=== PATIENT | female | born 1955 | race Caucasian/White ===

== ENCOUNTER → 2017-07-18 | Outpatient (CLI) | payer BC ==
--- NOTE | 2017-07-18 11:19 | MR ---
EXAMINATION TYPE: MR lumbar spine wo con DATE OF EXAM: 07/18/2017 COMPARISON: NONE HISTORY: 62-year-old female with low back pain TECHNIQUE: Multiplanar, multisequence images of the lumbar spine were acquired. FINDINGS: Left kidney appears slightly malrotated. Vertebral body heights are preserved and alignment is maintained. Fatty matrix hemangioma within T12 vertebral body. Also, some Modic type II fatty endplate changes pr esent anteriorly at L1-L2 and L2-L3. Otherwise, no suspicious bone marrow placement. Variable mild disc desiccation and mild bulging discs are noted along with facet arthropathy mid to l ower lumbar spine. Conus medullaris is normal. At T12-L1, no canal or foraminal stenosis. At L1-L2, no canal or foraminal stenosis. At L2-L3, mild diffuse disc bulge without significant canal or foraminal stenosis. At L3-L4, mild bulging disc with mild ligamentum flavum thickening and additional facet arthropathy. There is mild impression onto the thecal sac but no significant spinal canal or neuroforaminal stenos is. At L4-L5, mild bulging disc and facet degenerative change. Mild impression onto the thecal sac withou t significant spinal canal or neuroforaminal stenosis. At L5-S1, minimal disc bulging and mild facet arthropathy. No significant canal or foraminal stenosis . No prevertebral or paravertebral soft tissue abnormality seen. IMPRESSION: 1. Mild multilevel degenerative disc disease. Additional facet arthropathy mid to lower lumbar spine. 2. No significant spinal canal or neuroforaminal stenosis.
== END | disposition home or self-care (01) ==
LOC: RADMRIMAIN 08:05
PROVIDERS: ATTEND Internal Medicine
DX: M51.36 Other intervertebral disc degeneration, lumbar region (principal); M46.86 Other specified inflammatory spondylopathies, lumbar region
CPT/HCPCS: 72148

== ENCOUNTER → 2018-09-03 | Outpatient (CLI) | payer OTHER ==
--- NOTE | 2018-09-04 11:11 | MM ---
Reason for exam: screening (asymptomatic). Last mammogram was performed 4 years and 1 month ago. History: Patient is postmenopausal. Physical Findings: A clinical breast exam by your physician is recommended on an annual basis and results should be correlated with mammographic findings. MG Screening Mammo w CAD Bilateral CC and MLO view(s) were taken. Prior study comparison: August 17, 2014, bilateral MG screening mammo w CAD. April 08, 2007, bilateral screening mammogram w/CAD. There are scattered fibroglandular densities. No significant changes when compared with prior studies. ASSESSMENT: Benign, BI-RAD 2 RECOMMENDATION: Routine screening mammogram of both breasts in 1 year.
== END | disposition home or self-care (01) ==
LOC: RADMAMWWP 15:08
PROVIDERS: ATTEND Internal Medicine
DX: Z12.31 Encounter for screening mammogram for malignant neoplasm of breast (principal)
CPT/HCPCS: 77067

== ENCOUNTER 2023-03-17 18:52 | Inpatient (IN) | payer MEDICARE, OTHER ==
[2023-03-17] MEDS ORDERED: IPRATROPIUM-ALBUTEROL 3 ML NEB INHALATION STA (19:20)
[2023-03-17] MEDS ORDERED: DEXAMETHASONE SOD PHOSPHATE 10 MG/ML 1 ML VIAL IV STA (19:20)
--- NOTE | 2023-03-17 19:29 | ED ---
General Adult HPI - General Source: patient, EMS Mode of arrival: EMS Limitations: no limitations <Hector Headley - Last Filed: 03/17/23 21:27> <Regina Arora - Last Filed: 03/18/23 10:05> - General Chief complaint: Shortness of Breath Stated complaint: Altered Mental Status Time Seen by Provider: 03/17/23 19:05 - History of Present Illness Initial comments: Dictation was produced using Stribe dictation software. please excuse any grammatical, word or spelling errors. Chief Complaint: 68-year-old female presents to the emergency by for dyspnea and presyncope History of Present Illness: 68-year-old female she has multiple comorbidities including depression, diabetes and hypertension. Patient continues to smoke cigarettes. States that for the last couple weeks she's been having shortness of breath. Today she became so short of breath that she was having difficulty standing up and ambulating. Patient denies having any episodes of syncope today. Patient is brought in by EMS. Family at the bedside states the patient is lethargic appearing. Patient has a cough. Denies any fever constitutional symptoms. The ROS documented in this emergency department record has been reviewed and confirmed by me. Those systems with pertinent positive or negative responses have been documented in the HPI. All other systems are other negative and/or noncontributory. (Hector Headley) - Related Data Home Medications Medication Instructions Recorded Confirmed Lisinopril-Hctz 20-25 mg 1 tab PO BID 03/09/14 03/17/23 [Zestoretic 20-25] Metoprolol Succinate (ER) [Toprol 25 mg PO DAILY 03/09/14 03/17/23 XL] amLODIPine [Norvasc] 10 mg PO DAILY 03/09/14 03/17/23 ARIPiprazole [Abilify] 10 mg PO DAILY 03/17/23 03/17/23 Atorvastatin [Lipitor] 40 mg PO HS 03/17/23 03/17/23 Dulaglutide [Trulicity] 1.5 mg SQ SA 03/17/23 03/17/23 EPINEPHrine [Primatene Mist] 1 puff INHALATION RT-QID PRN 03/17/23 03/17/23 HYDROcodone/APAP 10-325MG [[place] 1 tab PO Q8H PRN 03/17/23 03/17/23 10-325] Insulin Glargine,Hum.rec.anlog 108 units SQ DAILY 03/17/23 03/17/23 [Nelsonpolina Montero] Naloxone HCl [Narcan] 4 mg NASAL DIRECTED PRN 03/17/23 03/17/23 Nicotine 21Mg/24Hr Patch [Habitrol] 1 patch TRANSDERM HS 03/17/23 03/17/23 Oxybutynin ER [Ditropan XL] 10 mg PO DAILY 03/17/23 03/17/23 Pantoprazole [Protonix] 40 mg PO DAILY 03/17/23 03/17/23 Vilazodone HCl [Viibryd] 40 mg PO HS 03/17/23 03/17/23 metFORMIN HCL 1,000 mg PO BID 03/17/23 03/17/23 Previous Rx's Medication Instructions Recorded Clopidogrel [Plavix] 75 mg PO DAILY #30 tab 05/22/14 Allergies Allergy/AdvReac Type Severity Reaction Status Date / Time IV DYE Allergy Rash/Hives Uncoded 03/17/23 22:03 Review of Systems ROS Other: All systems not noted in ROS Statement are negative. <Hector Headley - Last Filed: 03/17/23 21:27> ROS Other: All systems not noted in ROS Statement are negative. <Regina Arora - Last Filed: 03/18/23 10:05> ROS Statement: Those systems with pertinent positive or pertinent negative responses have been documented in the HPI. Past Medical History Past Medical History: COPD, Diabetes Mellitus, GERD/Reflux, Hyperlipidemia, Hypertension Additional Past Medical History / Comment(s): CHRONIC BACK PAIN, Type 2 History of Any Multi-Drug Resistant Organisms: None Reported Past Surgical History: Heart Catheterization With Stent, Tubal Ligation Additional Past Surgical History / Comment(s): angioplasty with 1 stent 03/10/14 and heart cath with stent 03/24/14 Past Anesthesia/Blood Transfusion Reactions: Previous Problems w/ Anesthesia Additional Past Anesthesia/Blood Transfusion Reaction / Comment(s): HYPERTENSIVE REACTION (ALMOST HAD A STROKE) Date of Last Stent Placement:: 2013 Past Psychological History: Depression Smoking Status: Current every day smoker Past Alcohol Use History: None Reported Past Drug Use History: None Reported - Past Family History Sister(s) Family Medical History: Neurologic Disorder Additional Family Medical History / Comment(s): OF ANEURYSM Mother Family Medical History: Cancer Additional Family Medical History / Comment(s): COLON <Hector Headley - Last Filed: 03/17/23 21:27> General Exam Limitations: no limitations <Hector Headley - Last Filed: 03/17/23 21:27> - General Exam Comments Initial Comments: PHYSICAL EXAM: General Impression: Alert and oriented x3, malaised HEENT: Normocephalic atraumatic, extra-ocular movements intact, pupils equal and reactive to light bilaterally, dry mucous membranes. Cardiovascular: Heart regular rate and rhythm Chest: Poor air exchange with auscultation of the lungs Abdomen: abdomen soft, non-tender, non-distended, no organomegaly Musculoskeletal: Pulses present and equal in all extremities, no peripheral e angi Motor: no focal deficits noted Neurological: CN II-XII grossly intact, no focal motor or sensory deficits noted Skin: Intact with no visualized rashes Psych: Normal affect and mood (Hector Headley) Course Vital Signs 03/17/23 03/17/23 03/17/23 18:53 19:04 19:33 Temperature 99.0 F Pulse Rate 128 H 128 H Respiratory 24 24 Rate Blood Pressure 149/63 O2 Sat by Pulse 94 L Oximetry 03/17/23 03/17/23 03/17/23 19:39 20:00 22:53 Temperature 102.1 F H Pulse Rate 124 H 118 H Respiratory 20 20 Rate Blood Pressure 153/88 O2 Sat by Pulse 95 Oximetry Medical Decision Making - Lab Data Result diagrams: 03/17/23 19:48 03/17/23 19:48 <Hector Headley - Last Filed: 03/17/23 21:27> - Lab Data Result diagrams: 03/17/23 19:48 03/17/23 19:48 <Regina Arora - Last Filed: 03/18/23 10:05> - Medical Decision Making Was pt. sent in by a medical professional or institution (, PA, ASSISTANT SUPERINTENDENT, urgent care, hospital, or snf...) When possible be specific @ -No Did you speak to anyone other than the patient for history (EMS, parent, family, police, friend...)? What history was obtained from this source @ -Family members at bedside states the patient is short of breath Did you review nursing and triage notes (agree or disagree)? Why? @ -I reviewed and agree with nursing and triage notes Were old charts reviewed (outside hosp., previous admission, EMS record, old EKG, old radiological studies, urgent care reports/EKG's, snf records)? Report findings @ -No old charts were reviewed Differential Diagnosis (chest pain, altered mental status, abdominal pain women, abdominal pain men, vaginal bleeding, musculoskeletal, weakness, fever, dyspnea, syncope, headache, dizziness, GI bleed, back pain, seizure, CVA, palpatations, mental health)? @ -Differential Dyspnea: Coronary syndrome, arrhythmia, tamponade, asthma, COPD, pulmonary embolism, pneumonia, pneumothorax, pulmonary effusion, anaphylaxis, diabetic ketoacidosis, flailed chest, pulmonary contusion, diaphragmatic rupture, anemia, neuromuscular, this is not meant to be an all-inclusive list. EKG interpreted by me (3pts min.). @ -My EKG interpretation: Ventricular rate 133, A. fib, QRS 81, QTc 384. No WI prolongation, no QTC prolongation, no ST or T-wave changes noted. EKG is suspicious for an onset A. fib X-rays interpreted by me (1pt min.). @ -2 View chest x-ray is unremarkable CT interpreted by me (1pt min.). @ -Pending CT angiography U/S interpreted by me (1pt. min.). @ -None done What testing was considered but not performed or refused? (CT, X-rays, U/S, labs)? Why? @ -None What meds were considered but not given or refused? Why? @ -None Did you discuss the management of the patient with other professionals (professionals i.e. , PA, ASSISTANT SUPERINTENDENT, lab, RT, psych nurse, social sciences research scientist, right of way man, teacher, tactical intelligence officer, director of casework services)? Give summary @ -Case discussed with Dr. Zvaala for admission Was smoking cessation discussed for >3mins.? @ -No Was critical care preformed (if so, how long)? @ -Yes, 33 minutes Were there social determinants of health that impacted care today? How? (Homelessness, low income, unemployed, alcoholism, drug addiction, transportation, low edu. Level, literacy, decrease access to med. care, fdc, rehab)? @ -No Was there de-escalation of care discussed even if they declined (Discuss DNR or withdrawal of care, Hospice)? DNR status @ -No What co-morbidities impacted this encounter? (DM, HTN, Smoking, COPD, CAD, Cancer, CVA, ARF, Chemo, Hep., AIDS, mental health diagnosis, sleep apnea, morbid obesity)? @ -None Was patient admitted / discharged? Hospital course, mention meds given and rou te, prescriptions, significant lab abnormalities, going to OR and other pertinent info. @ -68-year-old female presents to the emergency department for weakness and dyspnea. Vital signs upon arrival shows tachycardia 128, 94% on room air. She does seem a bit dyspneic. She has poor air exchange with auscultation to the lungs. Patient ordered for breathing treatment. Patient reports improvement after breathing treatment. Laboratory evaluation obtained so doses of 25.1, d-d fortino 1.44. Lactic acid was 3.4. Troponin 0.029, BNP of 4420. Viral testing is negative. Chest x-ray is nonacute for pneumonia or acute processes. Patient pending CT angiography. Patient started heparin. Undiagnosed new problem with uncertain prognosis? @ -No Drug Therapy requiring intensive monitoring for toxicity (Heparin, Nitro, Insul in, Cardizem)? @ -No Were any procedures done? @ -No Diagnosis/symptom? Acute, or Chronic, or Acute on Chronic? Uncomplicated (without systemic symptoms) or Complicated (systemic symptoms)? @ -1. New-onset A. fib, 2. COPD exacerbation Side effects of treatment? @ -No Exacerbation, Progression, or Severe Exacerbation? @ -No Poses a threat to life or bodily function? How? (Chest pain, USA, MS, pneumonia, PE, COPD, DKA, ARF, appy, cholecystitis, CVA, Diverticulitis, Homicidal, Suicidal, threat to staff... and all critical care pts) @ -yes (Hector Headley) 1645 - source of infection is unknown. Broad spectrum antibiotics ordered for possible respiratory source. Urinalysis will be obtained. (Regina Arora) - Lab Data Lab Results 03/17/23 03/17/23 03/17/23 Range/Units 19:48 19:48 19:48 WBC 25.1 H (3.8-10.6) k/uL RBC 5.14 (3.80-5.40) m/uL Hgb 15.0 (11.4-16.0) gm/dL Hct 47.4 H (34.0-46.0) % MCV 92.2 (80.0-100.0) fL MCH 29.2 (25.0-35.0) pg MCHC 31.7 (31.0-37.0) g/dL RDW 13.6 (11.5-15.5) % Plt Count 322 (150-450) k/uL MPV 7.7 Neutrophils % 90 % Lymphocytes % 5 % Monocytes % 4 % Eosinophils % 0 % Basophils % 0 % Neutrophils # 22.6 H (1.3-7.7) k/uL Lymphocytes # 1.1 (1.0-4.8) k/uL Monocytes # 1.0 (0-1.0) k/uL Eosinophils # 0.0 (0-0.7) k/uL Basophils # 0.1 (0-0.2) k/uL D-Dimer (<0.60) mg/L FEU Sodium 137 (137-145) mmol/L Potassium 3.8 (3.5-5.1) mmol/L Chloride 98 (98-107) mmol/L Carbon Dioxide 24 (22-30) mmol/L Anion Gap 15 mmol/L BUN 19 H (7-17) mg/dL Creatinine 0.98 (0.52-1.04) mg/dL Est GFR (CKD-EPI)AfAm 70 (>60 ml/min/1.73 sqM) Est GFR (CKD-EPI)NonAf 60 (>60 ml/min/1.73 sqM) Glucose 317 H (74-99) mg/dL POC Glucose (mg/dL) (70-110) mg/dL POC Glu Brick Chimney Builder ID Lactic Ac Sepsis Rflx Plasma Lactic Acid Benedicto 3.4 H* (0.7-2.0) mmol/L Calcium 9.5 (8.4-10.2) mg/dL Magnesium 1.1 L (1.6-2.3) mg/dL Total Bilirubin 0.8 (0.2-1.3) mg/dL AST 24 (14-36) U/L ALT 24 (4-34) U/L Alkaline Phosphatase 104 (38-126) U/L Troponin I (0.000-0.034) ng/mL NT-Pro-B Natriuret Pep 4420 pg/mL Total Protein 7.8 (6.3-8.2) g/dL Albumin 4.1 (3.5-5.0) g/dL Influenza Type A (PCR) (Not Detectd) Influenza Type B (PCR) (Not Detectd) RSV (PCR) (Not Detectd) SARS-CoV-2 (PCR) (Not Detectd) 03/17/23 03/17/23 03/17/23 Range/Units 19:48 19:48 19:48 WBC (3.8-10.6) k/uL RBC (3.80-5.40) m/uL Hgb (11.4-16.0) gm/dL Hct (34.0-46.0) % MCV (80.0-100.0) fL MCH (25.0-35.0) pg MCHC (31.0-37.0) g/dL RDW (11.5-15.5) % Plt Count (150-450) k/uL MPV Neutrophils % % Lymphocytes % % Monocytes % % Eosinophils % % Basophils % % Neutrophils # (1.3-7.7) k/uL Lymphocytes # (1.0-4.8) k/uL Monocytes # (0-1.0) k/uL Eosinophils # (0-0.7) k/uL Basophils # (0-0.2) k/uL D-Dimer 1.44 H (<0.60) mg/L FEU Sodium (137-145) mmol/L Potassium (3.5-5.1) mmol/L Chloride (98-107) mmol/L Carbon Dioxide (22-30) mmol/L Anion Gap mmol/L BUN (7-17) mg/dL Creatinine (0.52-1.04) mg/dL Est GFR (CKD-EPI)AfAm (>60 ml/min/1.73 sqM) Est GFR (CKD-EPI)NonAf (>60 ml/min/1.73 sqM) Glucose (74-99) mg/dL POC Glucose (mg/dL) (70-110) mg/dL POC Glu B[employer] [place] Builder ID Lactic Ac Sepsis Rflx Plasma Lactic Acid Benedicto (0.7-2.0) mmol/L Calcium (8.4-10.2) mg/dL Magnesium (1.6-2.3) mg/dL Total Bilirubin (0.2-1.3) mg/dL AST (14-36) U/L ALT (4-34) U/L Alkaline Phosphatase (38-126) U/L Troponin I 0.029 (0.000-0.034) ng/mL NT-Pro-B Natriuret Pep pg/mL Total Protein (6.3-8.2) g/dL Albumin (3.5-5.0) g/dL Influenza Type A (PCR) Not Detected (Not Detectd) Influenza Type B (PCR) Not Detected (Not Detectd) RSV (PCR) Not Detected (Not Detectd) SARS-CoV-2 (PCR) Not Detected (Not Detectd) 03/17/23 03/17/23 Range/Units 20:18 20:29 WBC (3.8-10.6) k/uL RBC (3.80-5.40) m/uL Hgb (11.4-16.0) gm/dL Hct (34.0-46.0) % MCV (80.0-100.0) fL MCH (25.0-35.0) pg MCHC (31.0-37.0) g/dL RDW (11.5-15.5) % Plt Count (150-450) k/uL MPV Neutrophils % % Lymphocytes % % Monocytes % % Eosinophils % % Basophils % % Neutrophils # (1.3-7.7) k/uL Lymphocytes # (1.0-4.8) k/uL Monocytes # (0-1.0) k/uL Eosinophils # (0-0.7) k/uL Basophils # (0-0.2) k/uL D-Dimer (<0.60) mg/L FEU Sodium (137-145) mmol/L Potassium (3.5-5.1) mmol/L Chloride (98-107) mmol/L Carbon Dioxide (22-30) mmol/L Anion Gap mmol/L BUN (7-17) mg/dL Creatinine (0.52-1.04) mg/dL Est GFR (CKD-EPI)AfAm (>60 ml/min/1.73 sqM) Est GFR (CKD-EPI)NonAf (>60 ml/min/1.73 sqM) Glucose (74-99) mg/dL POC Glucose (mg/dL) 341 H (70-110) mg/dL POC Glu Brick [employer] Builder ID Jenelle Garcia Lactic Ac Sepsis Rflx Y Plasma Lactic Acid Benedicto (0.7-2.0) mmol/L Calcium (8.4-10.2) mg/dL Magnesium (1.6-2.3) mg/dL Total Bilirubin (0.2-1.3) mg/dL AST (14-36) U/L ALT (4-34) U/L Alkaline Phosphatase (38-126) U/L Troponin I (0.000-0.034) ng/mL NT-Pro-B Natriuret Pep pg/mL Total Protein (6.3-8.2) g/dL Albumin (3.5-5.0) g/dL Influenza Type A (PCR) (Not Detectd) Influenza Type B (PCR) (Not Detectd) RSV (PCR) (Not Detectd) SARS-CoV-2 (PCR) (Not Detectd) Disposition <Hector Headley - Last Filed: 03/17/23 21:27> Is patient prescribed a controlled substance at d/c from ED?: No <Regina Arora - Last Filed: 03/18/23 10:05> Clinical Impression: COPD (chronic obstructive pulmonary disease), Atrial fibrillation with rapid ventricular response, Acute respiratory insufficiency, Pyrexia, Sepsis Disposition: ADMITTED IP TO THIS HOSP Condition: Serious
[2023-03-17 20:05] LABS: Basophils # (A) 0.1 k/uL (0-0.2); Basophils % (A) 0 %; Eosinophils % (A) 0 %; HCT 47.4 % (34.0-46.0); Lymphocytes # (A) 1.1 k/uL (1.0-4.8); Lymphocytes % (A) 5 %; MCH 29.2 pg (25.0-35.0); MCHC 31.7 g/dL (31.0-37.0); MCV 92.2 fL (80.0-100.0); Mean Platelet Volume 7.7; Monocytes % (A) 4 %; Neutrophils # (A) 22.6 k/uL (1.3-7.7); Neutrophils % (A) 90 %; Platelet Count 322 k/uL (150-450); RBC 5.14 m/uL (3.80-5.40); RDW 13.6 % (11.5-15.5); WBC 25.1 k/uL (3.8-10.6)
[2023-03-17 20:23] LABS: ALT 24 U/L (4-34); AST 24 U/L (14-36); African American GFR (CKD) 70 (>60 ml/min/1.73 sqM); Albumin 4.1 g/dL (3.5-5.0); Alkaline Phosphatase 104 U/L (38-126); Anion Gap 15 mmol/L; Blood Urea Nitrogen 19 mg/dL (7-17); Calcium 9.5 mg/dL (8.4-10.2); Carbon Dioxide 24 mmol/L (22-30); Chloride 98 mmol/L (98-107); Glucose 317 mg/dL (74-99); Magnesium 1.1 mg/dL (1.6-2.3); Non-African American GFR(CKD) 60 (>60 ml/min/1.73 sqM); Potassium 3.8 mmol/L (3.5-5.1); Sodium 137 mmol/L (137-145); Total Bilirubin 0.8 mg/dL (0.2-1.3); Total Protein 7.8 g/dL (6.3-8.2)
--- NOTE | 2023-03-17 20:24 | XR ---
EXAMINATION TYPE: XR chest 2V DATE OF EXAM: 03/17/2023 8:13 PM CLINICAL INDICATION:Female, 68 years old with history of dyspnea; [facility] COMPARISON: Chest radiographs from 03/09/2014 TECHNIQUE: XR chest 2V Frontal and lateral views of the chest. FINDINGS: Lungs/Pleura: There is no evidence of pleural effusion, focal consolidation, or pneumothorax. Pulmonary vascularity: Unremarkable. Heart/mediastinum: Cardiomediastinal silhouette is prominent in size. Musculoskeletal: No acute osseous pathology. Other findings: None IMPRESSION: No acute cardiopulmonary disease/process.
[2023-03-17 20:30] LABS: Glucose,Whole Blood 341 mg/dL (70-110)
[2023-03-17 20:31] LABS: NT-Pro-B-Type Natriuretic Pept 4420 pg/mL
[2023-03-17] MEDS ORDERED: FAMOTIDINE 20 MG/2 ML VIAL IV STA (21:18)
[2023-03-17] MEDS ORDERED: methylPREDNISolone SOD SUCCI 125 MG/2 ML VIAL IV STA (21:18)
[2023-03-17] MEDS ORDERED: diphenhydrAMINE 50 MG/ML 1 ML VIAL IVP STA (21:18)
[2023-03-17] MEDS ORDERED: HEPARIN SODIUM 1,000 UN/ML (10ML VL) IV ONE (21:22)
[2023-03-17] MEDS: HEPARIN SOD,PORK IN 0.45% NACL 25,000 UNIT in 0.45% NACL 1 250ML.BAG IV SCH (21:49)
[2023-03-17] MEDS ORDERED: NALOXONE 0.4 MG/ML 1 ML VIAL IV PRN (21:54)
[2023-03-17] MEDS: DILTIAZEM 125 MG in SODIUM CHLORIDE 0.9% 100 ML IV SCH (22:39)
[2023-03-17] MEDS ORDERED: ACETAMINOPHEN TAB 500 MG TAB PO STA (22:56)
[2023-03-17] MEDS ORDERED: AZITHROMYCIN 500 MG in SODIUM CHLORIDE 0.9% 250 ML IVPB STA (23:02)
[2023-03-17] MEDS: SODIUM CHLORIDE 0.9% 1,000 ML IV SCH (23:19)
[2023-03-17] MEDS: MAGNESIUM SULFATE-D5W PMX 1 GM in DEXTROSE/WATER 1 100ML.BAG IVPB SCH (23:23)
--- NOTE | 2023-03-17 23:34 | CT ---
EXAM: CT Head Without Intravenous Contrast CLINICAL HISTORY: ITS.REASON CT Reason: altered mental status TECHNIQUE: Axial computed tomography images of the head/brain without intravenous contrast. CTDI is 49.1 mGy and DLP is 1118 mGy-cm. This CT exam was performed using one or more of the following dose reduction techniques: automated exposure control, adjustment of the mA and/or kV according to patient size, and/or use of iterative reconstruction technique. COMPARISON: No relevant prior studies available. FINDINGS: No acute intracranial hemorrhage. No midline shift or mass effect. The territorial moore-white matter differentiation is maintained throughout. Age-related cerebral volume loss. Periventricular and subcortical white matter hypoattenuation, consistent with chronic microangiopathy. The visualized orbits appear grossly unremarkable. The calvarium is intact. The visualized paranasal sinuses and mastoid air cells are grossly clear. IMPRESSION: No acute intracranial hemorrhage, midline shift, or mass effect.
--- NOTE | 2023-03-17 23:38 | CT ---
EXAM: CT Angiography Chest With Intravenous Contrast CLINICAL HISTORY: ITS.REASON CT Reason: positive D-dimer TECHNIQUE: Axial computed tomographic angiography images of the chest with intravenous contrast. CTDI is 21 mGy and DLP is 554.2 mGy-cm. This CT exam was performed using one or more of the following dose reduction techniques: automated exposure control, adjustment of the mA and/or kV according to patient size, and/or use of iterative reconstruction technique. MIP reconstructed images were created and reviewed. COMPARISON: No relevant prior studies available. FINDINGS: Pulmonary arteries: Unremarkable. No acute pulmonary embolism. Aorta: Atherosclerotic changes of the aorta. No thoracic aortic aneurysm. Lungs: Unremarkable. No mass. No consolidation. Pleural space: Unremarkable. No focal infiltrate, pleural effusion, or pneumothorax. Heart: Cardiomegaly. No significant pericardial effusion. No evidence of RV dysfunction. Thyroid: RIGHT thyroid nodule measuring 11 mm. Bones/joints: Degenerative changes of the spine. No acute fracture. No dislocation. Soft tissues: Unremarkable. Lymph nodes: Unremarkable. No enlarged lymph nodes. IMPRESSION: 1. No acute pulmonary embolism. 2. No focal infiltrate, pleural effusion, or pneumothorax.
[2023-03-18] MEDS: AZITHROMYCIN 500 MG in SODIUM CHLORIDE 0.9% 250 ML IVPB SCH (01:50)
[2023-03-18] MEDS: MAGNESIUM SULFATE-D5W PMX 1 GM in DEXTROSE/WATER 1 100ML.BAG IVPB SCH (02:39)
[2023-03-18] MEDS ORDERED: IPRATROPIUM-ALBUTEROL 3 ML NEB INHALATION STA (05:32)
[2023-03-18] MEDS ORDERED: IPRATROPIUM-ALBUTEROL 3 ML NEB INHALATION PRN (05:52)
[2023-03-18 06:00] LABS: Glucose,Whole Blood 372 mg/dL (70-110)
[2023-03-18] MEDS: IPRATROPIUM-ALBUTEROL 3 ML NEB INHALATION SCH ×4 (08:00→21:27)
[2023-03-18] MEDS: HEPARIN SODIUM 1,000 UN/ML (10ML VL) IV PRN (09:21)
[2023-03-18] MEDS: INSULIN ASPART (NovoLOG) 100 UNIT/ML VIAL SQ SCH ×3 (09:26→16:28)
[2023-03-18 09:29] LABS: Glucose,Whole Blood 419 mg/dL (70-110)
[2023-03-18 11:42] LABS: Glucose,Whole Blood 351 mg/dL (70-110)
[2023-03-18] MEDS ORDERED: DILTIAZEM DRIP BOLUS FROM BAG 1 MG SOLN IV ONE ×2 (12:05→18:00)
[2023-03-18] MEDS ORDERED: NON FORMULARY DRUG (Naloxone Hcl [Narcan] 4 MG Each) NASAL PRN (12:44)
[2023-03-18] MEDS ORDERED: NON FORMULARY DRUG (Epinephrine [Primatene Mist] 11.7 GM Each) INHALATION PRN (12:44)
[2023-03-18] MEDS: NICOTINE 21MG/24HR PATCH TRANSDERM SCH (12:51)
[2023-03-18] MEDS: CLOPIDOGREL 75 MG TAB PO SCH (12:51)
--- NOTE | 2023-03-18 13:28 | CONS ---
CONSULTATION HISTORY OF PRESENT ILLNESS: Marina Radford is a 68-year-old lady who has been admitted to the hospital with increasing shortness of breath. She was admitted through the emergency room last evening with shortness of breath that were progressively worse. Unfortunately, she continues to smoke, has underlying diabetes, hypertension, depression, but no documented CAD. While she was here, she went into atrial fibrillation with a moderately rapid ventricular rate and I was asked to see her in this regard. At the time of my evaluation, her breathing was still not optimal, but better than it was when she came in. Her white count is also significantly elevated, but she has also received intravenous steroids. She is breathing more comfortably today. Her ProBNP is 4420. Renal function appears to be in the normal range. EKG revealed atrial fibrillation with moderately rapid ventricular rate, isolated PVCs and nonspecific ST-T changes. The patient also had a CT angiogram performed because of elevated D-dimer and there was no evidence of any acute pulmonary embolism. PAST MEDICAL HISTORY: 1. Smoking and COPD. 2. Hyperlipidemia. 3. Type 2 diabetes. 4. Hypertension. PHYSICAL EXAMINATION: VITAL SIGNS: Blood pressure is 130/70, pulse rate is about 120, irregular. HEENT: Unremarkable. Fundus was not examined by me. NECK: Supple. There is JVD of 1 cm. No carotid bruit. CARDIAC: S1 and S2 heard normally with irregular rhythm. Short systolic murmur. LUNGS: Diminished air entry. ABDOMEN: Soft, nontender. EXTREMITIES: Lower extremities reveal diminished pulses. CENTRAL NERVOUS SYSTEM: Normal. IMAGING: EKG revealed atrial fibrillation, moderately rapid ventricular rate, nonspecific ST-T changes. IMPRESSION: 1. New onset atrial fibrillation, rapid rate. 2. Exacerbation of chronic obstructive pulmonary disease. 3. History of smoking. RECOMMENDATIONS: I will obtain echocardiogram, a TSH level and a free T4 level. I will give additional dose of intravenous Cardizem and increase the drip. The patient is already on steroids and antibiotics. Prognosis remains guarded. Thank you very much for the consult. MMODL / IJN: [id number] /
--- NOTE | 2023-03-18 13:43 | P.CNPUL ---
History of Present Illness Consult date: 03/18/23 Reason for consult: dyspnea History of present illness: This is a 68-year-old female patient was hospitalized with various complaints and I was involved in the case because of concerns of shortness of breath. The patient came into the hospital because of altered mentation, apparently she was having fever at home, and at the same time, she was having gastrointestinal issues with nausea, diarrhea, and fluid intolerance. She is diabetic and r ecently she was started on Trulicity once a week injections and she thinks that she is having a reaction to the medication. At the same time the patient is on glargine insulin a total of 108 units a day in addition to metformin for blood sugar control. She states that her blood sugars were quite elevated an outpatient basis. She is also known to have diabetes mellitus type 2, hypertension, hyperlipidemia and history of COPD and the patient is a chronic smoker. The patient came into the ED and the patient a white cell count of 25, hemoglobin of 15, BUN was 19 with a creatinine of 0.98 and a sodium level is at 137. Initial lactic acid level was at 3.4. Normal LFTs. ProBNP level was 4420 , Covid 19 testing and the rest of the viral screen was all negative. The patient continues to have an elevated blood sugar and the most recent blood sugar measurement is at 351. In addition, the patient had a CAT scan of the brain that showed no acute abnormalities. There is no evidence of any bleed or a CVA. EKG that was done at time of admission showed atrial fibrillation with RVR and a CT angiogram was also done in the emergency department indicating no evidence of any pulmonary embolism. No acute pulmonary infiltrate pleural effusion or pneumothorax. She is not using any form of maintenance as for medications at home. She is not oxygen dependent. She was covered with Rocephin and Zithromax. She was started also on IV heparin regarding her atrial fibrillation. She is known to have peripheral vascular disease followed up by interventional cardiology. Review of Systems Constitutional: Reports as per HPI Eyes: denies as per HPI, denies blurred vision, denies bulging eye, denies decreased vision, denies diplopia, denies discharge, denies dry eye, denies irritation, denies itching, denies pain, denies photophobia, denies loss of peripheral vision, denies loss of vision, denies tunnel vision/blind spots Ears: deny: decreased hearing, ear discharge, earache, tinnitus Ears, nose, mouth and throat: Reports as per HPI Breasts: absent: as per HPI, change in shape, gynecomastia, masses, nipple discharge, pain, skin changes, swelling Cardiovascular: Reports decreased exercise tolerance, Reports dyspnea on exe rtion Respiratory: Reports cough with sputum Gastrointestinal: Reports as per HPI, Reports diarrhea, Reports nausea Genitourinary: Reports as per HPI Musculoskeletal: Reports as per HPI Musculoskeletal: absent: ankle pain, ankle stiffness, ankle swelling Integumentary: Reports as per HPI Neurological: Reports as per HPI Psychiatric: Reports as per HPI Endocrine: Reports as per HPI Hematologic/Lymphatic: Reports as per HPI Allergic/Immunologic: Reports as per HPI Past Medical History Past Medical History: Coronary Artery Disease (CAD), COPD, Diabetes Mellitus, GERD/Reflux, Hyperlipidemia, Hypertension Additional Past Medical History / Comment(s): CHRONIC BACK PAIN, Type 2 DM History of Any Multi-Drug Resistant Organisms: None Reported Past Surgical History: Heart Catheterization With Stent, Tubal Ligation Additional Past Surgical History / Comment(s): angioplasty with 1 stent 03/10/14 and heart cath with stent 03/24/14 Past Anesthesia/Blood Transfusion Reactions: Previous Problems w/ Anesthesia Additional Past Anesthesia/Blood Transfusion Reaction / Comment(s): HYPERTENSIVE REACTION (ALMOST HAD A STROKE) Date of Last Stent Placement:: 2013 Past Psychological History: Depression Smoking Status: Current every day smoker Past Alcohol Use History: None Reported Past Drug Use History: None Reported - Past Family History Sister(s) Family Medical History: Neurologic Disorder Additional Family Medical History / Comment(s): OF ANEURYSM Mother Family Medical History: Cancer Additional Family Medical History / Comment(s): COLON Medications and Allergies Home Medications Medication Instructions Recorded Confirmed Type Lisinopril-Hctz 20-25 mg 1 tab PO BID 03/09/14 03/17/23 History [Zestoretic 20-25] Metoprolol Succinate (ER) [Toprol 25 mg PO DAILY 03/09/14 03/17/23 History XL] amLODIPine [Norvasc] 10 mg PO DAILY 03/09/14 03/17/23 History Clopidogrel [Plavix] 75 mg PO DAILY #30 tab 05/22/14 03/17/23 Rx ARIPiprazole [Abilify] 10 mg PO DAILY 03/17/23 03/17/23 History Atorvastatin [Lipitor] 40 mg PO HS 03/17/23 03/17/23 History Dulaglutide [Trulicity] 1.5 mg SQ SA 03/17/23 03/17/23 History EPINEPHrine [Primatene Mist] 1 puff INHALATION RT-QID PRN 03/17/23 03/17/23 Hi story HYDROcodone/APAP 10-325MG [[place] 1 tab PO Q8H PRN 03/17/23 03/17/23 History 10-325] Insulin Glargine,Hum.rec.anlog 108 units SQ DAILY 03/17/23 03/17/23 History [Toujeo Max Solostar] Naloxone HCl [Narcan] 4 mg NASAL DIRECTED PRN 03/17/23 03/17/23 History Nicotine 21Mg/24Hr Patch [Habitrol] 1 patch TRANSDERM HS 03/17/23 03/17/23 History Oxybutynin ER [Ditropan XL] 10 mg PO DAILY 03/17/23 03/17/23 History Pantoprazole [Protonix] 40 mg PO DAILY 03/17/23 03/17/23 History Vilazodone HCl [Viibryd] 40 mg PO HS 03/17/23 03/17/23 History metFORMIN HCL 1,000 mg PO BID 03/17/23 03/17/23 History Allergies Allergy/AdvReac Type Severity Reaction Status Date / Time IV DYE Allergy Rash/Hives Uncoded 03/17/23 22:03 Physical Exam Vitals: Vital Signs Temp Pulse Pulse Resp BP BP Pulse Ox 03/18/23 09:16 98.3 F 118 H 20 152/86 98 03/18/23 08:00 111 H 20 94 L 03/18/23 05:51 112 H 03/18/23 05:44 120 H 03/18/23 05:00 99.3 F 119 H 26 H 158/74 94 L 03/18/23 02:00 119 H 20 03/18/23 01:52 100.0 F H 113 H 138/74 96 03/17/23 22:53 102.1 F H 118 H 20 153/88 95 03/17/23 20:00 20 03/17/23 19:39 124 H 03/17/23 19:33 128 H 03/17/23 19:04 24 03/17/23 18:53 99.0 F 128 H 24 149/63 94 L Intake and Output 03/17/23 03/18/23 03/18/23 22:59 06:59 14:59 Intake Total 214.385 Balance 214.385 Intake: Intake, IV Titration 114.385 Amount Heparin Sod,Pork in 0.45% 114.385 NaCl 25,000 unit In 0.45 % NaCl 1 250ml.bag @ 12 UNITS/KG/HR 9.961 mls/hr IV .Q24H [facility] Rx#: [id number] Oral 100 Other: Voiding Method Bedpan Bedpan External Catheter External Catheter # Voids 1 Weight 83.007 kg 83.007 kg Breathing is nonlabored and the patient is currently on 3 L O2 nasal cannula Head exam was generally normal. There was no scleral icterus or corneal arcus. Mucous membranes were moist. Neck was supple and without jugular venous distension, thyromegaly, or carotid bruits. Carotids were easily palpable bilaterally. There was no adenopathy. Lungs sounds are diminished and there are clear. No crackles or wheezing at this point in time. Cardiac exam revealed the PMI to be normally situated and sized. The rhythm was regular and no extrasystoles were noted during several minutes of auscultation. The first and second heart sounds were normal and physiologic splitting of the second heart sound was noted. There were no murmurs, rubs, clicks, or gallops. Abdominal exam revealed normal bowel sounds. The abdomen was soft, non-tender, and without masses, organomegaly, or appreciable enlargement of the abdominal aorta. Examination of the extremities revealed easily palpable radial, femoral and pedal pulses. There was no cyanosis, clubbing or edema. Examination of the skin revealed no evidence of significant rashes, suspicious appearing nevi or other concerning lesions. Neurologically, the patient is awake and alert and the patient does not have any focal neurological deficit. Cranial nerves are essentially intact. Results - Laboratory Findings CBC and BMP: 03/17/23 19:48 03/17/23 19:48 ABG WBC 25.1 k/uL (3.8-10.6) H 03/17/23 19:48 RBC 5.14 m/uL (3.80-5.40) 03/17/23 19:48 Hgb 15.0 gm/dL (11.4-16.0) 03/17/23 19:48 Hct 47.4 % (34.0-46.0) H 03/17/23 19:48 MCV 92.2 fL (80.0-100.0) 03/17/23 19:48 MCH 29.2 pg (25.0-35.0) 03/17/23 19:48 MCHC 31.7 g/dL (31.0-37.0) 03/17/23 19:48 RDW 13.6 % (11.5-15.5) 03/17/23 19:48 Plt Count 322 k/uL (150-450) 03/17/23 19:48 MPV 7.7 03/17/23 19:48 Neutrophils % 90 % 03/17/23 19:48 Lymphocytes % 5 % 03/17/23 19:48 Monocytes % 4 % 03/17/23 19:48 Eosinophils % 0 % 03/17/23 19:48 Basophils % 0 % 03/17/23 19:48 Neutrophils # 22.6 k/uL (1.3-7.7) H 03/17/23 19:48 Lymphocytes # 1.1 k/uL (1.0-4.8) 03/17/23 19:48 Monocytes # 1.0 k/uL (0-1.0) 03/17/23 19:48 Eosinophils # 0.0 k/uL (0-0.7) 03/17/23 19:48 Basophils # 0.1 k/uL (0-0.2) 03/17/23 19:48 APTT 31.1 sec (22.0-30.0) H 03/18/23 07:38 D-Dimer 1.44 mg/L FEU (<0.60) H 03/17/23 19:48 Sodium 137 mmol/L (137-145) 03/17/23 19:48 Potassium 3.8 mmol/L (3.5-5.1) 03/17/23 19:48 Chloride 98 mmol/L (98-107) 03/17/23 19:48 Carbon Dioxide 24 mmol/L (22-30) 03/17/23 19:48 Anion Gap 15 mmol/L 03/17/23 19:48 BUN 19 mg/dL (7-17) H 03/17/23 19:48 Creatinine 0.98 mg/dL (0.52-1.04) 03/17/23 19:48 Est GFR (CKD-EPI)AfAm 70 (>60 ml/min/1.73 sqM) 03/17/23 19:48 Est GFR (CKD-EPI)NonAf 60 (>60 ml/min/1.73 sqM) 03/17/23 19:48 Glucose 317 mg/dL (74-99) H 03/17/23 19:48 POC Glucose (mg/dL) 419 mg/dL (70-110) H 03/18/23 09:24 POC Glu [employer] Division Lieutenant ID Kiana Tavarez 03/18/23 09:24 Lactic Ac Sepsis Rflx Y 03/17/23 20:18 Plasma Lactic Acid Benedicto 3.4 mmol/L (0.7-2.0) H* 03/17/23 19:48 Calcium 9.5 mg/dL (8.4-10.2) 03/17/23 19:48 Magnesium 1.1 mg/dL (1.6-2.3) L 03/17/23 19:48 Total Bilirubin 0.8 mg/dL (0.2-1.3) 03/17/23 19:48 AST 24 U/L (14-36) 03/17/23 19:48 ALT 24 U/L (4-34) 03/17/23 19:48 Alkaline Phosphatase 104 U/L (38-126) 03/17/23 19:48 Troponin I 0.029 ng/mL (0.000-0.034) 03/17/23 19:48 NT-Pro-B Natriuret Pep 4420 pg/mL 03/17/23 19:48 Total Protein 7.8 g/dL (6.3-8.2) 03/17/23 19:48 Albumin 4.1 g/dL (3.5-5.0) 03/17/23 19:48 Influenza Type A (PCR) Not Detected (Not Detectd) 03/17/23 19:48 Influenza Type B (PCR) Not Detected (Not Detectd) 03/17/23 19:48 RSV (PCR) Not Detected (Not Detectd) 03/17/23 19:48 SARS-CoV-2 (PCR) Not Detected (Not Detectd) 03/17/23 19:48 PT/INR, D-dimer D-Dimer 1.44 mg/L FEU (<0.60) H 03/17/23 19:48 Abnormal lab findings: Abnormal Labs 03/17/23 03/17/23 03/17/23 19:48 19:48 19:48 WBC 25.1 H Hct 47.4 H Neutrophils # 22.6 H APTT D-Dimer BUN 19 H Glucose 317 H POC Glucose (mg/dL) Plasma Lactic Acid Benedicto 3.4 H* Magnesium 1.1 L 03/17/23 03/17/23 03/18/23 19:48 20:29 05:58 WBC Hct Neutrophils # APTT D-Dimer 1.44 H BUN Glucose POC Glucose (mg/dL) 341 H 372 H Plasma Lactic Acid Benedicto Magnesium 03/18/23 03/18/23 07:38 09:24 WBC Hct Neutrophils # APTT 31.1 H D-Dimer BUN Glucose POC Glucose (mg/dL) 419 H Plasma Lactic Acid Benedicto Magnesium - Diagnostic Findings Chest x-ray: image reviewed CT scan - chest: image reviewed Assessment and Plan Plan: Acute febrile illness, T-max of 102.1. Patient is currently on that investigation. No clear indication for pneumonia. Based on the chest x-ray and the CAT scan findings, there is no acute cardiac pulmonary process. The patient has background COPD. Patient also had leukocytosis and fever work up/sepsis is being contemplated. UA still pending for now. Diabetes mellitus type 2 with poorly controlled blood sugars Mild lactic acidosis COPD, currently on 3 L of oxygen by nasal cannula with a pulse ox of 97% Hypertension Hyperlipidemia Peripheral vascular disease A. fib of new onset with evidence currently response at time of admission, still slightly tachycardic at this point in time. Coronary artery disease Plan Awaiting the results of the UA Blood cultures 2 Antibiotic coverage Monitor white cell count Monitor lactate Monitor blood sugar and the patient was restarted back on insulin Continue home medications Cardiology consultation regarding A. fib Continue IV heparin We'll continue to follow
[2023-03-18 13:53] LABS: ALT 24 U/L (4-34); AST 37 U/L (14-36); African American GFR (CKD) 56 (>60 ml/min/1.73 sqM); Albumin 3.8 g/dL (3.5-5.0); Alkaline Phosphatase 85 U/L (38-126); Anion Gap 13 mmol/L; Blood Urea Nitrogen 30 mg/dL (7-17); Calcium 9.1 mg/dL (8.4-10.2); Carbon Dioxide 26 mmol/L (22-30); Chloride 96 mmol/L (98-107); Glucose 364 mg/dL (74-99); Non-African American GFR(CKD) 48 (>60 ml/min/1.73 sqM); Potassium 3.9 mmol/L (3.5-5.1); Sodium 135 mmol/L (137-145); Total Bilirubin 0.7 mg/dL (0.2-1.3); Total Protein 7.5 g/dL (6.3-8.2)
[2023-03-18 14:51] LABS: Appearance,Urine Clear (Clear); Bilirubin,Urine Negative (Negative); Blood,Urine Moderate (Negative); Color,Urine Light Yellow; Glucose,Urine (UA) 4+ (Negative); Granular Casts,Urine 1 /lpf (0); Ketones,Urine Trace (Negative); Leukocyte Esterase,Urine Moderate (Negative); Mucus,Urine Rare /hpf; Nitrite,Urine Negative (Negative); Protein,Urine 1+ (Negative); RBC,Urine 4 /hpf (0-5); Specific Gravity,Urine 1.029 (1.001-1.035); Squamous Epithelial Cell,Urine 2 /hpf (0-4); Urobilinogen,Urine <2.0 mg/dL (<2.0); WBC,Urine 62 /hpf (0-5)
[2023-03-18] MEDS: metFORMIN 500 MG TAB PO SCH (15:11)
[2023-03-18] MEDS: HEPARIN SOD,PORK IN 0.45% NACL 25,000 UNIT in 0.45% NACL 1 250ML.BAG IV SCH (15:18)
[2023-03-18] MEDS: DILTIAZEM 125 MG in SODIUM CHLORIDE 0.9% 100 ML IV SCH ×2 (15:19→18:05)
[2023-03-18 16:25] LABS: Glucose,Whole Blood 427 mg/dL (70-110)
[2023-03-18] MEDS ORDERED: METOPROLOL SUCCINATE (ER) 25 MG TAB.ER.24H PO STA (17:55)
--- NOTE | 2023-03-18 18:01 | CA ---
Transthoracic Echo Report Name: Marina Radford Age: 68 Gender: F : 1955 Exam Date: 03/18/2023 14:59 Exam Location: [place] [facility] Ht (in): 63 Wt (lb): 183 Ordering Physician: Pino Marie MD ([id number]) Attending/Referring Phys: Washing Machine Mechanic Gregorio Siegel Procedure CPT: Indications: afib Cardiac Hx: Technical Quality: Technically difficult study Contrast 1: Total Dose (mL): Contrast 2: Total Dose (mL): MEASUREMENTS (Male / Female) Normal Values FINDINGS Left Ventricle Normal LV size and wall thicness. Left ventricular ejection fraction is estimated at 40-45 %. Global hypokinesis Right Ventricle Normal right ventricular size. RVSP= 41mmHg. Right Atrium Normal right atrial size. Left Atrium Mild left atrial dilatation. LA volume index= 32ml/m2 Mitral Valve Mild MR.mitral annular calcification. Aortic Valve Trileaflet aortic valve. No aortic valve stenosis or regurgitation. Tricuspid Valve Tricuspid valve not well visualized. Mild TR. Pulmonic Valve Pulmonic valve not well visualized. No pulmonic regurgitation. Pericardium Normal pericardium. Aorta Normal size aortic root CONCLUSIONS Technically difficult study. Moderate global hypokinesis Limited Doppler study with mild mitral and tricuspid regurgitation Previewed by: Dr. Josette Banks MD (Electronically Signed) Final Date: 18 March 2023 18:01
--- NOTE | 2023-03-18 19:01 | P.HPIM ---
History of Present Illness H&P Date: 03/18/23 Marina Radford, is a 68-year-old female who presented to [facility] emergency room with a chief complaint of worsening shortness of breath She was evaluated in the emergency room vital examination on presentation revealed a temperature of 99 pulse 128 respiration 24 blood pressure 149/63 pulse ox 94% on room air Laboratory data reveals a white blood count of 25.1 hemoglobin 15.0 platelet count 322 d-dimer 1.44 BUN 19 creatinine 0.98 lactic acid 3.4 Testing in the emergency room revealed chest x-ray revealed no acute cardiopulmonary disease, EKG revealed atrial fibrillation with rapid ventricular response, CT angiogram of the chest was done in the emergency room and revealed no evidence of acute pulmonary embolism. Patient was admitted to medical floor for further evaluation and treatment Past Medical History Past Medical History: Coronary Artery Disease (CAD), COPD, Diabetes Mellitus, GERD/Reflux, Hyperlipidemia, Hypertension Additional Past Medical History / Comment(s): CHRONIC BACK PAIN, Type 2 DM History of Any Multi-Drug Resistant Organisms: None Reported Past Surgical History: Heart Catheterization With Stent, Tubal Ligation Additional Past Surgical History / Comment(s): angioplasty with 1 stent 03/10/14 and heart cath with stent 03/24/14 Past Anesthesia/Blood Transfusion Reactions: Previous Problems w/ Anesthesia Additional Past Anesthesia/Blood Transfusion Reaction / Comment(s): HYPERTENSIVE REACTION (ALMOST HAD A STROKE) Date of Last Stent Placement:: 2013 Past Psychological History: Depression Smoking Status: Current every day smoker Past Alcohol Use History: None Reported Past Drug Use History: None Reported - Past Family History Sister(s) Family Medical History: Neurologic Disorder Additional Family Medical History / Comment(s): OF ANEURYSM Mother Family Medical History: Cancer Additional Family Medical History / Comment(s): COLON Medications and Allergies Home Medications Medication Instructions Recorded Confirmed Type Lisinopril-Hctz 20-25 mg 1 tab PO BID 03/09/14 03/17/23 History [Zestoretic 20-25] Metoprolol Succinate (ER) [Toprol 25 mg PO DAILY 03/09/14 03/17/23 History XL] amLODIPine [Norvasc] 10 mg PO DAILY 03/09/14 03/17/23 History Clopidogrel [Plavix] 75 mg PO DAILY #30 tab 05/22/14 03/17/23 Rx ARIPiprazole [Abilify] 10 mg PO DAILY 03/17/23 03/17/23 History Atorvastatin [Lipitor] 40 mg PO HS 03/17/23 03/17/23 History Dulaglutide [Trulicity] 1.5 mg SQ SA 03/17/23 03/17/23 History EPINEPHrine [Primatene Mist] 1 puff INHALATION RT-QID PRN 03/17/23 03/17/23 History HYDROcodone/APAP 10-325MG [[place] 1 tab PO Q8H PRN 03/17/23 03/17/23 History 10-325] Insulin Glargine,Hum.rec.anlog 108 units SQ DAILY 03/17/23 03/17/23 History [Toujeo Max Solostar] Naloxone HCl [Narcan] 4 mg NASAL DIRECTED PRN 03/17/23 03/17/23 History Nicotine 21Mg/24Hr Patch [Habitrol] 1 patch TRANSDERM HS 03/17/23 03/17/23 History Oxybutynin ER [Ditropan XL] 10 mg PO DAILY 03/17/23 03/17/23 History Pantoprazole [Protonix] 40 mg PO DAILY 03/17/23 03/17/23 History Vilazodone HCl [Viibryd] 40 mg PO HS 03/17/23 03/17/23 History metFORMIN HCL 1,000 mg PO BID 03/17/23 03/17/23 History Allergies Allergy/AdvReac Type Severity Reaction Status Date / Time IV DYE Allergy Rash/Hives Uncoded 03/17/23 22:03 Physical Exam Vitals: Vital Signs Temp Pulse Pulse Resp BP BP Pulse Ox 03/18/23 12:27 98.6 F 122 H 20 135/82 97 03/18/23 11:19 111 H 20 03/18/23 11:11 110 H 20 03/18/23 09:16 98.3 F 118 H 20 152/86 98 03/18/23 08:10 111 H 20 03/18/23 08:00 111 H 20 94 L 03/18/23 05:51 112 H 03/18/23 05:44 120 H 03/18/23 05:00 99.3 F 119 H 26 H 158/74 94 L 03/18/23 02:00 119 H 20 03/18/23 01:52 100.0 F H 113 H 138/74 96 03/17/23 22:53 102.1 F H 118 H 20 153/88 95 03/17/23 20:00 20 03/17/23 19:39 124 H 03/17/23 19:33 128 H 03/17/23 19:04 24 03/17/23 18:53 99.0 F 128 H 24 149/63 94 L Intake and Output 03/17/23 03/18/23 03/18/23 22:59 06:59 14:59 Intake Total 283.635 Balance 283.635 Intake: Intake, IV Titration 183.635 Amount Diltiazem 125 mg In 69.25 Sodium Chloride 0.9% 100 ml @ 5 MG/HR 5 mls/hr IV .Q24H [facility] Rx#:[id number] Heparin Sod,Pork in 0.45% 114.385 NaCl 25,000 unit In 0.45 % NaCl 1 250ml.bag @ 12 UNITS/KG/HR 9.961 mls/hr IV .Q24H [facility] Rx#: [id number] Oral 100 Other: Voiding Method Bedpan Bedpan External Catheter External Catheter # Voids 1 Weight 83.007 kg 83.007 kg In general patient is alert and oriented x 3 in no distress HEENT head normocephalic and atraumatic Neck is supple no JVD no goiter no lymphadenopathy no carotid bruit Chest examination is clear to auscultation no crackles no wheezing Cardiac exam reveals regular heart sounds S1 and S2 no gallops no murmurs Abdomen is soft nontender no organomegaly with normal bowel sounds Extremity exam reveals no edema no cyanosis or clubbing Neurological examination reveals no gross focal deficits Results CBC & Chem 7: 03/17/23 19:48 03/18/23 13:09 Labs: Abnormal Lab Results - Last 24 Hours (Table) 03/17/23 03/17/23 03/17/23 Range/Units 19:48 19:48 19:48 WBC 25.1 H (3.8-10.6) k/uL Hct 47.4 H (34.0-46.0) % Neutrophils # 22.6 H (1.3-7.7) k/uL APTT (22.0-30.0) sec D-Dimer (<0.60) mg/L FEU BUN 19 H (7-17) mg/dL Glucose 317 H (74-99) mg/dL POC Glucose (mg/dL) (70-110) mg/dL Plasma Lactic Acid Benedicto 3.4 H* (0.7-2.0) mmol/L Magnesium 1.1 L (1.6-2.3) mg/dL 03/17/23 03/17/23 03/18/23 Range/Units 19:48 20:29 05:58 WBC (3.8-10.6) k/uL Hct (34.0-46.0) % Neutrophils # (1.3-7.7) k/uL APTT (22.0-30.0) sec D-Dimer 1.44 H (<0.60) mg/L FEU BUN (7-17) mg/dL Glucose (74-99) mg/dL POC Glucose (mg/dL) 341 H 372 H (70-110) mg/dL Plasma Lactic Acid Benedicto (0.7-2.0) mmol/L Magnesium (1.6-2.3) mg/dL 03/18/23 03/18/23 03/18/23 Range/Units 07:38 09:24 11:40 WBC (3.8-10.6) k/uL Hct (34.0-46.0) % Neutrophils # (1.3-7.7) k/uL APTT 31.1 H (22.0-30.0) sec D-Dimer (<0.60) mg/L FEU BUN (7-17) mg/dL Glucose (74-99) mg/dL POC Glucose (mg/dL) 419 H 351 H (70-110) mg/dL Plasma Lactic Acid Benedicto (0.7-2.0) mmol/L Magnesium (1.6-2.3) mg/dL Thrombosis Risk Factor Assmnt - Choose All That Apply Any of the Below Risk Factors Present?: Yes Each Factor Represents 1 point: Abnormal pulmonary function (COPD), Medical pt o n bed rest, Obesity (BMI >25) Each Risk Factor Represents 2 Points: Age 61-74 years Each Risk Factor Represents 3 Points: History of DVT/PE Other congenital or acquired thrombophilia - If yes, enter type in comment: No Thrombosis Risk Factor Assessment Total Risk Factor Score: 8 Thrombosis Risk Factor Assessment Level: High Risk Assessment and Plan Plan: Acute exacerbation of chronic obstructive pulmonary disease Atrial fibrillation with rapid ventricular response Possible sepsis as evidenced by elevated white blood count and elevated lactic acid Underlying history of hypertension Underlying history of hyperlipidemia Underlying history of insulin-dependent diabetes mellitus Underlying history of depression Underlying history of continued tobacco use Underlying history of coronary artery disease Underlying history of peripheral arterial disease At this time patient is admitted to telemetry floor Home medications reviewed and reordered Patient was started on IV antibiotic ceftriaxone and Zithromax She was also started on IV Cardizem drip and IV heparin Patient was also started on inhaled bronchodilators Cardiology consultation and pulmonary consultation requested Will follow closely
[2023-03-18 20:28] LABS: Glucose,Whole Blood 227 mg/dL (70-110)
[2023-03-18] MEDS: ATORVASTATIN 40 MG TAB PO SCH (20:52)
[2023-03-18] MEDS: LISINOPRIL-HCTZ 20-25 MG 1 EACH TAB PO SCH (20:53)
[2023-03-18] MEDS: INSULIN DETEMIR (LEVEMIR) 100 UNIT/ML SYR SQ SCH (20:54)
[2023-03-18] MEDS: SODIUM CHLORIDE 0.9% 1,000 ML IV SCH (21:01)
[2023-03-19] MEDS: AZITHROMYCIN 500 MG in SODIUM CHLORIDE 0.9% 250 ML IVPB SCH ×2 (00:04→23:25)
[2023-03-19] MEDS: HYDROcodone/APAP 10-325MG 1 EACH TAB PO PRN ×2 (02:07→13:40)
[2023-03-19] MEDS: NON FORMULARY DRUG (Vilazodone Hcl [Viibryd] 40 MG Tablet) PO SCH ×2 (02:41→20:18)
[2023-03-19] MEDS: DILTIAZEM 125 MG in SODIUM CHLORIDE 0.9% 100 ML IV SCH ×2 (03:45→16:00)
[2023-03-19 06:02] LABS: Glucose,Whole Blood 138 mg/dL (70-110)
[2023-03-19] MEDS: INSULIN ASPART (NovoLOG) 100 UNIT/ML VIAL SQ SCH ×5 (06:36→20:08)
[2023-03-19] MEDS: metFORMIN 500 MG TAB PO SCH ×2 (06:55→17:37)
[2023-03-19] MEDS: PANTOPRAZOLE 40 MG TABLET PO SCH (06:55)
[2023-03-19] MEDS ORDERED: INSULIN DETEMIR (LEVEMIR) 100 UNIT/ML SYR SQ SCH (07:00)
[2023-03-19 08:12] LABS: Basophils % (A) 0 %; Eosinophils # (A) 0.2 k/uL (0-0.7); Eosinophils % (A) 1 %; HCT 44.7 % (34.0-46.0); HGB 14.5 gm/dL (11.4-16.0); Lymphocytes # (A) 1.6 k/uL (1.0-4.8); Lymphocytes % (A) 6 %; MCH 29.6 pg (25.0-35.0); MCHC 32.5 g/dL (31.0-37.0); Mean Platelet Volume 7.9; Monocytes # (A) 0.8 k/uL (0-1.0); Monocytes % (A) 3 %; Neutrophils # (A) 22.3 k/uL (1.3-7.7); Neutrophils % (A) 89 %; Platelet Count 218 k/uL (150-450); RBC 4.91 m/uL (3.80-5.40); RDW 13.5 % (11.5-15.5); WBC 25.1 k/uL (3.8-10.6)
[2023-03-19] MEDS: IPRATROPIUM-ALBUTEROL 3 ML NEB INHALATION SCH ×4 (08:49→21:28)
[2023-03-19] MEDS ORDERED: amLODIPine 10 MG TAB PO SCH (09:00)
[2023-03-19] MEDS ORDERED: METOPROLOL SUCCINATE (ER) 25 MG TAB.ER.24H PO SCH (09:00)
--- NOTE | 2023-03-19 09:02 | P.PN ---
Subjective Progress Note Date: 03/19/23 Marina Radford, is a 68-year-old female who presented to [facility] emergency room with a chief complaint of worsening shortness of breath She was evaluated in the emergency room vital examination on presentation revealed a temperature of 99 pulse 128 respiration 24 blood pressure 149/63 pul se ox 94% on room air Laboratory data reveals a white blood count of 25.1 hemoglobin 15.0 platelet c ount 322 d-dimer 1.44 BUN 19 creatinine 0.98 lactic acid 3.4 Testing in the emergency room revealed chest x-ray revealed no acute cardiopulmonary disease, EKG revealed atrial fibrillation with rapid ventricular response, CT angiogram of the chest was done in the emergency room and revealed no evidence of acute pulmonary embolism. Patient was admitted to medical floor for further evaluation and treatment On 03/19/2023 Patient is alert and oriented 3. Heart rate remains elevated. She remains on cardizem and IV heparin. Patient remains on IV Rocephin and azithromycin. UA is positive. Urine and blood culture ordered. Vital temp 98.7, heart rate 128, respiratory rate 18, blood pressure 145/77 pulse ox 94 on 2 L. White blood cell remains unchanged at 25.1. Will consult infectious disea se services at this time Objective - Vital Signs Vital signs: Vital Signs Temp 98.7 F 03/19/23 04:00 Pulse 120 H 03/19/23 08:49 Resp 18 03/19/23 04:00 BP 145/77 03/19/23 04:00 Pulse Ox 94 L 03/19/23 04:00 FiO2 Intake & Output 03/18/23 03/19/23 03/19/23 18:59 06:59 18:59 Intake Total 520.216 Output Total 300 350 Balance 220.216 -350 Intake: Intake, IV Titration 300.216 Amount Diltiazem 125 mg In 111.125 Sodium Chloride 0.9% 100 ml @ 10 MG/HR 10 mls/hr IV .[id number] [facility] Rx#: [id number] Heparin Sod,Pork in 0.45% 189.091 NaCl 25,000 unit In 0.45 % NaCl 1 250ml.bag @ 12 UNITS/KG/HR 9.961 mls/hr IV .Q24H [facility] Rx#: [id number] Oral 220 Output: Urine 300 350 Other: Voiding Method Bedpan Bedpan Diaper Diaper External Catheter External Catheter # Voids 2 - Exam In general patient is alert and oriented x 3 in no distress HEENT head normocephalic and atraumatic Neck is supple no JVD no goiter no lymphadenopathy no carotid bruit Chest examination is clear to auscultation no crackles no wheezing Cardiac exam reveals regular heart sounds S1 and S2 no gallops no murmurs Abdomen is soft nontender no organomegaly with normal bowel sounds Extremity exam reveals no edema no cyanosis or clubbing Neurological examination reveals no gross focal deficits - Labs CBC & Chem 7: 03/19/23 07:51 03/18/23 13:09 Labs: Abnormal Lab Results - Last 24 Hours (Table) 03/18/23 03/18/23 03/18/23 Range/Units 09:24 11:40 13:09 WBC (3.8-10.6) k/uL Neutrophils # (1.3-7.7) k/uL APTT 49.6 H (22.0-30.0) sec Sodium (137-145) mmol/L Chloride (98-107) mmol/L BUN (7-17) mg/dL Creatinine (0.52-1.04) mg/dL Glucose (74-99) mg/dL POC Glucose (mg/dL) 419 H 351 H (70-110) mg/dL Plasma Lactic Acid Benedicto (0.7-2.0) mmol/L AST (14-36) U/L Urine Protein (Negative) Urine Glucose (UA) (Negative) Urine Ketones (Negative) Urine Blood (Negative) Ur Leukocyte Esterase (Negative) Urine WBC (0-5) /hpf Urine WBC Clumps (None) /hpf Urine Mucus (None) /hpf 03/18/23 03/18/23 03/18/23 Range/Units 13:09 13:09 13:30 WBC (3.8-10.6) k/uL Neutrophils # (1.3-7.7) k/uL APTT (22.0-30.0) sec Sodium 135 L (137-145) mmol/L Chloride 96 L (98-107) mmol/L BUN 30 H (7-17) mg/dL Creatinine 1.18 H (0.52-1.04) mg/dL Glucose 364 H (74-99) mg/dL POC Glucose (mg/dL) (70-110) mg/dL Plasma Lactic Acid Benedicto 3.3 H* (0.7-2.0) mmol/L AST 37 H (14-36) U/L Urine Protein 1+ H (Negative) Urine Glucose (UA) 4+ H (Negative) Urine Ketones Trace H (Negative) Urine Blood Moderate H (Negative) Ur Leukocyte Esterase Moderate H (Negative) Urine WBC 62 H (0-5) /hpf Urine WBC Clumps Rare H (None) /hpf Urine Mucus Rare H (None) /hpf 03/18/23 03/18/23 03/18/23 Range/Units 16:23 16:38 20:27 WBC (3.8-10.6) k/uL Neutrophils # (1.3-7.7) k/uL APTT (22.0-30.0) sec Sodium (137-145) mmol/L Chloride (98-107) mmol/L BUN (7-17) mg/dL Creatinine (0.52-1.04) mg/dL Glucose (74-99) mg/dL POC Glucose (mg/dL) 427 H 227 H (70-110) mg/dL Plasma Lactic Acid Benedicto 3.0 H* (0.7-2.0) mmol/L AST (14-36) U/L Urine Protein (Negative) Urine Glucose (UA) (Negative) Urine Ketones (Negative) Urine Blood (Negative) Ur Leukocyte Esterase (Negative) Urine WBC (0-5) /hpf Urine WBC Clumps (None) /hpf Urine Mucus (None) /hpf 03/18/23 03/19/23 03/19/23 Range/Units 20:53 05:33 07:51 WBC 25.1 H (3.8-10.6) k/uL Neutrophils # 22.3 H (1.3-7.7) k/uL APTT (22.0-30.0) sec Sodium (137-145) mmol/L Chloride (98-107) mmol/L BUN (7-17) mg/dL Creatinine (0.52-1.04) mg/dL Glucose (74-99) mg/dL POC Glucose (mg/dL) 138 H (70-110) mg/dL Plasma Lactic Acid Benedicto 2.6 H* (0.7-2.0) mmol/L AST (14-36) U/L Urine Protein (Negative) Urine Glucose (UA) (Negative) Urine Ketones (Negative) Urine Blood (Negative) Ur Leukocyte Esterase (Negative) Urine WBC (0-5) /hpf Urine WBC Clumps (None) /hpf Urine Mucus (None) /hpf Microbiology - Last 24 Hours (Table) 03/17/23 23:15 Blood Culture Gram Stain - Preliminary Blood 03/17/23 23:00 Blood Culture Gram Stain - Preliminary Blood Assessment and Plan Plan: Acute exacerbation of chronic obstructive pulmonary disease Atrial fibrillation with rapid ventricular response Possible sepsis as evidenced by elevated white blood count and elevated lactic acid. Positive UA urine and blood cultures ordered patient remaines on IV antibiotics Underlying history of hypertension Underlying history of hyperlipidemia Underlying history of insulin-dependent diabetes mellitus Underlying history of depression Underlying history of continued tobacco use Underlying history of coronary artery disease Underlying history of peripheral arterial disease At this time patient is admitted to telemetry floor Home medications reviewed and reordered Patient was started on IV antibiotic ceftriaxone and Zithromax She was also started on IV Cardizem drip and IV heparin Patient was also started on inhaled bronchodilators Cardiology consultation and pulmonary consultation requested Will follow closely
[2023-03-19] MEDS: CLOPIDOGREL 75 MG TAB PO SCH (09:27)
[2023-03-19] MEDS: ARIPiprazole 10 MG TAB PO SCH (09:27)
[2023-03-19] MEDS: OXYBUTYNIN 10 MG TAB.ER.24 PO SCH (09:27)
[2023-03-19] MEDS: LISINOPRIL-HCTZ 20-25 MG 1 EACH TAB PO SCH ×2 (09:28→20:08)
[2023-03-19] MEDS: NICOTINE 21MG/24HR PATCH TRANSDERM SCH (09:28)
[2023-03-19 09:55] LABS: ALT 21 U/L (4-34); AST 28 U/L (14-36); African American GFR (CKD) 66 (>60 ml/min/1.73 sqM); Albumin 3.2 g/dL (3.5-5.0); Alkaline Phosphatase 86 U/L (38-126); Anion Gap 12 mmol/L; Blood Urea Nitrogen 31 mg/dL (7-17); Calcium 8.8 mg/dL (8.4-10.2); Carbon Dioxide 25 mmol/L (22-30); Chloride 99 mmol/L (98-107); Glucose 123 mg/dL (74-99); Non-African American GFR(CKD) 57 (>60 ml/min/1.73 sqM); Potassium 3.3 mmol/L (3.5-5.1); Sodium 136 mmol/L (137-145); Total Bilirubin 0.4 mg/dL (0.2-1.3); Total Protein 6.9 g/dL (6.3-8.2)
--- NOTE | 2023-03-19 10:01 | P.PN ---
Subjective Progress Note Date: 03/19/23 This is a 68-year-old female patient was hospitalized with various complaints a nd I was involved in the case because of concerns of shortness of breath. The patient came into the hospital because of altered mentation, apparently she was having fever at home, and at the same time, she was having gastrointestinal issues with nausea, diarrhea, and fluid intolerance. She is diabetic and recently she was started on Trulicity once a week injections and she thinks that she is having a reaction to the medication. At the same time the patient is on glargine insulin a total of 108 units a day in addition to metformin for blood sugar control. She states that her blood sugars were quite elevated an outpatient basis. She is also known to have diabetes mellitus type 2, hyperten herbie, hyperlipidemia and history of COPD and the patient is a chronic smoker. The patient came into the ED and the patient a white cell count of 25, hemoglobin of 15, BUN was 19 with a creatinine of 0.98 and a sodium level is at 137. Initial lactic acid level was at 3.4. Normal LFTs. ProBNP level was 4420, Covid 19 testing and the rest of the viral screen was all negative. The patient continues to have an elevated blood sugar and the most recent blood sugar measurement is at 351. In addition, the patient had a CAT scan of the brain that showed no acute abnormalities. There is no evidence of any bleed or a CVA. EKG that was done at time of admission showed atrial fibrillation with RVR and a CT angiogram was also done in the emergency department indicating no evidence of any pulmonary embolism. No acute pulmonary infiltrate pleural effusion or pneumothorax. She is not using any form of maintenance as for medications at home. She is not oxygen dependent. She was covered with R ocephin and Zithromax. She was started also on IV heparin regarding her atrial fibrillation. She is known to have peripheral vascular disease followed up by interventional cardiology. On today's evaluation of 03/19/2023, the patient is on 2 L of oxygen by nasal cannula. No respiratory distress pH is laying down comfortably in bed. She is still having issues with atrial fibrillation. She is having a rapid ventricular response and currently she is on Cardizem drip at 10 mg an hour. The echo of the heart also showed impairment of LV function, global hypokinesis with an ejection fraction of 40-45%. There is a possibility of this patient having a UTI. Urine culture is still pending for now. Note that her fever broke and she is currently afebrile. Nevertheless, the patient is still having leukocytosis with a white cell count of 25.1. Electrolytes show a potassium level of 3.3, sodium is at 136, BUN is at 31 with a creatinine of 1.03. The patient remains on IV heparin. The patient on a Cardizem drip. The patient is on IV Rocephin and Zithromax. She is on 2 L of oxygen by nasal cannula. Levemir insulin was restarted and her blood sugars under better control for now. Objective - Vital Signs Vital signs: Vital Signs Temp 98.2 F 03/19/23 09:32 Pulse 137 H 03/19/23 09:33 Resp 18 03/19/23 09:33 BP 151/83 03/19/23 09:32 Pulse Ox 95 03/19/23 09:32 FiO2 Intake & Output 03/18/23 03/19/23 03/19/23 18:59 06:59 18:59 Intake Total 520.216 403.91 Output Total 300 350 Balance 220.216 -350 403.91 Weight 85 kg Intake: Intake, IV Titration 300.216 223.91 Amount Diltiazem 125 mg In 111.125 Sodium Chloride 0.9% 100 ml @ 10 MG/HR 10 mls/hr IV .[id number] [facility] Rx#: [id number] Heparin Sod,Pork in 0.45% 189.091 223.91 NaCl 25,000 unit In 0.45 % NaCl 1 250ml.bag @ 12 UNITS/KG/HR 9.961 mls/hr IV .Q24H [facility] Rx#: [id number] Oral 220 180 Output: Urine 300 350 Other: Voiding Method Bedpan Bedpan Bedpan Diaper Diaper Diaper External Catheter External Catheter External Catheter # Voids 2 - Exam Breathing is nonlabored and the patient is currently on 2 L O2 nasal cannula Head exam was generally normal. There was no scleral icterus or corneal arcus. Mucous membranes were moist. Neck was supple and without jugular venous distension, thyromegaly, or carotid bruits. Carotids were easily palpable bilaterally. There was no adenopathy. Lungs sounds are diminished and there are clear. No crackles or wheezing at this point in time. Cardiac exam revealed the PMI to be normally situated and sized. The rhythm was irregular and no extrasystoles were noted during several minutes of auscultation. The first and second heart sounds were normal and physiologic splitting of the second heart sound was noted. There were no murmurs, rubs, clicks, or gallops. Abdominal exam revealed normal bowel sounds. The abdomen was soft, non-tender, and without masses, organomegaly, or appreciable enlargement of the abdominal aorta. Examination of the extremities revealed easily palpable radial, femoral and pedal pulses. There was no cyanosis, clubbing or edema. Examination of the skin revealed no evidence of significant rashes, suspicious appearing nevi or other concerning lesions. Neurologically, the patient is awake and alert and the patient does not have any focal neurological deficit. Cranial nerves are essentially intact. - Labs CBC & Chem 7: 03/19/23 07:51 03/19/23 07:51 Labs: Abnormal Lab Results - Last 24 Hours (Table) 03/18/23 03/18/23 03/18/23 Range/Units 11:40 13:09 13:09 WBC (3.8-10.6) k/uL Neutrophils # (1.3-7.7) k/uL APTT 49.6 H (22.0-30.0) sec Sodium (137-145) mmol/L Potassium (3.5-5.1) mmol/L Chloride (98-107) mmol/L BUN (7-17) mg/dL Creatinine (0.52-1.04) mg/dL Glucose (74-99) mg/dL POC Glucose (mg/dL) 351 H (70-110) mg/dL Plasma Lactic Acid Benedicto 3.3 H* (0.7-2.0) mmol/L AST (14-36) U/L Albumin (3.5-5.0) g/dL Urine Protein (Negative) Urine Glucose (UA) (Negative) Urine Ketones (Negative) Urine Blood (Negative) Ur Leukocyte Esterase (Negative) Urine WBC (0-5) /hpf Urine WBC Clumps (None) /hpf Urine Mucus (None) /hpf 03/18/23 03/18/23 03/18/23 Range/Units 13:09 13:30 16:23 WBC (3.8-10.6) k/uL Neutrophils # (1.3-7.7) k/uL APTT (22.0-30.0) sec Sodium 135 L (137-145) mmol/L Potassium (3.5-5.1) mmol/L Chloride 96 L (98-107) mmol/L BUN 30 H (7-17) mg/dL Creatinine 1.18 H (0.52-1.04) mg/dL Glucose 364 H (74-99) mg/dL POC Glucose (mg/dL) 427 H (70-110) mg/dL Plasma Lactic Acid Benedicto (0.7-2.0) mmol/L AST 37 H (14-36) U/L Albumin (3.5-5.0) g/dL Urine Protein 1+ H (Negative) Urine Glucose (UA) 4+ H (Negative) Urine Ketones Trace H (Negative) Urine Blood Moderate H (Negative) Ur Leukocyte Esterase Moderate H (Negative) Urine WBC 62 H (0-5) /hpf Urine WBC Clumps Rare H (None) /hpf Urine Mucus Rare H (None) /hpf 03/18/23 03/18/23 03/18/23 Range/Units 16:38 20:27 20:53 WBC (3.8-10.6) k/uL Neutrophils # (1.3-7.7) k/uL APTT (22.0-30.0) sec Sodium (137-145) mmol/L Potassium (3.5-5.1) mmol/L Chloride (98-107) mmol/L BUN (7-17) mg/dL Creatinine (0.52-1.04) mg/dL Glucose (74-99) mg/dL POC Glucose (mg/dL) 227 H (70-110) mg/dL Plasma Lactic Acid Benedicto 3.0 H* 2.6 H* (0.7-2.0) mmol/L AST (14-36) U/L Albumin (3.5-5.0) g/dL Urine Protein (Negative) Urine Glucose (UA) (Negative) Urine Ketones (Negative) Urine Blood (Negative) Ur Leukocyte Esterase (Negative) Urine WBC (0-5) /hpf Urine WBC Clumps (None) /hpf Urine Mucus (None) /hpf 03/19/23 03/19/23 03/19/23 Range/Units 05:33 07:51 07:51 WBC 25.1 H (3.8-10.6) k/uL Neutrophils # 22.3 H (1.3-7.7) k/uL APTT (22.0-30.0) sec Sodium 136 L (137-145) mmol/L Potassium 3.3 L (3.5-5.1) mmol/L Chloride (98-107) mmol/L BUN 31 H (7-17) mg/dL Creatinine (0.52-1.04) mg/dL Glucose 123 H (74-99) mg/dL POC Glucose (mg/dL) 138 H (70-110) mg/dL Plasma Lactic Acid Benedicto (0.7-2.0) mmol/L AST (14-36) U/L Albumin 3.2 L (3.5-5.0) g/dL Urine Protein (Negative) Urine Glucose (UA) (Negative) Urine Ketones (Negative) Urine Blood (Negative) Ur Leukocyte Esterase (Negative) Urine WBC (0-5) /hpf Urine WBC Clumps (None) /hpf Urine Mucus (None) /hpf Microbiology - Last 24 Hours (Table) 03/17/23 23:15 Blood Culture Gram Stain - Preliminary Blood 03/17/23 23:00 Blood Culture Gram Stain - Preliminary Blood Assessment and Plan Plan: Acute febrile illness, T-max of 102.1. Patient is currently on that investigation. No clear indication for pneumonia. Based on the chest x-ray and the CAT scan findings, there is no acute cardiac pulmonary process. The patient has background COPD. Patient also had leukocytosis and fever workup/sepsis is being contemplated. UA was obtained yesterday and the patient was found to have abnormal white cells. Cultures are still pending. The patient remains on antibiotic coverage. She is afebrile. The lactic acid level is up to 2.6. Her white cell count remains elevated at 25.1. She remains in atrial fibrillation with rapid ventricular response. Echocardiogram was also done yesterday that showed moderate global hypokinesis. Ejection fraction is noted of 40-45%. Mild MR and tricuspid regurgitation. Diabetes mellitus type 2 with poorly controlled blood sugars Mild lactic acidosis, improving COPD, currently on 2 L of oxygen by nasal cannula with a pulse ox of 97% Hypertension Hyperlipidemia Peripheral vascular disease A. fib of new onset with evidence currently response at time of admission, still slightly tachycardic at this point in time. Patient is currently on a Cardizem drip at 10 mg an hour. Coronary artery disease Plan Continue Cardizem drip for rate control Blood cultures still pending for now Awaiting results of urine cultures Keep same antibiotic coverage Monitor white cell count and the white cell count remains elevated Echocardiogram was noted Blood sugars under better control the patient is currently on Levemir insulin and a slight scale coverage She is currently on 2 L of oxygen by nasal cannula Continue to follow
[2023-03-19 10:09] LABS: T4, Free (Free Thyroxine) 1.86 ng/dL (0.78-2.19)
[2023-03-19 11:40] LABS: Glucose,Whole Blood 97 mg/dL (70-110)
[2023-03-19] MEDS: METOPROLOL TARTRATE 50 MG TAB PO SCH ×3 (11:52→20:08)
[2023-03-19] MEDS: HEPARIN SOD,PORK IN 0.45% NACL 25,000 UNIT in 0.45% NACL 1 250ML.BAG IV SCH (11:52)
--- NOTE | 2023-03-19 13:49 | P.PN ---
Subjective Progress Note Date: 03/19/23 History of present illness: This is a 68-year-old female admitted to hospital with increasing shortness of breath that was progressively worsening. Patient is an active smoker with history of diabetes, hypertension, and depression. No documented history of coronary artery disease. Patient went into atrial fibrillation with moderately rapid ventricular rate and patient was on Cardizem drip and heparin drip. Patient's rate seemed to be improving yesterday but today is running 120s to 140s. Echocardiogram was a technically difficult study. Moderate global hypokinesis. Limited Doppler study with mild mitral and tricuspid regurgitation, EF 40-45%. Physical examination: Gen: This is a a 68-year-old obese female. She is resting in bed and appears to be fairly comfortable. VS: reviewed HEENT: Head is atraumatic, normocephalic. Pupils equal, round. Sclerae is anicteric. LUNGS: Diminished breath sounds. No intercostal retractions. HEART: Regular rate and rhythm. Short systolic murmur. EXTREMITIES: No pedal edema. Positive pulses Assessment: New onset atrial fibrillation with RVR, paroxysmal Acute exacerbation of COPD History of smoking Plan: Discontinue Toprol-XL and start patient on Lopressor 50 mg 3 times daily Continue Cardizem drip Continue heparin drip Further recommendations to follow based upon clinical course Nurse practitioner note has been reviewed, I agree with documented findings and plan of care. Patient was seen and examined. Objective - Vital Signs Vital signs: Vital Signs Temp 98.2 F 03/19/23 09:32 Pulse 137 H 03/19/23 09:33 Resp 18 03/19/23 09:33 BP 151/83 03/19/23 09:32 Pulse Ox 95 03/19/23 09:32 FiO2 Intake & Output 03/18/23 03/19/23 03/19/23 18:59 06:59 18:59 Intake Total 520.216 403.91 Output Total 300 350 Balance 220.216 -350 403.91 Weight 85 kg Intake: Intake, IV Titration 300.216 223.91 Amount Diltiazem 125 mg In 111.125 Sodium Chloride 0.9% 100 ml @ 10 MG/HR 10 mls/hr IV .[id number] [facility] Rx#: [id number] Heparin Sod,Pork in 0.45% 189.091 223.91 NaCl 25,000 unit In 0.45 % NaCl 1 250ml.bag @ 12 UNITS/KG/HR 9.961 mls/hr IV .Q24H [facility] Rx#: [id number] Oral 220 180 Output: Urine 300 350 Other: Voiding Method Bedpan Bedpan Bedpan Diaper Diaper Diaper External Catheter External Catheter External Catheter # Voids 2 - Labs CBC & Chem 7: 03/19/23 07:51 03/19/23 07:51 Labs: Abnormal Lab Results - Last 24 Hours (Table) 03/18/23 03/18/23 03/18/23 Range/Units 11:40 13:09 13:09 WBC (3.8-10.6) k/uL Neutrophils # (1.3-7.7) k/uL APTT 49.6 H (22.0-30.0) sec Sodium (137-145) mmol/L Potassium (3.5-5.1) mmol/L Chloride (98-107) mmol/L BUN (7-17) mg/dL Creatinine (0.52-1.04) mg/dL Glucose (74-99) mg/dL POC Glucose (mg/dL) 351 H (70-110) mg/dL Plasma Lactic Acid Benedicto 3.3 H* (0.7-2.0) mmol/L AST (14-36) U/L Albumin (3.5-5.0) g/dL Urine Protein (Negative) Urine Glucose (UA) (Negative) Urine Ketones (Negative) Urine Blood (Negative) Ur Leukocyte Esterase (Negative) Urine WBC (0-5) /hpf Urine WBC Clumps (None) /hpf Urine Mucus (None) /hpf 03/18/23 03/18/23 03/18/23 Range/Units 13:09 13:30 16:23 WBC (3.8-10.6) k/uL Neutrophils # (1.3-7.7) k/uL APTT (22.0-30.0) sec Sodium 135 L (137-145) mmol/L Potassium (3.5-5.1) mmol/L Chloride 96 L (98-107) mmol/L BUN 30 H (7-17) mg/dL Creatinine 1.18 H (0.52-1.04) mg/dL Glucose 364 H (74-99) mg/dL POC Glucose (mg/dL) 427 H (70-110) mg/dL Plasma Lactic Acid Benedicto (0.7-2.0) mmol/L AST 37 H (14-36) U/L Albumin (3.5-5.0) g/dL Urine Protein 1+ H (Negative) Urine Glucose (UA) 4+ H (Negative) Urine Ketones Trace H (Negative) Urine Blood Moderate H (Negative) Ur Leukocyte Esterase Moderate H (Negative) Urine WBC 62 H (0-5) /hpf Urine WBC Clumps Rare H (None) /hpf Urine Mucus Rare H (None) /hpf 03/18/23 03/18/23 03/18/23 Range/Units 16:38 20:27 20:53 WBC (3.8-10.6) k/uL Neutrophils # (1.3-7.7) k/uL APTT (22.0-30.0) sec Sodium (137-145) mmol/L Potassium (3.5-5.1) mmol/L Chloride (98-107) mmol/L BUN (7-17) mg/dL Creatinine (0.52-1.04) mg/dL Glucose (74-99) mg/dL POC Glucose (mg/dL) 227 H (70-110) mg/dL Plasma Lactic Acid Benedicto 3.0 H* 2.6 H* (0.7-2.0) mmol/L AST (14-36) U/L Albumin (3.5-5.0) g/dL Urine Protein (Negative) Urine Glucose (UA) (Negative) Urine Ketones (Negative) Urine Blood (Negative) Ur Leukocyte Esterase (Negative) Urine WBC (0-5) /hpf Urine WBC Clumps (None) /hpf Urine Mucus (None) /hpf 03/19/23 03/19/23 03/19/23 Range/Units 05:33 07:51 07:51 WBC 25.1 H (3.8-10.6) k/uL Neutrophils # 22.3 H (1.3-7.7) k/uL APTT (22.0-30.0) sec Sodium 136 L (137-145) mmol/L Potassium 3.3 L (3.5-5.1) mmol/L Chloride (98-107) mmol/L BUN 31 H (7-17) mg/dL Creatinine (0.52-1.04) mg/dL Glucose 123 H (74-99) mg/dL POC Glucose (mg/dL) 138 H (70-110) mg/dL Plasma Lactic Acid Benedicto (0.7-2.0) mmol/L AST (14-36) U/L Albumin 3.2 L (3.5-5.0) g/dL Urine Protein (Negative) Urine Glucose (UA) (Negative) Urine Ketones (Negative) Urine Blood (Negative) Ur Leukocyte Esterase (Negative) Urine WBC (0-5) /hpf Urine WBC Clumps (None) /hpf Urine Mucus (None) /hpf Microbiology - Last 24 Hours (Table) 03/17/23 23:15 Blood Culture Gram Stain - Preliminary Blood 03/17/23 23:00 Blood Culture Gram Stain - Preliminary Blood
[2023-03-19] MEDS ORDERED: Potassium Replacement Protocol 1 EACH MISC MISCELLANE PRN (13:54)
[2023-03-19] MEDS: POTASSIUM CHLORIDE ER 20 MEQ TAB.ER PO SCH ×2 (14:01→15:15)
[2023-03-19 16:24] LABS: Glucose,Whole Blood 129 mg/dL (70-110)
[2023-03-19] MEDS: HEPARIN SODIUM 1,000 UN/ML (10ML VL) IV PRN (17:36)
[2023-03-19 19:59] LABS: Glucose,Whole Blood 195 mg/dL (70-110)
[2023-03-19] MEDS: INSULIN DETEMIR (LEVEMIR) 100 UNIT/ML SYR SQ SCH (20:06)
[2023-03-19] MEDS: ATORVASTATIN 40 MG TAB PO SCH (20:08)
[2023-03-19] MEDS: SODIUM CHLORIDE 0.9% 1,000 ML IV SCH (20:18)
--- NOTE | 2023-03-19 23:31 | P.CONS ---
History of Present Illness - Reason for Consult Consult date: 03/19/23 Leukocytosis Requesting physician: Jessica Zavala - Chief Complaint Increasing shortness of breath x few days - History of Present Illness Patient is a 68-year female with a past medical history significant for diabetes mellitus hypertension hyperlipidemia reflux coronary disease chronic back pain patient presented to the hospital 2 days ago for evaluation of increasing shortness of breath that has been getting worse over the last few days mostly on exertion patient denies having any chest pain denies any cough or sputum production some nausea but no vomiting no abdominal pain no diarrhea or constipation no significant urinary symptoms on presentation to the hospital patient did have a fever of 102.1 F patient was tachycardic and mildly hypoxic requiring supplemental oxygen patient did have a white count of 25.1 with a left shift creatinine was normal her lactic acid was elevated liver enzymes are normal urine is positive influenza RSV and COVID testing was negative patient did have a chest x-ray no acute cardiopulmonary disease patient did have a CT angiogram of the chest no acute pulmonary embolism no focal infiltrate effusion or pneumothorax patient blood cultures came back positive with gram-negative bacilli patient is currently on Rocephin infectious disease was consulted for further management of antibiotic therapy Review of Systems Positive point and negatives has been mentioned in the HPI, complete review of systems was performed and all other systems are negative Past Medical History Past Medical History: Coronary Artery Disease (CAD), COPD, Diabetes Mellitus, GERD/Reflux, Hyperlipidemia, Hypertension Additional Past Medical History / Comment(s): CHRONIC BACK PAIN, Type 2 DM History of Any Multi-Drug Resistant Organisms: None Reported Past Surgical History: Heart Catheterization With Stent, Tubal Ligation Additional Past Surgical History / Comment(s): angioplasty with 1 stent 03/10/14 and heart cath with stent 03/24/14 Past Anesthesia/Blood Transfusion Reactions: Previous Problems w/ Anesthesia Additional Past Anesthesia/Blood Transfusion Reaction / Comm: HYPERTENSIVE REACTION (ALMOST HAD A STROKE) Date of Last Stent Placement:: 2013 Past Psychological History: Depression Smoking Status: Current every day smoker Past Alcohol Use History: None Reported Past Drug Use History: None Reported - Past Family History Sister(s) Family Medical History: Neurologic Disorder Additional Family Medical History / Comment(s): OF ANEURYSM Mother Family Medical History: Cancer Additional Family Medical History / Comment(s): COLON Medications and Allergies Home Medications Medication Instructions Recorded Confirmed Type Clopidogrel [Plavix] 75 mg PO DAILY #30 tab 05/22/14 03/17/23 Rx ARIPiprazole [Abilify] 10 mg PO DAILY 03/17/23 03/17/23 History Atorvastatin [Lipitor] 40 mg PO HS 03/17/23 03/17/23 History Dulaglutide [Trulicity] 1.5 mg SQ SA 03/17/23 03/17/23 History EPINEPHrine [Primatene Mist] 1 puff INHALATION RT-QID PRN 03/17/23 03/17/23 History HYDROcodone/APAP 10-325MG [[place] 1 tab PO Q8H PRN 03/17/23 03/17/23 History 10-325] Insulin Glargine,Hum.rec.anlog 108 units SQ DAILY 03/17/23 03/17/23 History [Toujeo Max Solostar] Naloxone HCl [Narcan] 4 mg NASAL DIRECTED PRN 03/17/23 03/17/23 History Nicotine 21Mg/24Hr Patch [Habitrol] 1 patch TRANSDERM HS 03/17/23 03/17/23 History Oxybutynin ER [Ditropan XL] 10 mg PO DAILY 03/17/23 03/17/23 History Pantoprazole [Protonix] 40 mg PO DAILY 03/17/23 03/17/23 History Vilazodone HCl [Viibryd] 40 mg PO HS 03/17/23 03/17/23 History metFORMIN HCL 1,000 mg PO BID 03/17/23 03/17/23 History Apixaban [Eliquis] 5 mg PO BID tab 03/23/23 Rx Aspirin 81 mg PO DAILY tab 03/23/23 Rx Ciprofloxacin HCl [Cipro] 500 mg PO BID 10 Days #20 tab 03/23/23 Rx INSULIN ASPART (NovoLOG) [NovoLOG 0 unit SQ ACHS each 03/23/23 Rx (formulary)] Ipratropium-Albuterol Nebulize 3 ml INHALATION RT-QID each 03/23/23 Rx [Duoneb 0.5 mg-3 mg/3 ml Soln] Metoprolol Tartrate [Lopressor] 100 mg PO BID tab 03/23/23 Rx lisinopriL [Zestril] 20 mg PO BID tab 03/23/23 Rx Allergies Allergy/AdvReac Type Severity Reaction Status Date / Time IV DYE Allergy Rash/Hives Uncoded 03/17/23 22:03 Physical Exam Vitals: Vital Signs Temp Pulse Pulse Resp BP Pulse Ox 03/19/23 09:33 137 H 18 03/19/23 09:32 98.2 F 137 H 18 151/83 95 03/19/23 09:02 124 H 03/19/23 08:49 120 H 03/19/23 04:00 98.7 F 120 H 18 145/77 94 L 03/19/23 03:08 80 03/19/23 02:58 84 03/19/23 02:00 140 H 20 03/19/23 00:00 98.7 F 140 H 20 142/96 92 L 03/18/23 21:35 80 03/18/23 21:27 96 03/18/23 20:00 121 H 22 03/18/23 19:49 99.1 F 121 H 22 140/78 97 03/18/23 18:03 152 H 151/81 03/18/23 15:42 120 H 18 03/18/23 15:33 122 H 18 03/18/23 15:25 98.9 F 144 H 24 140/89 97 03/18/23 13:11 122 H 03/18/23 12:27 98.6 F 122 H 20 135/82 97 03/18/23 11:19 111 H 20 Intake and Output 03/18/23 03/19/23 03/19/23 22:59 06:59 14:59 Intake Total 116.581 403.91 Output Total 350 Balance 116.581 -350 403.91 Intake: Intake, IV Titration 116.581 223.91 Amount Diltiazem 125 mg In 41.875 Sodium Chloride 0.9% 100 ml @ 10 MG/HR 10 mls/hr IV .[id number] [facility] Rx#: [id number] Heparin Sod,Pork in 0.45% 74.706 223.91 NaCl 25,000 unit In 0.45 % NaCl 1 250ml.bag @ 12 UNITS/KG/HR 9.961 mls/hr IV .Q24H [facility] Rx#: [id number] Oral 0 180 Output: Urine 350 Other: Voiding Method Bedpan Bedpan Bedpan Diaper Diaper Diaper External Catheter External Catheter External Catheter # Voids 2 Weight 85 kg GENERAL DESCRIPTION: An elderly female lying in bed, no distress. No tachypnea or accessory muscle of respiration use. HEENT: Shows Pallor , no scleral icterus. Oral mucous membrane is dry. No pharyngeal erythema or thrush NECK: Trachea central, no thyromegaly. LUNGS: Unlabored breathing. Decreased intensity of breath sounds HEART: S1, S2, regular rate and rhythm. No loud murmur ABDOMEN: Soft, no tenderness , guarding or rigidity, no organomegaly EXTREMITIES: No edema of feet. SKIN: No rash, no masses palpable. NEUROLOGICAL: The patient is awake, alert, oriented x3, mood and affect normal. Results CBC & Chem 7: 03/22/23 07:17 03/22/23 07:17 Labs: Abnormal Lab Results - Last 24 Hours (Table) 03/18/23 03/18/23 03/18/23 Range/Units 11:40 13:09 13:09 WBC (3.8-10.6) k/uL Neutrophils # (1.3-7.7) k/uL APTT 49.6 H (22.0-30.0) sec Sodium (137-145) mmol/L Potassium (3.5-5.1) mmol/L Chloride (98-107) mmol/L BUN (7-17) mg/dL Creatinine (0.52-1.04) mg/dL Glucose (74-99) mg/dL POC Glucose (mg/dL) 351 H (70-110) mg/dL Plasma Lactic Acid Benedicto 3.3 H* (0.7-2.0) mmol/L AST (14-36) U/L Albumin (3.5-5.0) g/dL Urine Protein (Negative) Urine Glucose (UA) (Negative) Urine Ketones (Negative) Urine Blood (Negative) Ur Leukocyte Esterase (Negative) Urine WBC (0-5) /hpf Urine WBC Clumps (None) /hpf Urine Mucus (None) /hpf 03/18/23 03/18/23 03/18/23 Range/Units 13:09 13:30 16:23 WBC (3.8-10.6) k/uL Neutrophils # (1.3-7.7) k/uL APTT (22.0-30.0) sec Sodium 135 L (137-145) mmol/L Potassium (3.5-5.1) mmol/L Chloride 96 L (98-107) mmol/L BUN 30 H (7-17) mg/dL Creatinine 1.18 H (0.52-1.04) mg/dL Glucose 364 H (74-99) mg/dL POC Glucose (mg/dL) 427 H (70-110) mg/dL Plasma Lactic Acid Benedicto (0.7-2.0) mmol/L AST 37 H (14-36) U/L Albumin (3.5-5.0) g/dL Urine Protein 1+ H (Negative) Urine Glucose (UA) 4+ H (Negative) Urine Ketones Trace H (Negative) Urine Blood Moderate H (Negative) Ur Leukocyte Esterase Moderate H (Negative) Urine WBC 62 H (0-5) /hpf Urine WBC Clumps Rare H (None) /hpf Urine Mucus Rare H (None) /hpf 03/18/23 03/18/23 03/18/23 Range/Units 16:38 20:27 20:53 WBC (3.8-10.6) k/uL Neutrophils # (1.3-7.7) k/uL APTT (22.0-30.0) sec Sodium (137-145) mmol/L Potassium (3.5-5.1) mmol/L Chloride (98-107) mmol/L BUN (7-17) mg/dL Creatinine (0.52-1.04) mg/dL Glucose (74-99) mg/dL POC Glucose (mg/dL) 227 H (70-110) mg/dL Plasma Lactic Acid Benedicto 3.0 H* 2.6 H* (0.7-2.0) mmol/L AST (14-36) U/L Albumin (3.5-5.0) g/dL Urine Protein (Negative) Urine Glucose (UA) (Negative) Urine Ketones (Negative) Urine Blood (Negative) Ur Leukocyte Esterase (Negative) Urine WBC (0-5) /hpf Urine WBC Clumps (None) /hpf Urine Mucus (None) /hpf 03/19/23 03/19/23 03/19/23 Range/Units 05:33 07:51 07:51 WBC 25.1 H (3.8-10.6) k/uL Neutrophils # 22.3 H (1.3-7.7) k/uL APTT (22.0-30.0) sec Sodium 136 L (137-145) mmol/L Potassium 3.3 L (3.5-5.1) mmol/L Chloride (98-107) mmol/L BUN 31 H (7-17) mg/dL Creatinine (0.52-1.04) mg/dL Glucose 123 H (74-99) mg/dL POC Glucose (mg/dL) 138 H (70-110) mg/dL Plasma Lactic Acid Benedicto (0.7-2.0) mmol/L AST (14-36) U/L Albumin 3.2 L (3.5-5.0) g/dL Urine Protein (Negative) Urine Glucose (UA) (Negative) Urine Ketones (Negative) Urine Blood (Negative) Ur Leukocyte Esterase (Negative) Urine WBC (0-5) /hpf Urine WBC Clumps (None) /hpf Urine Mucus (None) /hpf Microbiology - Last 24 Hours (Table) 03/17/23 23:15 Blood Culture Gram Stain - Preliminary Blood 03/17/23 23:00 Blood Culture Gram Stain - Preliminary Blood Assessment and Plan (1) Urinary tract infection Current Visit: Yes Status: Acute Code(s): N39.0 - URINARY TRACT INFECTION, SITE NOT SPECIFIED SNOMED Code(s): 03381329 (2) E coli bacteremia Current Visit: Yes Status: Acute Code(s): R78.81 - BACTEREMIA; B96.20 - UNSP ESCHERICHIA COLI THE CAUSE OF DISEASES CLASSD [facility] SNOMED Code(s): 487675430369 (3) Sepsis Current Visit: Yes Status: Acute Code(s): A41.9 - SEPSIS, UNSPECIFIED ORGANISM SNOMED Code(s): 99144324 Plan: 1patient with the gram-negative bacteremia source likely urinary as the patient did have urinary symptoms underlying abdominal source not entirely excluded in this patient presented to hospital with sepsis with fever elevated white count tachycardia elevated lactic acid. 2we will obtain a CT of abdominal pelvis with oral contrast only as the patient to have IV dye allergy. 3continue the patient on Rocephin 2 g daily discontinue Zithromax as no evidence of pneumonia and add Flagyl. We will follow on clinical condition and cultures to further adjust medication if needed Thank you for this consultation we will follow the patient along with you Dictation was produced using Gnodal dictation software. please excuse any grammatical, word or spelling errors. Time with Patient: Greater than 30
[2023-03-19] MEDS ORDERED: AZITHROMYCIN 500 MG in SODIUM CHLORIDE 0.9% 250 ML IVPB ONE (23:45)
[2023-03-20] MEDS: DILTIAZEM 125 MG in SODIUM CHLORIDE 0.9% 100 ML IV SCH (04:57)
[2023-03-20] MEDS: HEPARIN SOD,PORK IN 0.45% NACL 25,000 UNIT in 0.45% NACL 1 250ML.BAG IV SCH ×2 (04:58→16:47)
[2023-03-20 06:13] LABS: Glucose,Whole Blood 81 mg/dL (70-110)
[2023-03-20] MEDS: INSULIN ASPART (NovoLOG) 100 UNIT/ML VIAL SQ SCH ×4 (06:31→20:58)
[2023-03-20] MEDS: metFORMIN 500 MG TAB PO SCH ×2 (06:31→16:46)
[2023-03-20] MEDS: PANTOPRAZOLE 40 MG TABLET PO SCH (06:37)
[2023-03-20] MEDS: IPRATROPIUM-ALBUTEROL 3 ML NEB INHALATION SCH ×4 (08:15→20:35)
[2023-03-20] MEDS: BARIUM SULFATE 2% - 450 ML ORAL.SUSP BOTTLE PO PRN ×2 (09:13→12:02)
[2023-03-20] MEDS: NICOTINE 21MG/24HR PATCH TRANSDERM SCH (09:13)
[2023-03-20] MEDS: METOPROLOL TARTRATE 50 MG TAB PO SCH ×2 (09:14→21:06)
[2023-03-20] MEDS: HYDROcodone/APAP 10-325MG 1 EACH TAB PO PRN (09:14)
[2023-03-20] MEDS: OXYBUTYNIN 10 MG TAB.ER.24 PO SCH (09:14)
[2023-03-20] MEDS: CLOPIDOGREL 75 MG TAB PO SCH (09:14)
[2023-03-20] MEDS: metroNIDAZOLE 500 MG TAB PO SCH ×3 (09:14→21:06)
[2023-03-20] MEDS: LISINOPRIL-HCTZ 20-25 MG 1 EACH TAB PO SCH ×2 (09:14→21:06)
[2023-03-20] MEDS: ARIPiprazole 10 MG TAB PO SCH (09:14)
[2023-03-20 09:20] LABS: Basophils % (A) 0 %; Eosinophils % (A) 0 %; HCT 45.4 % (34.0-46.0); HGB 14.5 gm/dL (11.4-16.0); Lymphocytes # (A) 1.7 k/uL (1.0-4.8); Lymphocytes % (A) 9 %; MCH 29.1 pg (25.0-35.0); MCHC 31.8 g/dL (31.0-37.0); MCV 91.3 fL (80.0-100.0); Mean Platelet Volume 8.2; Monocytes # (A) 0.9 k/uL (0-1.0); Monocytes % (A) 5 %; Neutrophils # (A) 16.1 k/uL (1.3-7.7); Neutrophils % (A) 84 %; Platelet Count 185 k/uL (150-450); RBC 4.97 m/uL (3.80-5.40); RDW 13.4 % (11.5-15.5); WBC 19.2 k/uL (3.8-10.6)
[2023-03-20 09:37] LABS: ALT 20 U/L (4-34); AST 29 U/L (14-36); African American GFR (CKD) 82 (>60 ml/min/1.73 sqM); Albumin 3.3 g/dL (3.5-5.0); Alkaline Phosphatase 86 U/L (38-126); Anion Gap 10 mmol/L; Blood Urea Nitrogen 32 mg/dL (7-17); Calcium 8.7 mg/dL (8.4-10.2); Carbon Dioxide 23 mmol/L (22-30); Chloride 100 mmol/L (98-107); Glucose 58 mg/dL (74-99); Non-African American GFR(CKD) 71 (>60 ml/min/1.73 sqM); Sodium 133 mmol/L (137-145); Total Bilirubin 0.7 mg/dL (0.2-1.3); Total Protein 6.8 g/dL (6.3-8.2)
[2023-03-20] MEDS ORDERED: METOPROLOL TARTRATE 25 MG TAB PO STA ×2 (09:49→10:59)
--- NOTE | 2023-03-20 10:13 | P.PN ---
Subjective Progress Note Date: 03/20/23 Marina Radford, is a 68-year-old female who presented to [facility] emergency room with a chief complaint of worsening shortness of breath She was evaluated in the emergency room vital examination on presentation revealed a temperature of 99 pulse 128 respiration 24 blood pressure 149/63 pul se ox 94% on room air Laboratory data reveals a white blood count of 25.1 hemoglobin 15.0 platelet c ount 322 d-dimer 1.44 BUN 19 creatinine 0.98 lactic acid 3.4 Testing in the emergency room revealed chest x-ray revealed no acute cardiopulmonary disease, EKG revealed atrial fibrillation with rapid ventricular response, CT angiogram of the chest was done in the emergency room and revealed no evidence of acute pulmonary embolism. Patient was admitted to medical floor for further evaluation and treatment On 03/19/2023 Patient is alert and oriented 3. Heart rate remains elevated. She remains on cardizem and IV heparin. Patient remains on IV Rocephin and azithromycin. UA is positive. Urine and blood culture ordered. Vital temp 98.7, heart rate 128, respiratory rate 18, blood pressure 145/77 pulse ox 94 on 2 L. White blood cell remains unchanged at 25.1. Will consult infectious disea se services at this time On 03/20/2023 patient is alert and oriented 3. Blood culture positive for gram-negative bacilli. Infectious disease services are following CT of abdomen and pelvis ordered. Patient needs on IV Rocephin and Flagyl. Patient means on IV Cardizem and heparin for fibrillation. Current vital signs temp 98.2 HR 108, rr 18 and blood pressure 122/76, SPO2 92% on L Objective - Vital Signs Vital signs: Vital Signs Temp 98.2 F 03/20/23 09:07 Pulse 136 H 03/20/23 09:08 Resp 18 03/20/23 09:08 BP 122/76 03/20/23 09:07 Pulse Ox 92 L 03/20/23 09:07 FiO2 Intake & Output 03/19/23 03/20/23 03/20/23 18:59 06:59 18:59 Intake Total 966.697 298.303 82.797 Output Total 400 500 300 Balance 566.697 -201.697 -217.203 Weight 85 kg Intake: Intake, IV Titration 326.697 298.303 82.797 Amount Diltiazem 125 mg In 125 Sodium Chloride 0.9% 100 ml @ 10 MG/HR 10 mls/hr IV .[id number] [facility] Rx#: [id number] Heparin Sod,Pork in 0.45% 326.697 173.303 82.797 NaCl 25,000 unit In 0.45 % NaCl 1 250ml.bag @ 12 UNITS/KG/HR 9.961 mls/hr IV .Q24H [facility] Rx#: [id number] Oral 640 0 Output: Urine 400 500 300 Other: Voiding Method Bedpan Bedpan Bedpan Diaper Diaper Diaper External Catheter External Catheter External Catheter # Voids 1 - Exam In general patient is alert and oriented x 3 in no distress HEENT head normocephalic and atraumatic Neck is supple no JVD no goiter no lymphadenopathy no carotid bruit Chest examination is clear to auscultation no crackles no wheezing Cardiac exam reveals regular heart sounds S1 and S2 no gallops no murmurs Abdomen is soft nontender no organomegaly with normal bowel sounds Extremity exam reveals no edema no cyanosis or clubbing Neurological examination reveals no gross focal deficits - Labs CBC & Chem 7: 03/20/23 08:33 03/20/23 08:33 Labs: Abnormal Lab Results - Last 24 Hours (Table) 03/19/23 03/19/23 03/19/23 Range/Units 16:23 19:41 19:57 WBC (3.8-10.6) k/uL Neutrophils # (1.3-7.7) k/uL APTT 55.5 H (22.0-30.0) sec Sodium (137-145) mmol/L BUN (7-17) mg/dL Glucose (74-99) mg/dL POC Glucose (mg/dL) 129 H 195 H (70-110) mg/dL Albumin (3.5-5.0) g/dL 03/20/23 03/20/23 03/20/23 Range/Units 08:33 08:33 09:15 WBC 19.2 H (3.8-10.6) k/uL Neutrophils # 16.1 H (1.3-7.7) k/uL APTT 33.8 H (22.0-30.0) sec Sodium 133 L (137-145) mmol/L BUN 32 H (7-17) mg/dL Glucose 58 L (74-99) mg/dL POC Glucose (mg/dL) (70-110) mg/dL Albumin 3.3 L (3.5-5.0) g/dL Microbiology - Last 24 Hours (Table) 03/18/23 13:09 Blood Culture - Preliminary Blood 03/17/23 23:00 Blood Culture Gram Stain - Preliminary Blood Blood Culture - Preliminary Gram Neg Bacilli 03/17/23 23:15 Blood Culture Gram Stain - Preliminary Blood Blood Culture - Preliminary Gram Neg Bacilli Assessment and Plan Plan: Acute exacerbation of chronic obstructive pulmonary disease Atrial fibrillation with rapid ventricular response Possible sepsis with positive blood culture as evidenced by elevated white blood count and elevated lactic acid. Positive UA urine and blood cultures ordered patient remaines on IV antibiotics Underlying history of hypertension Underlying history of hyperlipidemia Underlying history of insulin-dependent diabetes mellitus Underlying history of depression Underlying history of continued tobacco use Underlying history of coronary artery disease Underlying history of peripheral arterial disease At this time patient is admitted to telemetry floor Home medications reviewed and reordered Patient was started on IV antibiotic ceftriaxone and Zithromax She was also started on IV Cardizem drip and IV heparin Patient was also started on inhaled bronchodilators Cardiology consultation and pulmonary consultation requested CT of the abdomen ordered per ID Will follow closely
[2023-03-20 11:22] LABS: Glucose,Whole Blood 52 mg/dL (70-110)
[2023-03-20] MEDS ORDERED: DEXTROSE 50% SYRINGE 50 ML IVP STA (11:22)
[2023-03-20 11:53] LABS: Glucose,Whole Blood 145 mg/dL (70-110)
[2023-03-20] MEDS ORDERED: DEXTROSE 5% IN WATER 1,000 ML IV ONE (11:57)
--- NOTE | 2023-03-20 12:33 | P.PN ---
Subjective Progress Note Date: 03/20/23 This is a 68-year-old female patient was hospitalized with various complaints a nd I was involved in the case because of concerns of shortness of breath. The patient came into the hospital because of altered mentation, apparently she was having fever at home, and at the same time, she was having gastrointestinal issues with nausea, diarrhea, and fluid intolerance. She is diabetic and recently she was started on Trulicity once a week injections and she thinks that she is having a reaction to the medication. At the same time the patient is on glargine insulin a total of 108 units a day in addition to metformin for blood sugar control. She states that her blood sugars were quite elevated an outpatient basis. She is also known to have diabetes mellitus type 2, hyperten herbie, hyperlipidemia and history of COPD and the patient is a chronic smoker. The patient came into the ED and the patient a white cell count of 25, hemoglobin of 15, BUN was 19 with a creatinine of 0.98 and a sodium level is at 137. Initial lactic acid level was at 3.4. Normal LFTs. ProBNP level was 4420, Covid 19 testing and the rest of the viral screen was all negative. The patient continues to have an elevated blood sugar and the most recent blood sugar measurement is at 351. In addition, the patient had a CAT scan of the brain that showed no acute abnormalities. There is no evidence of any bleed or a CVA. EKG that was done at time of admission showed atrial fibrillation with RVR and a CT angiogram was also done in the emergency department indicating no evidence of any pulmonary embolism. No acute pulmonary infiltrate pleural effusion or pneumothorax. She is not using any form of maintenance as for medications at home. She is not oxygen dependent. She was covered with R ocephin and Zithromax. She was started also on IV heparin regarding her atrial fibrillation. She is known to have peripheral vascular disease followed up by interventional cardiology. On today's evaluation of 03/19/2023, the patient is on 2 L of oxygen by nasal cannula. No respiratory distress pH is laying down comfortably in bed. She is still having issues with atrial fibrillation. She is having a rapid ventricular response and currently she is on Cardizem drip at 10 mg an hour. The echo of the heart also showed impairment of LV function, global hypokinesis with an ejection fraction of 40-45%. There is a possibility of this patient having a UTI. Urine culture is still pending for now. Note that her fever broke and she is currently afebrile. Nevertheless, the patient is still having leukocytosis with a white cell count of 25.1. Electrolytes show a potassium level of 3.3, sodium is at 136, BUN is at 31 with a creatinine of 1.03. The patient remains on IV heparin. The patient on a Cardizem drip. The patient is on IV Rocephin and Zithromax. She is on 2 L of oxygen by nasal cannula. Levemir insulin was restarted and her blood sugars under better control for now. 2022, the patient is being seen for a follow-up. The patient is still on Cardizem drip at 10 mg an hour and the heart is under better control. She remains in atrial fibrillation. She has an ejection fraction of around 40-45%. Meanwhile, she was found to have gram-negative sepsis. The blood culture was positive for gram-negative bacillus and the patient is undergoing a CAT scan of the abdomen and pelvis today. This was done without contrast. Meanwhile, the patient was also given Flagyl and this is a combination with IV Rocephin. The white cell count is improving is currently down to 19.2 with a hemoglobin of 14.5. BUN is at 32 with a creatinine of 0.8 and a sodium level is at 133. No significant shortness of breath and she remains on 2 L of oxygen by nasal cannula. The patient is afebrile. The patient remains on IV heparin. Metoprolol was also started a dose of 100 mg by mouth twice a day and Cardizem drip will be gradually weaned off and discontinued. The Objective - Vital Signs Vital signs: Vital Signs Temp 98.2 F 03/20/23 09:07 Pulse 136 H 03/20/23 09:08 Resp 18 03/20/23 09:08 BP 122/76 03/20/23 09:07 Pulse Ox 92 L 03/20/23 09:07 FiO2 Intake & Output 03/19/23 03/20/23 03/20/23 18:59 06:59 18:59 Intake Total 966.697 298.303 82.797 Output Total 400 500 300 Balance 566.697 -201.697 -217.203 Weight 85 kg Intake: Intake, IV Titration 326.697 298.303 82.797 Amount Diltiazem 125 mg In 125 Sodium Chloride 0.9% 100 ml @ 10 MG/HR 10 mls/hr IV .[id number] [facility] Rx#: [id number] Heparin Sod,Pork in 0.45% 326.697 173.303 82.797 NaCl 25,000 unit In 0.45 % NaCl 1 250ml.bag @ 12 UNITS/KG/HR 9.961 mls/hr IV .Q24H [facility] Rx#: [id number] Oral 640 0 Output: Urine 400 500 300 Other: Voiding Method Bedpan Bedpan Bedpan Diaper Diaper Diaper External Catheter External Catheter External Catheter # Voids 1 - Exam Breathing is nonlabored and the patient is currently on 2 L O2 nasal cannula Head exam was generally normal. There was no scleral icterus or corneal arcus. Mucous membranes were moist. Neck was supple and without jugular venous distension, thyromegaly, or carotid bruits. Carotids were easily palpable bilaterally. There was no adenopathy. Lungs sounds are diminished and there are clear. No crackles or wheezing at this point in time. Cardiac exam revealed the PMI to be normally situated and sized. The rhythm was irregular and no extrasystoles were noted during several minutes of auscultation. The first and second heart sounds were normal and physiologic splitting of the second heart sound was noted. There were no murmurs, rubs, cl icks, or gallops. Abdominal exam revealed normal bowel sounds. The abdomen was soft, non-tender, and without masses, organomegaly, or appreciable enlargement of the abdominal aorta. Examination of the extremities revealed easily palpable radial, femoral and pedal pulses. There was no cyanosis, clubbing or edema. Examination of the skin revealed no evidence of significant rashes, suspicious appearing nevi or other concerning lesions. Neurologically, the patient is awake and alert and the patient does not have any focal neurological deficit. Cranial nerves are essentially intact. - Labs CBC & Chem 7: 03/20/23 08:33 03/20/23 08:33 Labs: Abnormal Lab Results - Last 24 Hours (Table) 03/19/23 03/19/23 03/19/23 Range/Units 16:23 19:41 19:57 WBC (3.8-10.6) k/uL Neutrophils # (1.3-7.7) k/uL APTT 55.5 H (22.0-30.0) sec Sodium (137-145) mmol/L BUN (7-17) mg/dL Glucose (74-99) mg/dL POC Glucose (mg/dL) 129 H 195 H (70-110) mg/dL Albumin (3.5-5.0) g/dL 03/20/23 03/20/23 03/20/23 Range/Units 08:33 08:33 09:15 WBC 19.2 H (3.8-10.6) k/uL Neutrophils # 16.1 H (1.3-7.7) k/uL APTT 33.8 H (22.0-30.0) sec Sodium 133 L (137-145) mmol/L BUN 32 H (7-17) mg/dL Glucose 58 L (74-99) mg/dL POC Glucose (mg/dL) (70-110) mg/dL Albumin 3.3 L (3.5-5.0) g/dL Microbiology - Last 24 Hours (Table) 03/18/23 13:09 Blood Culture - Preliminary Blood 03/17/23 23:00 Blood Culture Gram Stain - Preliminary Blood Blood Culture - Preliminary Gram Neg Bacilli 03/17/23 23:15 Blood Culture Gram Stain - Preliminary Blood Blood Culture - Preliminary Gram Neg Bacilli Assessment and Plan Plan: Acute gram-negative sepsis and blood cultures positive for gram-negative bacillus. Rule out urinary tract infection with secondary to sepsis. Intra- abdominal source of infection cannot be completely ruled out. Awaiting CAT scan of the abdomen and pelvis and the patient is currently on a combination of IV Rocephin and Flagyl Acute febrile illness, T-max of 102.1. Patient is currently afebrile Atrial fibrillation with rapid ventricular response, still on a Cardizem drip CHF with an ejection fraction of 40-45% Diabetes mellitus type 2 with poorly controlled blood sugars Mild lactic acidosis, improving COPD, currently on 2 L of oxygen by nasal cannula with a pulse ox of 97% Hypertension Hyperlipidemia Peripheral vascular disease Coronary artery disease Plan Continue IV heparin Oral metoprolol at a dose of 100 mg twice a day and wean off Cardizem and discontinue Continue IV Rocephin and Flagyl CAT scan of the abdomen and pelvis Monitor white cell count and the white cell count remains elevated, is improving Echocardiogram was noted Blood sugars under better control the patient is currently on Levemir insulin and a slight scale coverage She is currently on 2 L of oxygen by nasal cannula face hardener on the case along with infectious disease Continue to follow
--- NOTE | 2023-03-20 12:34 | P.PN ---
Subjective Progress Note Date: 03/20/23 History of present illness: This is a 68-year-old female admitted to hospital with increasing shortness of breath that was progressively worsening. Patient is an active smoker with history of diabetes, hypertension, and depression. No documented history of coronary artery disease. Patient went into atrial fibrillation with moderately rapid ventricular rate and patient was on Cardizem drip and heparin drip. Patient's rate seemed to be improving yesterday but today is running 120s to 140s. Echocardiogram was a technically difficult study. Moderate global hypokinesis. Limited Doppler study with mild mitral and tricuspid regurgitation, EF 40-45%. 03/20 Yesterday, Toprol-XL was changed to Lopressor 50 mg 3 times daily and patient was continued on Cardizem drip at 10 mg/hr and heparin drip. Patient is going in and atrial fibrillation with rate of 90s to 130s. She is scheduled for CT of the abd/pelvis. Patient has been afebrile for 2 days. Blood pressure 129/79, pulse ox 93% on 2 L nasal cannula. Physical examination: Gen: This is a a 68-year-old obese female. She is resting in bed and appears to be fairly comfortable. VS: reviewed HEENT: Head is atraumatic, normocephalic. Pupils equal, round. Sclerae is anicteric. LUNGS: Diminished breath sounds. No intercostal retractions. HEART: Irregular rate and rhythm. Short systolic murmur. EXTREMITIES: No pedal edema. Positive pulses Assessment: New onset atrial fibrillation with RVR, paroxysmal Acute exacerbation of COPD Gram-negative bacteremia and sepsis of unclear etiology History of smoking Plan: Increase Lopressor to 100 mg 2 times daily Discontinue Cardizem drip Continue heparin drip until after infectious source is identified Further recommendations to follow based upon clinical course Nurse practitioner note has been reviewed, I agree with documented findings and plan of care. Patient was seen and examined. Objective - Vital Signs Vital signs: Vital Signs Temp 98.2 F 03/20/23 09:07 Pulse 136 H 03/20/23 09:08 Resp 18 03/20/23 09:08 BP 122/76 03/20/23 09:07 Pulse Ox 92 L 03/20/23 09:07 FiO2 Intake & Output 03/19/23 03/20/23 03/20/23 18:59 06:59 18:59 Intake Total 966.697 298.303 82.797 Output Total 400 500 300 Balance 566.697 -201.697 -217.203 Weight 85 kg Intake: Intake, IV Titration 326.697 298.303 82.797 Amount Diltiazem 125 mg In 125 Sodium Chloride 0.9% 100 ml @ 10 MG/HR 10 mls/hr IV .[id number] LIO Rx#: [id number] Heparin Sod,Pork in 0.45% 326.697 173.303 82.797 NaCl 25,000 unit In 0.45 % NaCl 1 250ml.bag @ 12 UNITS/KG/HR 9.961 mls/hr IV .Q24H LIO Rx#: [id number] Oral 640 0 Output: Urine 400 500 300 Other: Voiding Method Bedpan Bedpan Bedpan Diaper Diaper Diaper External Catheter External Catheter External Catheter # Voids 1 - Labs CBC & Chem 7: 03/20/23 08:33 03/20/23 08:33 Labs: Abnormal Lab Results - Last 24 Hours (Table) 03/19/23 03/19/23 03/19/23 Range/Units 07:51 16:23 19:41 WBC (3.8-10.6) k/uL Neutrophils # (1.3-7.7) k/uL APTT 55.5 H (22.0-30.0) sec Sodium 136 L (137-145) mmol/L Potassium 3.3 L (3.5-5.1) mmol/L BUN 31 H (7-17) mg/dL Glucose 123 H (74-99) mg/dL POC Glucose (mg/dL) 129 H (70-110) mg/dL Albumin 3.2 L (3.5-5.0) g/dL 03/19/23 03/20/23 03/20/23 Range/Units 19:57 08:33 08:33 WBC 19.2 H (3.8-10.6) k/uL Neutrophils # 16.1 H (1.3-7.7) k/uL APTT (22.0-30.0) sec Sodium 133 L (137-145) mmol/L Potassium (3.5-5.1) mmol/L BUN 32 H (7-17) mg/dL Glucose 58 L (74-99) mg/dL POC Glucose (mg/dL) 195 H (70-110) mg/dL Albumin 3.3 L (3.5-5.0) g/dL 03/20/23 Range/Units 09:15 WBC (3.8-10.6) k/uL Neutrophils # (1.3-7.7) k/uL APTT 33.8 H (22.0-30.0) sec Sodium (137-145) mmol/L Potassium (3.5-5.1) mmol/L BUN (7-17) mg/dL Glucose (74-99) mg/dL POC Glucose (mg/dL) (70-110) mg/dL Albumin (3.5-5.0) g/dL Microbiology - Last 24 Hours (Table) 03/18/23 13:09 Blood Culture - Preliminary Blood 03/17/23 23:00 Blood Culture Gram Stain - Preliminary Blood Blood Culture - Preliminary Gram Neg Bacilli 03/17/23 23:15 Blood Culture Gram Stain - Preliminary Blood Blood Culture - Preliminary Gram Neg Bacilli
--- NOTE | 2023-03-20 13:21 | CT ---
EXAMINATION TYPE: CT abdomen pelvis wo con CT DLP: 705.2 mGycm, Automated exposure control for dose reduction was used. DATE OF EXAM: 03/20/2023 1:09 PM COMPARISON: None. CLINICAL INDICATION:Female, 68 years old with history of e.coli bacteremia; e.coli bacteremia TECHNIQUE: Axial CT of the abdomen and pelvis. Sagittal and coronal reformats were created on a [employer] workstation. Contrast used: mL of , (none if empty) Oral contrast used: with Oral Contrast (none if empty) FINDINGS: LOWER CHEST: Unremarkable ABDOMEN LIVER: Unremarkable GALLBLADDER AND BILE DUCTS: Layering increased densities within the lumen consistent with gallstones are present. PANCREAS: Unremarkable. SPLEEN: Unremarkable. ADRENAL GLANDS: Unremarkable. KIDNEYS AND URETERS: No evidence of right ventricular uropathy. Mild left hydronephrosis with associa chela fat stranding changes. No shifting calculus visualized. There is a nonobstructing 4 mm calculus v ersus vascular calcification. PELVIS BLADDER: Layering debris versus wall thickening of the left posterior aspect of the urinary bladder w all. REPRODUCTIVE: Unremarkable. ABDOMEN & PELVIS STOMACH AND BOWEL: No evidence of bowel obstruction. Scattered colonic diverticula. PERITONEUM/RETROPERITONEUM: No evidence of pneumoperitoneum or free fluid. VASCULATURE: No evidence of aortic aneurysm. MUSCULOSKELETAL: No acute osseous abnormalities LYMPH NODES: No gross evidence for lymphadenopathy. SOFT TISSUE/ABDOMINAL WALL: Unremarkable IMPRESSION: 1. Mild left hydronephrosis with associated adjacent fat stranding changes around the kidney. No hebert dence for obstructing calculus. 2. Correlate for ascending infection. Correlate for pyelonephritis. 3. Layering debris versus thickening of the wall, findings could represent cystitis. Consider furthe r evaluation of bladder with ultrasound and correlation with urinalysis for cystitis. 4. Cholelithiasis. 5. Clonic diverticulosis.
[2023-03-20] MEDS ORDERED: METOPROLOL TARTRATE 25 MG TAB PO SCH (16:00)
[2023-03-20 16:26] LABS: Glucose,Whole Blood 182 mg/dL (70-110)
[2023-03-20 20:58] LABS: Glucose,Whole Blood 98 mg/dL (70-110)
[2023-03-20] MEDS: ATORVASTATIN 40 MG TAB PO SCH (21:06)
[2023-03-20] MEDS: INSULIN DETEMIR (LEVEMIR) 100 UNIT/ML SYR SQ SCH (21:07)
[2023-03-20] MEDS: NON FORMULARY DRUG (Vilazodone Hcl [Viibryd] 40 MG Tablet) PO SCH (21:08)
[2023-03-20] MEDS: SODIUM CHLORIDE 0.9% 1,000 ML IV SCH (21:08)
[2023-03-20] MEDS ORDERED: AZITHROMYCIN 500 MG in SODIUM CHLORIDE 0.9% 250 ML IVPB ONE (23:00)
[2023-03-21 02:03] LABS: Glucose,Whole Blood 34 mg/dL (70-110)
[2023-03-21] MEDS ORDERED: DEXTROSE 50% SYRINGE 50 ML IVP ONE (02:03)
[2023-03-21 02:13] LABS: Glucose,Whole Blood 124 mg/dL (70-110)
[2023-03-21 04:01] LABS: Glucose,Whole Blood 57 mg/dL (70-110)
[2023-03-21 04:15] LABS: Glucose,Whole Blood 53 mg/dL (70-110)
[2023-03-21 04:27] LABS: Glucose,Whole Blood 50 mg/dL (70-110)
[2023-03-21 04:42] LABS: Glucose,Whole Blood 152 mg/dL (70-110)
[2023-03-21] MEDS: HEPARIN SOD,PORK IN 0.45% NACL 25,000 UNIT in 0.45% NACL 1 250ML.BAG IV SCH (06:11)
[2023-03-21 06:27] LABS: Glucose,Whole Blood 142 mg/dL (70-110)
[2023-03-21] MEDS: INSULIN ASPART (NovoLOG) 100 UNIT/ML VIAL SQ SCH ×4 (06:28→20:07)
[2023-03-21] MEDS: PANTOPRAZOLE 40 MG TABLET PO SCH (06:47)
[2023-03-21] MEDS: metFORMIN 500 MG TAB PO SCH ×2 (06:47→16:31)
--- NOTE | 2023-03-21 07:28 | P.PN ---
Subjective Progress Note Date: 03/20/23 Principal diagnosis: E.coli Pyelonephritis and bacteremia Patient is a 68-year female with a past medical history significant for diabetes mellitus hypertension hyperlipidemia reflux coronary disease chronic back pain patient presented to the hospital for evaluation of increasing shortness of breath, patient also noticed to have a positive blood cultures with E. coli. On today's evaluation that is 03/20/2023, the patient denies having any fever or any chills, the patient is breathing comfortably, the patient denies having any chest pain or cough no nausea vomiting no abdominal pain or diarrhea. Patient did have a white count of 19.2 slightly lower than yesterday 25.1, creatinine 0.86 CT abdominal pelvis report is currently pending. Blood cultures with E. coli unfortunately urine culture not done, repeat blood cultures currently pending. Objective - Vital Signs Vital signs: Vital Signs Temp 97.6 F 03/20/23 11:09 Pulse 80 03/20/23 12:14 Resp 18 03/20/23 11:09 BP 129/79 03/20/23 11:09 Pulse Ox 93 L 03/20/23 11:09 FiO2 Intake & Output 03/19/23 03/20/23 03/20/23 18:59 06:59 18:59 Intake Total 966.697 298.303 82.797 Output Total 400 500 300 Balance 566.697 -201.697 -217.203 Weight 85 kg Intake: Intake, IV Titration 326.697 298.303 82.797 Amount Diltiazem 125 mg In 125 Sodium Chloride 0.9% 100 ml @ 10 MG/HR 10 mls/hr IV .[id number] LIO Rx#: [id number] Heparin Sod,Pork in 0.45% 326.697 173.303 82.797 NaCl 25,000 unit In 0.45 % NaCl 1 250ml.bag @ 12 UNITS/KG/HR 9.961 mls/hr IV .Q24H LIO Rx#: [id number] Oral 640 0 Output: Urine 400 500 300 Other: Voiding Method Bedpan Bedpan Bedpan Diaper Diaper Diaper External Catheter External Catheter External Catheter # Voids 1 - Exam GENERAL DESCRIPTION: Elderly female lying in bed in no distress RESPIRATORY SYSTEM: Unlabored breathing , decreased breath sounds at bases HEART: S1 S2 regular rate and rhythm ,no loud murmurs ABDOMEN: Soft , no tenderness EXTREMITIES: No edema feet - Labs CBC & Chem 7: 03/20/23 08:33 03/20/23 08:33 Labs: Abnormal Lab Results - Last 24 Hours (Table) 03/19/23 03/19/23 03/19/23 Range/Units 16:23 19:41 19:57 WBC (3.8-10.6) k/uL Neutrophils # (1.3-7.7) k/uL APTT 55.5 H (22.0-30.0) sec Sodium (137-145) mmol/L BUN (7-17) mg/dL Glucose (74-99) mg/dL POC Glucose (mg/dL) 129 H 195 H (70-110) mg/dL Albumin (3.5-5.0) g/dL 03/20/23 03/20/23 03/20/23 Range/Units 08:33 08:33 09:15 WBC 19.2 H (3.8-10.6) k/uL Neutrophils # 16.1 H (1.3-7.7) k/uL APTT 33.8 H (22.0-30.0) sec Sodium 133 L (137-145) mmol/L BUN 32 H (7-17) mg/dL Glucose 58 L (74-99) mg/dL POC Glucose (mg/dL) (70-110) mg/dL Albumin 3.3 L (3.5-5.0) g/dL 03/20/23 03/20/23 Range/Units 11:21 11:52 WBC (3.8-10.6) k/uL Neutrophils # (1.3-7.7) k/uL APTT (22.0-30.0) sec Sodium (137-145) mmol/L BUN (7-17) mg/dL Glucose (74-99) mg/dL POC Glucose (mg/dL) 52 L 145 H (70-110) mg/dL Albumin (3.5-5.0) g/dL Microbiology - Last 24 Hours (Table) 03/18/23 13:09 Blood Culture - Preliminary Blood 03/17/23 23:00 Blood Culture Gram Stain - Preliminary Blood Blood Culture - Preliminary Gram Neg Bacilli 03/17/23 23:15 Blood Culture Gram Stain - Preliminary Blood Blood Culture - Preliminary Gram Neg Bacilli Assessment and Plan (1) E coli bacteremia Current Visit: Yes Status: Acute Code(s): R78.81 - BACTEREMIA; B96.20 - UNSP ESCHERICHIA COLI THE CAUSE OF DISEASES CLASSD ELSR SNOMED Code(s): 202305920530 (2) Pyelonephritis Current Visit: Yes Status: Acute Code(s): N12 - TUBULO-INTERSTITIAL NE PHRITIS, NOT SPCF ACUTE OR CHRONIC SNOMED Code(s): 97784402 Plan: 1patient with the gram-negative bacteremia source likely urinary as the patient did have urinary symptoms underlying abdominal source not entirely excluded in this patient presented to hospital with sepsis with fever elevated white count tachycardia elevated lactic acid. 2CT abdominal pelvis report currently pending. 3patient to continue with Rocephin while waiting for the culture to finalize and monitor clinical course closely Dictation was produced using [employer] dictation software. please excuse any grammatical, word or spelling errors.
[2023-03-21] MEDS: IPRATROPIUM-ALBUTEROL 3 ML NEB INHALATION SCH ×4 (07:39→21:11)
[2023-03-21 09:05] LABS: ALT 23 U/L (4-34); AST 25 U/L (14-36); African American GFR (CKD) 85 (>60 ml/min/1.73 sqM); Alkaline Phosphatase 79 U/L (38-126); Anion Gap 11 mmol/L; Blood Urea Nitrogen 25 mg/dL (7-17); Calcium 8.4 mg/dL (8.4-10.2); Carbon Dioxide 24 mmol/L (22-30); Chloride 96 mmol/L (98-107); Glucose 152 mg/dL (74-99); Non-African American GFR(CKD) 74 (>60 ml/min/1.73 sqM); Potassium 3.5 mmol/L (3.5-5.1); Sodium 131 mmol/L (137-145); Total Bilirubin 0.5 mg/dL (0.2-1.3); Total Protein 6.4 g/dL (6.3-8.2)
[2023-03-21] MEDS: CLOPIDOGREL 75 MG TAB PO SCH (09:20)
[2023-03-21] MEDS: NICOTINE 21MG/24HR PATCH TRANSDERM SCH (09:20)
[2023-03-21] MEDS: METOPROLOL TARTRATE 50 MG TAB PO SCH ×2 (09:20→20:06)
[2023-03-21] MEDS: metroNIDAZOLE 500 MG TAB PO SCH ×3 (09:20→20:07)
[2023-03-21] MEDS: ARIPiprazole 10 MG TAB PO SCH (09:21)
[2023-03-21] MEDS: LISINOPRIL-HCTZ 20-25 MG 1 EACH TAB PO SCH (09:21)
[2023-03-21] MEDS: OXYBUTYNIN 10 MG TAB.ER.24 PO SCH (09:21)
[2023-03-21] MEDS: HYDROcodone/APAP 10-325MG 1 EACH TAB PO PRN ×2 (09:33→20:07)
[2023-03-21] MEDS: APIXABAN 5 MG TAB PO SCH ×2 (09:35→20:06)
[2023-03-21 11:20] LABS: Glucose,Whole Blood 136 mg/dL (70-110)
[2023-03-21 12:19] LABS: Basophils % (A) 0 %; Eosinophils # (A) 0.1 k/uL (0-0.7); Eosinophils % (A) 1 %; HCT 43.2 % (34.0-46.0); HGB 14.2 gm/dL (11.4-16.0); Lymphocytes % (A) 13 %; MCHC 32.9 g/dL (31.0-37.0); Monocytes % (A) 6 %; Neutrophils # (A) 12.4 k/uL (1.3-7.7); Neutrophils % (A) 77 %; Platelet Count 226 k/uL (150-450); RBC 4.75 m/uL (3.80-5.40); RDW 13.4 % (11.5-15.5); WBC 16.1 k/uL (3.8-10.6)
--- NOTE | 2023-03-21 12:22 | P.PN ---
Subjective Progress Note Date: 03/21/23 This is a 68-year-old female patient was hospitalized with various complaints a nd I was involved in the case because of concerns of shortness of breath. The patient came into the hospital because of altered mentation, apparently she was having fever at home, and at the same time, she was having gastrointestinal issues with nausea, diarrhea, and fluid intolerance. She is diabetic and recently she was started on Trulicity once a week injections and she thinks that she is having a reaction to the medication. At the same time the patient is on glargine insulin a total of 108 units a day in addition to metformin for blood sugar control. She states that her blood sugars were quite elevated an outpatient basis. She is also known to have diabetes mellitus type 2, hyperten herbie, hyperlipidemia and history of COPD and the patient is a chronic smoker. The patient came into the ED and the patient a white cell count of 25, hemoglobin of 15, BUN was 19 with a creatinine of 0.98 and a sodium level is at 137. Initial lactic acid level was at 3.4. Normal LFTs. ProBNP level was 4420, Covid 19 testing and the rest of the viral screen was all negative. The patient continues to have an elevated blood sugar and the most recent blood sugar measurement is at 351. In addition, the patient had a CAT scan of the brain that showed no acute abnormalities. There is no evidence of any bleed or a CVA. EKG that was done at time of admission showed atrial fibrillation with RVR and a CT angiogram was also done in the emergency department indicating no evidence of any pulmonary embolism. No acute pulmonary infiltrate pleural effusion or pneumothorax. She is not using any form of maintenance as for medications at home. She is not oxygen dependent. She was covered with R ocephin and Zithromax. She was started also on IV heparin regarding her atrial fibrillation. She is known to have peripheral vascular disease followed up by interventional cardiology. On today's evaluation of 03/19/2023, the patient is on 2 L of oxygen by nasal cannula. No respiratory distress pH is laying down comfortably in bed. She is still having issues with atrial fibrillation. She is having a rapid ventricular response and currently she is on Cardizem drip at 10 mg an hour. The echo of the heart also showed impairment of LV function, global hypokinesis with an ejection fraction of 40-45%. There is a possibility of this patient having a UTI. Urine culture is still pending for now. Note that her fever broke and she is currently afebrile. Nevertheless, the patient is still having leukocytosis with a white cell count of 25.1. Electrolytes show a potassium level of 3.3, sodium is at 136, BUN is at 31 with a creatinine of 1.03. The patient remains on IV heparin. The patient on a Cardizem drip. The patient is on IV Rocephin and Zithromax. She is on 2 L of oxygen by nasal cannula. Levemir insulin was restarted and her blood sugars under better control for now. 2022, the patient is being seen for a follow-up. The patient is still on Cardizem drip at 10 mg an hour and the heart is under better control. She remains in atrial fibrillation. She has an ejection fraction of around 40-45%. Meanwhile, she was found to have gram-negative sepsis. The blood culture was positive for gram-negative bacillus and the patient is undergoing a CAT scan of the abdomen and pelvis today. This was done without contrast. Meanwhile, the patient was also given Flagyl and this is a combination with IV Rocephin. The white cell count is improving is currently down to 19.2 with a hemoglobin of 14.5. BUN is at 32 with a creatinine of 0.8 and a sodium level is at 133. No significant shortness of breath and she remains on 2 L of oxygen by nasal cannula. The patient is afebrile. The patient remains on IV heparin. Metoprolol was also started a dose of 100 mg by mouth twice a day and Cardizem drip will be gradually weaned off and discontinued. The On today's evaluation of 03/21/2023, the patient was found to have E. coli septicemia from an underlying infectious infection. She is feeling well. She has no specific complaints. Note that the patient shortness of breath. No altered mentation. CAT scan of the abdomen and pelvis was done yesterday and showed mild hydronephrosis associated with some fat stranding involving the left kidney. No evidence of an obstructive calculus. Pyelonephritis was being entertained based on the CAT scan images. At the same time, there was layering debris's and thickening of the bladder wall suggestive of an underlying cystitis. There is cholelithiasis and chronic diverticulosis without evidence of diverticulitis or cholecystitis. The patient remains on IV antibiotics. The patient remains on IV Rocephin 2 g every 24 hours. The patient was also given Flagyl by infectious disease. I think the last antibiotic and be essentially discontinued. She remains atrial fibrillation. She is off the Cardizem drip. She is on IV heparin. She is also on metoprolol 100 mg by mouth twice a day. Objective - Vital Signs Vital signs: Vital Signs Temp 97.8 F 03/21/23 09:17 Pulse 102 H 03/21/23 09:17 Resp 15 03/21/23 09:17 BP 132/86 03/21/23 09:17 Pulse Ox 99 03/21/23 09:17 FiO2 Intake & Output 03/20/23 03/21/23 03/21/23 18:59 06:59 18:59 Intake Total 223.579 250 110 Output Total 500 550 Balance -276.421 -300 110 Intake: Intake, IV Titration 223.579 250 Amount Heparin Sod,Pork in 0.45% 223.579 250 NaCl 25,000 unit In 0.45 % NaCl 1 250ml.bag @ 12 UNITS/KG/HR 9.961 mls/hr IV .Q24H LIO Rx#: [id number] Oral 0 110 Output: Urine 500 550 Other: Voiding Method Bedpan Bedpan Diaper Diaper External Catheter External Catheter # Bowel Movements 1 2 - Exam Breathing is nonlabored and the patient is currently on 2 L O2 nasal cannula Head exam was generally normal. There was no scleral icterus or corneal arcus. Mucous membranes were moist. Neck was supple and without jugular venous distension, thyromegaly, or carotid bruits. Carotids were easily palpable bilaterally. There was no adenopathy. Lungs sounds are diminished and there are clear. No crackles or wheezing at this point in time. Cardiac exam revealed the PMI to be normally situated and sized. The rhythm was irregular and no extrasystoles were noted during several minutes of auscultation. The first and second heart sounds were normal and physiologic splitting of the second heart sound was noted. There were no murmurs, rubs, clicks, or gallops. Abdominal exam revealed normal bowel sounds. The abdomen was soft, non-tender, and without masses, organomegaly, or appreciable enlargement of the abdominal aorta. Examination of the extremities revealed easily palpable radial, femoral and pedal pulses. There was no cyanosis, clubbing or edema. Examination of the skin revealed no evidence of significant rashes, suspicious appearing nevi or other concerning lesions. Neurologically, the patient is awake and alert and the patient does not have any focal neurological deficit. Cranial nerves are essentially intact. - Labs CBC & Chem 7: 03/20/23 08:33 03/21/23 08:20 Labs: Abnormal Lab Results - Last 24 Hours (Table) 03/20/23 03/20/23 03/20/23 Range/Units 08:33 09:15 11:21 APTT 33.8 H (22.0-30.0) sec Sodium 133 L (137-145) mmol/L Chloride (98-107) mmol/L BUN 32 H (7-17) mg/dL Glucose 58 L (74-99) mg/dL POC Glucose (mg/dL) 52 L (70-110) mg/dL Albumin 3.3 L (3.5-5.0) g/dL 03/20/23 03/20/23 03/20/23 Range/Units 11:52 16:05 16:24 APTT 36.5 H (22.0-30.0) sec Sodium (137-145) mmol/L Chloride (98-107) mmol/L BUN (7-17) mg/dL Glucose (74-99) mg/dL POC Glucose (mg/dL) 145 H 182 H (70-110) mg/dL Albumin (3.5-5.0) g/dL 03/20/23 03/21/23 03/21/23 Range/Units 23:40 02:01 02:12 APTT 44.8 H (22.0-30.0) sec Sodium (137-145) mmol/L Chloride (98-107) mmol/L BUN (7-17) mg/dL Glucose (74-99) mg/dL POC Glucose (mg/dL) 34 L 124 H (70-110) mg/dL Albumin (3.5-5.0) g/dL 03/21/23 03/21/23 03/21/23 Range/Units 03:57 04:13 04:26 APTT (22.0-30.0) sec Sodium (137-145) mmol/L Chloride (98-107) mmol/L BUN (7-17) mg/dL Glucose (74-99) mg/dL POC Glucose (mg/dL) 57 L 53 L 50 L (70-110) mg/dL Albumin (3.5-5.0) g/dL 03/21/23 03/21/23 03/21/23 Range/Units 04:42 06:26 08:20 APTT (22.0-30.0) sec Sodium 131 L (137-145) mmol/L Chloride 96 L (98-107) mmol/L BUN 25 H (7-17) mg/dL Glucose 152 H (74-99) mg/dL POC Glucose (mg/dL) 152 H 142 H (70-110) mg/dL Albumin 3.0 L (3.5-5.0) g/dL 03/21/23 Range/Units 08:20 APTT 61.5 H (22.0-30.0) sec Sodium (137-145) mmol/L Chloride (98-107) mmol/L BUN (7-17) mg/dL Glucose (74-99) mg/dL POC Glucose (mg/dL) (70-110) mg/dL Albumin (3.5-5.0) g/dL Microbiology - Last 24 Hours (Table) 03/18/23 13:09 Blood Culture - Preliminary Blood 03/17/23 23:00 Blood Culture Gram Stain - Final Blood Blood Culture - Final Escherichia coli 03/17/23 23:15 Blood Culture Gram Stain - Final Blood Blood Culture - Final Escherichia coli Assessment and Plan Plan: Acute gram-negative/E. coli sepsis and blood cultures positive for gram-negative bacillus. Rule out urinary tract infection with secondary to sepsis. There is also the possibility of pyelonephritis of the left kidney based on the CAT scan findings. Acute febrile illness, T-max of 102.1. Patient is currently afebrile Atrial fibrillation with rapid ventricular response, patient is currently on metoprolol CHF with an ejection fraction of 40-45% Diabetes mellitus type 2 with poorly controlled blood sugars Mild lactic acidosis, improving COPD, currently on 2 L of oxygen by nasal cannula with a pulse ox of 97% Hypertension Hyperlipidemia Peripheral vascular disease Coronary artery disease Plan Stop the IV heparin and so the patient to coagulation with Eliquis 5 mg by mouth twice a day Oral metoprolol at a dose of 100 mg twice a day Continue IV Rocephin and Flagyl, we'll discuss with infectious disease and Flagyl can be discontinued CAT scan of the abdomen and pelvis, results were noted Monitor white cell count and the white cell count remains elevated, is improving Echocardiogram was noted Blood sugars under better control the patient is currently on Levemir insulin and a slight scale coverage She is currently on 2 L of oxygen by nasal cannula clothing sales assistant on the case along with infectious disease Continue to follow
--- NOTE | 2023-03-21 14:28 | P.PN ---
Subjective Progress Note Date: 03/21/23 Principal diagnosis: E.coli Pyelonephritis and bacteremia Patient is a 68-year female with a past medical history significant for diabetes mellitus hypertension hyperlipidemia reflux coronary disease chronic back pain patient presented to the hospital for evaluation of increasing shortness of breath, patient also noticed to have a positive blood cultures with E. coli. On today's evaluation that is 03/21/2023, the patient is afebrile, the patient is breathing comfortably on room air, the patient denies chest pain and no significant cough, the patient denies nausea and vomiting no abdominal pain and no diarrhea, Patient WBC is down to 16.1, creatinine 0.83, CT abdominal pelvis with mild left-sided hydronephrosis and pyelonephritis Blood cultures with E. coli unfortunately urine culture not done, repeat blood cultures currently pending. Objective - Vital Signs Vital signs: Vital Signs Temp 97.8 F 03/21/23 09:17 Pulse 82 03/21/23 11:41 Resp 16 03/21/23 11:41 BP 133/77 03/21/23 11:41 Pulse Ox 99 03/21/23 09:17 FiO2 Intake & Output 03/20/23 03/21/23 03/21/23 18:59 06:59 18:59 Intake Total 223.579 250 110 Output Total 500 550 Balance -276.421 -300 110 Intake: Intake, IV Titration 223.579 250 Amount Heparin Sod,Pork in 0.45% 223.579 250 NaCl 25,000 unit In 0.45 % NaCl 1 250ml.bag @ 12 UNITS/KG/HR 9.961 mls/hr IV .Q24H [facility] Rx#: [id number] Oral 0 110 Output: Urine 500 550 Other: Voiding Method Bedpan Bedpan Toilet Diaper Diaper Diaper External Catheter External Catheter Incontinent # Bowel Movements 1 2 - Exam GENERAL DESCRIPTION: Elderly female lying in bed in no distress RESPIRATORY SYSTEM: Unlabored breathing , decreased breath sounds at bases HEART: S1 S2 regular rate and rhythm ,no loud murmurs ABDOMEN: Soft , no tenderness EXTREMITIES: No edema feet - Labs CBC & Chem 7: 03/21/23 11:58 03/21/23 08:20 Labs: Abnormal Lab Results - Last 24 Hours (Table) 09/13/23 09/13/23 09/13/23 Range/Units 11:52 16:05 16:24 APTT 36.5 H (22.0-30.0) sec Sodium (137-145) mmol/L Chloride (98-107) mmol/L BUN (7-17) mg/dL Glucose (74-99) mg/dL POC Glucose (mg/dL) 145 H 182 H (70-110) mg/dL Albumin (3.5-5.0) g/dL 03/20/23 03/21/23 03/21/23 Range/Units 23:40 02:01 02:12 APTT 44.8 H (22.0-30.0) sec Sodium (137-145) mmol/L Chloride (98-107) mmol/L BUN (7-17) mg/dL Glucose (74-99) mg/dL POC Glucose (mg/dL) 34 L 124 H (70-110) mg/dL Albumin (3.5-5.0) g/dL 03/21/23 03/21/23 03/21/23 Range/Units 03:57 04:13 04:26 APTT (22.0-30.0) sec Sodium (137-145) mmol/L Chloride (98-107) mmol/L BUN (7-17) mg/dL Glucose (74-99) mg/dL POC Glucose (mg/dL) 57 L 53 L 50 L (70-110) mg/dL Albumin (3.5-5.0) g/dL 03/21/23 03/21/23 03/21/23 Range/Units 04:42 06:26 08:20 APTT (22.0-30.0) sec Sodium 131 L (137-145) mmol/L Chloride 96 L (98-107) mmol/L BUN 25 H (7-17) mg/dL Glucose 152 H (74-99) mg/dL POC Glucose (mg/dL) 152 H 142 H (70-110) mg/dL Albumin 3.0 L (3.5-5.0) g/dL 03/21/23 03/21/23 Range/Units 08:20 11:19 APTT 61.5 H (22.0-30.0) sec Sodium (137-145) mmol/L Chloride (98-107) mmol/L BUN (7-17) mg/dL Glucose (74-99) mg/dL POC Glucose (mg/dL) 136 H (70-110) mg/dL Albumin (3.5-5.0) g/dL Microbiology - Last 24 Hours (Table) 03/18/23 13:09 Blood Culture - Preliminary Blood 03/17/23 23:00 Blood Culture Gram Stain - Final Blood Blood Culture - Final Escherichia coli 03/17/23 23:15 Blood Culture Gram Stain - Final Blood Blood Culture - Final Escherichia coli Assessment and Plan (1) E coli bacteremia Current Visit: Yes Status: Acute Code(s): R78.81 - BACTEREMIA; B96.20 - UNSP ESCHERICHIA COLI THE CAUSE OF DISEASES [facility] SNOMED Code(s): 778739920493 (2) Pyelonephritis Current Visit: Yes Status: Acute Code(s): N12 - TUBULO-INTERSTITIAL NEPHRITIS, NOT SPCF ACUTE OR CHRONIC SNOMED Code(s): 88053625 Plan: 1patient with the gram-negative bacteremia source likely urinary as the patient did have urinary symptoms underlying abdominal source not entirely excluded in this patient presented to hospital with sepsis with fever elevated white count tachycardia elevated lactic acid. 2CT abdominal pelvis did shows left-sided mild hydronephrosis and pyelonephritis no evidence of colitis or an abscess 3patient to continue with Rocephin in view of clinical response and monitor clinical course closely, plan is for oral antibiotics on discharge Dictation was produced using [employer] dictation software. please excuse any grammatical, word or spelling errors. Time with Patient: Less than 30
--- NOTE | 2023-03-21 16:02 | P.PN ---
Subjective Progress Note Date: 03/21/23 History of present illness: This is a 68-year-old female admitted to hospital with increasing shortness of breath that was progressively worsening. Patient is an active smoker with history of diabetes, hypertension, and depression. No documented history of coronary artery disease. Patient went into atrial fibrillation with moderately rapid ventricular rate and patient was on Cardizem drip and heparin drip. Patient's rate seemed to be improving yesterday but today is running 120s to 140s. Echocardiogram was a technically difficult study. Moderate global hypokinesis. Limited Doppler study with mild mitral and tricuspid regurgitation, EF 40-45%. 03/20 Yesterday, Toprol-XL was changed to Lopressor 50 mg 3 times daily and patient was continued on Cardizem drip at 10 mg/hr and heparin drip. Patient is going in and atrial fibrillation with rate of 90s to 130s. She is scheduled for CT of the abd/pelvis. Patient has been afebrile for 2 days. Blood pressure 129/79, pulse ox 93% on 2 L nasal cannula. 03/21 Patient is seen today in follow-up. Yesterday we discontinue Cardizem drip and increase Lopressor to 100 mg 2 times daily. Today patient remains in atrial fibrillation rate controlled. She underwent a CAT scan of the abdomen and pelvis yesterday which revealed mild left hydronephrosis with fat stranding. Correlate for pyelonephritis. Patient has been on heparin drip and we will t ransition this to [facility]. Blood pressure 150/81, heart rate in the 80s and 90s, pulse ox 94% on room air. Leukocytosis is slowly improving and patient is maintained on IV antibiotics. Sodium is 131, potassium 3.5, BUN 25 creatinine 0.83. Physical examination: Gen: This is a a 68-year-old obese female. She is resting in bed and appears to be fairly comfortable. VS: reviewed HEENT: Head is atraumatic, normocephalic. Pupils equal, round. Sclerae is anicteric. LUNGS: Diminished breath sounds. No intercostal retractions. HEART: Irregular rate and rhythm. Short systolic murmur. EXTREMITIES: No pedal edema. Positive pulses Assessment: New onset atrial fibrillation with RVR, paroxysmal Acute exacerbation of COPD Gram-negative bacteremia and sepsis of unclear etiology History of smoking Plan: Continue Lopressor 100 mg 2 times daily Discontinue hydrochlorothiazide Start patient on eliquis 5 mg twice daily Further recommendations to follow based upon clinical course Nurse practitioner note has been reviewed, I agree with documented findings and plan of care. Patient was seen and examined. Objective - Vital Signs Vital signs: Vital Signs Temp 97.8 F 03/21/23 09:17 Pulse 102 H 03/21/23 09:17 Resp 15 03/21/23 09:17 BP 132/86 03/21/23 09:17 Pulse Ox 99 03/21/23 09:17 FiO2 Intake & Output 03/20/23 03/21/23 03/21/23 18:59 06:59 18:59 Intake Total 223.579 250 110 Output Total 500 550 Balance -276.421 -300 110 Intake: Intake, IV Titration 223.579 250 Amount Heparin Sod,Pork in 0.45% 223.579 250 NaCl 25,000 unit In 0.45 % NaCl 1 250ml.bag @ 12 UNITS/KG/HR 9.961 mls/hr IV .Q24H [facility] Rx#: [id number] Oral 0 110 Output: Urine 500 550 Other: Voiding Method Bedpan Bedpan Diaper Diaper External Catheter External Catheter # Bowel Movements 1 2 - Labs CBC & Chem 7: 03/21/23 11:58 03/21/23 08:20 Labs: Abnormal Lab Results - Last 24 Hours (Table) 03/20/23 03/20/23 03/20/23 Range/Units 08:33 09:15 11:21 APTT 33.8 H (22.0-30.0) sec Sodium 133 L (137-145) mmol/L Chloride (98-107) mmol/L BUN 32 H (7-17) mg/dL Glucose 58 L (74-99) mg/dL POC Glucose (mg/dL) 52 L (70-110) mg/dL Albumin 3.3 L (3.5-5.0) g/dL 03/20/23 03/20/23 03/20/23 Range/Units 11:52 16:05 16:24 APTT 36.5 H (22.0-30.0) sec Sodium (137-145) mmol/L Chloride (98-107) mmol/L BUN (7-17) mg/dL Glucose (74-99) mg/dL POC Glucose (mg/dL) 145 H 182 H (70-110) mg/dL Albumin (3.5-5.0) g/dL 03/20/23 03/21/23 03/21/23 Range/Units 23:40 02:01 02:12 APTT 44.8 H (22.0-30.0) sec Sodium (137-145) mmol/L Chloride (98-107) mmol/L BUN (7-17) mg/dL Glucose (74-99) mg/dL POC Glucose (mg/dL) 34 L 124 H (70-110) mg/dL Albumin (3.5-5.0) g/dL 03/21/23 03/21/23 03/21/23 Range/Units 03:57 04:13 04:26 APTT (22.0-30.0) sec Sodium (137-145) mmol/L Chloride (98-107) mmol/L BUN (7-17) mg/dL Glucose (74-99) mg/dL POC Glucose (mg/dL) 57 L 53 L 50 L (70-110) mg/dL Albumin (3.5-5.0) g/dL 03/21/23 03/21/23 03/21/23 Range/Units 04:42 06:26 08:20 APTT (22.0-30.0) sec Sodium 131 L (137-145) mmol/L Chloride 96 L (98-107) mmol/L BUN 25 H (7-17) mg/dL Glucose 152 H (74-99) mg/dL POC Glucose (mg/dL) 152 H 142 H (70-110) mg/dL Albumin 3.0 L (3.5-5.0) g/dL 03/21/23 Range/Units 08:20 APTT 61.5 H (22.0-30.0) sec Sodium (137-145) mmol/L Chloride (98-107) mmol/L BUN (7-17) mg/dL Glucose (74-99) mg/dL POC Glucose (mg/dL) (70-110) mg/dL Albumin (3.5-5.0) g/dL Microbiology - Last 24 Hours (Table) 03/18/23 13:09 Blood Culture - Preliminary Blood 03/17/23 23:00 Blood Culture Gram Stain - Final Blood Blood Culture - Final Escherichia coli 03/17/23 23:15 Blood Culture Gram Stain - Final Blood Blood Culture - Final Escherichia coli
[2023-03-21 16:14] LABS: Glucose,Whole Blood 145 mg/dL (70-110)
[2023-03-21 20:06] LABS: Glucose,Whole Blood 85 mg/dL (70-110)
[2023-03-21] MEDS: ATORVASTATIN 40 MG TAB PO SCH (20:07)
[2023-03-21] MEDS: lisinopriL 20 MG TAB PO SCH (20:08)
[2023-03-21] MEDS: NON FORMULARY DRUG (Vilazodone Hcl [Viibryd] 40 MG Tablet) PO SCH (20:09)
[2023-03-21] MEDS: INSULIN DETEMIR (LEVEMIR) 100 UNIT/ML SYR SQ SCH (20:10)
[2023-03-21] MEDS: SODIUM CHLORIDE 0.9% 1,000 ML IV SCH (20:14)
[2023-03-22 00:55] LABS: Glucose,Whole Blood 42 mg/dL (70-110)
[2023-03-22 01:13] LABS: Glucose,Whole Blood 55 mg/dL (70-110)
[2023-03-22] MEDS ORDERED: DEXTROSE 50% SYRINGE 50 ML IVP ONE ×2 (01:21→05:44)
[2023-03-22 01:33] LABS: Glucose,Whole Blood 136 mg/dL (70-110)
[2023-03-22 04:36] LABS: Glucose,Whole Blood 36 mg/dL (70-110)
[2023-03-22 04:58] LABS: Glucose,Whole Blood 73 mg/dL (70-110)
[2023-03-22 05:45] LABS: Glucose,Whole Blood 43 mg/dL (70-110)
[2023-03-22 06:07] LABS: Glucose,Whole Blood 156 mg/dL (70-110)
[2023-03-22] MEDS: INSULIN ASPART (NovoLOG) 100 UNIT/ML VIAL SQ SCH ×4 (06:21→20:00)
[2023-03-22] MEDS: metFORMIN 500 MG TAB PO SCH ×2 (06:22→16:25)
[2023-03-22] MEDS: PANTOPRAZOLE 40 MG TABLET PO SCH (06:33)
[2023-03-22 07:35] LABS: Basophils # (A) 0.1 k/uL (0-0.2); Basophils % (A) 0 %; Eosinophils # (A) 0.2 k/uL (0-0.7); Eosinophils % (A) 1 %; HCT 41.6 % (34.0-46.0); HGB 13.6 gm/dL (11.4-16.0); Lymphocytes # (A) 1.8 k/uL (1.0-4.8); Lymphocytes % (A) 10 %; MCH 29.8 pg (25.0-35.0); MCHC 32.6 g/dL (31.0-37.0); MCV 91.3 fL (80.0-100.0); Mean Platelet Volume 8.4; Monocytes # (A) 1.4 k/uL (0-1.0); Monocytes % (A) 8 %; Neutrophils # (A) 14.2 k/uL (1.3-7.7); Neutrophils % (A) 78 %; Platelet Count 213 k/uL (150-450); RBC 4.56 m/uL (3.80-5.40); RDW 13.6 % (11.5-15.5); WBC 18.3 k/uL (3.8-10.6)
[2023-03-22 07:59] LABS: ALT 19 U/L (4-34); AST 22 U/L (14-36); African American GFR (CKD) 84 (>60 ml/min/1.73 sqM); Albumin 2.7 g/dL (3.5-5.0); Alkaline Phosphatase 53 U/L (38-126); Anion Gap 6 mmol/L; Blood Urea Nitrogen 23 mg/dL (7-17); Calcium 7.9 mg/dL (8.4-10.2); Carbon Dioxide 26 mmol/L (22-30); Chloride 100 mmol/L (98-107); Glucose 103 mg/dL (74-99); Non-African American GFR(CKD) 73 (>60 ml/min/1.73 sqM); Potassium 3.2 mmol/L (3.5-5.1); Sodium 132 mmol/L (137-145); Total Bilirubin 0.6 mg/dL (0.2-1.3); Total Protein 5.7 g/dL (6.3-8.2)
[2023-03-22] MEDS: IPRATROPIUM-ALBUTEROL 3 ML NEB INHALATION SCH ×4 (08:29→21:00)
[2023-03-22] MEDS: ASPIRIN 81 MG PO SCH (08:43)
[2023-03-22] MEDS: NICOTINE 21MG/24HR PATCH TRANSDERM SCH (08:43)
[2023-03-22] MEDS: OXYBUTYNIN 10 MG TAB.ER.24 PO SCH (08:43)
[2023-03-22] MEDS: metroNIDAZOLE 500 MG TAB PO SCH ×3 (08:43→20:10)
[2023-03-22] MEDS: ARIPiprazole 10 MG TAB PO SCH (08:43)
[2023-03-22] MEDS: METOPROLOL TARTRATE 50 MG TAB PO SCH ×2 (08:43→20:10)
[2023-03-22] MEDS: APIXABAN 5 MG TAB PO SCH ×2 (08:43→20:11)
[2023-03-22] MEDS: lisinopriL 20 MG TAB PO SCH ×2 (08:43→20:10)
[2023-03-22] MEDS: HYDROcodone/APAP 10-325MG 1 EACH TAB PO PRN ×2 (08:46→20:11)
--- NOTE | 2023-03-22 10:15 | P.PN ---
Subjective Progress Note Date: 03/21/23 Marina Radford, is a 68-year-old female who presented to [facility] emergency room with a chief complaint of worsening shortness of breath She was evaluated in the emergency room vital examination on presentation revealed a temperature of 99 pulse 128 respiration 24 blood pressure 149/63 pul se ox 94% on room air Laboratory data reveals a white blood count of 25.1 hemoglobin 15.0 platelet c ount 322 d-dimer 1.44 BUN 19 creatinine 0.98 lactic acid 3.4 Testing in the emergency room revealed chest x-ray revealed no acute cardiopulmonary disease, EKG revealed atrial fibrillation with rapid ventricular response, CT angiogram of the chest was done in the emergency room and revealed no evidence of acute pulmonary embolism. Patient was admitted to medical floor for further evaluation and treatment On 03/19/2023 Patient is alert and oriented 3. Heart rate remains elevated. She remains on cardizem and IV heparin. Patient remains on IV Rocephin and azithromycin. UA is positive. Urine and blood culture ordered. Vital temp 98.7, heart rate 128, respiratory rate 18, blood pressure 145/77 pulse ox 94 on 2 L. White blood cell remains unchanged at 25.1. Will consult infectious disea se services at this time On 03/20/2023 patient is alert and oriented 3. Blood culture positive for gram-negative bacilli. Infectious disease services are following CT of abdomen and pelvis ordered. Patient needs on IV Rocephin and Flagyl. Patient means on IV Cardizem and heparin for fibrillation. Current vital signs temp 98.2 HR 108, rr 18 and blood pressure 122/76, SPO2 92% on On 03/21/2023 patient is alert and oriented 3. Patient started on Crestor cardiology. Patient means on IV Rocephin and by mouth Flagyl per Infectious disease. heart rate Improving Lopressor added. Patient denies chest pain or shortness of breath. Patient denies nausea vomiting or diarrhea. Patient denies any urinary burning or frequency Objective - Vital Signs Vital signs: Vital Signs Temp 97.8 F 03/21/23 09:17 Pulse 88 03/21/23 15:40 Resp 17 03/21/23 15:11 BP 150/81 03/21/23 15:11 Pulse Ox 94 L 03/21/23 15:11 FiO2 Intake & Output 03/20/23 03/21/23 03/21/23 18:59 06:59 18:59 Intake Total 223.579 250 220 Output Total 500 550 300 Balance -276.421 -300 -80 Intake: Intake, IV Titration 223.579 250 Amount Heparin Sod,Pork in 0.45% 223.579 250 NaCl 25,000 unit In 0.45 % NaCl 1 250ml.bag @ 12 UNITS/KG/HR 9.961 mls/hr IV .Q24H [facility] Rx#: [id number] Oral 0 220 Output: Urine 500 550 300 Other: Voiding Method Bedpan Bedpan Toilet Diaper Diaper Diaper External Catheter External Catheter Incontinent # Bowel Movements 1 2 1 - Exam In general patient is alert and oriented x 3 in no distress HEENT head normocephalic and atraumatic Neck is supple no JVD no goiter no lymphadenopathy no carotid bruit Chest examination is clear to auscultation no crackles no wheezing Cardiac exam reveals regular heart sounds S1 and S2 no gallops no murmurs Abdomen is soft nontender no organomegaly with normal bowel sounds Extremity exam reveals no edema no cyanosis or clubbing Neurological examination reveals no gross focal deficits - Labs CBC & Chem 7: 03/22/23 07:17 03/22/23 07:17 Labs: Abnormal Lab Results - Last 24 Hours (Table) 03/20/23 03/20/23 03/20/23 Range/Units 16:05 16:24 23:40 WBC (3.8-10.6) k/uL Neutrophils # (1.3-7.7) k/uL APTT 36.5 H 44.8 H (22.0-30.0) sec Sodium (137-145) mmol/L Chloride (98-107) mmol/L BUN (7-17) mg/dL Glucose (74-99) mg/dL POC Glucose (mg/dL) 182 H (70-110) mg/dL Albumin (3.5-5.0) g/dL 03/21/23 03/21/23 03/21/23 Range/Units 02:01 02:12 03:57 WBC (3.8-10.6) k/uL Neutrophils # (1.3-7.7) k/uL APTT (22.0-30.0) sec Sodium (137-145) mmol/L Chloride (98-107) mmol/L BUN (7-17) mg/dL Glucose (74-99) mg/dL POC Glucose (mg/dL) 34 L 124 H 57 L (70-110) mg/dL Albumin (3.5-5.0) g/dL 03/21/23 03/21/23 03/21/23 Range/Units 04:13 04:26 04:42 WBC (3.8-10.6) k/uL Neutrophils # (1.3-7.7) k/uL APTT (22.0-30.0) sec Sodium (137-145) mmol/L Chloride (98-107) mmol/L BUN (7-17) mg/dL Glucose (74-99) mg/dL POC Glucose (mg/dL) 53 L 50 L 152 H (70-110) mg/dL Albumin (3.5-5.0) g/dL 03/21/23 03/21/23 03/21/23 Range/Units 06:26 08:20 08:20 WBC (3.8-10.6) k/uL Neutrophils # (1.3-7.7) k/uL APTT 61.5 H (22.0-30.0) sec Sodium 131 L (137-145) mmol/L Chloride 96 L (98-107) mmol/L BUN 25 H (7-17) mg/dL Glucose 152 H (74-99) mg/dL POC Glucose (mg/dL) 142 H (70-110) mg/dL Albumin 3.0 L (3.5-5.0) g/dL 03/21/23 03/21/23 03/21/23 Range/Units 11:19 11:58 16:10 WBC 16.1 H (3.8-10.6) k/uL Neutrophils # 12.4 H (1.3-7.7) k/uL APTT (22.0-30.0) sec Sodium (137-145) mmol/L Chloride (98-107) mmol/L BUN (7-17) mg/dL Glucose (74-99) mg/dL POC Glucose (mg/dL) 136 H 145 H (70-110) mg/dL Albumin (3.5-5.0) g/dL Microbiology - Last 24 Hours (Table) 03/18/23 13:09 Blood Culture - Preliminary Blood 03/17/23 23:00 Blood Culture Gram Stain - Final Blood Blood Culture - Final Escherichia coli 03/17/23 23:15 Blood Culture Gram Stain - Final Blood Blood Culture - Final Escherichia coli Assessment and Plan Plan: Acute exacerbation of chronic obstructive pulmonary disease Atrial fibrillation with rapid ventricular response Possible sepsis with positive blood culture as evidenced by elevated white blood count and elevated lactic acid. Positive UA urine and blood cultures ordered patient remaines on IV antibiotics Underlying history of hypertension Underlying history of hyperlipidemia Underlying history of insulin-dependent diabetes mellitus Underlying history of depression Underlying history of continued tobacco use Underlying history of coronary artery disease Underlying history of peripheral arterial disease At this time patient is admitted to telemetry floor Home medications reviewed and reordered Patient was started on IV antibiotic ceftriaxone and Zithromax She was also started on IV Cardizem drip and IV heparin Patient was also started on inhaled bronchodilators Cardiology consultation and pulmonary consultation requested CT of the abdomen ordered per ID Will follow closely
--- NOTE | 2023-03-22 10:18 | P.PN ---
Subjective Progress Note Date: 03/22/23 Marina Radford, is a 68-year-old female who presented to [facility] emergency room with a chief complaint of worsening shortness of breath She was evaluated in the emergency room vital examination on presentation revealed a temperature of 99 pulse 128 respiration 24 blood pressure 149/63 pul se ox 94% on room air Laboratory data reveals a white blood count of 25.1 hemoglobin 15.0 platelet c ount 322 d-dimer 1.44 BUN 19 creatinine 0.98 lactic acid 3.4 Testing in the emergency room revealed chest x-ray revealed no acute cardiopulmonary disease, EKG revealed atrial fibrillation with rapid ventricular response, CT angiogram of the chest was done in the emergency room and revealed no evidence of acute pulmonary embolism. Patient was admitted to medical floor for further evaluation and treatment On 03/19/2023 Patient is alert and oriented 3. Heart rate remains elevated. She remains on cardizem and IV heparin. Patient remains on IV Rocephin and azithromycin. UA is positive. Urine and blood culture ordered. Vital temp 98.7, heart rate 128, respiratory rate 18, blood pressure 145/77 pulse ox 94 on 2 L. White blood cell remains unchanged at 25.1. Will consult infectious disea se services at this time On 03/20/2023 patient is alert and oriented 3. Blood culture positive for gram-negative bacilli. Infectious disease services are following CT of abdomen and pelvis ordered. Patient needs on IV Rocephin and Flagyl. Patient means on IV Cardizem and heparin for fibrillation. Current vital signs temp 98.2 HR 108, rr 18 and blood pressure 122/76, SPO2 92% on On 03/21/2023 patient is alert and oriented 3. Patient started on eliquis per cardiology. Patient means on IV Rocephin and by mouth Flagyl per Infectious disease. heart rate Improving Lopressor added. Patient denies chest pain or shortness of breath. Patient denies nausea vomiting or diarrhea. Patient de nies any urinary burning or frequency On 03/22/2023 patient is alert and oriented 3. Current vital signs temp 97.5, Heart rate 84, respiratory rate 18, blood pressure 143/82 pulse ox of 100% on room air. Patient denies chest pain or shortness of breath. Patient denies vomiting or diarrhea. Patient denies any urinary burning and frequency Objective - Vital Signs Vital signs: Vital Signs Temp 97.5 F L 03/22/23 08:40 Pulse 84 03/22/23 08:40 Resp 18 03/22/23 08:40 BP 143/82 03/22/23 08:40 Pulse Ox 100 03/22/23 08:40 FiO2 Intake & Output 03/21/23 03/22/23 03/22/23 18:59 06:59 18:59 Intake Total 445 240 Output Total 300 Balance 145 240 Intake: Oral 445 240 Output: Urine 300 Other: Voiding Method Toilet Toilet Toilet Diaper Diaper Diaper Incontinent # Voids 2 2 # Bowel Movements 2 1 - Exam In general patient is alert and oriented x 3 in no distress HEENT head normocephalic and atraumatic Neck is supple no JVD no goiter no lymphadenopathy no carotid bruit Chest examination is clear to auscultation no crackles no wheezing Cardiac exam reveals regular heart sounds S1 and S2 no gallops no murmurs Abdomen is soft nontender no organomegaly with normal bowel sounds Extremity exam reveals no edema no cyanosis or clubbing Neurological examination reveals no gross focal deficits - Labs CBC & Chem 7: 03/22/23 07:17 03/22/23 07:17 Labs: Abnormal Lab Results - Last 24 Hours (Table) 03/21/23 03/21/23 03/21/23 Range/Units 11:19 11:58 16:10 WBC 16.1 H (3.8-10.6) k/uL Neutrophils # 12.4 H (1.3-7.7) k/uL Monocytes # (0-1.0) k/uL Sodium (137-145) mmol/L Potassium (3.5-5.1) mmol/L BUN (7-17) mg/dL Glucose (74-99) mg/dL POC Glucose (mg/dL) 136 H 145 H (70-110) mg/dL Calcium (8.4-10.2) mg/dL Total Protein (6.3-8.2) g/dL Albumin (3.5-5.0) g/dL 03/22/23 03/22/23 03/22/23 Range/Units 00:54 01:11 01:31 WBC (3.8-10.6) k/uL Neutrophils # (1.3-7.7) k/uL Monocytes # (0-1.0) k/uL Sodium (137-145) mmol/L Potassium (3.5-5.1) mmol/L BUN (7-17) mg/dL Glucose (74-99) mg/dL POC Glucose (mg/dL) 42 L 55 L 136 H (70-110) mg/dL Calcium (8.4-10.2) mg/dL Total Protein (6.3-8.2) g/dL Albumin (3.5-5.0) g/dL 03/22/23 03/22/23 03/22/23 Range/Units 04:34 05:43 06:01 WBC (3.8-10.6) k/uL Neutrophils # (1.3-7.7) k/uL Monocytes # (0-1.0) k/uL Sodium (137-145) mmol/L Potassium (3.5-5.1) mmol/L BUN (7-17) mg/dL Glucose (74-99) mg/dL POC Glucose (mg/dL) 36 L 43 L 156 H (70-110) mg/dL Calcium (8.4-10.2) mg/dL Total Protein (6.3-8.2) g/dL Albumin (3.5-5.0) g/dL 03/22/23 03/22/23 Range/Units 07:17 07:17 WBC 18.3 H (3.8-10.6) k/uL Neutrophils # 14.2 H (1.3-7.7) k/uL Monocytes # 1.4 H (0-1.0) k/uL Sodium 132 L (137-145) mmol/L Potassium 3.2 L (3.5-5.1) mmol/L BUN 23 H (7-17) mg/dL Glucose 103 H (74-99) mg/dL POC Glucose (mg/dL) (70-110) mg/dL Calcium 7.9 L (8.4-10.2) mg/dL Total Protein 5.7 L (6.3-8.2) g/dL Albumin 2.7 L (3.5-5.0) g/dL Microbiology - Last 24 Hours (Table) 03/18/23 13:09 Blood Culture - Preliminary Blood Assessment and Plan Plan: Acute exacerbation of chronic obstructive pulmonary disease Atrial fibrillation with rapid ventricular response Possible sepsis with positive blood culture as evidenced by elevated white blood count and elevated lactic acid. Positive UA urine and blood cultures ordered patient remaines on IV antibiotics Underlying history of hypertension Underlying history of hyperlipidemia Underlying history of insulin-dependent diabetes mellitus Underlying history of depression Underlying history of continued tobacco use Underlying history of coronary artery disease Underlying history of peripheral arterial disease At this time patient is admitted to telemetry floor Home medications reviewed and reordered Patient means IV antibiotics eliquis started per cardiology Patient was also started on inhaled bronchodilators Cardiology consultation and pulmonary consultation requested CT of the abdomen ordered per ID Will follow closely
[2023-03-22 11:43] LABS: Glucose,Whole Blood 64 mg/dL (70-110)
[2023-03-22 11:43] LABS: Glucose,Whole Blood 62 mg/dL (70-110)
[2023-03-22 12:04] LABS: Glucose,Whole Blood 66 mg/dL (70-110)
[2023-03-22] MEDS ORDERED: DEXTROSE 50% SYRINGE 50 ML IVP PRN (12:10)
[2023-03-22] MEDS: DEXTROSE 50% SYRINGE 50 ML IVP PRN (12:15)
--- NOTE | 2023-03-22 12:41 | P.PN ---
Subjective Progress Note Date: 03/22/23 This is a 68-year-old female patient was hospitalized with various complaints a nd I was involved in the case because of concerns of shortness of breath. The patient came into the hospital because of altered mentation, apparently she was having fever at home, and at the same time, she was having gastrointestinal issues with nausea, diarrhea, and fluid intolerance. She is diabetic and recently she was started on Trulicity once a week injections and she thinks that she is having a reaction to the medication. At the same time the patient is on glargine insulin a total of 108 units a day in addition to metformin for blood sugar control. She states that her blood sugars were quite elevated an outpatient basis. She is also known to have diabetes mellitus type 2, hyperten herbie, hyperlipidemia and history of COPD and the patient is a chronic smoker. The patient came into the ED and the patient a white cell count of 25, hemoglobin of 15, BUN was 19 with a creatinine of 0.98 and a sodium level is at 137. Initial lactic acid level was at 3.4. Normal LFTs. ProBNP level was 4420, Covid 19 testing and the rest of the viral screen was all negative. The patient continues to have an elevated blood sugar and the most recent blood sugar measurement is at 351. In addition, the patient had a CAT scan of the brain that showed no acute abnormalities. There is no evidence of any bleed or a CVA. EKG that was done at time of admission showed atrial fibrillation with RVR and a CT angiogram was also done in the emergency department indicating no evidence of any pulmonary embolism. No acute pulmonary infiltrate pleural effusion or pneumothorax. She is not using any form of maintenance as for medications at home. She is not oxygen dependent. She was covered with R ocephin and Zithromax. She was started also on IV heparin regarding her atrial fibrillation. She is known to have peripheral vascular disease followed up by interventional cardiology. On today's evaluation of 03/19/2023, the patient is on 2 L of oxygen by nasal cannula. No respiratory distress pH is laying down comfortably in bed. She is still having issues with atrial fibrillation. She is having a rapid ventricular response and currently she is on Cardizem drip at 10 mg an hour. The echo of the heart also showed impairment of LV function, global hypokinesis with an ejection fraction of 40-45%. There is a possibility of this patient having a UTI. Urine culture is still pending for now. Note that her fever broke and she is currently afebrile. Nevertheless, the patient is still having leukocytosis with a white cell count of 25.1. Electrolytes show a potassium level of 3.3, sodium is at 136, BUN is at 31 with a creatinine of 1.03. The patient remains on IV heparin. The patient on a Cardizem drip. The patient is on IV Rocephin and Zithromax. She is on 2 L of oxygen by nasal cannula. Levemir insulin was restarted and her blood sugars under better control for now. 2022, the patient is being seen for a follow-up. The patient is still on Cardizem drip at 10 mg an hour and the heart is under better control. She remains in atrial fibrillation. She has an ejection fraction of around 40-45%. Meanwhile, she was found to have gram-negative sepsis. The blood culture was positive for gram-negative bacillus and the patient is undergoing a CAT scan of the abdomen and pelvis today. This was done without contrast. Meanwhile, the patient was also given Flagyl and this is a combination with IV Rocephin. The white cell count is improving is currently down to 19.2 with a hemoglobin of 14.5. BUN is at 32 with a creatinine of 0.8 and a sodium level is at 133. No significant shortness of breath and she remains on 2 L of oxygen by nasal cannula. The patient is afebrile. The patient remains on IV heparin. Metoprolol was also started a dose of 100 mg by mouth twice a day and Cardizem drip will be gradually weaned off and discontinued. The On today's evaluation of 03/21/2023, the patient was found to have E. coli septicemia from an underlying infectious infection. She is feeling well. She has no specific complaints. Note that the patient shortness of breath. No altered mentation. CAT scan of the abdomen and pelvis was done yesterday and showed mild hydronephrosis associated with some fat stranding involving the left kidney. No evidence of an obstructive calculus. Pyelonephritis was being entertained based on the CAT scan images. At the same time, there was layering debris's and thickening of the bladder wall suggestive of an underlying cystitis. There is cholelithiasis and chronic diverticulosis without evidence of diverticulitis or cholecystitis. The patient remains on IV antibiotics. The patient remains on IV Rocephin 2 g every 24 hours. The patient was also given Flagyl by infectious disease. I think the last antibiotic and be essentially discontinued. She remains atrial fibrillation. She is off the Cardizem drip. She is on IV heparin. She is also on metoprolol 100 mg by mouth twice a day. On 03/22/2020, the patient on room air oxygen. She encountered an episode of hypoglycemia yesterday and this was treated. Otherwise, she has no specific complaints. The repeat cultures are still pending for now as the patient had an E. coli septicemia and the patient remains on IV Rocephin. No fever. No hemodynamic instability. Based on an underlying hypoglycemic event, Levemir insulin was reduced down to 90 units and she remains on sliding scale coverage. No nausea. No vomiting. No emesis. No diarrhea. IV fluids currently running at 20 mL an hour. Labs from today shows a white cell count of 18 with a he moglobin 15.6, BUN is at 23 with a creatinine 0.8 and sodium level is at 132. Blood sugars are running low at 66. She was taken off the IV heparin. She is currently on anticoagulation with Eliquis and the patient is also metoprolol. Objective - Vital Signs Vital signs: Vital Signs Temp 97.5 F L 03/22/23 08:40 Pulse 84 03/22/23 08:40 Resp 18 03/22/23 08:40 BP 143/82 03/22/23 08:40 Pulse Ox 100 03/22/23 08:40 FiO2 Intake & Output 03/21/23 03/22/23 03/22/23 18:59 06:59 18:59 Intake Total 445 240 Output Total 300 Balance 145 240 Intake: Oral 445 240 Output: Urine 300 Other: Voiding Method Toilet Toilet Toilet Diaper Diaper Diaper Incontinent # Voids 2 2 # Bowel Movements 2 1 - Exam Breathing is nonlabored and the patient is currently on 2 L O2 nasal cannula Head exam was generally normal. There was no scleral icterus or corneal arcus. Mucous membranes were moist. Neck was supple and without jugular venous distension, thyromegaly, or carotid bruits. Carotids were easily palpable bilaterally. There was no adenopathy. Lungs sounds are diminished and there are clear. No crackles or wheezing at this point in time. Cardiac exam revealed the PMI to be normally situated and sized. The rhythm was irregular and no extrasystoles were noted during several minutes of auscultation. The first and second heart sounds were normal and physiologic splitting of the second heart sound was noted. There were no murmurs, rubs, clicks, or gallops. Abdominal exam revealed normal bowel sounds. The abdomen was soft, non-tender, and without masses, organomegaly, or appreciable enlargement of the abdominal aorta. Examination of the extremities revealed easily palpable radial, femoral and pedal pulses. There was no cyanosis, clubbing or edema. Examination of the skin revealed no evidence of significant rashes, suspicious appearing nevi or other concerning lesions. Neurologically, the patient is awake and alert and the patient does not have any focal neurological deficit. Cranial nerves are essentially intact. - Labs CBC & Chem 7: 03/22/23 07:17 03/22/23 07:17 Labs: Abnormal Lab Results - Last 24 Hours (Table) 03/21/23 03/21/23 03/21/23 Range/Units 11:19 11:58 16:10 WBC 16.1 H (3.8-10.6) k/uL Neutrophils # 12.4 H (1.3-7.7) k/uL Monocytes # (0-1.0) k/uL Sodium (137-145) mmol/L Potassium (3.5-5.1) mmol/L BUN (7-17) mg/dL Glucose (74-99) mg/dL POC Glucose (mg/dL) 136 H 145 H (70-110) mg/dL Calcium (8.4-10.2) mg/dL Total Protein (6.3-8.2) g/dL Albumin (3.5-5.0) g/dL 03/22/23 03/22/23 03/22/23 Range/Units 00:54 01:11 01:31 WBC (3.8-10.6) k/uL Neutrophils # (1.3-7.7) k/uL Monocytes # (0-1.0) k/uL Sodium (137-145) mmol/L Potassium (3.5-5.1) mmol/L BUN (7-17) mg/dL Glucose (74-99) mg/dL POC Glucose (mg/dL) 42 L 55 L 136 H (70-110) mg/dL Calcium (8.4-10.2) mg/dL Total Protein (6.3-8.2) g/dL Albumin (3.5-5.0) g/dL 03/22/23 03/22/23 03/22/23 Range/Units 04:34 05:43 06:01 WBC (3.8-10.6) k/uL Neutrophils # (1.3-7.7) k/uL Monocytes # (0-1.0) k/uL Sodium (137-145) mmol/L Potassium (3.5-5.1) mmol/L BUN (7-17) mg/dL Glucose (74-99) mg/dL POC Glucose (mg/dL) 36 L 43 L 156 H (70-110) mg/dL Calcium (8.4-10.2) mg/dL Total Protein (6.3-8.2) g/dL Albumin (3.5-5.0) g/dL 03/22/23 03/22/23 Range/Units 07:17 07:17 WBC 18.3 H (3.8-10.6) k/uL Neutrophils # 14.2 H (1.3-7.7) k/uL Monocytes # 1.4 H (0-1.0) k/uL Sodium 132 L (137-145) mmol/L Potassium 3.2 L (3.5-5.1) mmol/L BUN 23 H (7-17) mg/dL Glucose 103 H (74-99) mg/dL POC Glucose (mg/dL) (70-110) mg/dL Calcium 7.9 L (8.4-10.2) mg/dL Total Protein 5.7 L (6.3-8.2) g/dL Albumin 2.7 L (3.5-5.0) g/dL Microbiology - Last 24 Hours (Table) 03/18/23 13:09 Blood Culture - Preliminary Blood Assessment and Plan Plan: Acute gram-negative/E. coli sepsis and blood cultures positive for gram-negative bacillus. Rule out urinary tract infection with secondary to sepsis. There is also the possibility of pyelonephritis of the left kidney based on the CAT scan findings. Awaiting follow-up cultures and the patient remains on IV Rocephin Acute febrile illness, T-max of 102.1. Patient is currently afebrile , recovered Atrial fibrillation with rapid ventricular response, patient is currently on metoprolol CHF with an ejection fraction of 40-45% Diabetes mellitus type 2 with poorly controlled blood sugars, with episodes of hypoglycemia and the Levemir insulin dose was modified to 19 units along with a sliding scale coverage. Will need close monitoring of the blood sugars Mild lactic acidosis, improving COPD, currently on room air oxygen Hypertension Hyperlipidemia Peripheral vascular disease Coronary artery disease Plan Patient is currently on room air oxygen Anticoagulation with Eliquis 5 mg by mouth twice a day metoprolol at a dose of 100 mg twice a day Continue IV Rocephin and Flagyl, we'll discuss with infectious disease and Flagyl can be discontinued, and is to be discussed with IV CAT scan of the abdomen and pelvis, results were noted Monitor white cell count and the white cell count remains elevated, is improving Echocardiogram was noted Blood sugars under better control the patient is currently on Levemir insulin and a slight scale coverage, modified the Levemir dose to 90 units and close monitoring of the blood sugar We'll continue to follow
[2023-03-22 12:43] LABS: Glucose,Whole Blood 184 mg/dL (70-110)
--- NOTE | 2023-03-22 13:39 | P.PN ---
Subjective Progress Note Date: 03/22/23 History of present illness: This is a 68-year-old female admitted to hospital with increasing shortness of breath that was progressively worsening. Patient is an active smoker with history of diabetes, hypertension, and depression. No documented history of coronary artery disease. Patient went into atrial fibrillation with moderately rapid ventricular rate and patient was on Cardizem drip and heparin drip. Patient's rate seemed to be improving yesterday but today is running 120s to 140s. Echocardiogram was a technically difficult study. Moderate global hypokinesis. Limited Doppler study with mild mitral and tricuspid regurgitation, EF 40-45%. 03/20 Yesterday, Toprol-XL was changed to Lopressor 50 mg 3 times daily and patient was continued on Cardizem drip at 10 mg/hr and heparin drip. Patient is going in and atrial fibrillation with rate of 90s to 130s. She is scheduled for CT of the abd/pelvis. Patient has been afebrile for 2 days. Blood pressure 129/79, pulse ox 93% on 2 L nasal cannula. 03/21 Patient is seen today in follow-up. Yesterday we discontinue Cardizem drip and increase Lopressor to 100 mg 2 times daily. Today patient remains in atrial fibrillation rate controlled. She underwent a CAT scan of the abdomen and pelvis yesterday which revealed mild left hydronephrosis with fat stranding. Correlate for pyelonephritis. Patient has been on heparin drip and we will t ransition this to eliquis. Blood pressure 150/81, heart rate in the 80s and 90s, pulse ox 94% on room air. Leukocytosis is slowly improving and patient is maintained on IV antibiotics. Sodium is 131, potassium 3.5, BUN 25 creatinine 0.83. 03/22 Yesterday, hydrochlorothiazide was discontinued and patient was started on eliquis 5 mg twice daily. Blood pressure this morning 121/66, heart rate in the 70s and 80s patient is stating that she is feeling much better today. No repeat lab work obtained today. Physical examination: Gen: This is a a 68-year-old obese female. She is resting in bed and appears to be comfortable. VS: reviewed HEENT: Head is atraumatic, normocephalic. Pupils equal, round. Sclerae is anicteric. LUNGS: Diminished breath sounds. No intercostal retractions. HEART: Irregular rate and rhythm. Short systolic murmur. EXTREMITIES: No pedal edema. Positive pulses Assessment: New onset atrial fibrillation with RVR, paroxysmal Acute exacerbation of COPD Gram-negative bacteremia and sepsis of unclear etiology History of smoking Plan: Continue Lopressor 100 mg 2 times daily Discontinue hydrochlorothiazide Continue patient on eliquis 5 mg twice daily Cardiology will sign off this case and follow on an as-needed basis. Please reconsult for any new concerns. Patient may follow-up in the office in one to 2 weeks. Nurse practitioner note has been reviewed, I agree with documented findings and plan of care. Patient was seen and examined. Objective - Vital Signs Vital signs: Vital Signs Temp 97.5 F L 03/22/23 08:40 Pulse 84 03/22/23 08:40 Resp 18 03/22/23 08:40 BP 143/82 03/22/23 08:40 Pulse Ox 100 03/22/23 08:40 FiO2 Intake & Output 03/21/23 03/22/23 03/22/23 18:59 06:59 18:59 Intake Total 445 240 Output Total 300 Balance 145 240 Intake: Oral 445 240 Output: Urine 300 Other: Voiding Method Toilet Toilet Toilet Diaper Diaper Diaper Incontinent # Voids 2 2 # Bowel Movements 2 1 - Labs CBC & Chem 7: 03/22/23 07:17 03/22/23 07:17 Labs: Abnormal Lab Results - Last 24 Hours (Table) 03/21/23 03/21/23 03/21/23 Range/Units 11:19 11:58 16:10 WBC 16.1 H (3.8-10.6) k/uL Neutrophils # 12.4 H (1.3-7.7) k/uL Monocytes # (0-1.0) k/uL Sodium (137-145) mmol/L Potassium (3.5-5.1) mmol/L BUN (7-17) mg/dL Glucose (74-99) mg/dL POC Glucose (mg/dL) 136 H 145 H (70-110) mg/dL Calcium (8.4-10.2) mg/dL Total Protein (6.3-8.2) g/dL Albumin (3.5-5.0) g/dL 03/22/23 03/22/2303/22/23 Range/Units 00:54 01:11 01:31 WBC (3.8-10.6) k/uL Neutrophils # (1.3-7.7) k/uL Monocytes # (0-1.0) k/uL Sodium (137-145) mmol/L Potassium (3.5-5.1) mmol/L BUN (7-17) mg/dL Glucose (74-99) mg/dL POC Glucose (mg/dL) 42 L 55 L 136 H (70-110) mg/dL Calcium (8.4-10.2) mg/dL Total Protein (6.3-8.2) g/dL Albumin (3.5-5.0) g/dL 03/22/23 03/22/23 03/22/23 Range/Units 04:34 05:43 06:01 WBC (3.8-10.6) k/uL Neutrophils # (1.3-7.7) k/uL Monocytes # (0-1.0) k/uL Sodium (137-145) mmol/L Potassium (3.5-5.1) mmol/L BUN (7-17) mg/dL Glucose (74-99) mg/dL POC Glucose (mg/dL) 36 L 43 L 156 H (70-110) mg/dL Calcium (8.4-10.2) mg/dL Total Protein (6.3-8.2) g/dL Albumin (3.5-5.0) g/dL 03/22/23 03/22/23 Range/Units 07:17 07:17 WBC 18.3 H (3.8-10.6) k/uL Neutrophils # 14.2 H (1.3-7.7) k/uL Monocytes # 1.4 H (0-1.0) k/uL Sodium 132 L (137-145) mmol/L Potassium 3.2 L (3.5-5.1) mmol/L BUN 23 H (7-17) mg/dL Glucose 103 H (74-99) mg/dL POC Glucose (mg/dL) (70-110) mg/dL Calcium 7.9 L (8.4-10.2) mg/dL Total Protein 5.7 L (6.3-8.2) g/dL Albumin 2.7 L (3.5-5.0) g/dL Microbiology - Last 24 Hours (Table) 03/18/23 13:09 Blood Culture - Preliminary Blood
[2023-03-22 14:27] LABS: Glucose,Whole Blood 176 mg/dL (70-110)
--- NOTE | 2023-03-22 15:52 | P.PN ---
Subjective Progress Note Date: 03/22/23 Principal diagnosis: E.coli Pyelonephritis and bacteremia Patient is a 68-year female with a past medical history significant for diabetes mellitus hypertension hyperlipidemia reflux coronary disease chronic back pain patient presented to the hospital for evaluation of increasing shortness of breath, patient also noticed to have a positive blood cultures with E. coli. On today's evaluation that is 03/22/2023, the patient remains to be afebrile, the patient is breathing comfortably , the patient denies chest pain and no significant cough, the patient denies nausea and vomiting no abdominal pain and no diarrhea, Patient WBC is slightly up to 18.3, creatinine 0.84, CT abdominal pelvis with mild left-sided hydronephrosis and pyelonephritis Blood cultures with E. coli unfortunately urine culture not done, repeat blood cultures so far negative Objective - Vital Signs Vital signs: Vital Signs Temp 97.5 F L 03/22/23 08:40 Pulse 75 03/22/23 12:12 Resp 17 03/22/23 12:12 BP 121/66 03/22/23 12:12 Pulse Ox 100 03/22/23 12:12 FiO2 Intake & Output 03/21/23 03/22/23 03/22/23 18:59 06:59 18:59 Intake Total 445 240 Output Total 300 Balance 145 240 Intake: Oral 445 240 Output: Urine 300 Other: Voiding Method Toilet Toilet Toilet Diaper Diaper Diaper Incontinent # Voids 2 2 2 # Bowel Movements 2 1 1 - Exam GENERAL DESCRIPTION: Elderly female lying in bed in no distress RESPIRATORY SYSTEM: Unlabored breathing , decreased breath sounds at bases HEART: S1 S2 regular rate and rhythm ,no loud murmurs ABDOMEN: Soft , no tenderness EXTREMITIES: No edema feet - Labs CBC & Chem 7: 03/22/23 07:17 03/22/23 07:17 Labs: Abnormal Lab Results - Last 24 Hours (Table) 03/21/23 03/22/23 03/22/23 Range/Units 16:10 00:54 01:11 WBC (3.8-10.6) k/uL Neutrophils # (1.3-7.7) k/uL Monocytes # (0-1.0) k/uL Sodium (137-145) mmol/L Potassium (3.5-5.1) mmol/L BUN (7-17) mg/dL Glucose (74-99) mg/dL POC Glucose (mg/dL) 145 H 42 L 55 L (70-110) mg/dL Calcium (8.4-10.2) mg/dL Total Protein (6.3-8.2) g/dL Albumin (3.5-5.0) g/dL 03/22/23 03/22/23 03/22/23 Range/Units 01:31 04:34 05:43 WBC (3.8-10.6) k/uL Neutrophils # (1.3-7.7) k/uL Monocytes # (0-1.0) k/uL Sodium (137-145) mmol/L Potassium (3.5-5.1) mmol/L BUN (7-17) mg/dL Glucose (74-99) mg/dL POC Glucose (mg/dL) 136 H 36 L 43 L (70-110) mg/dL Calcium (8.4-10.2) mg/dL Total Protein (6.3-8.2) g/dL Albumin (3.5-5.0) g/dL 03/22/23 03/22/23 03/22/23 Range/Units 06:01 07:17 07:17 WBC 18.3 H (3.8-10.6) k/uL Neutrophils # 14.2 H (1.3-7.7) k/uL Monocytes # 1.4 H (0-1.0) k/uL Sodium 132 L (137-145) mmol/L Potassium 3.2 L (3.5-5.1) mmol/L BUN 23 H (7-17) mg/dL Glucose 103 H (74-99) mg/dL POC Glucose (mg/dL) 156 H (70-110) mg/dL Calcium 7.9 L (8.4-10.2) mg/dL Total Protein 5.7 L (6.3-8.2) g/dL Albumin 2.7 L (3.5-5.0) g/dL 03/22/23 03/22/23 03/22/23 Range/Units 11:20 11:40 12:02 WBC (3.8-10.6) k/uL Neutrophils # (1.3-7.7) k/uL Monocytes # (0-1.0) k/uL Sodium (137-145) mmol/L Potassium (3.5-5.1) mmol/L BUN (7-17) mg/dL Glucose (74-99) mg/dL POC Glucose (mg/dL) 64 L 62 L 66 L (70-110) mg/dL Calcium (8.4-10.2) mg/dL Total Protein (6.3-8.2) g/dL Albumin (3.5-5.0) g/dL Microbiology - Last 24 Hours (Table) 03/18/23 13:09 Blood Culture - Preliminary Blood Assessment and Plan (1) E coli bacteremia Current Visit: Yes Status: Acute Code(s): R78.81 - BACTEREMIA; B96.20 - UNSP ESCHERICHIA COLI THE CAUSE OF DISEASES [facility] SNOMED Code(s): 076475635269 (2) Pyelonephritis Current Visit: Yes Status: Acute Code(s): N12 - TUBULO-INTERSTITIAL NEPHRITIS, NOT [facility] ACUTE OR CHRONIC SNOMED Code(s): 40437533 Plan: 1patient with the gram-negative bacteremia source likely urinary as the patient did have urinary symptoms underlying abdominal source not entirely excluded in this patient presented to hospital with sepsis with fever elevated white count tachycardia elevated lactic acid. 2CT abdominal pelvis did shows left-sided mild hydronephrosis and pyelonephritis no evidence of colitis or an abscess 3patient is showing clinical improvement white count is still elevated which is slightly concerning and will monitor closely 4patient to continue with Rocephin in view of clinical response and monitor clinical course closely, Dictation was produced using Feedback-Machine dictation software. please excuse any grammatical, word or spelling errors. Time with Patient: Less than 30
[2023-03-22 16:28] LABS: Glucose,Whole Blood 129 mg/dL (70-110)
[2023-03-22 19:53] LABS: Glucose,Whole Blood 211 mg/dL (70-110)
[2023-03-22] MEDS: ATORVASTATIN 40 MG TAB PO SCH (20:10)
[2023-03-22] MEDS: NON FORMULARY DRUG (Vilazodone Hcl [Viibryd] 40 MG Tablet) PO SCH (20:11)
[2023-03-22] MEDS: SODIUM CHLORIDE 0.9% 1,000 ML IV SCH (20:11)
[2023-03-22] MEDS ORDERED: INSULIN DETEMIR (LEVEMIR) 100 UNIT/ML SYR SQ SCH (21:00)
[2023-03-23] MEDS: DEXTROSE 50% SYRINGE 50 ML IVP PRN ×2 (04:04→05:41)
[2023-03-23 04:12] LABS: Glucose,Whole Blood 47 mg/dL (70-110)
[2023-03-23 04:28] LABS: Glucose,Whole Blood 98 mg/dL (70-110)
[2023-03-23 05:41] LABS: Glucose,Whole Blood 47 mg/dL (70-110)
[2023-03-23 05:57] LABS: Glucose,Whole Blood 89 mg/dL (70-110)
[2023-03-23] MEDS: metFORMIN 500 MG TAB PO SCH (06:19)
[2023-03-23] MEDS: INSULIN ASPART (NovoLOG) 100 UNIT/ML VIAL SQ SCH ×2 (06:19→12:24)
[2023-03-23] MEDS: PANTOPRAZOLE 40 MG TABLET PO SCH (06:47)
[2023-03-23] MEDS: IPRATROPIUM-ALBUTEROL 3 ML NEB INHALATION SCH ×3 (07:42→15:33)
[2023-03-23] MEDS: lisinopriL 20 MG TAB PO SCH (08:20)
[2023-03-23] MEDS: OXYBUTYNIN 10 MG TAB.ER.24 PO SCH (08:20)
[2023-03-23] MEDS: ARIPiprazole 10 MG TAB PO SCH (08:20)
[2023-03-23] MEDS: METOPROLOL TARTRATE 50 MG TAB PO SCH (08:20)
[2023-03-23] MEDS: metroNIDAZOLE 500 MG TAB PO SCH (08:20)
[2023-03-23] MEDS: ASPIRIN 81 MG PO SCH (08:20)
[2023-03-23] MEDS: NICOTINE 21MG/24HR PATCH TRANSDERM SCH (08:21)
[2023-03-23] MEDS: APIXABAN 5 MG TAB PO SCH (08:21)
[2023-03-23 08:30] VITALS: TEMP 98
[2023-03-23] MEDS ORDERED: Dulaglutide [Trulicity] 1.5 MG/0.5 ML Each SQ SCH (09:00)
--- NOTE | 2023-03-23 12:16 | P.DS ---
Providers Date of admission: 03/17/23 21:55 Expected date of discharge: 03/23/23 Attending physician: Jessica Zavala Consults: 03/17/23 21:28 Consult Physician Routine Consulting Provider: Luis Miguel Rowland Consult Reason/Comments: new onset afib Do you want consulting provider notified?: Yes Consult Physician Routine Consulting Provider: Doyle Lomax Consult Reason/Comments: copd Do you want consulting provider notified?: Yes 03/19/23 08:06 Consult Physician Routine Consulting Provider: Silva Milton Consult Reason/Comments: leukocytosis Do you want consulting provider notified?: Yes 03/22/23 10:23 Consult Physician Routine Consulting Provider: Dale Knott Consult Reason/Comments: Hydronephrosis abnormal CT Do you want consulting provider notified?: Yes Primary care physician: Jessicaben Zavala [facility] Course: Diagnosis on discharge: Acute exacerbation of chronic obstructive pulmonary disease Atrial fibrillation with rapid ventricular response Possible sepsis with positive blood culture as evidenced by elevated white blood count and elevated lactic acid. Positive UA urine and blood cultures ordered patient remaines on IV antibiotics Underlying history of hypertension Underlying history of hyperlipidemia Underlying history of insulin-dependent diabetes mellitus Underlying history of depression Underlying history of continued tobacco use Underlying history of coronary artery disease Underlying history of peripheral arterial disease Hospital course: Marina Radford, is a 68-year-old female who presented to [facility] emergency room with a chief complaint of worsening shortness of breath She was evaluated in the emergency room vital examination on presentation revealed a temperature of 99 pulse 128 respiration 24 blood pressure 149/63 pulse ox 94% on room air Laboratory data reveals a white blood count of 25.1 hemoglobin 15.0 platelet count 322 d-dimer 1.44 BUN 19 creatinine 0.98 lactic acid 3.4 Testing in the emergency room revealed chest x-ray revealed no acute cardiopulmonary disease, EKG revealed atrial fibrillation with rapid ventricular response, CT angiogram of the chest was done in the emergency room and revealed no evidence of acute pulmonary embolism. Patient was admitted to medical floor for further evaluation and treatment On 03/19/2023 Patient is alert and oriented 3. Heart rate remains elevated. She remains on cardizem and IV heparin. Patient remains on IV Rocephin and azithromycin. UA is positive. Urine and blood culture ordered. Vital temp 98.7, heart rate 128, respiratory rate 18, blood pressure 145/77 pulse ox 94 on 2 L. White blood cell remains unchanged at 25.1. Will consult infectious disease services at this time On 03/20/2023 patient is alert and oriented 3. Blood culture positive for gram-negative bacilli. Infectious disease services are following CT of abdomen and pelvis ordered. Patient needs on IV Rocephin and Flagyl. Patient means on IV Cardizem and heparin for fibrillation. Current vital signs temp 98.2 HR 108, rr 18 and blood pressure 122/76, SPO2 92% on On 03/21/2023 patient is alert and oriented 3. Patient started on eliquis per cardiology. Patient means on IV Rocephin and by mouth Flagyl per Infectious disease. heart rate Improving Lopressor added. Patient denies chest pain or shortness of breath. Patient denies nausea vomiting or diarrhea. Patient denies any urinary burning or frequency On 03/22/2023 patient is alert and oriented 3. Current vital signs temp 97.5, Heart rate 84, respiratory rate 18, blood pressure 143/82 pulse ox of 100% on room air. Patient denies chest pain or shortness of breath. Patient denies vomiting or diarrhea. Patient denies any urinary burning and frequency. On 03/23/2023 patient was seen and examined on the medical floor she is alert and oriented 3 in no apparent distress she is feeling better and asking to be discharged home, case was discussed with Dr. Milton, and patient was cleared for discharge on a course of Cipro, 500 mg twice daily for 10 more days, patient was instructed to return to the emergency room, if having any new episodes of fever or chills or severe tachycardia. Otherwise she will be followed in our office within 1 week. Patient Condition at Discharge: Serious Plan - Discharge Summary Discharge Rx Participant: Yes New Discharge Prescriptions: New Ciprofloxacin HCl [Cipro] 500 mg PO BID 10 Days #20 tab Apixaban [Eliquis] 5 mg PO BID tab Metoprolol Tartrate [Lopressor] 100 mg PO BID tab Aspirin 81 mg PO DAILY tab Ipratropium-Albuterol Nebulize [Duoneb 0.5 mg-3 mg/3 ml Soln] 3 ml INHALATION RT-QID each INSULIN ASPART (NovoLOG) [NovoLOG (formulary)] 0 unit SQ ACHS each lisinopriL [Zestril] 20 mg PO BID tab Continue Clopidogrel [Plavix] 75 mg PO DAILY #30 tab Pantoprazole [Protonix] 40 mg PO DAILY Oxybutynin ER [Ditropan XL] 10 mg PO DAILY metFORMIN HCL 1,000 mg PO BID Insulin Glargine,Hum.rec.anlog [Toujeo Max Solostar] 108 units SQ DAILY HYDROcodone/APAP 10-325MG [Mitchell 10-325] 1 tab PO Q8H PRN PRN Reason: Pain Atorvastatin [Lipitor] 40 mg PO HS ARIPiprazole [Abilify] 10 mg PO DAILY Nicotine 21Mg/24Hr Patch [Habitrol] 1 patch TRANSDERM HS EPINEPHrine [Primatene Mist] 1 puff INHALATION RT-QID PRN PRN Reason: Shortness Of Breath Dulaglutide [Trulicity] 1.5 mg SQ SA Naloxone HCl [Narcan] 4 mg NASAL DIRECTED PRN PRN Reason: overdose Vilazodone HCl [Viibryd] 40 mg PO HS Discontinued Metoprolol Succinate (ER) [Toprol XL] 25 mg PO DAILY amLODIPine [Norvasc] 10 mg PO DAILY Lisinopril-Hctz 20-25 mg [Zestoretic 20-25] 1 tab PO BID Discharge Medication List Clopidogrel [Plavix] 75 mg PO DAILY #30 tab 05/22/14 [Rx] ARIPiprazole [Abilify] 10 mg PO DAILY 03/17/23 [History] Atorvastatin [Lipitor] 40 mg PO HS 03/17/23 [History] Dulaglutide [Trulicity] 1.5 mg SQ SA 03/17/23 [History] EPINEPHrine [Primatene Mist] 1 puff INHALATION RT-QID PRN 03/17/23 [History] HYDROcodone/APAP 10-325MG [Mitchell 10-325] 1 tab PO Q8H PRN 03/17/23 [History] Insulin Glargine,Hum.rec.anlog [Toujeo Max Solostar] 108 units SQ DAILY 03/17/23 [History] Naloxone HCl [Narcan] 4 mg NASAL DIRECTED PRN 03/17/23 [History] Nicotine 21Mg/24Hr Patch [Habitrol] 1 patch TRANSDERM HS 03/17/23 [History] Oxybutynin ER [Ditropan XL] 10 mg PO DAILY 03/17/23 [History] Pantoprazole [Protonix] 40 mg PO DAILY 03/17/23 [History] Vilazodone HCl [Viibryd] 40 mg PO HS 03/17/23 [History] metFORMIN HCL 1,000 mg PO BID 03/17/23 [History] Apixaban [Eliquis] 5 mg PO BID tab 03/23/23 [Rx] Aspirin 81 mg PO DAILY tab 03/23/23 [Rx] Ciprofloxacin HCl [Cipro] 500 mg PO BID 10 Days #20 tab 03/23/23 [Rx] INSULIN ASPART (NovoLOG) [NovoLOG (formulary)] 0 unit SQ ACHS each 03/23/23 [Rx] Ipratropium-Albuterol Nebulize [Duoneb 0.5 mg-3 mg/3 ml Soln] 3 ml INHALATION RT-QID each 03/23/23 [Rx] Metoprolol Tartrate [Lopressor] 100 mg PO BID tab 03/23/23 [Rx] lisinopriL [Zestril] 20 mg PO BID tab 03/23/23 [Rx] Follow up Appointment(s)/Referral(s): Jessica Zavala MD [Primary Care Provider] - 1-2 days (Please call to make a follow-up appointment.) Patient Instructions/Handouts: A-fib (Atrial Fibrillation) (DC), COPD (Chronic Obstructive Pulmonary Disease) (DC) Discharge/Stand Alone Forms: Who Do I Call?, Community Resources, Personal Senior Economist, Area PCPs
--- NOTE | 2023-03-23 12:16 | P.PN ---
Subjective Progress Note Date: 03/23/23 Principal diagnosis: E.coli Pyelonephritis and bacteremia Patient is a 68-year female with a past medical history significant for diabetes mellitus hypertension hyperlipidemia reflux coronary disease chronic back pain patient presented to the hospital for evaluation of increasing shortness of breath, patient also noticed to have a positive blood cultures with E. coli. On today's evaluation that is 03/23/2023, the patient denies any fever or any chills, the patient is breathing comfortably on room air , the patient denies chest pain and no significant cough, the patient denies nausea and vomiting no abdominal pain and no diarrhea, patient is feeling better and wants to go home CT abdominal pelvis with mild left-sided hydronephrosis and pyelonephritis, Blood cultures with E. coli CBC from this morning is pending Objective - Vital Signs Vital signs: Vital Signs Temp 98.0 F 03/23/23 08:00 Pulse 86 03/23/23 08:02 Resp 16 03/23/23 08:00 BP 124/72 03/23/23 08:00 Pulse Ox 96 03/23/23 08:00 FiO2 Intake & Output 03/22/23 03/23/23 03/23/23 18:59 06:59 18:59 Intake Total 1080 270 Balance 1080 270 Weight 70 kg Intake: Oral 1080 270 Other: Voiding Method Toilet Toilet Toilet Diaper Diaper Diaper # Voids 2 1 # Bowel Movements 1 - Exam GENERAL DESCRIPTION: Elderly female lying in bed in no distress RESPIRATORY SYSTEM: Unlabored breathing , decreased breath sounds at bases HEART: S1 S2 regular rate and rhythm ,no loud murmurs ABDOMEN: Soft , no tenderness EXTREMITIES: No edema feet - Labs CBC & Chem 7: 03/22/23 07:17 03/22/23 07:17 Labs: Abnormal Lab Results - Last 24 Hours (Table) 03/22/23 03/22/23 03/22/23 Range/Units 12:02 12:40 14:24 POC Glucose (mg/dL) 66 L 184 H 176 H (70-110) mg/dL 03/22/23 03/22/23 03/23/23 Range/Units 16:21 19:51 04:00 POC Glucose (mg/dL) 129 H 211 H 47 L (70-110) mg/dL 03/23/23 Range/Units 05:40 POC Glucose (mg/dL) 47 L (70-110) mg/dL Microbiology - Last 24 Hours (Table) 03/21/23 23:24 Gram Stain - Preliminary Sputum Assessment and Plan (1) E coli bacteremia Current Visit: Yes Status: Acute Code(s): R78.81 - BACTEREMIA; B96.20 - UNSP ESCHERICHIA COLI THE CAUSE OF DISEASES CLASSD [facility] SNOMED Code(s): 758170686557 (2) Pyelonephritis Current Visit: Yes Status: Acute Code(s): N12 - TUBULO-INTERSTITIAL NEPHRITIS, NOT SPCF ACUTE OR CHRONIC SNOMED Code(s): 43957290 Plan: 1patient with the gram-negative bacteremia source likely urinary as the patient did have urinary symptoms underlying abdominal source not entirely excluded in this patient presented to hospital with sepsis with fever elevated white count tachycardia elevated lactic acid. 2CT abdominal pelvis did shows left-sided mild hydronephrosis and pyelonephritis no evidence of colitis or an abscess 3patient has shown clinical improvement and insisting on going home we will finish therapy with oral Cipro 500 mg twice a day for 10 days and close outpatient follow discussed with the admitting physician Dictation was produced using [employer] dictation software. please excuse any grammatical, word or spelling errors. Time with Patient: Less than 30
--- NOTE | 2023-03-23 12:26 | P.PN ---
Subjective Progress Note Date: 03/23/23 This is a 68-year-old female patient was hospitalized with various complaints a nd I was involved in the case because of concerns of shortness of breath. The patient came into the hospital because of altered mentation, apparently she was having fever at home, and at the same time, she was having gastrointestinal issues with nausea, diarrhea, and fluid intolerance. She is diabetic and recently she was started on Trulicity once a week injections and she thinks that she is having a reaction to the medication. At the same time the patient is on glargine insulin a total of 108 units a day in addition to metformin for blood sugar control. She states that her blood sugars were quite elevated an outpatient basis. She is also known to have diabetes mellitus type 2, hyperten herbie, hyperlipidemia and history of COPD and the patient is a chronic smoker. The patient came into the ED and the patient a white cell count of 25, hemoglobin of 15, BUN was 19 with a creatinine of 0.98 and a sodium level is at 137. Initial lactic acid level was at 3.4. Normal LFTs. ProBNP level was 4420, Covid 19 testing and the rest of the viral screen was all negative. The patient continues to have an elevated blood sugar and the most recent blood sugar measurement is at 351. In addition, the patient had a CAT scan of the brain that showed no acute abnormalities. There is no evidence of any bleed or a CVA. EKG that was done at time of admission showed atrial fibrillation with RVR and a CT angiogram was also done in the emergency department indicating no evidence of any pulmonary embolism. No acute pulmonary infiltrate pleural effusion or pneumothorax. She is not using any form of maintenance as for medications at home. She is not oxygen dependent. She was covered with R ocephin and Zithromax. She was started also on IV heparin regarding her atrial fibrillation. She is known to have peripheral vascular disease followed up by interventional cardiology. On today's evaluation of 03/19/2023, the patient is on 2 L of oxygen by nasal cannula. No respiratory distress pH is laying down comfortably in bed. She is still having issues with atrial fibrillation. She is having a rapid ventricular response and currently she is on Cardizem drip at 10 mg an hour. The echo of the heart also showed impairment of LV function, global hypokinesis with an ejection fraction of 40-45%. There is a possibility of this patient having a UTI. Urine culture is still pending for now. Note that her fever broke and she is currently afebrile. Nevertheless, the patient is still having leukocytosis with a white cell count of 25.1. Electrolytes show a potassium level of 3.3, sodium is at 136, BUN is at 31 with a creatinine of 1.03. The patient remains on IV heparin. The patient on a Cardizem drip. The patient is on IV Rocephin and Zithromax. She is on 2 L of oxygen by nasal cannula. Levemir insulin was restarted and her blood sugars under better control for now. 2022, the patient is being seen for a follow-up. The patient is still on Cardizem drip at 10 mg an hour and the heart is under better control. She remains in atrial fibrillation. She has an ejection fraction of around 40-45%. Meanwhile, she was found to have gram-negative sepsis. The blood culture was positive for gram-negative bacillus and the patient is undergoing a CAT scan of the abdomen and pelvis today. This was done without contrast. Meanwhile, the patient was also given Flagyl and this is a combination with IV Rocephin. The white cell count is improving is currently down to 19.2 with a hemoglobin of 14.5. BUN is at 32 with a creatinine of 0.8 and a sodium level is at 133. No significant shortness of breath and she remains on 2 L of oxygen by nasal cannula. The patient is afebrile. The patient remains on IV heparin. Metoprolol was also started a dose of 100 mg by mouth twice a day and Cardizem drip will be gradually weaned off and discontinued. The On today's evaluation of 03/21/2023, the patient was found to have E. coli septicemia from an underlying infectious infection. She is feeling well. She has no specific complaints. Note that the patient shortness of breath. No altered mentation. CAT scan of the abdomen and pelvis was done yesterday and showed mild hydronephrosis associated with some fat stranding involving the left kidney. No evidence of an obstructive calculus. Pyelonephritis was being entertained based on the CAT scan images. At the same time, there was layering debris's and thickening of the bladder wall suggestive of an underlying cystitis. There is cholelithiasis and chronic diverticulosis without evidence of diverticulitis or cholecystitis. The patient remains on IV antibiotics. The patient remains on IV Rocephin 2 g every 24 hours. The patient was also given Flagyl by infectious disease. I think the last antibiotic and be essentially discontinued. She remains atrial fibrillation. She is off the Cardizem drip. She is on IV heparin. She is also on metoprolol 100 mg by mouth twice a day. On 03/22/2020, the patient on room air oxygen. She encountered an episode of hypoglycemia yesterday and this was treated. Otherwise, she has no specific complaints. The repeat cultures are still pending for now as the patient had an E. coli septicemia and the patient remains on IV Rocephin. No fever. No hemodynamic instability. Based on an underlying hypoglycemic event, Levemir insulin was reduced down to 90 units and she remains on sliding scale coverage. No nausea. No vomiting. No emesis. No diarrhea. IV fluids currently running at 20 mL an hour. Labs from today shows a white cell count of 18 with a he moglobin 15.6, BUN is at 23 with a creatinine 0.8 and sodium level is at 132. Blood sugars are running low at 66. She was taken off the IV heparin. She is currently on anticoagulation with Eliquis and the patient is also metoprolol. On 03/23/2023, the patient is doing well. She had another episode of hypoglycemia yesterday where her blood sugar drop in the mid 40s. Levemir insulin was dropped to 75 units a day. No other new complaint otherwise for now. She remains on IV Rocephin. No shortness of breath. She is on room air oxygen. Objective - Vital Signs Vital signs: Vital Signs Temp 98.0 F 03/23/23 08:00 Pulse 86 03/23/23 08:02 Resp 16 03/23/23 08:00 BP 124/72 03/23/23 08:00 Pulse Ox 96 03/23/23 08:00 FiO2 Intake & Output 03/22/23 03/23/23 03/23/23 18:59 06:59 18:59 Intake Total 1080 270 Balance 1080 270 Weight 70 kg Intake: Oral 1080 270 Other: Voiding Method Toilet Toilet Toilet Diaper Diaper Diaper # Voids 2 1 # Bowel Movements 1 - Exam Breathing is nonlabored and the patient is currently on 2 L O2 nasal cannula Head exam was generally normal. There was no scleral icterus or corneal arcus. Mucous membranes were moist. Neck was supple and without jugular venous distension, thyromegaly, or carotid bruits. Carotids were easily palpable bilaterally. There was no adenopathy. Lungs sounds are diminished and there are clear. No crackles or wheezing at thi s point in time. Cardiac exam revealed the PMI to be normally situated and sized. The rhythm was irregular and no extrasystoles were noted during several minutes of auscultation. The first and second heart sounds were normal and physiologic splitting of the second heart sound was noted. There were no murmurs, rubs, clicks, or gallops. Abdominal exam revealed normal bowel sounds. The abdomen was soft, non-tender, and without masses, organomegaly, or appreciable enlargement of the abdominal aorta. Examination of the extremities revealed easily palpable radial, femoral and ped al pulses. There was no cyanosis, clubbing or edema. Examination of the skin revealed no evidence of significant rashes, suspicious appearing nevi or other concerning lesions. Neurologically, the patient is awake and alert and the patient does not have any focal neurological deficit. Cranial nerves are essentially intact. - Labs CBC & Chem 7: 03/22/23 07:17 03/22/23 07:17 Labs: Abnormal Lab Results - Last 24 Hours (Table) 03/22/23 03/22/23 03/22/23 Range/Units 11:20 11:40 12:02 POC Glucose (mg/dL) 64 L 62 L 66 L (70-110) mg/dL 03/22/23 03/22/23 03/22/23 Range/Units 12:40 14:24 16:21 POC Glucose (mg/dL) 184 H 176 H 129 H (70-110) mg/dL 03/22/23 03/23/23 03/23/23 Range/Units 19:51 04:00 05:40 POC Glucose (mg/dL) 211 H 47 L 47 L (70-110) mg/dL Microbiology - Last 24 Hours (Table) 03/21/23 23:24 Gram Stain - Preliminary Sputum Assessment and Plan Plan: Acute gram-negative/E. coli sepsis and blood cultures positive for gram-negative bacillus. Rule out urinary tract infection with secondary to sepsis. There is also the possibility of pyelonephritis of the left kidney based on the CAT scan findings. Awaiting follow-up cultures and the patient remains on IV Rocephin Acute febrile illness, T-max of 102.1. Patient is currently afebrile , recovered Atrial fibrillation with rapid ventricular response, patient is currently on metoprolol CHF with an ejection fraction of 40-45% Diabetes mellitus type 2 with poorly controlled blood sugars, with episodes of hypoglycemia and the Levemir insulin dose was modified to 19 units along with a sliding scale coverage. Will need close monitoring of the blood sugars Mild lactic acidosis, improving COPD, currently on room air oxygen Hypertension Hyperlipidemia Peripheral vascular disease Coronary artery disease Plan Patient is currently on room air oxygen Anticoagulation with Eliquis 5 mg by mouth twice a day metoprolol at a dose of 100 mg twice a day Continue IV Rocephin and switch this patient to oral antibiotics at the time of discharge per ID Drop down the Levemir dose to 75 units daily CAT scan of the abdomen and pelvis, results were noted Monitor white cell count and the white cell count remains elevated, is improving Echocardiogram was noted Blood sugars under better control the patient is currently on Levemir insulin and a slight scale coverage, modified the Levemir dose to 75 units and close mo nitoring of the blood sugar Possible discharge home today, likely on ciprofloxacin.
[2023-03-23 12:35] LABS: Glucose,Whole Blood 173 mg/dL (70-110)
[2023-03-23 12:55] LABS: HCT 43.5 % (34.0-46.0); HGB 13.9 gm/dL (11.4-16.0); MCH 28.9 pg (25.0-35.0); MCHC 31.9 g/dL (31.0-37.0); MCV 90.6 fL (80.0-100.0); Mean Platelet Volume 8.1; Platelet Count 303 k/uL (150-450); RDW 13.5 % (11.5-15.5); WBC 16.2 k/uL (3.8-10.6)
[2023-03-23 12:56] VITALS: BP 137/82; RESP 18
--- NOTE | 2023-03-23 12:58 | P.GSCN ---
History of Present Illness Consult date: 03/23/23 Reason for Consult: Left hydronephrosis History of present illness: This is a 68-year-old female admitted to the hospital with shortness of breath. Urology is consulted for an incidental finding of left-sided hydronephrosis. She indicated she's been having intermittent flank pain for the past week, which has resolved approximately 3-4 days ago. He underwent a CT which showed evidence of mild left-sided hydronephrosis. Her creatinine is stable at 0.8. Denies any flank pain at this time. Denies any gross hematuria or dysuria. Does have history of recurrent kidney stones but never required any intervention for her stones. Review of Systems - Constitutional Denies fever, Denies weight loss - EENT Ears, nose, mouth and throat: Denies dysphagia - Respiratory Denies cough, Denies 7 - Gastrointestinal Denies abdominal pain, Denies nausea, Denies vomiting - Genitourinary Genitourinary: Denies dysuria, Denies hematuria - Neurological Denies headaches, Denies syncope Past Medical History Past Medical History: Coronary Artery Disease (CAD), COPD, Diabetes Mellitus, GERD/Reflux, Hyperlipidemia, Hypertension Additional Past Medical History / Comment(s): CHRONIC BACK PAIN, Type 2 DM History of Any Multi-Drug Resistant Organisms: None Reported Past Surgical History: Heart Catheterization With Stent, Tubal Ligation Additional Past Surgical History / Comment(s): angioplasty with 1 stent 03/10/14 and heart cath with stent 03/24/14 Past Anesthesia/Blood Transfusion Reactions: Previous Problems w/ Anesthesia Additional Past Anesthesia/Blood Transfusion Reaction / Comm: HYPERTENSIVE REACTION (ALMOST HAD A STROKE) Date of Last Stent Placement:: 2013 Past Psychological History: Depression Smoking Status: Current every day smoker Past Alcohol Use History: None Reported Past Drug Use History: None Reported - Past Family History Sister(s) Family Medical History: Neurologic Disorder Additional Family Medical History / Comment(s): OF ANEURYSM Mother Family Medical History: Cancer Additional Family Medical History / Comment(s): COLON Medications and Allergies Home Medications Medication Instructions Recorded Confirmed Type Clopidogrel [Plavix] 75 mg PO DAILY #30 tab 05/22/14 03/17/23 Rx ARIPiprazole [Abilify] 10 mg PO DAILY 03/17/23 03/17/23 History Atorvastatin [Lipitor] 40 mg PO HS 03/17/23 03/17/23 History Dulaglutide [Trulicity] 1.5 mg SQ SA 03/17/23 03/17/23 History EPINEPHrine [Primatene Mist] 1 puff INHALATION RT-QID PRN 03/17/23 03/17/23 History HYDROcodone/APAP 10-325MG [[place] 1 tab PO Q8H PRN 03/17/23 03/17/23 History 10-325] Insulin Glargine,Hum.rec.anlog 108 units SQ DAILY 03/17/23 03/17/23 History [Toujeo Max Solostar] Naloxone HCl [Narcan] 4 mg NASAL DIRECTED PRN 03/17/23 03/17/23 History Nicotine 21Mg/24Hr Patch [Habitrol] 1 patch TRANSDERM HS 03/17/23 03/17/23 History Oxybutynin ER [Ditropan XL] 10 mg PO DAILY 03/17/23 03/17/23 History Pantoprazole [Protonix] 40 mg PO DAILY 03/17/23 03/17/23 History Vilazodone HCl [Viibryd] 40 mg PO HS 03/17/23 03/17/23 History metFORMIN HCL 1,000 mg PO BID 03/17/23 03/17/23 History Apixaban [Eliquis] 5 mg PO BID tab 03/23/23 Rx Aspirin 81 mg PO DAILY tab 03/23/23 Rx Ciprofloxacin HCl [Cipro] 500 mg PO BID 10 Days #20 tab 03/23/23 Rx INSULIN ASPART (NovoLOG) [NovoLOG 0 unit SQ ACHS each 03/23/23 Rx (formulary)] Ipratropium-Albuterol Nebulize 3 ml INHALATION RT-QID each 03/23/23 Rx [Duoneb 0.5 mg-3 mg/3 ml Soln] Metoprolol Tartrate [Lopressor] 100 mg PO BID tab 03/23/23 Rx lisinopriL [Zestril] 20 mg PO BID tab 03/23/23 Rx Allergies Allergy/AdvReac Type Severity Reaction Status Date / Time IV DYE Allergy Rash/Hives Uncoded 03/17/23 22:03 Surgical - Exam Vital Signs Temp Pulse Resp BP Pulse Ox 99.0 F 128 H 24 149/63 94 L 03/17/23 18:53 03/17/23 18:53 03/17/23 18:53 03/17/23 18:53 03/17/23 18:53 - General no distress, no pain - Eyes normal ocular movement, no pale - ENT normal nares, normal mucosa - Respiratory normal expansion, normal respiratory effort - Abdomen Abdomen: soft, non tender, no distended - Psychiatric oriented to time, oriented to person, oriented to place Results - Labs 03/22/23 07:17 03/22/23 07:17 Abnormal Lab Results - Last 24 Hours (Table) 03/22/23 03/22/23 03/22/23 Range/Units 14:24 16:21 19:51 POC Glucose (mg/dL) 176 H 129 H 211 H (70-110) mg/dL 03/23/23 03/23/23 03/23/23 Range/Units 04:00 05:40 12:08 POC Glucose (mg/dL) 47 L 47 L 173 H (70-110) mg/dL Microbiology - Last 24 Hours (Table) 03/21/23 23:24 Gram Stain - Preliminary Sputum Assessment and Plan Assessment: 68-year-old female with history of left-sided hydronephrosis, previous history of kidney stones. Attempt CT she was having flank pain which has resolved now. Given her history of stones most likely [place] secondary from a recently passed stone, but did discussed with her she will need a repeat imaging in 3-4 weeks to assess resolution of hydronephrosis -From urology standpoint she is ok for discharge, she can follow-up as an outpatient in 2-3 weeks, -We'll need outpatient renal U/S in 3-4 weeks to assess resolution of hydronephrosis
[2023-03-23 13:04] VITALS: BMI 27.3
[2023-03-23 13:20] LABS: ALT 36 U/L (4-34); AST 39 U/L (14-36); African American GFR (CKD) 86 (>60 ml/min/1.73 sqM); Albumin 3.1 g/dL (3.5-5.0); Alkaline Phosphatase 61 U/L (38-126); Anion Gap 7 mmol/L; Blood Urea Nitrogen 24 mg/dL (7-17); Calcium 8.2 mg/dL (8.4-10.2); Carbon Dioxide 29 mmol/L (22-30); Chloride 97 mmol/L (98-107); Glucose 134 mg/dL (74-99); Non-African American GFR(CKD) 75 (>60 ml/min/1.73 sqM); Potassium 3.8 mmol/L (3.5-5.1); Sodium 133 mmol/L (137-145); Total Bilirubin 0.6 mg/dL (0.2-1.3); Total Protein 6.4 g/dL (6.3-8.2)
[2023-03-23 13:47] LABS: Band Neutrophils % 2 %; Eosinophils # (M) 0.16 k/uL (0-0.7); Lymphocytes # (M) 4.05 k/uL (1.0-4.8); Monocytes # (M) 1.62 k/uL (0-1.0); Neutrophils % (M) 62 %; Nucleated Red Blood Cells 0 /100 WBC (0-0); Total Cells Counted 100
[2023-03-23 15:45] VITALS: PULSE 84
[2023-03-23] MEDS ORDERED: INSULIN DETEMIR (LEVEMIR) 100 UNIT/ML SYR SQ SCH (21:00)
== END 2023-03-23 16:45 | disposition home or self-care (01) | DRG 872 ==
LOC: EC 18:52 → 3SCARD 21:55
PROVIDERS: ADMIT Internal Medicine; ATTEND Internal Medicine
DX: A41.51 Sepsis due to Escherichia coli [E. coli] (principal); J44.1 Chronic obstructive pulmonary disease with (acute) exacerbation; N13.6 Pyonephrosis; E87.20 Acidosis, unspecified; E11.51 Type 2 diabetes mellitus with diabetic peripheral angiopathy without gangrene; I48.91 Unspecified atrial fibrillation; Z79.4 Long term (current) use of insulin; E78.5 Hyperlipidemia, unspecified; I10 Essential (primary) hypertension; F32.A Depression, unspecified; F17.210 Nicotine dependence, cigarettes, uncomplicated; I25.10 Atherosclerotic heart disease of native coronary artery without angina pectoris; K21.9 Gastro-esophageal reflux disease without esophagitis; G89.29 Other chronic pain; I49.3 Ventricular premature depolarization; M54.9 Dorsalgia, unspecified; Z20.822 Contact with and (suspected) exposure to COVID-19; Z95.5 Presence of coronary angioplasty implant and graft; Z79.899 Other long term (current) drug therapy; Z79.85 Long-term (current) use of injectable non-insulin antidiabetic drugs; Z79.84 Long term (current) use of oral hypoglycemic drugs; Z79.02 Long term (current) use of antithrombotics/antiplatelets; Z91.041 Radiographic dye allergy status; Z28.310 Unvaccinated for COVID-19; Z82.49 Family history of ischemic heart disease and other diseases of the circulatory system; Z87.442 Personal history of urinary calculi; Z79.82 Long term (current) use of aspirin; Z79.01 Long term (current) use of anticoagulants
CPT/HCPCS: 36415; 70450; 71046; 71275; 74176; 80053; 81001; 83605; 83735; 83880; 84436; 84439; 84443; 84484; 85025; 85379; 85730; 87040; 87070; 87077; 87186; 87205; 87324; 87636; 93005; 93306; 94640; 94760; 96365; 96367; 96368; 96375; 99291

== ENCOUNTER 2023-06-03 16:03 | Inpatient (IN) | payer MEDICARE, OTHER ==
--- NOTE | 2023-06-03 16:12 | ED ---
General Adult HPI - General Source: patient, RN notes reviewed <Jen Vaughn - Last Filed: 06/03/23 16:11> <Luz Riddle - Last Filed: 06/04/23 07:49> - General Stated complaint: SOB feet,leg,hand swelling - History of Present Illness Initial comments: 68-year-old female presents to the emergency department with chief complaint of lower extremity swelling with associated shortness of breath. She states that this is been going on for around 2 weeks but has been worse over the past 5-7 days. She does have a history of COPD, cardiac stent. Denies chest pain. (Jen Vaughn) - Related Data Home Medications Medication Instructions Recorded Confirmed ARIPiprazole [Abilify] 10 mg PO DAILY 03/17/23 06/04/23 Atorvastatin [Lipitor] 40 mg PO HS 03/17/23 06/04/23 Insulin Glargine,Hum.rec.anlog 104 units SQ DAILY 03/17/23 06/04/23 [Karely Montero] Naloxone HCl [Narcan] 4 mg NASAL DIRECTED PRN 03/17/23 06/04/23 Oxybutynin ER [Ditropan XL] 10 mg PO DAILY 03/17/23 06/04/23 Pantoprazole [Protonix] 40 mg PO DAILY 03/17/23 06/04/23 Vilazodone HCl [Viibryd] 40 mg PO HS 03/17/23 06/04/23 metFORMIN HCL 1,000 mg PO BID 03/17/23 06/04/23 Albuterol Sulfate [Albuterol 2 puff PO RT-Q6H PRN 06/04/23 06/04/23 Sulfate Hfa] Furosemide [Lasix] 20 mg PO DAILY 06/04/23 06/04/23 HYDROcodone/APAP 7.5-325MG [[place] 1 tab PO Q8H PRN 06/04/23 06/04/23 7.5-325] Metoprolol Tartrate [Lopressor] 50 mg PO BID 06/04/23 06/04/23 Potassium Chloride [Klor-Con 10 ER] 10 meq PO DAILY 06/04/23 06/04/23 amLODIPine [Norvasc] 5 mg PO DAILY 06/04/23 06/04/23 Previous Rx's Medication Instructions Recorded Apixaban [Eliquis] 5 mg PO BID tab 03/23/23 Ipratropium-Albuterol Nebulize 3 ml INHALATION RT-QID each 03/23/23 [Duoneb 0.5 mg-3 mg/3 ml Soln] lisinopriL [Zestril] 20 mg PO BID tab 03/23/23 Allergies Allergy/AdvReac Type Severity Reaction Status Date / Time dulaglutide [[facility] AdvReac Diarrhea & Verified 06/04/23 07:16 nausea IV DYE Allergy Rash/Hives Uncoded 06/04/23 07:16 - see comment Review of Systems ROS Other: All systems not noted in ROS Statement are negative. <Jen Vaughn - Last Filed: 06/03/23 16:11> ROS Other: All systems not noted in ROS Statement are negative. <Luz Riddle P - Last Filed: 06/04/23 07:49> ROS Statement: Those systems with pertinent positive or pertinent negative responses have been documented in the HPI. Past Medical History Past Medical History: Coronary Artery Disease (CAD), COPD, Diabetes Mellitus, GERD/Reflux, Hyperlipidemia, Hypertension Additional Past Medical History / Comment(s): CHRONIC BACK PAIN, Type 2 DM History of Any Multi-Drug Resistant Organisms: None Reported Past Surgical History: Heart Catheterization With Stent, Tubal Ligation Additional Past Surgical History / Comment(s): angioplasty with 1 stent 03/10/14 and heart cath with stent 03/24/14 Past Anesthesia/Blood Transfusion Reactions: Previous Problems w/ Anesthesia Additional Past Anesthesia/Blood Transfusion Reaction / Comment(s): HYPERTENSIVE REACTION (ALMOST HAD A STROKE) Date of Last Stent Placement:: 2013 Past Psychological History: Depression Smoking Status: Current every day smoker Past Alcohol Use History: None Reported Past Drug Use History: None Reported - Past Family History Sister(s) Family Medical History: Neurologic Disorder Additional Family Medical History / Comment(s): OF ANEURYSM Mother Family Medical History: Cancer Additional Family Medical History / Comment(s): COLON <Jen Vaughn - Last Filed: 06/03/23 16:11> General Exam <Jen Vaughn - Last Filed: 06/03/23 16:11> <Luz Riddle P - Last Filed: 06/04/23 07:49> - General Exam Comments Initial Comments: Visual Physical Exam Vital signs reviewed General: Well-appearing, nontoxic, no acute distress. Head: Normocephalic, atraumatic Eyes: PERRLA, EOMI ENT: Airway patent Chest: Nonlabored breathing Skin: No visual rash, normal skin tone Neuro: Alert and oriented 3 Musculoskeletal: No gross abnormalities (Ronka,Jen) Was pt. sent in by a medical professional or institution (, PA, BRAILLE TRANSCRIBER, urgent care, hospital, or retirement...) When possible be specific @ -No Did you speak to anyone other than the patient for history (EMS, parent, family, police, friend...)? What history was obtained from this source @ -No Did you review nursing and triage notes (agree or disagree)? Why? @ -I reviewed and agree with nursing and triage notes Were old charts reviewed (outside hosp., previous admission, EMS record, old EKG, old radiological studies, urgent care reports/EKG's, retirement records)? Report findings @ -Previous admission reviewed Differential Diagnosis (chest pain, altered mental status, abdominal pain women, abdominal pain men, vaginal bleeding, weakness, fever, dyspnea, syncope, headach e, dizziness, GI bleed, back pain, seizure, CVA, palpatations, mental health)? @ -Differential Dyspnea: Coronary syndrome, arrhythmia, tamponade, asthma, COPD, pulmonary embolism, pneumonia, pneumothorax, pulmonary effusion, anaphylaxis, diabetic ketoacidosis, flailed chest, pulmonary contusion, diaphragmatic rupture, anemia, neuromuscular, this is not meant to be an all-inclusive list. EKG interpreted by me (3pts min.). @ -As above X-rays interpreted by me (1pt min.). @ -No pleural effusions noted with first no focal consolidations CT interpreted by me (1pt min.). @ -None done U/S interpreted by me (1pt. min.). @ -None done What testing was considered but not performed or refused? (CT, X-rays, U/S, labs)? Why? @ -None What meds were considered but not given or refused? Why? @ -BiPAP was considered but patient improved rapidly so BiPAP was not initiated Did you discuss the management of the patient with other professionals (professionals i.e. , PA, BRAILLE TRANSCRIBER, lab, RT, psych nurse, geriatric social worker, aeronautical project engineer, teacher, compliance officer, case reviewer)? Give summary @ -Admitting physician Dr Zavala Was smoking cessation discussed for >3mins.? @ -No Was critical care preformed (if so, how long)? @ -No Were there social determinants of health that impacted care today? How? (Homelessness, low income, unemployed, alcoholism, drug addiction, transportation, low edu. Level, literacy, decrease access to med. care, nursing home, rehab)? @ -No Was there de-escalation of care discussed even if they declined (Discuss DNR or withdrawal of care, Hospice)? DNR status @ -No What co-morbidities impacted this encounter? (DM, HTN, Smoking, COPD, CAD, Can cer, CVA, ARF, Chemo, Hep., AIDS, mental health diagnosis, sleep apnea, morbid obesity)? @ -COPD, CHF Was patient admitted / discharged? Hospital course, mention meds given and route, prescriptions, significant lab abnormalities, going to OR and other pertinent info. @ -Admit Workup was initiated in triage. Patient had presented with some shortness of breath lower extremity swelling. Patient labs and chest x-ray were performed while in the waiting room, upon reevaluation patient was noted to be somewhat tachypneic and hypoxic patient was moved to a resuscitation bay and placed on 3 L nasal cannula. Initially BiPAP was ordered however patient's condition improved rapidly upon her sitting and resting. Patient given 40mg IV lasix Patient to be admitted to Dr Zavala with Heart Failure plan Undiagnosed new problem with uncertain prognosis? @ -No Drug Therapy requiring intensive monitoring for toxicity (Heparin, Nitro, Insulin, Cardizem)? @ -No Were any procedures done? @ -No Diagnosis/symptom? @ -HF Acute, or Chronic, or Acute on Chronic? @ -Acute Uncomplicated (without systemic symptoms) or Complicated (systemic symptoms)? @ -Complicated Side effects of treatment? @ -No Exacerbation, Progression, or Severe Exacerbation? @ -No Poses a threat to life or bodily function? How? (Chest pain, [place], [place], pneumonia, PE, COPD, DKA, ARF, appy, cholecystitis, CVA, Diverticulitis, Homicidal, Suicidal, threat to staff... and all critical care pts) @ -Yes (Luz Riddle) Course Vital Signs 06/03/23 06/04/23 06/04/23 16:09 00:35 01:05 Temperature 98.4 F Pulse Rate 112 H 113 H 107 H Respiratory 24 28 H Rate Blood Pressure 151/64 165/91 164/82 O2 Sat by Pulse 92 L 86 L 93 L Oximetry 06/04/23 06/04/23 06/04/23 02:00 03:00 05:37 Temperature Pulse Rate 105 H 103 H 103 H Respiratory 16 18 16 Rate Blood Pressure 121/107 160/95 160/95 O2 Sat by Pulse 93 L 93 L 92 L Oximetry 06/04/23 06:17 Temperature 97.7 F Pulse Rate 116 H Respiratory 22 Rate Blood Pressure O2 Sat by Pulse 91 L Oximetry EKG Findings - EKG Comments: EKG Findings:: EKG interpreted by me, EKG obtained at 1637 rate is 105 rhythm is sinus tach with frequent PVCs, DE 138 QRS 80 QTc 392 hours elevations or depressions no evidence of acute ischemia or infarction. <Luz Riddle - Last Filed: 06/04/23 07:49> Medical Decision Making <Jen Vaughn - Last Filed: 06/03/23 16:11> - Lab Data Result diagrams: 06/03/23 16:30 06/03/23 16:30 <Luz Riddle - Last Filed: 06/04/23 07:49> - Medical Decision Making I preformed the quick note portion of this chart. Electronically signed by Jen Vaughn PA-C (Jen Vaughn) - Lab Data Lab Results 06/03/23 06/03/23 06/03/23 Range/Units 16:11 16:30 16:30 WBC 9.8 (3.8-10.6) k/uL RBC 4.66 (3.80-5.40) m/uL Hgb 13.7 (11.4-16.0) gm/dL Hct 42.8 (34.0-46.0) % MCV 91.9 (80.0-100.0) fL MCH 29.4 (25.0-35.0) pg MCHC 31.9 (31.0-37.0) g/dL RDW 13.7 (11.5-15.5) % Plt Count 308 (150-450) k/uL MPV 7.4 Neutrophils % 73 % Lymphocytes % 18 % Monocytes % 4 % Eosinophils % 2 % Basophils % 0 % Neutrophils # 7.1 (1.3-7.7) k/uL Lymphocytes # 1.8 (1.0-4.8) k/uL Monocytes # 0.4 (0-1.0) k/uL Eosinophils # 0.2 (0-0.7) k/uL Basophils # 0.0 (0-0.2) k/uL Hypochromasia Slight PT 10.8 (10.0-12.5) sec INR 1.0 (<1.2) APTT 22.1 (22.0-30.0) sec Sodium (137-145) mmol/L Potassium (3.5-5.1) mmol/L Chloride (98-107) mmol/L Carbon Dioxide (22-30) mmol/L Anion Gap mmol/L BUN (7-17) mg/dL Creatinine (0.52-1.04) mg/dL Est GFR (CKD-EPI)AfAm (>60 ml/min/1.73 sqM) Est GFR (CKD-EPI)NonAf (>60 ml/min/1.73 sqM) Glucose (74-99) mg/dL POC Glucose (mg/dL) 239 H (70-110) mg/dL POC Glu Door Core Assembler Chrissie Short Calcium (8.4-10.2) mg/dL Total Bilirubin (0.2-1.3) mg/dL AST (14-36) U/L ALT (4-34) U/L Alkaline Phosphatase (38-126) U/L Troponin I (0.000-0.034) ng/mL NT-Pro-B Natriuret Pep pg/mL Total Protein (6.3-8.2) g/dL Albumin (3.5-5.0) g/dL 06/03/23 06/03/23 06/04/23 Range/Units 16:30 16:30 01:18 WBC (3.8-10.6) k/uL RBC (3.80-5.40) m/uL Hgb (11.4-16.0) gm/dL Hct (34.0-46.0) % MCV (80.0-100.0) fL MCH (25.0-35.0) pg MCHC (31.0-37.0) g/dL RDW (11.5-15.5) % Plt Count (150-450) k/uL MPV Neutrophils % % Lymphocytes % % Monocytes % % Eosinophils % % Basophils % % Neutrophils # (1.3-7.7) k/uL Lymphocytes # (1.0-4.8) k/uL Monocytes # (0-1.0) k/uL Eosinophils # (0-0.7) k/uL Basophils # (0-0.2) k/uL Hypochromasia PT (10.0-12.5) sec INR (<1.2) APTT (22.0-30.0) sec Sodium 140 (137-145) mmol/L Potassium 4.6 (3.5-5.1) mmol/L Chloride 103 (98-107) mmol/L Carbon Dioxide 24 (22-30) mmol/L Anion Gap 13 mmol/L BUN 16 (7-17) mg/dL Creatinine 0.82 (0.52-1.04) mg/dL Est GFR (CKD-EPI)AfAm 86 (>60 ml/min/1.73 sqM) Est GFR (CKD-EPI)NonAf 75 (>60 ml/min/1.73 sqM) Glucose 229 H (74-99) mg/dL POC Glucose (mg/dL) (70-110) mg/dL POC Glu Door Core Assembler ID Calcium 8.7 (8.4-10.2) mg/dL Total Bilirubin 0.6 (0.2-1.3) mg/dL AST 27 (14-36) U/L ALT 23 (4-34) U/L Alkaline Phosphatase 80 (38-126) U/L Troponin I 0.034 0.036 H* (0.000-0.034) ng/mL NT-Pro-B Natriuret Pep 1360 pg/mL Total Protein 7.5 (6.3-8.2) g/dL Albumin 4.1 (3.5-5.0) g/dL Disposition <Jen Vaughn - Last Filed: 06/03/23 16:11> Is patient prescribed a controlled substance at d/c from ED?: No <Luz Riddle - Last Filed: 06/04/23 07:49> Clinical Impression: COPD (chronic obstructive pulmonary disease), Acute respiratory insufficiency, Congestive heart failure Disposition: ADMITTED IP TO THIS HOSP
[2023-06-03 16:13] LABS: Glucose,Whole Blood 239 mg/dL (70-110)
--- NOTE | 2023-06-03 16:27 | XR ---
EXAMINATION TYPE: XR chest 2V DATE OF EXAM: 06/03/2023 4:24 PM CLINICAL INDICATION:Female, 68 years old with history of difficulty breathing; [facility] COMPARISON: Chest radiographs from 03/17/2023 TECHNIQUE: XR chest 2V Frontal and lateral views of the chest. FINDINGS: Lungs/Pleura: There is flattening of the diaphragm with increased lucency of the lungs. No evidence o f pneumothorax, pleural effusion or focal consolidation. Pulmonary vascularity: Unremarkable. Heart/mediastinum: Cardiomediastinal silhouette is prominent in size. Musculoskeletal: No acute osseous pathology. Other findings: None Lines/Tubes: IMPRESSION: 1. No acute cardiopulmonary disease process. 2. COPD changes.
[2023-06-03 17:08] LABS: Basophils % (A) 0 %; Eosinophils # (A) 0.2 k/uL (0-0.7); Eosinophils % (A) 2 %; HCT 42.8 % (34.0-46.0); HGB 13.7 gm/dL (11.4-16.0); Hypochromasia Slight; Lymphocytes # (A) 1.8 k/uL (1.0-4.8); Lymphocytes % (A) 18 %; MCH 29.4 pg (25.0-35.0); MCHC 31.9 g/dL (31.0-37.0); MCV 91.9 fL (80.0-100.0); Mean Platelet Volume 7.4; Monocytes # (A) 0.4 k/uL (0-1.0); Monocytes % (A) 4 %; Neutrophils # (A) 7.1 k/uL (1.3-7.7); Neutrophils % (A) 73 %; Platelet Count 308 k/uL (150-450); RBC 4.66 m/uL (3.80-5.40); RDW 13.7 % (11.5-15.5); WBC 9.8 k/uL (3.8-10.6)
[2023-06-03 17:23] LABS: Prothrombin Time 10.8 sec (10.0-12.5)
[2023-06-03 17:24] LABS: Partial Thromboplastin Time 22.1 sec (22.0-30.0)
[2023-06-03 17:40] LABS: ALT 23 U/L (4-34); AST 27 U/L (14-36); African American GFR (CKD) 86 (>60 ml/min/1.73 sqM); Albumin 4.1 g/dL (3.5-5.0); Alkaline Phosphatase 80 U/L (38-126); Anion Gap 13 mmol/L; Blood Urea Nitrogen 16 mg/dL (7-17); Calcium 8.7 mg/dL (8.4-10.2); Carbon Dioxide 24 mmol/L (22-30); Chloride 103 mmol/L (98-107); Glucose 229 mg/dL (74-99); Non-African American GFR(CKD) 75 (>60 ml/min/1.73 sqM); Sodium 140 mmol/L (137-145); Total Bilirubin 0.6 mg/dL (0.2-1.3); Total Protein 7.5 g/dL (6.3-8.2)
[2023-06-03 17:45] LABS: Potassium 4.6 mmol/L (3.5-5.1)
[2023-06-03 17:47] LABS: NT-Pro-B-Type Natriuretic Pept 1360 pg/mL
[2023-06-04] MEDS ORDERED: FUROSEMIDE 10 MG/ML 4 ML VIAL IV STA (00:39)
[2023-06-04] MEDS ORDERED: ASPIRIN 325 MG TAB PO STA (02:15)
[2023-06-04] MEDS: FUROSEMIDE 10 MG/ML 4 ML VIAL IV SCH ×2 (02:23→08:50)
[2023-06-04] MEDS: lisinopriL 10 MG TAB PO SCH (08:50)
[2023-06-04] MEDS ORDERED: METOPROLOL TARTRATE 25 MG TAB PO SCH (09:00)
[2023-06-04] MEDS ORDERED: DEXTROSE 50% SYRINGE 50 ML IVP PRN ×2 (09:43)
[2023-06-04] MEDS ORDERED: METOPROLOL TARTRATE 25 MG TAB PO ONE (10:15)
--- NOTE | 2023-06-04 10:23 | P.CRDCN ---
History of Present Illness Consult date: 06/04/23 History of present illness: HISTORY OF PRESENTING ILLNESS 68-year-old female with past mental history of CAD status post PCI to LCx and PL branch of LCx [place] [address] Watson. Type 2 diabetes, hypertension, depression, atrial fibrillation, COPD, prior smoker, stopped since March 2023. This time she present to the hospital with worsening shortness of breath, easy fatigability, shortness of breath with minimal exertion and swelling in nava ateral lower extremity. She denies having any chest pain chest pressure. She denies any palpitations. She denies any loss of consciousness or passing out or falls. She denies any blood loss in urine or stools while being on Eliquis. Chest x-ray shows hyperinflated lungs suggestive of chronic COPD changes with mild increased intravascular markings. No concerns of pleural effusions. Her ECG shows sinus tachycardia with frequent monomorphic PVCs. Hemoglobin 13.7, sodium 140, potassium 4.6, bicarb 24 BUN 16, creatinine 0.8 glucose 229 Last echocardiogram from March 2023 shows an EF of 40-45%, RVSP of 40 mmHg, concerns of pulmonary hypertension. REVIEW OF SYSTEMS 14 point review of system is negative except what is mentioned above in HPI. PHYSICAL EXAMINATION Vital signs reviewed. Head: Normocephalic. Eyes: Sclerae nonicteric. Neck: Brisk carotid upstroke, no jugular venous distention. Lungs: Poor air movement with mild wheezing Heart: Regular rate and rhythm, S1-S2, no S3, no murmur or rub. Abdomen: Soft nontender, positive bowel sounds no organomegaly. Extremities: 1+ pitting edema in bilateral lower extremity. Poor hygiene. Neuro: Alert, oritented, no focal deficits ASSESSMENT Mild acute diastolic heart failure exacerbation Acute COPD exacerbation Shortness of breath due mostly due to COPD exacerbation and poorly controlled pulmonary hypertension. She is not on any supplemental oxygen at home Frequent monomorphic PVCs CAD status post PCI to LCx 2 in 2013 Type 2 diabetes Essential hypertension Obesity Former smoker recently stop smoking Echocardiogram March 2023 shows an EF of 40-45%, RVSP of 40 mmHg, concerns of pulmonary hypertension. PLAN Discontinue IV Lasix 40 mg every 8 hours. Start torsemide 20 mg daily. If kidney function is stable tomorrow, we'll start Jardiance Increase metoprolol to 50 mg twice a day. Prior to discharge last time she was on 100 mg twice a day. We will uptitrate metoprolol as needed Obtain an echo cardiogram limited to evaluate for LVEF She will need ischemic evaluation prior to discharge due to monomorphic PVCs and globally reduced LVEF Continue Eliquis, continue statins Continue amlodipine 5 mg daily which might also have pulmonary hypertension Patient will need pulmonary function testing and pulmo stress test to see if she'll qualify for home oxygen especially in setting of pulmonary hypertension and frequent hospital admissions Other comorbidities to be managed by Primary team Past Medical History Past Medical History: Coronary Artery Disease (CAD), COPD, Diabetes Mellitus, GERD/Reflux, Hyperlipidemia, Hypertension Additional Past Medical History / Comment(s): CHRONIC BACK PAIN, Type 2 DM History of Any Multi-Drug Resistant Organisms: None Reported Past Surgical History: Heart Catheterization With Stent, Tubal Ligation Additional Past Surgical History / Comment(s): angioplasty with 1 stent 03/10/14 and heart cath with stent 03/24/14 Past Anesthesia/Blood Transfusion Reactions: Previous Problems w/ Anesthesia Additional Past Anesthesia/Blood Transfusion Reaction / Comment(s): HYPERTENSIVE REACTION (ALMOST HAD A STROKE) Date of Last Stent Placement:: 2013 Past Psychological History: Depression Smoking Status: Current every day smoker Past Alcohol Use History: None Reported Past Drug Use History: None Reported - Past Family History Sister(s) Family Medical History: Neurologic Disorder Additional Family Medical History / Comment(s): OF ANEURYSM Mother Family Medical History: Cancer Additional Family Medical History / Comment(s): COLON Medications and Allergies Home Medications Medication Instructions Recorded Confirmed Type ARIPiprazole [Abilify] 10 mg PO DAILY 03/17/23 06/04/23 History Atorvastatin [Lipitor] 40 mg PO HS 03/17/23 06/04/23 History Insulin Glargine,Hum.rec.anlog 104 units SQ DAILY 03/17/23 06/04/23 History [Touadela Vivas Solostar] Naloxone HCl [Narcan] 4 mg NASAL DIRECTED PRN 03/17/23 06/04/23 History Oxybutynin ER [Ditropan XL] 10 mg PO DAILY 03/17/23 06/04/23 History Pantoprazole [Protonix] 40 mg PO DAILY 03/17/23 06/04/23 History Vilazodone HCl [Viibryd] 40 mg PO HS 03/17/23 06/04/23 History metFORMIN HCL 1,000 mg PO BID 03/17/23 06/04/23 History Apixaban [Eliquis] 5 mg PO BID tab 03/23/23 06/04/23 Rx Ipratropium-Albuterol Nebulize 3 ml INHALATION RT-QID each 03/23/23 06/04/23 Rx [Duoneb 0.5 mg-3 mg/3 ml Soln] lisinopriL [Zestril] 20 mg PO BID tab 03/23/23 06/04/23 Rx Albuterol Sulfate [Albuterol 2 puff PO RT-Q6H PRN 06/04/23 06/04/23 History Sulfate Hfa] Furosemide [Lasix] 20 mg PO DAILY 06/04/23 06/04/23 History HYDROcodone/APAP 7.5-325MG [[place] 1 tab PO Q8H PRN 06/04/23 06/04/23 History 7.5-325] Metoprolol Tartrate [Lopressor] 50 mg PO BID 06/04/23 06/04/23 History Potassium Chloride [Klor-Con 10 ER] 10 meq PO DAILY 06/04/23 06/04/23 History amLODIPine [Norvasc] 5 mg PO DAILY 06/04/23 06/04/23 History Allergies Allergy/AdvReac Type Severity Reaction Status Date / Time dulaglutide [From [facility]] AdvReac Diarrhea & Verified 06/04/23 07:16 nausea IV DYE Allergy Rash/Hives Uncoded 06/04/23 07:16 - see comment Physical Exam Vitals: Vital Signs Temp Pulse Resp BP Pulse Ox 06/04/23 08:53 118 H 20 165/97 92 L 06/04/23 08:00 97.8 F 117 H 20 165/97 92 L 06/04/23 06:17 97.7 F 116 H 22 91 L 06/04/23 05:37 103 H 16 160/95 92 L 06/04/23 03:00 103 H 18 160/95 93 L 06/04/23 02:00 105 H 16 121/107 93 L 06/04/23 01:05 107 H 164/82 93 L 06/04/23 00:35 113 H 28 H 165/91 86 L 06/03/23 16:09 98.4 F 112 H 24 151/64 92 L Intake and Output 06/03/23 06/04/23 06/04/23 22:59 06:59 14:59 Output Total 1200 Balance -1200 Output: Urine 1200 Other: Weight 87.09 kg Results 06/03/23 16:30 06/03/23 16:30 Cardiac Enzymes 06/03/23 06/03/23 06/04/23 Range/Units 16:30 16:30 01:18 AST 27 (14-36) U/L Troponin I 0.034 0.036 H* (0.000-0.034) ng/mL Coagulation 06/03/23 Range/Units 16:30 PT 10.8 (10.0-12.5) sec APTT 22.1 (22.0-30.0) sec CBC 06/03/23 Range/Units 16:30 WBC 9.8 (3.8-10.6) k/uL RBC 4.66 (3.80-5.40) m/uL Hgb 13.7 (11.4-16.0) gm/dL Hct 42.8 (34.0-46.0) % Plt Count 308 (150-450) k/uL Comprehensive Metabolic Panel 06/03/23 Range/Units 16:30 Sodium 140 (137-145) mmol/L Potassium 4.6 (3.5-5.1) mmol/L Chloride 103 (98-107) mmol/L Carbon Dioxide 24 (22-30) mmol/L BUN 16 (7-17) mg/dL Creatinine 0.82 (0.52-1.04) mg/dL Glucose 229 H (74-99) mg/dL Calcium 8.7 (8.4-10.2) mg/dL AST 27 (14-36) U/L ALT 23 (4-34) U/L Alkaline Phosphatase 80 (38-126) U/L Total Protein 7.5 (6.3-8.2) g/dL Albumin 4.1 (3.5-5.0) g/dL Current Medications Generic Name Dose Route Start Last Admin Trade Name Freq PRN Reason Stop Dose Admin Hydrocodone Bitart/Acetaminophen 1 each 06/04/23 09:41 Hydrocodone/Apap 7.5-325mg 1 Each Tab PO Q8H PRN Pain Albuterol/Ipratropium 3 ml 06/04/23 12:00 Ipratropium-Albuterol 3 Ml Neb INHALATION RT-QID [facility] Amlodipine Besylate 5 mg 06/05/23 09:00 Amlodipine 5 Mg Tab PO DAILY [facility] Apixaban 5 mg 06/04/23 21:00 Apixaban 5 Mg Tab PO BID [facility] Protocol Aripiprazole 10 mg 06/05/23 09:00 Aripiprazole 10 Mg Tab PO DAILY [facility] Atorvastatin Calcium 40 mg 06/04/23 21:00 Atorvastatin 40 Mg Tab PO HS [facility]IO Dextrose/Water 25 ml 06/04/23 09:43 Dextrose 50% Syringe 50 Ml IVP PER PROTOCOL PRN Hypoglycemia Protocol Dextrose/Water 50 ml 06/04/23 09:43 Dextrose 50% Syringe 50 Ml IVP PER PROTOCOL PRN Hypoglycemia Protocol Cefazolin Sodium 2 gm/ Sodium 50 mls @ 100 mls/hr 06/04/23 10:00 06/04/23 10:08 Chloride IVPB 100 mls/hr Q8HR [facility] Administration Protocol Insulin Aspart 0 unit 06/04/23 12:30 Insulin Aspart (Novolog) 100 Unit/Ml Vial SQ ACHS [facility] Protocol Insulin Detemir 104 unit 06/05/23 07:00 Insulin Detemir (Levemir) 100 Unit/Ml Syr SQ DAILY@0700 [facility] Lisinopril 10 mg 06/04/23 09:00 06/04/23 08:50 Lisinopril 10 Mg Tab PO 10 mg DAILY [facility] Administration Metoprolol Tartrate 50 mg 06/04/23 21:00 Metoprolol Tartrate 50 Mg Tab PO BID [facility] Nicotine 1 patch 06/05/23 09:00 Nicotine 14mg/24hr Patch TRANSDERM DAILY [facility] Patient's Own ( 40 mg 06/04/23 21:00 Vilazodone Hcl [ PO Viibryd] 40 Mg HS [facility] Tablet) Oxybutynin Chloride 10 mg 06/05/23 09:00 Oxybutynin 10 Mg Tab.Er.24 PO DAILY [facility] Pantoprazole Sodium 40 mg 06/05/23 09:00 Pantoprazole 40 Mg Tablet PO DAILY [facility] Potassium Chloride 10 meq 06/05/23 09:00 Potassium Chloride Er 10 Meq Tab.Er.Prt PO DAILY [facility] Torsemide 20 mg 06/04/23 10:15 Torsemide 20 Mg Tab PO DAILY [facility] Intake and Output 06/03/23 06/04/23 06/04/23 22:59 06:59 14:59 Output Total 1200 Balance -1200 Output: Urine 1200 Other: Weight 87.09 kg 06/03/23 16:30 06/03/23 16:30
[2023-06-04] MEDS: TORSEMIDE 20 MG TAB PO SCH (10:50)
[2023-06-04] MEDS: IPRATROPIUM-ALBUTEROL 3 ML NEB INHALATION SCH ×3 (11:31→20:53)
[2023-06-04] MEDS: INSULIN ASPART (NovoLOG) 100 UNIT/ML VIAL SQ SCH ×3 (12:30→20:40)
[2023-06-04 12:34] LABS: Glucose,Whole Blood <20 mg/dL (70-110)
[2023-06-04 12:34] LABS: Glucose,Whole Blood 38 mg/dL (70-110)
[2023-06-04 13:08] LABS: Glucose,Whole Blood 89 mg/dL (70-110)
[2023-06-04] MEDS: HYDROcodone/APAP 7.5-325MG 1 EACH TAB PO PRN ×2 (14:48→23:05)
[2023-06-04 17:30] LABS: Glucose,Whole Blood 184 mg/dL (70-110)
[2023-06-04 20:16] LABS: Glucose,Whole Blood 176 mg/dL (70-110)
[2023-06-04] MEDS: ATORVASTATIN 40 MG TAB PO SCH (20:38)
[2023-06-04] MEDS: APIXABAN 5 MG TAB PO SCH (20:38)
[2023-06-04] MEDS: VILAZODONE HCL 40 MG PO SCH (20:39)
[2023-06-04] MEDS: METOPROLOL TARTRATE 50 MG TAB PO SCH (20:39)
[2023-06-04] MEDS: ZINC OXIDE PASTE (Z-GUARD) 1 APPLIC TOPICAL SCH (23:06)
[2023-06-05] MEDS: INSULIN ASPART (NovoLOG) 100 UNIT/ML VIAL SQ SCH ×3 (06:16→17:03)
[2023-06-05 06:17] LABS: Glucose,Whole Blood 61 mg/dL (70-110)
[2023-06-05 06:32] LABS: Glucose,Whole Blood 66 mg/dL (70-110)
[2023-06-05 06:46] LABS: Glucose,Whole Blood 101 mg/dL (70-110)
[2023-06-05] MEDS ORDERED: INSULIN DETEMIR (LEVEMIR) 100 UNIT/ML SYR SQ SCH (07:00)
[2023-06-05] MEDS: IPRATROPIUM-ALBUTEROL 3 ML NEB INHALATION SCH ×4 (07:50→20:55)
[2023-06-05] MEDS ORDERED: ASPIRIN 325 MG TAB PO SCH (09:00)
[2023-06-05] MEDS: TORSEMIDE 20 MG TAB PO SCH (09:28)
[2023-06-05] MEDS: POTASSIUM CHLORIDE ER 10 MEQ TAB.ER.PRT PO SCH (09:28)
[2023-06-05] MEDS: METOPROLOL TARTRATE 50 MG TAB PO SCH (09:28)
[2023-06-05] MEDS: amLODIPine 5 MG TAB PO SCH (09:28)
[2023-06-05] MEDS: APIXABAN 5 MG TAB PO SCH ×2 (09:28→20:47)
[2023-06-05] MEDS: PANTOPRAZOLE 40 MG TABLET PO SCH (09:28)
[2023-06-05] MEDS: lisinopriL 10 MG TAB PO SCH (09:28)
[2023-06-05] MEDS: OXYBUTYNIN 10 MG TAB.ER.24 PO SCH (09:29)
[2023-06-05] MEDS: NICOTINE 14MG/24HR PATCH TRANSDERM SCH (09:29)
[2023-06-05] MEDS: ARIPiprazole 10 MG TAB PO SCH (09:29)
--- NOTE | 2023-06-05 10:06 | CA ---
Transthoracic Echo Report Name: Marina Radford Age: 68 Gender: F : 1955 Exam Date: 06/04/2023 12:41 Exam Location: [facility] Ht (in): 63 Wt (lb): 192 Ordering Physician: Jeffery Larsen MD ([id number]) Attending/Referring Phys: Accounts Collector Gregorio Siegel Procedure CPT: Indications: LVEF comparison last 40-45% Cardiac Hx: Technical Quality: Technically difficult study Contrast 1: Definity Total Dose (mL): 2 Contrast 2: Total Dose (mL): MEASUREMENTS (Male / Female) Normal Values 2D ECHO LV Diastolic Diameter PLAX 4.2 cm 4.2 - 5.9 / 3.9 - 5.3 cm LV Systolic Diameter PLAX 3.5 cm IVS Diastolic Thickness 1.5 cm 0.6 - 1.0 / 0.6 - 0.9 cm LVPW Diastolic Thickness 1.4 cm 0.6 - 1.0 / 0.6 - 0.9 cm LV Relative Wall Thickness 0.7 RV Internal Dim ED PLAX 2.6 cm LV Diastolic Volume MOD 4C 75.2 cm??? LV Systolic Volume MOD 4C 47.8 cm??? LV Ejection Fraction MOD 4C 36.4 % LV Cardiac Index MOD 4C 1404.3 cm???/min???m??? LV Diastolic Length 4C 7.3 cm LV Systolic Length 4C 6.8 cm M-MODE LV Diastolic Diameter MM 5.2 cm 4.2 - 5.9 / 3.9 - 5.3 cm LV Systolic Diameter MM 3.9 cm LV Cardiac Index MM Teich 3171.2 cm???/min???m??? IVS Diastolic Thickness MM 1.0 cm 0.6 - 1.0 / 0.6 - 0.9 cm LVPW Diastolic Thickness MM 1.1 cm 0.6 - 1.0 / 0.6 - 0.9 cm LV Relative Wall Thickness MM 0.4 0.24 - 0.42 / 0.22 - 0.42 LV Mass Index MM 108.0 g/m??? 49 - 115 / 43 - 95 g/m??? FINDINGS Left Ventricle Left ventricular ejection fraction is estimated at 25-30 %. Right Ventricle Right Atrium Left Atrium Mitral Valve Aortic Valve Tricuspid Valve Pulmonic Valve Pericardium Aorta CONCLUSIONS EF appears reduced compared to prior study of 03/18/23. Previewed by: Dr. Ernesto Ibrahim MD (Electronically Signed) Final Date: 05 June 2023 10:05
[2023-06-05] MEDS: ZINC OXIDE PASTE (Z-GUARD) 1 APPLIC TOPICAL SCH (10:16)
[2023-06-05] MEDS ORDERED: METOPROLOL TARTRATE 25 MG TAB PO STA (10:28)
--- NOTE | 2023-06-05 10:37 | P.HPIM ---
History of Present Illness H&P Date: 06/04/23 This is a 68-year-old female patient presented with concerns of increased shortness of breath and lower extremity swelling. Patient reports this has been getting worse with the past 5 days. Patient has past medical history of CAD, COPD, diabetes mellitus, hyperlipidemia, hypertension, brought back pain, type 2 diabetes mellitus, current every day smoker, recent diagnosis of atrial fibrillation maintained on anticoagulation. Chest x-ray completed in ER showing no acute cardiopulmonary disease COPD changes. BNP elevated at 1360. Troponin 0.034, 0.036. At this time patient will be admitted patient started on IV Lasix. Upon exam bilateral legs show signs of cellulitis will start patient on IV Kefzol. Home meds resumed cardiology services consulted 2-D echo ordered. Repeat labs ordered. She currently on comfortably in bed reports improvement with administration of Lasix. Patient denies chest pain. Patient denies nausea vomiting or diarrhea. Patient denies any urinary burning or frequency Review of Systems Please refer to HPI otherwise unremarkable Past Medical History Past Medical History: Coronary Artery Disease (CAD), COPD, Diabetes Mellitus, GERD/Reflux, Hyperlipidemia, Hypertension Additional Past Medical History / Comment(s): CHRONIC BACK PAIN, Type 2 DM History of Any Multi-Drug Resistant Organisms: None Reported Past Surgical History: Heart Catheterization With Stent, Tubal Ligation Additional Past Surgical History / Comment(s): angioplasty with 1 stent 03/10/14 and heart cath with stent 03/24/14 Past Anesthesia/Blood Transfusion Reactions: Previous Problems w/ Anesthesia Additional Past Anesthesia/Blood Transfusion Reaction / Comment(s): HYPERTENSIVE REACTION (ALMOST HAD A STROKE) Date of Last Stent Placement:: 2013 Past Psychological History: Depression Smoking Status: Current every day smoker Past Alcohol Use History: None Reported Past Drug Use History: None Reported - Past Family History Sister(s) Family Medical History: Neurologic Disorder Additional Family Medical History / Comment(s): OF ANEURYSM Mother Family Medical History: Cancer Additional Family Medical History / Comment(s): COLON Medications and Allergies Home Medications Medication Instructions Recorded Confirmed Type ARIPiprazole [Abilify] 10 mg PO DAILY 03/17/23 06/04/23 History Atorvastatin [Lipitor] 40 mg PO HS 03/17/23 06/04/23 History Insulin Glargine,Hum.rec.anlog 104 units SQ DAILY 03/17/23 06/04/23 History [Karely Montero] Naloxone HCl [Narcan] 4 mg NASAL DIRECTED PRN 03/17/23 06/04/23 History Oxybutynin ER [Ditropan XL] 10 mg PO DAILY 03/17/23 06/04/23 History Pantoprazole [Protonix] 40 mg PO DAILY 03/17/23 06/04/23 History Vilazodone HCl [Viibryd] 40 mg PO HS 03/17/23 06/04/23 History metFORMIN HCL 1,000 mg PO BID 03/17/23 06/04/23 History Apixaban [Eliquis] 5 mg PO BID tab 03/23/23 06/04/23 Rx Ipratropium-Albuterol Nebulize 3 ml INHALATION RT-QID each 03/23/23 06/04/23 Rx [Duoneb 0.5 mg-3 mg/3 ml Soln] lisinopriL [Zestril] 20 mg PO BID tab 03/23/23 06/04/23 Rx Albuterol Sulfate [Albuterol 2 puff PO RT-Q6H PRN 06/04/23 06/04/23 History Sulfate Hfa] Furosemide [Lasix] 20 mg PO DAILY 06/04/23 06/04/23 History HYDROcodone/APAP 7.5-325MG [[place] 1 tab PO Q8H PRN 06/04/23 06/04/23 History 7.5-325] Metoprolol Tartrate [Lopressor] 50 mg PO BID 06/04/23 06/04/23 History Potassium Chloride [Klor-Con 10 ER] 10 meq PO DAILY 06/04/23 06/04/23 History amLODIPine [Norvasc] 5 mg PO DAILY 06/04/23 06/04/23 History Allergies Allergy/AdvReac Type Severity Reaction Status Date / Time dulaglutide [From [facility]] AdvReac Diarrhea & Verified 06/04/23 07:16 nausea IV DYE Allergy Rash/Hives Uncoded 06/04/23 07:16 - see comment Physical Exam Vitals: Vital Signs Temp Pulse Resp BP Pulse Ox 06/04/23 08:53 118 H 20 165/97 92 L 06/04/23 08:00 97.8 F 117 H 20 165/97 92 L 06/04/23 06:17 97.7 F 116 H 22 91 L 06/04/23 05:37 103 H 16 160/95 92 L 06/04/23 03:00 103 H 18 160/95 93 L 06/04/23 02:00 105 H 16 121/107 93 L 06/04/23 01:05 107 H 164/82 93 L 06/04/23 00:35 113 H 28 H 165/91 86 L 06/03/23 16:09 98.4 F 112 H 24 151/64 92 L Intake and Output 06/03/23 06/04/23 06/04/23 22:59 06:59 14:59 Output Total 1200 Balance -1200 Output: Urine 1200 Other: Weight 87.09 kg Head normocephalic Neck supple Lungs clear to auscultation bilaterally no wheezing or crackles Heart regular rate and rhythm S1-S2, no rub or gallop Abdomen is soft nontender nondistended positive bowel sounds no hepatosplenomegaly Extremities +1 bilateral lower extremity edema erythema noted bilaterally with superficial scabs Neuro alert and orientated to 3 Results CBC & Chem 7: 06/03/23 16:30 06/03/23 16:30 Labs: Abnormal Lab Results - Last 24 Hours (Table) 06/03/23 06/03/23 06/04/23 Range/Units 16:11 16:30 01:18 Glucose 229 H (74-99) mg/dL POC Glucose (mg/dL) 239 H (70-110) mg/dL Troponin I 0.036 H* (0.000-0.034) ng/mL Assessment and Plan Assessment: 1. Increased shortness breath and lower extremity swelling 2. CHF exacerbation. BNP elevated at 1300. 2-D echo ordered per cardiology service is consulted patient started on IV Lasix 3. Lower extremity cellulitis. Patient started on IV Kefzol 4. Recent diagnosis of atrial fibrillation patient retained on anticoagulation 5. History of COPD 6. History of insulin-dependent diabetes mellitus 7. Ongoing nicotine dependence patient educated greater than 3 minutes on complete smoking cessation. Nicotine patch will be ordered 8. History of essential hypertension 9. History of hyperlipidemia 10. History of depression 11. History of coronary artery disease 12. History of periphera arterial disease DVT prophylaxis eliquis. GI prophylaxis Protonix Cardiology service is consulted 2-D echo ordered Patient retained on IV Lasix Continue IV antibiotics for cellulitis [facility] resumed Repeat labs ordered Time with Patient: Greater than 30 (Greater than 60% of the total time spent in counseling and coordination of care)
[2023-06-05 10:38] LABS: Basophils % (A) 0 %; Eosinophils # (A) 0.2 k/uL (0-0.7); Eosinophils % (A) 2 %; HCT 41.6 % (34.0-46.0); HGB 13.2 gm/dL (11.4-16.0); Hypochromasia Moderate; Lymphocytes # (A) 1.6 k/uL (1.0-4.8); Lymphocytes % (A) 16 %; MCH 29.5 pg (25.0-35.0); MCHC 31.6 g/dL (31.0-37.0); MCV 93.3 fL (80.0-100.0); Mean Platelet Volume 7.4; Monocytes # (A) 0.6 k/uL (0-1.0); Monocytes % (A) 6 %; Neutrophils # (A) 7.7 k/uL (1.3-7.7); Neutrophils % (A) 75 %; Platelet Count 299 k/uL (150-450); RBC 4.46 m/uL (3.80-5.40); RDW 13.6 % (11.5-15.5); WBC 10.3 k/uL (3.8-10.6)
[2023-06-05 10:59] LABS: ALT 20 U/L (4-34); AST 26 U/L (14-36); African American GFR (CKD) >90 (>60 ml/min/1.73 sqM); Albumin 3.4 g/dL (3.5-5.0); Alkaline Phosphatase 82 U/L (38-126); Anion Gap 11 mmol/L; Blood Urea Nitrogen 15 mg/dL (7-17); Calcium 8.2 mg/dL (8.4-10.2); Carbon Dioxide 29 mmol/L (22-30); Chloride 98 mmol/L (98-107); Glucose 440 mg/dL (74-99); Non-African American GFR(CKD) 88 (>60 ml/min/1.73 sqM); Potassium 3.8 mmol/L (3.5-5.1); Sodium 138 mmol/L (137-145); Total Bilirubin 0.5 mg/dL (0.2-1.3); Total Protein 6.6 g/dL (6.3-8.2)
[2023-06-05 11:41] LABS: Glucose,Whole Blood 360 mg/dL (70-110)
--- NOTE | 2023-06-05 11:43 | P.PN ---
Subjective Progress Note Date: 06/05/23 This is a 68-year-old female patient presented with concerns of increased shortness of breath and lower extremity swelling. Patient reports this has been getting worse with the past 5 days. Patient has past medical history of CAD, COPD, diabetes mellitus, hyperlipidemia, hypertension, brought back pain, type 2 diabetes mellitus, current every day smoker, recent diagnosis of atrial fibrillation maintained on anticoagulation. Chest x-ray completed in ER showing no acute cardiopulmonary disease COPD changes. BNP elevated at 1360. Troponin 0.034, 0.036. At this time patient will be admitted patient started on IV Lasix. Upon exam bilateral legs show signs of cellulitis will start patient on IV Kefzol. Home meds resumed cardiology services consulted 2-D echo ordered. Repeat labs ordered. She currently on comfortably in bed reports improvement with administration of Lasix. Patient denies chest pain. Patient denies nausea vomiting or diarrhea. Patient denies any urinary burning or frequency On 06/05/2023 patient reports some improvement with shortness of breath. Patient started on Lopressor per cardiology for rate control patient also switched from IV Lasix to Demadex. Patient denies chest pain. Patient remains on IV antibiotics for lower extremity cellulitis. Patient denies nausea vomiting or diarrhea. Patient denies any urinary burning or frequency Objective - Vital Signs Vital signs: Vital Signs Temp 99.0 F 06/05/23 09:27 Pulse 107 H 06/05/23 11:33 Resp 20 06/05/23 09:27 BP 143/63 06/05/23 09:27 Pulse Ox 90 L 06/05/23 09:27 FiO2 Intake & Output 06/04/23 06/05/23 06/05/23 18:59 06:59 18:59 Intake Total 240 Output Total 4000 500 450 Balance -4000 -500 -210 Weight 87.09 kg 93 kg Intake: Oral 240 Output: Urine 4000 500 450 Other: Voiding Method External Catheter External Catheter External Catheter - Exam Head normocephalic Neck supple Lungs clear to auscultation bilaterally no wheezing or crackles Heart regular rate and rhythm S1-S2, no rub or gallop Abdomen is soft nontender nondistended positive bowel sounds no hepatosplenomegaly Extremities +1 bilateral lower extremity edema erythema noted bilaterally with superficial scabs Neuro alert and orientated to 3 - Labs CBC & Chem 7: 06/05/23 10:16 06/05/23 10:16 Labs: Abnormal Lab Results - Last 24 Hours (Table) 06/04/23 06/04/23 06/04/23 Range/Units 12:25 12:30 12:32 Glucose (74-99) mg/dL POC Glucose (mg/dL) <20 L 38 L (70-110) mg/dL Calcium (8.4-10.2) mg/dL Troponin I 0.039 H* (0.000-0.034) ng/mL Albumin (3.5-5.0) g/dL 06/04/23 06/04/23 06/04/23 Range/Units 16:12 17:26 20:15 Glucose (74-99) mg/dL POC Glucose (mg/dL) 184 H 176 H (70-110) mg/dL Calcium (8.4-10.2) mg/dL Troponin I 0.039 H* (0.000-0.034) ng/mL Albumin (3.5-5.0) g/dL 06/05/23 06/05/23 06/05/23 Range/Units 06:16 06:31 10:16 Glucose 440 H (74-99) mg/dL POC Glucose (mg/dL) 61 L 66 L (70-110) mg/dL Calcium 8.2 L (8.4-10.2) mg/dL Troponin I (0.000-0.034) ng/mL Albumin 3.4 L (3.5-5.0) g/dL 06/05/23 Range/Units 11:39 Glucose (74-99) mg/dL POC Glucose (mg/dL) 360 H (70-110) mg/dL Calcium (8.4-10.2) mg/dL Troponin I (0.000-0.034) ng/mL Albumin (3.5-5.0) g/dL Assessment and Plan Assessment: 1. Increased shortness breath and lower extremity swelling 2. CHF exacerbation. BNP elevated at 1300. 2-D echo ordered per cardiology service is consulted patient started on IV Lasix 3. Lower extremity cellulitis. Patient started on IV Kefzol 4. Recent diagnosis of atrial fibrillation patient retained on anticoagulation 5. History of COPD 6. History of insulin-dependent diabetes mellitus 7. Ongoing nicotine dependence patient educated greater than 3 minutes on com plete smoking cessation. Nicotine patch will be ordered 8. History of essential hypertension 9. History of hyperlipidemia 10. History of depression 11. History of coronary artery disease 12. History of periphera arterial disease DVT prophylaxis eliquis. GI prophylaxis Protonix Cardiology service is consulted 2-D echo ordered Patient retained on IV Lasix Continue IV antibiotics for cellulitis Home meds resumed Repeat labs ordered
[2023-06-05] MEDS: DAPAGLIFLOZIN PROPANEDIOL 10 MG TABLET PO SCH (11:51)
[2023-06-05 12:07] VITALS: BMI 36.3
[2023-06-05 14:30] LABS: Glucose,Whole Blood 136 mg/dL (70-110)
[2023-06-05] MEDS: HYDROcodone/APAP 7.5-325MG 1 EACH TAB PO PRN ×2 (15:19→23:34)
[2023-06-05] MEDS ORDERED: ALPRAZolam 0.25 MG TAB PO PRN (15:26)
[2023-06-05] MEDS ORDERED: ALPRAZolam 0.5 MG TAB PO PRN (15:26)
[2023-06-05] MEDS ORDERED: NITROGLYCERIN SL TABS 0.4 MG TAB SUBLINGUAL PRN (15:26)
--- NOTE | 2023-06-05 15:26 | P.PN ---
Subjective HISTORY OF PRESENT ILLNESS: 68-year-old female with past mental history of CAD status post PCI to LCx and PL branch of LCx [place] [address] Watson. Type 2 diabetes, hypertension, depression, atrial fibrillation, COPD, prior smoker, stopped since March 2023. This time she present to the hospital with worsening shortness of breath, easy fatigability, shortness of breath with minimal exertion and swelling in bilateral lower extremity. She denies having any chest pain chest pressure. She denies any palpitations. She denies any loss of consciousness or passing out or falls. She denies any blood loss in urine or stools while being on Eliquis. Chest x-ray shows hyperinflated lungs suggestive of chronic COPD changes with mild increased intravascular markings. No concerns of pleural effusions. Her ECG shows sinus tachycardia with frequent monomorphic PVCs. Hemoglobin 13.7, sodium 140, potassium 4.6, bicarb 24 BUN 16, creatinine 0.8 glucose 229 Last echocardiogram from March 2023 shows an EF of 40-45%, RVSP of 40 mmHg, concerns of pulmonary hypertension. 06/05/2023 Patient examined this morning at the bedside. Patient denies chest pain or pressure. She reports improvement in her shortness of breath. Telemetry reveals atrial fibrillation with a heart rate in the 90s. Repeat echocardiogram revealed ejection fraction 25-30% PHYSICAL EXAM: VITAL SIGNS: Reviewed. GENERAL: Well-developed in no acute distress. NECK: Supple. No JVD or thyromegaly LUNGS: Respirations even and unlabored. Lungs essentially clear to auscultation bilaterally, diminished. HEART: Irregular rate and rhythm. S1 and S2 heard. EXTREMITIES: Normal range of motion. No clubbing or cyanosis. Peripheral pulses intact. 1+ bilateral lower extremity edema ASSESSMENT: Mild acute diastolic heart failure exacerbation Acute COPD exacerbation Worsening cardiomyopathy Shortness of breath due mostly due to COPD exacerbation and poorly controlled pulmonary hypertension. She is not on any supplemental oxygen at home Frequent monomorphic PVCs CAD status post PCI to LCx 2 in 2013 Type 2 diabetes Essential hypertension Obesity Former smoker recently stopped smoking PLAN: Increase metoprolol to 75 mg twice a day Continue oral diuretics Continue additional cardiac medications Patient is tentatively scheduled for right and left heart catheterization on Saturday with Dr. Larsen Patient with iodine allergy. Patient will require premedication. Hold Eliquis evening and Saturday morning Further recommendations pending patient's course Nurse practitioner note has been reviewed by physician. Signing provider agrees with the documented findings, assessment, and plan of care. Objective - Vital Signs Vital signs: Vital Signs Temp 99.0 F 06/05/23 09:27 Pulse 83 06/05/23 11:46 Resp 20 06/05/23 09:27 BP 134/82 06/05/23 11:46 Pulse Ox 97 06/05/23 11:46 FiO2 Intake & Output 06/04/23 06/05/23 06/05/23 18:59 06:59 18:59 Intake Total 780 Output Total 4000 500 450 Balance -4000 -500 330 Weight 87.09 kg 93 kg 93 kg Intake: Oral 780 Output: Urine 4000 500 450 Other: Voiding Method External Catheter External Catheter External Catheter - Labs CBC & Chem 7: 06/05/23 10:16 06/05/23 10:16 Labs: Abnormal Lab Results - Last 24 Hours (Table) 06/04/23 06/04/23 06/04/23 Range/Units 16:12 17:26 20:15 Glucose (74-99) mg/dL POC Glucose (mg/dL) 184 H 176 H (70-110) mg/dL Calcium (8.4-10.2) mg/dL Troponin I 0.039 H* (0.000-0.034) ng/mL Albumin (3.5-5.0) g/dL 06/05/23 06/05/23 06/05/23 Range/Units 06:16 06:31 10:16 Glucose 440 H (74-99) mg/dL POC Glucose (mg/dL) 61 L 66 L (70-110) mg/dL Calcium 8.2 L (8.4-10.2) mg/dL Troponin I (0.000-0.034) ng/mL Albumin 3.4 L (3.5-5.0) g/dL 06/05/23 06/05/23 Range/Units 11:39 14:28 Glucose (74-99) mg/dL POC Glucose (mg/dL) 360 H 136 H (70-110) mg/dL Calcium (8.4-10.2) mg/dL Troponin I (0.000-0.034) ng/mL Albumin (3.5-5.0) g/dL
[2023-06-05 17:01] LABS: Glucose,Whole Blood 92 mg/dL (70-110)
[2023-06-05 19:48] LABS: Glucose,Whole Blood 258 mg/dL (70-110)
[2023-06-05] MEDS: ATORVASTATIN 40 MG TAB PO SCH (20:47)
[2023-06-05] MEDS: METOPROLOL TARTRATE 25 MG TAB PO SCH (20:47)
[2023-06-05] MEDS: VILAZODONE HCL 40 MG PO SCH (20:54)
[2023-06-06 02:10] LABS: Glucose,Whole Blood 225 mg/dL (70-110)
[2023-06-06] MEDS: INSULIN ASPART (NovoLOG) 100 UNIT/ML VIAL SQ SCH ×5 (02:11→20:18)
[2023-06-06 05:55] LABS: Glucose,Whole Blood 143 mg/dL (70-110)
[2023-06-06] MEDS: INSULIN DETEMIR (LEVEMIR) 100 UNIT/ML SYR SQ SCH (07:23)
[2023-06-06] MEDS: HYDROcodone/APAP 7.5-325MG 1 EACH TAB PO PRN (07:50)
[2023-06-06] MEDS: amLODIPine 5 MG TAB PO SCH (07:51)
[2023-06-06] MEDS: POTASSIUM CHLORIDE ER 10 MEQ TAB.ER.PRT PO SCH (07:51)
[2023-06-06] MEDS: PANTOPRAZOLE 40 MG TABLET PO SCH (07:51)
[2023-06-06] MEDS: APIXABAN 5 MG TAB PO SCH (07:51)
[2023-06-06] MEDS: lisinopriL 10 MG TAB PO SCH (07:51)
[2023-06-06] MEDS: METOPROLOL TARTRATE 25 MG TAB PO SCH ×2 (07:51→20:14)
[2023-06-06] MEDS: DAPAGLIFLOZIN PROPANEDIOL 10 MG TABLET PO SCH (07:52)
[2023-06-06] MEDS: NICOTINE 14MG/24HR PATCH TRANSDERM SCH (07:52)
[2023-06-06] MEDS: OXYBUTYNIN 10 MG TAB.ER.24 PO SCH (07:52)
[2023-06-06] MEDS: TORSEMIDE 20 MG TAB PO SCH (07:52)
[2023-06-06] MEDS: ARIPiprazole 10 MG TAB PO SCH (07:52)
[2023-06-06] MEDS: ZINC OXIDE PASTE (Z-GUARD) 1 APPLIC TOPICAL SCH (08:19)
[2023-06-06] MEDS: IPRATROPIUM-ALBUTEROL 3 ML NEB INHALATION SCH ×4 (09:11→21:00)
[2023-06-06 09:20] LABS: Basophils % (A) 0 %; Eosinophils # (A) 0.2 k/uL (0-0.7); Eosinophils % (A) 2 %; HCT 39.2 % (34.0-46.0); HGB 12.6 gm/dL (11.4-16.0); Hypochromasia Slight; Lymphocytes # (A) 2.4 k/uL (1.0-4.8); Lymphocytes % (A) 23 %; MCH 29.4 pg (25.0-35.0); MCHC 32.1 g/dL (31.0-37.0); MCV 91.5 fL (80.0-100.0); Mean Platelet Volume 7.8; Monocytes # (A) 0.7 k/uL (0-1.0); Monocytes % (A) 6 %; Neutrophils # (A) 6.7 k/uL (1.3-7.7); Neutrophils % (A) 64 %; Platelet Count 291 k/uL (150-450); RBC 4.29 m/uL (3.80-5.40); RDW 13.5 % (11.5-15.5); WBC 10.4 k/uL (3.8-10.6)
--- NOTE | 2023-06-06 09:23 | P.PN ---
Subjective Progress Note Date: 06/06/23 This is a 68-year-old female patient presented with concerns of increased shortness of breath and lower extremity swelling. Patient reports this has been getting worse with the past 5 days. Patient has past medical history of CAD, COPD, diabetes mellitus, hyperlipidemia, hypertension, brought back pain, type 2 diabetes mellitus, current every day smoker, recent diagnosis of atrial fibrillation maintained on anticoagulation. Chest x-ray completed in ER showing no acute cardiopulmonary disease COPD changes. BNP elevated at 1360. Troponin 0.034, 0.036. At this time patient will be admitted patient started on IV Lasix. Upon exam bilateral legs show signs of cellulitis will start patient on IV Kefzol. Home meds resumed cardiology services consulted 2-D echo ordered. Repeat labs ordered. She currently on comfortably in bed reports improvement with administration of Lasix. Patient denies chest pain. Patient denies nausea vomiting or diarrhea. Patient denies any urinary burning or frequency On 06/05/2023 patient reports some improvement with shortness of breath. Patient started on Lopressor per cardiology for rate control patient also switched from IV Lasix to Demadex. Patient denies chest pain. Patient remains on IV antibiotics for lower extremity cellulitis. Patient denies nausea vomiting or diarrhea. Patient denies any urinary burning or frequency. On 06/06/2023 patient was seen and examined on the telemetry floor she is alert and oriented 3 in no apparent distress reporting improvement in her shortness of breath and lower extremity swelling, there is no fever or chills no headache or dizziness no chest pain no cough no nausea or vomiting no abdominal pain no diarrhea no blood in the stools no burning with urination no frequency or urgency and no hematuria. Objective - Vital Signs Vital signs: Vital Signs Temp 97.7 F 06/06/23 07:47 Pulse 104 H 06/06/23 07:47 Resp 17 06/06/23 07:47 BP 168/60 06/06/23 07:47 Pulse Ox 94 L 06/06/23 07:47 FiO2 Intake & Output 06/05/23 06/06/23 06/06/23 18:59 06:59 18:59 Intake Total 900 660 Output Total 450 Balance 450 660 Weight 93 kg 93.7 kg Intake: Oral 900 660 Output: Urine 450 Other: Voiding Method External Catheter External Catheter External Catheter # Voids 3 - Exam Head normocephalic Neck supple Lungs clear to auscultation bilaterally no wheezing or crackles Heart regular rate and rhythm S1-S2, no rub or gallop Abdomen is soft nontender nondistended positive bowel sounds no hepatosplenomegaly Extremities +1 bilateral lower extremity edema erythema noted bilaterally with superficial scabs Neuro alert and orientated to 3 - Labs CBC & Chem 7: 06/06/23 08:15 06/05/23 10:16 Labs: Abnormal Lab Results - Last 24 Hours (Table) 06/05/23 06/05/23 06/05/23 Range/Units 10:16 10:16 11:39 Glucose 440 H (74-99) mg/dL POC Glucose (mg/dL) 360 H (70-110) mg/dL Hemoglobin A1c 7.9 H (<=6.0) % Calcium 8.2 L (8.4-10.2) mg/dL Albumin 3.4 L (3.5-5.0) g/dL 06/05/23 06/05/23 06/06/23 Range/Units 14:28 19:45 02:08 Glucose (74-99) mg/dL POC Glucose (mg/dL) 136 H 258 H 225 H (70-110) mg/dL Hemoglobin A1c (<=6.0) % Calcium (8.4-10.2) mg/dL Albumin (3.5-5.0) g/dL 06/06/23 Range/Units 05:54 Glucose (74-99) mg/dL POC Glucose (mg/dL) 143 H (70-110) mg/dL Hemoglobin A1c (<=6.0) % Calcium (8.4-10.2) mg/dL Albumin (3.5-5.0) g/dL Assessment and Plan Assessment: 1. Increased shortness breath and lower extremity swelling 2. CHF exacerbation. BNP elevated at 1300. 2-D echo ordered per cardiology se rvice is consulted patient started on IV Lasix 3. Lower extremity cellulitis. Patient started on IV Kefzol 4. Recent diagnosis of atrial fibrillation patient retained on anticoagulation 5. History of COPD 6. History of insulin-dependent diabetes mellitus 7. Ongoing nicotine dependence patient educated greater than 3 minutes on complete smoking cessation. Nicotine patch will be ordered 8. History of essential hypertension 9. History of hyperlipidemia 10. History of depression 11. History of coronary artery disease 12. History of periphera arterial disease DVT prophylaxis eliquis. GI prophylaxis Protonix Cardiology service is consulted 2-D echo ordered Patient retained on IV Lasix Continue IV antibiotics for cellulitis Home meds resumed Repeat labs ordered
[2023-06-06 11:53] LABS: Glucose,Whole Blood 173 mg/dL (70-110)
[2023-06-06 12:55] LABS: ALT 16 U/L (4-34); AST 28 U/L (14-36); African American GFR (CKD) 89 (>60 ml/min/1.73 sqM); Albumin 3.5 g/dL (3.5-5.0); Alkaline Phosphatase 85 U/L (38-126); Anion Gap 13 mmol/L; Blood Urea Nitrogen 16 mg/dL (7-17); Calcium 8.2 mg/dL (8.4-10.2); Carbon Dioxide 28 mmol/L (22-30); Chloride 99 mmol/L (98-107); Glucose 176 mg/dL (74-99); Non-African American GFR(CKD) 77 (>60 ml/min/1.73 sqM); Potassium 3.8 mmol/L (3.5-5.1); Sodium 140 mmol/L (137-145); Total Bilirubin 0.5 mg/dL (0.2-1.3); Total Protein 6.7 g/dL (6.3-8.2)
--- NOTE | 2023-06-06 13:00 | P.PN ---
Subjective HISTORY OF PRESENT ILLNESS: 68-year-old female with past mental history of CAD status post PCI to LCx and PL branch of LCx [place] [address] Watson. Type 2 diabetes, hypertension, depression, atrial fibrillation, COPD, prior smoker, stopped since March 2023. This time she present to the hospital with worsening shortness of breath, easy fatigability, shortness of breath with minimal exertion and swelling in bilateral lower extremity. She denies having any chest pain chest pressure. She denies any palpitations. She denies any loss of consciousness or passing out or falls. She denies any blood loss in urine or stools while being on Eliquis. Chest x-ray shows hyperinflated lungs suggestive of chronic COPD changes with mild increased intravascular markings. No concerns of pleural effusions. Her ECG shows sinus tachycardia with frequent monomorphic PVCs. Hemoglobin 13.7, sodium 140, potassium 4.6, bicarb 24 BUN 16, creatinine 0.8 glucose 229 Last echocardiogram from March 2023 shows an EF of 40-45%, RVSP of 40 mmHg, concerns of pulmonary hypertension. 06/05/2023 Patient examined this morning at the bedside. Patient denies chest pain or pressure. She reports improvement in her shortness of breath. Telemetry reveals atrial fibrillation with a heart rate in the 90s. Repeat echocardiogram revealed ejection fraction 25-30% 06/06/2023 Patient examined this morning at the bedside. Patient currently denies chest pain or pressure. She continues to report improvement in her shortness of breath. Vital signs are stable. Telemetry reveals sinus tachycardia with a heart rate in the low 100s. PHYSICAL EXAM: VITAL SIGNS: Reviewed. GENERAL: Well-developed in no acute distress. NECK: Supple. No JVD or thyromegaly LUNGS: Respirations even and unlabored. Lungs essentially clear to auscultation bilaterally, diminished. HEART: Irregular rate and rhythm. S1 and S2 heard. EXTREMITIES: Normal range of motion. No clubbing or cyanosis. Peripheral pulses intact. 1+ bilateral lower extremity edema ASSESSMENT: Mild acute diastolic heart failure exacerbation Acute COPD exacerbation Worsening cardiomyopathy Shortness of breath due mostly due to COPD exacerbation and poorly controlled pulmonary hypertension. She is not on any supplemental oxygen at home Frequent monomorphic PVCs CAD status post PCI to LCx 2 in 2013 Type 2 diabetes Essential hypertension Obesity Former smoker recently stopped smoking PLAN: Continue metoprolol to 75 mg twice a day. Continue telemetry monitoring. Continue oral diuretics Continue additional cardiac medications Patient is scheduled for right and left heart catheterization on Saturday with Dr. Larsen Patient with iodine allergy. Patient will require premedication. Hold Eliquis evening and Saturday morning Further recommendations pending patient's course Nurse practitioner note has been reviewed by physician. Signing provider agrees with the documented findings, assessment, and plan of care. Objective - Vital Signs Vital signs: Vital Signs Temp 97.7 F 06/06/23 07:47 Pulse 103 H 06/06/23 09:22 Resp 18 06/06/23 09:22 BP 168/60 06/06/23 07:47 Pulse Ox 93 L 06/06/23 09:12 FiO2 Intake & Output 06/05/23 06/06/23 06/06/23 18:59 06:59 18:59 Intake Total 900 660 Output Total 450 Balance 450 660 Weight 93 kg 93.7 kg Intake: Oral 900 660 Output: Urine 450 Other: Voiding Method External Catheter External Catheter External Catheter # Voids 3 - Labs CBC & Chem 7: 06/06/23 08:15 06/06/23 11:03 Labs: Abnormal Lab Results - Last 24 Hours (Table) 06/05/23 06/05/23 06/05/23 Range/Units 10:16 10:16 11:39 Glucose 440 H (74-99) mg/dL POC Glucose (mg/dL) 360 H (70-110) mg/dL Hemoglobin A1c 7.9 H (<=6.0) % Calcium 8.2 L (8.4-10.2) mg/dL Albumin 3.4 L (3.5-5.0) g/dL 06/05/23 06/05/23 06/06/23 Range/Units 14:28 19:45 02:08 Glucose (74-99) mg/dL POC Glucose (mg/dL) 136 H 258 H 225 H (70-110) mg/dL Hemoglobin A1c (<=6.0) % Calcium (8.4-10.2) mg/dL Albumin (3.5-5.0) g/dL 06/06/23 Range/Units 05:54 Glucose (74-99) mg/dL POC Glucose (mg/dL) 143 H (70-110) mg/dL Hemoglobin A1c (<=6.0) % Calcium (8.4-10.2) mg/dL Albumin (3.5-5.0) g/dL
[2023-06-06 17:06] LABS: Glucose,Whole Blood 247 mg/dL (70-110)
[2023-06-06] MEDS: ATORVASTATIN 40 MG TAB PO SCH (20:14)
[2023-06-06 20:15] LABS: Glucose,Whole Blood 298 mg/dL (70-110)
[2023-06-06] MEDS: VILAZODONE HCL 40 MG PO SCH (20:16)
[2023-06-07] MEDS: SODIUM CHLORIDE 0.9% 1,000 ML in EMPTY BAG 1 BAG IV SCH ×3 (01:02→23:36)
[2023-06-07 02:03] LABS: Glucose,Whole Blood 145 mg/dL (70-110)
[2023-06-07] MEDS ORDERED: ASPIRIN 325 MG TAB PO ONE (05:00)
[2023-06-07] MEDS ORDERED: ATORVASTATIN 80 MG TAB PO ONE (05:00)
[2023-06-07] MEDS: METOPROLOL TARTRATE 25 MG TAB PO SCH ×2 (05:49→18:30)
[2023-06-07] MEDS ORDERED: diphenhydrAMINE 50 MG/ML 1 ML VIAL IVP ONE ×2 (06:00→12:40)
[2023-06-07] MEDS ORDERED: methylPREDNISolone SOD SUCCI 125 MG/2 ML VIAL IV ONE (06:00)
[2023-06-07] MEDS ORDERED: FAMOTIDINE 20 MG/2 ML VIAL IV ONE (06:00)
[2023-06-07] MEDS: amLODIPine 5 MG TAB PO SCH (06:06)
[2023-06-07] MEDS: lisinopriL 10 MG TAB PO SCH (06:07)
[2023-06-07 06:19] LABS: Glucose,Whole Blood 183 mg/dL (70-110)
[2023-06-07] MEDS ORDERED: HEPARIN SODIUM,PORCINE (1 ML) 2,500 UNIT in SODIUM CHLORIDE 0.9% 250 ML IRRIGATION PRN (07:00)
[2023-06-07] MEDS ORDERED: HEPARIN SODIUM,PORCINE 10,000 UNIT in SODIUM CHLORIDE 0.9% 1,000 ML IRRIGATION PRN (07:00)
[2023-06-07] MEDS ORDERED: FUROSEMIDE 10 MG/ML 2 ML VIAL IV ONE (08:00)
[2023-06-07] MEDS: INSULIN ASPART (NovoLOG) 100 UNIT/ML VIAL SQ SCH ×4 (08:40→21:01)
[2023-06-07] MEDS: IPRATROPIUM-ALBUTEROL 3 ML NEB INHALATION SCH ×4 (08:41→20:35)
[2023-06-07] MEDS: TORSEMIDE 20 MG TAB PO SCH (08:46)
[2023-06-07] MEDS: POTASSIUM CHLORIDE ER 10 MEQ TAB.ER.PRT PO SCH (08:46)
[2023-06-07] MEDS: OXYBUTYNIN 10 MG TAB.ER.24 PO SCH (08:46)
[2023-06-07] MEDS: DAPAGLIFLOZIN PROPANEDIOL 10 MG TABLET PO SCH (08:46)
[2023-06-07] MEDS: ARIPiprazole 10 MG TAB PO SCH (08:46)
[2023-06-07] MEDS: PANTOPRAZOLE 40 MG TABLET PO SCH (08:46)
[2023-06-07] MEDS: NICOTINE 14MG/24HR PATCH TRANSDERM SCH (08:51)
--- NOTE | 2023-06-07 09:08 | XR ---
EXAMINATION TYPE: XR chest 1V portable DATE OF EXAM: 06/07/2023 8:26 AM CLINICAL INDICATION:Female, 68 years old with history of SOB; COMPARISON: Chest radiographs from 06/03/2023 TECHNIQUE: XR chest 1V portable Frontal view of the chest. FINDINGS: Lungs/Pleura: Prominent interstitial lung markings are seen scattered throughout the lungs. No eviden ce of focal consolidation, pneumothorax or pleural effusion. Pulmonary vascularity: Pulmonary vascular congestion. Heart/mediastinum: Cardiomediastinal silhouette is enlarged and stable. Musculoskeletal: No acute osseous pathology. IMPRESSION: Cardiomegaly and mild pulmonary vascular congestion. Correlate with BNP for congestive heart failure.
--- NOTE | 2023-06-07 09:23 | P.CONS ---
History of Present Illness - Reason for Consult Consult date: 06/06/23 Lower extremity cellulitis Requesting physician: Jessica Zavala - Chief Complaint Increasing shortness of breath or lower extremity swelling x few days - History of Present Illness Patient is a 68-year-old female with a past medical history significant for coronary disease COPD diabetes mellitus hypertension hyperlipidemia patient presenting to the hospital for evaluation of increasing shortness of breath and bilateral lower extremity swelling that has been getting worse over the last 5 to 7 days before presentation to the hospital patient on presentation to the hospital was afebrile and no fever hypercarbia subsequently patient did have white count of 9.8 creatinine 0.80 liver enzymes are normal patient was noted to have increasing swelling and some redness to right lower extremity with some superficial ulceration and dry scaly skin concerning for cellulitis the patient was started on cefazolin infectious disease was consulted for further management of antibiotic therapy, patient complained of mostly swelling to the lower extremity especially the right leg and did have a small superficial ulceration and did have mild dull aching pain without any radiation. Denies having any drainage Review of Systems Positive point and negatives has been mentioned in the HPI, complete review of systems was performed and all other systems are negative Past Medical History Past Medical History: Coronary Artery Disease (CAD), COPD, Diabetes Mellitus, GERD/Reflux, Hyperlipidemia, Hypertension Additional Past Medical History / Comment(s): CHRONIC BACK PAIN, Type 2 DM History of Any Multi-Drug Resistant Organisms: None Reported Past Surgical History: Heart Catheterization With Stent, Tubal Ligation Additional Past Surgical History / Comment(s): angioplasty with 1 stent 03/10/14 and heart cath with stent 03/24/14 Past Anesthesia/Blood Transfusion Reactions: Previous Problems w/ Anesthesia Additional Past Anesthesia/Blood Transfusion Reaction / Comm: HYPERTENSIVE REACTION (ALMOST HAD A STROKE) Date of Last Stent Placement:: 2013 Past Psychological History: Depression Smoking Status: Current every day smoker Past Alcohol Use History: None Reported Past Drug Use History: None Reported - Past Family History Sister(s) Family Medical History: Neurologic Disorder Additional Family Medical History / Comment(s): OF ANEURYSM Mother Family Medical History: Cancer Additional Family Medical History / Comment(s): COLON Medications and Allergies Home Medications Medication Instructions Recorded Confirmed Type ARIPiprazole [Abilify] 10 mg PO DAILY 03/17/23 06/04/23 History Atorvastatin [Lipitor] 40 mg PO HS 03/17/23 06/04/23 History Insulin Glargine,Hum.rec.anlog 104 units SQ DAILY 03/17/23 06/04/23 History [[place] Max Solostar] Oxybutynin ER [Ditropan XL] 10 mg PO DAILY 03/17/23 06/04/23 History Vilazodone HCl [Viibryd] 40 mg PO HS 03/17/23 06/04/23 History metFORMIN HCL 1,000 mg PO BID 03/17/23 06/04/23 History Apixaban [Eliquis] 5 mg PO BID tab 03/23/23 06/04/23 Rx Ipratropium-Albuterol Nebulize 3 ml INHALATION RT-QID each 03/23/23 06/04/23 Rx [Duoneb 0.5 mg-3 mg/3 ml Soln] Albuterol Sulfate [Albuterol 2 puff PO RT-Q6H PRN 06/04/23 06/04/23 History Sulfate Hfa] amLODIPine [Norvasc] 5 mg PO DAILY 06/04/23 06/04/23 History Aspirin 81 mg PO DAILY #30 tab 06/08/23 Rx Bumetanide [Bumex] 1 mg PO BID #30 tablet 06/08/23 Rx Dapagliflozin Propanediol [Farxiga] 10 mg PO DAILY #30 tab 06/08/23 Rx Metoprolol Tartrate [Lopressor] 100 mg PO BID 3 Days #60 tab 06/08/23 Rx Spironolactone [Aldactone] 12.5 mg PO DAILY #30 tab 06/08/23 Rx lisinopriL [Zestril] 10 mg PO DAILY #30 tab 06/08/23 Rx Cephalexin [Keflex] 500 mg PO Q6HR 10 Days #40 cap 06/10/23 Rx Nicotine 14Mg/24Hr Patch [Habitrol] 1 patch TRANSDERM DAILY 30 Days 06/10/23 Rx #30 patch Allergies Allergy/AdvReac Type Severity Reaction Status Date / Time dulaglutide [From [facility]] AdvReac Diarrhea & Verified 06/04/23 07:16 nausea IV DYE Allergy Rash/Hives Uncoded 06/04/23 07:16 - see comment Physical Exam Vitals: Vital Signs Temp Pulse Pulse Resp BP Pulse Ox 06/06/23 09:22 103 H 18 06/06/23 09:12 101 H 18 93 L 06/06/23 07:47 97.7 F 104 H 17 168/60 94 L 06/06/23 04:21 74 16 140/68 96 06/06/23 01:57 83 16 06/05/23 23:36 83 16 132/73 95 06/05/23 21:08 92 06/05/23 20:55 92 06/05/23 20:00 102 H 18 151/83 88 L 06/05/23 16:26 97.8 F 89 17 132/60 95 06/05/23 15:44 98 06/05/23 15:32 100 06/05/23 11:46 83 134/82 97 06/05/23 11:43 108 H 06/05/23 11:33 107 H Intake and Output 06/05/23 06/06/23 06/06/23 22:59 06:59 14:59 Intake Total 120 660 Balance 120 660 Intake: Oral 120 660 Other: Voiding Method External Catheter External Catheter # Voids 3 Weight 93.7 kg GENERAL DESCRIPTION: Elderly female lying in bed, no distress. No tachypnea or accessory muscle of respiration use. HEENT: Shows Pallor , no scleral icterus. Oral mucous membrane is dry. No pharyngeal erythema or thrush NECK: Trachea central, no thyromegaly. LUNGS: Unlabored breathing. Decreased breath sound at the base HEART: S1, S2, regular rate and rhythm. No loud murmur ABDOMEN: Soft, no tenderness , EXTREMITIES: Diffuse swelling redness of bilateral lower extremity did have some crusting the dorsum aspect of the right foot SKIN: No rash, no masses palpable. NEUROLOGICAL: The patient is awake, alert, oriented x3, mood and affect normal. Results CBC & Chem 7: 06/09/23 10:20 06/09/23 10:20 Labs: Abnormal Lab Results - Last 24 Hours (Table) 06/05/23 06/05/23 06/05/23 Range/Units 10:16 10:16 11:39 Glucose 440 H (74-99) mg/dL POC Glucose (mg/dL) 360 H (70-110) mg/dL Hemoglobin A1c 7.9 H (<=6.0) % Calcium 8.2 L (8.4-10.2) mg/dL Albumin 3.4 L (3.5-5.0) g/dL 06/05/23 06/05/23 06/06/23 Range/Units 14:28 19:45 02:08 Glucose (74-99) mg/dL POC Glucose (mg/dL) 136 H 258 H 225 H (70-110) mg/dL Hemoglobin A1c (<=6.0) % Calcium (8.4-10.2) mg/dL Albumin (3.5-5.0) g/dL 06/06/23 Range/Units 05:54 Glucose (74-99) mg/dL POC Glucose (mg/dL) 143 H (70-110) mg/dL Hemoglobin A1c (<=6.0) % Calcium (8.4-10.2) mg/dL Albumin (3.5-5.0) g/dL Assessment and Plan (1) Bilateral lower leg cellulitis Status: Acute Code(s): L03.116 - CELLULITIS OF LEFT LOWER LIMB; L03.115 - CELLULITIS OF RIGHT LOWER LIMB SNOMED Code(s): 923481252 Plan: 1patient was in the hospital with increasing shortness of breath increasing swelling bilateral resting likely due to mild fluid overload patient did have mild erythema to the right lower extremity could be related to the fluid overload underlying Cellulitis less likely but not entirely excluded 2-we will apply some moisturizing cream to the dry scaly skin area followed by David wrap from just bilateral to below the knee 3-continue with the cefazolin that can be transitioned to Keflex on discharge short course We will follow on clinical condition and cultures to further adjust medication if needed Thank you for this consultation we will follow the patient along with you Dictation was produced using [email or web address] dictation software. please excuse any grammatical, word or spelling errors. Time with Patient: Greater than 30
[2023-06-07 09:30] LABS: Basophils % (A) 0 %; Eosinophils # (A) 0.1 k/uL (0-0.7); Eosinophils % (A) 1 %; HCT 43.8 % (34.0-46.0); HGB 14.1 gm/dL (11.4-16.0); Hypochromasia Moderate; Lymphocytes # (A) 0.9 k/uL (1.0-4.8); Lymphocytes % (A) 6 %; MCH 29.7 pg (25.0-35.0); MCHC 32.1 g/dL (31.0-37.0); MCV 92.6 fL (80.0-100.0); Mean Platelet Volume 7.4; Monocytes # (A) 0.3 k/uL (0-1.0); Monocytes % (A) 2 %; Neutrophils # (A) 12.2 k/uL (1.3-7.7); Neutrophils % (A) 90 %; Platelet Count 282 k/uL (150-450); RBC 4.73 m/uL (3.80-5.40); RDW 13.4 % (11.5-15.5); WBC 13.7 k/uL (3.8-10.6)
[2023-06-07 09:43] LABS: ALT 14 U/L (4-34); AST 25 U/L (14-36); African American GFR (CKD) 86 (>60 ml/min/1.73 sqM); Albumin 3.9 g/dL (3.5-5.0); Alkaline Phosphatase 101 U/L (38-126); Anion Gap 13 mmol/L; Blood Urea Nitrogen 16 mg/dL (7-17); Carbon Dioxide 27 mmol/L (22-30); Chloride 100 mmol/L (98-107); Glucose 194 mg/dL (74-99); Non-African American GFR(CKD) 75 (>60 ml/min/1.73 sqM); Sodium 140 mmol/L (137-145); Total Bilirubin 0.8 mg/dL (0.2-1.3); Total Protein 7.3 g/dL (6.3-8.2)
[2023-06-07 10:15] LABS: Potassium 4.1 mmol/L (3.5-5.1)
--- NOTE | 2023-06-07 10:49 | P.PN ---
Subjective Progress Note Date: 06/07/23 This is a 68-year-old female patient presented with concerns of increased shortness of breath and lower extremity swelling. Patient reports this has been getting worse with the past 5 days. Patient has past medical history of CAD, COPD, diabetes mellitus, hyperlipidemia, hypertension, brought back pain, type 2 diabetes mellitus, current every day smoker, recent diagnosis of atrial fibrillation maintained on anticoagulation. Chest x-ray completed in ER showing no acute cardiopulmonary disease COPD changes. BNP elevated at 1360. Troponin 0.034, 0.036. At this time patient will be admitted patient started on IV Lasix. Upon exam bilateral legs show signs of cellulitis will start patient on IV Kefzol. Home meds resumed cardiology services consulted 2-D echo ordered. Repeat labs ordered. She currently on comfortably in bed reports improvement with administration of Lasix. Patient denies chest pain. Patient denies nausea vomiting or diarrhea. Patient denies any urinary burning or frequency On 06/05/2023 patient reports some improvement with shortness of breath. Patient started on Lopressor per cardiology for rate control patient also switched from IV Lasix to Demadex. Patient denies chest pain. Patient remains on IV antibiotics for lower extremity cellulitis. Patient denies nausea vomiting or diarrhea. Patient denies any urinary burning or frequency. On 06/06/2023 patient was seen and examined on the telemetry floor she is alert and oriented 3 in no apparent distress reporting improvement in her shortness of breath and lower extremity swelling, there is no fever or chills no headache or dizziness no chest pain no cough no nausea or vomiting no abdominal pain no diarrhea no blood in the stools no burning with urination no frequency or urgency and no hematuria. On 06/07/2023 patient is alert and oriented 3. Patient had episode of shortness breath this a.m. chest x-ray was ordered showing cardiomegaly and mild pulmonary vascular congestion correlate with BMP for congestive heart failure. Infectious disease following patient remains on IV Kefzol for lower infection but he cellulitis plans for cardiac catheterization today per cardiology Objective - Vital Signs Vital signs: Vital Signs Temp 97.8 F 06/07/23 04:00 Pulse 88 06/07/23 08:50 Resp 18 06/07/23 08:50 BP 184/86 06/07/23 04:00 Pulse Ox 93 L 06/07/23 08:41 FiO2 Intake & Output 06/06/23 06/07/23 06/07/23 18:59 06:59 18:59 Intake Total 1979 Balance 1979 Intake: Oral 1979 Other: Voiding Method External Catheter External Catheter # Voids 2 2 - Exam Head normocephalic Neck supple Lungs clear to auscultation bilaterally no wheezing or crackles Heart regular rate and rhythm S1-S2, no rub or gallop Abdomen is soft nontender nondistended positive bowel sounds no hepatosplenomegaly Extremities +1 bilateral lower extremity edema erythema noted bilaterally with superficial scabs Neuro alert and orientated to 3 - Labs CBC & Chem 7: 06/07/23 08:34 06/07/23 08:34 Labs: Abnormal Lab Results - Last 24 Hours (Table) 06/06/23 06/06/23 06/06/23 Range/Units 11:03 11:52 17:05 WBC (3.8-10.6) k/uL Neutrophils # (1.3-7.7) k/uL Lymphocytes # (1.0-4.8) k/uL Glucose 176 H (74-99) mg/dL POC Glucose (mg/dL) 173 H 247 H (70-110) mg/dL Calcium 8.2 L (8.4-10.2) mg/dL 06/06/23 06/07/23 06/07/23 Range/Units 20:11 02:01 06:14 WBC (3.8-10.6) k/uL Neutrophils # (1.3-7.7) k/uL Lymphocytes # (1.0-4.8) k/uL Glucose (74-99) mg/dL POC Glucose (mg/dL) 298 H 145 H 183 H (70-110) mg/dL Calcium (8.4-10.2) mg/dL 06/07/23 06/07/23 Range/Units 08:34 08:34 WBC 13.7 H (3.8-10.6) k/uL Neutrophils # 12.2 H (1.3-7.7) k/uL Lymphocytes # 0.9 L (1.0-4.8) k/uL Glucose 194 H (74-99) mg/dL POC Glucose (mg/dL) (70-110) mg/dL Calcium (8.4-10.2) mg/dL Assessment and Plan Assessment: 1. Increased shortness breath and lower extremity swelling 2. acute diastolic CHF exacerbation. BNP elevated at 1300. 2-D echo ordered per cardiology service is consulted patient started on IV Lasix 3. Lower extremity cellulitis. Patient started on IV Kefzol 4. Recent diagnosis of atrial fibrillation patient retained on anticoagulation 5. History of COPD 6. History of insulin-dependent diabetes mellitus 7. Ongoing nicotine dependence patient educated greater than 3 minutes on complete smoking cessation. Nicotine patch will be ordered 8. History of essential hypertension 9. History of hyperlipidemia 10. History of depression 11. History of coronary artery disease 12. History of periphera arterial disease 13. Worsening cardiomyopathy DVT prophylaxis eliquis. GI prophylaxis Protonix Cardiology service is consulted 2-D echo ordered Patient retained on IV Lasix Continue IV antibiotics for cellulitis Cardiac cath scheduled for 06/07/2023 Home meds resumed Repeat labs ordered
[2023-06-07 11:28] LABS: Glucose,Whole Blood 237 mg/dL (70-110)
[2023-06-07] MEDS: ZINC OXIDE PASTE (Z-GUARD) 1 APPLIC TOPICAL SCH (11:33)
[2023-06-07] MEDS: INSULIN DETEMIR (LEVEMIR) 100 UNIT/ML SYR SQ SCH (11:33)
[2023-06-07] MEDS ORDERED: IV FLUID CONTINUATION 1,000 ML IV ONE (11:38)
[2023-06-07] MEDS ORDERED: FAMOTIDINE 20 MG/2 ML VIAL ONE (12:10)
[2023-06-07] MEDS ORDERED: FAMOTIDINE 20 MG/2 ML VIAL IV STA (12:25)
[2023-06-07] MEDS ORDERED: methylPREDNISolone SOD SUCCI 125 MG/2 ML VIAL IVP ONE (12:40)
[2023-06-07] MEDS ORDERED: fentaNYL (PF) 50 MCG/ML 2 ML AMP IVP ONE (12:45)
[2023-06-07] MEDS ORDERED: MIDAZOLAM 2 MG/2 ML VIAL IVP ONE (12:45)
[2023-06-07] MEDS ORDERED: LIDOCAINE 1% INJ 10MG/ML (20 ML MDV) SQ ONE (12:48)
[2023-06-07] MEDS ORDERED: VERAPAMIL SYRINGE (5 MG/10 ML) INTRAARTER ONE (12:50)
[2023-06-07] MEDS ORDERED: HEPARIN SODIUM 1,000 UN/ML (10ML VL) IVP ONE (13:13)
[2023-06-07 13:17] LABS: O2 Sat Blood Gas 67.3 %
[2023-06-07 13:19] LABS: O2 Sat Blood Gas 64.3 %
[2023-06-07 13:20] LABS: O2 Sat Blood Gas 89.1 %
[2023-06-07] MEDS ORDERED: SODIUM CHLORIDE 0.9% 1,000 ML IV ONE (13:26)
[2023-06-07] MEDS ORDERED: IOPAMIDOL-370 100ML BTL INJ ONE (13:47)
[2023-06-07] MEDS ORDERED: RX INFO: IV CONTRAST WAS GIVEN 1 EACH MISC MISCELLANE PRN (14:02)
[2023-06-07] MEDS ORDERED: SODIUM CHLORIDE 0.9% 1,000 ML IV SCH (14:15)
--- NOTE | 2023-06-07 14:19 | P.CARDCATH ---
Date of Procedure: 06/07/23 Description of Procedure: DIAGNOSTIC CORONARY ANGIOGRAPHY, RIGHT and LEFT HEART CATH REPORT PROCEDURES PERFORMED: Left heart catheterization Right heart catheterization Selective coronary angiography Moderate conscious sedation 47 mins Right radial access INDICATION: New worsening heart failure and cardiomyopathy 68 year-old prior history of CAD status post PCI to LCx and LAD in 2013 presented to hospital with worsening shortness of breath. An echocardiogram on this visit showed an EF of around 25-30% and signs of pulmonary hypertension with elevated RVSP. Prior echo from 2 months ago showed an EF of 40% with global hypokinesia. She also has history of atrial fibrillation. Due to worsening cardiomyopathy and 2 recent hospital admissions for congestive heart failure she was scheduled for an inpatient left and right heart catheterization. CONSENT: I have discussed the risks, benefits and alternative therapies for the above-mentioned procedure, sedation/analgesia and necessary blood product administration (if indicated, as they pertain to this patient). The patient has indicated understanding and acceptance of the risks and procedures discussed. Conscious Sedation: Patient's ECG, heart rate, blood pressure, pulse oximetry was monitored throughout the duration of procedure under my direct supervision. 1 mg Versed and 50 mg Fentanyl were used for induction of moderate conscious sedation. Total duration of moderate concious sedation 47 minutes. Patient has ALLERGY to IV contrast for which she received a prep using Solu-Medrol, Benadryl and Pepcid. She did not encounter any ALLERGIC complications. PROCEDURE: After explaining the risks, benefits and alternatives of the above mentioned procedures in detail to the patient, informed consent was obtained. Patient was taken to the catheterization lab, prepped and draped in usual sterile fashion using universal precuations. Barbow and teo test were performed to confirm adequate perfusion to fingers. 1% lidocaine was infiltrated over the right radial artery. A 6-German sheath was placed and secured in the right radial artery using modified Seldinger technique. The sheath was flushed and 5 mg verapamil was administered intra-arterially. Using an already existing right antecubital vein venous cannula, the wire was passed and the cannula was exchanged for a 6-German slender like sheath. Using a 5-German Beaumont-Zoya catheter, right heart catheterization was performed. Sequential pressures were obtained, thermodilution study was performed and samples for Louann study. J tipped wire was advanced under fluoroscopic guidance. Once the wire tip reached aortic root 4500 units of IV heparin was given. Over the wire JL4 diagnostic catheter was advanced. Wire was removed, catheter was flushed and manipulated under fluoroscopy to selectively engaged the left coronary ostium. Left coronary angioplasty was performed in different angiographic projections. This catheter was exchanged for a JR4 diagnostic catheter over the wire. The catheter was flushed and manipulated to cross the aortic valve. LV pressures were obtained. Pullback was performed across aortic valve and catheter was manipulated to selectively engage the right coronary ostium under fluoroscopic guidance. Right coronary angiography was performed in different angiographic projections. Catheter was removed over the wire. Radial sheath was flushed. The right radial sheath was removed and a TR band was placed with excellent patent hemostasis was achieved. The patient tolerated the procedure well. Patient was transported back to the post catheterization holding area in stable condition. Angiographic images were reviewed in detail. HEMODYNAMICS: Aortic Pressure: 160/74 mmHg. LV pressure: 160/4 mmHg. LVEDP 30 mmHg. Mean RA pressure 25 mmHg RV pressure 75/18 mmHg. RVEDP 25 mmHg PA pressure 75/50 MG, mean PA pressure 55 mmHg [place] Wedge pressure = 35 mmHg Pulmonary arterial resistance = 3 lan unit PVR by Louann 254 PVR by Thermodilution 195. PA sat 64 % RV sat 66 % RA sat 67% Arterial Sat 89% Louann cardiac output 6.5 L/m Louann cardiac index 3.1 L/m/m Thermodilution cardiac output 7.39 L/m Thermodilution cardiac index 3.77 L/m/m Stroke volume 65 mL per minute SELECTIVE CORONARY ARTERIOGRAPHY: LEFT MAIN: The left main is a large caliber vessel which bifurcates into the LAD and circumflex. Left main appears angiographically normal. LEFT ANTERIOR DESCENDING CORONARY ARTERY: LAD is a large caliber vessel which wraps around to the apex. Proximal LAD has mild luminal irregularities. There is a prior stenting mid LAD which appears angiographically normal. It gives rise to diagonal branches appears angiographically normal. LEFT CIRCUMFLEX CORONARY ARTERY: Lcx is co-dominant vessel and large caliber vessel. It gives rise to large OM1 branch which bifurcates distally and appears angiographic normal. Proximal LCx is mild luminal irregularities. Mid LCx between OM1 and OM 2 as a prior stent which appears angiographically normal. OM 2 is medium-sized and appears angiographically normal. S6 is S2. Branches appears angiographically normal. RIGHT CORONARY ARTERY: Co-dominant vessel. RCA is a small caliber vessel around 2.5 mm vessel. It gives rise to artery marginal branch which appears angiographically normal and a small PDA branch. Proximal to mid RCA has diffuse 80-90% calcific disease. This has worsened from prior cath from 2014. IMPRESSION: 80-90% diffuse proximal to mid RCA disease which cannot expect patient's global hypokinesia Mild luminal irregularities in left coronary system with patent stents Elevated LVEDP Elevated pulmonary Artery wedge pressure Pulmonary hypertension, likely Group II and Group I. Elevated Pulmonary vascular resistance PLAN: Routine postcardiac cath care IV fluids 75 mL for 4 hours. We will need IV diuretics with IV Bumex 1 mg twice a day We will add low-dose CCB for pulmonary hypertension and uptitrate as tolerated Performing Physician Jeffery Larsen MD
[2023-06-07 16:16] LABS: Glucose,Whole Blood 257 mg/dL (70-110)
--- NOTE | 2023-06-07 17:27 | P.PN ---
Subjective Progress Note Date: 06/07/23 Principal diagnosis: Reason for follow-up is bilateral lower extremity cellulitis Patient is a 68-year-old female with a past medical history significant for coronary disease COPD diabetes mellitus hypertension hyperlipidemia patient presenting to the hospital for evaluation of increasing shortness of breath and bilateral lower extremity swelling with concern for cell ulitis On today's evaluation that is06/07/2023 the patient remains to be afebrile, the patient is breathing comfortably on 4 L nasal cannula oxygen. The patient denies shortness of breath denies any chest pain or cough, patient denies nausea/vomiting or diarrhea and no abdominal pain. Denies any worsening pain to the lower extremity Patient did have a white count of 13.7, creatinine 0.82 Objective - Vital Signs Vital signs: Vital Signs Temp 97.8 F 06/07/23 04:00 Pulse 100 06/07/23 11:45 Resp 18 06/07/23 11:45 BP 184/86 06/07/23 04:00 Pulse Ox 93 L 06/07/23 08:41 FiO2 Intake & Output 06/06/23 06/07/23 06/07/23 18:59 06:59 18:59 Intake Total 1979 Balance 1979 Intake: Oral 1979 Other: Voiding Method External Catheter External Catheter External Catheter # Voids 2 2 - Exam GENERAL DESCRIPTION: An elderly female up in bed in no distress RESPIRATORY SYSTEM: Unlabored breathing , decreased breath sound the bases HEART: S1 S2 regular rate and rhythm , ABDOMEN: Soft , no tenderness EXTREMITIES: Diffuse swelling to bilateral lower extremity with redness of the right leg no drainage - Labs CBC & Chem 7: 06/07/23 08:34 06/07/23 08:34 Labs: Abnormal Lab Results - Last 24 Hours (Table) 06/06/23 06/06/23 06/06/23 Range/Units 11:03 17:05 20:11 WBC (3.8-10.6) k/uL Neutrophils # (1.3-7.7) k/uL Lymphocytes # (1.0-4.8) k/uL Glucose 176 H (74-99) mg/dL POC Glucose (mg/dL) 247 H 298 H (70-110) mg/dL Calcium 8.2 L (8.4-10.2) mg/dL 06/07/23 06/07/23 06/07/23 Range/Units 02:01 06:14 08:34 WBC 13.7 H (3.8-10.6) k/uL Neutrophils # 12.2 H (1.3-7.7) k/uL Lymphocytes # 0.9 L (1.0-4.8) k/uL Glucose (74-99) mg/dL POC Glucose (mg/dL) 145 H 183 H (70-110) mg/dL Calcium (8.4-10.2) mg/dL 06/07/23 06/07/23 Range/Units 08:34 11:24 WBC (3.8-10.6) k/uL Neutrophils # (1.3-7.7) k/uL Lymphocytes # (1.0-4.8) k/uL Glucose 194 H (74-99) mg/dL POC Glucose (mg/dL) 237 H (70-110) mg/dL Calcium (8.4-10.2) mg/dL Assessment and Plan (1) Bilateral lower leg cellulitis Current Visit: Yes Status: Acute Code(s): L03.116 - CELLULITIS OF LEFT LOWER LIMB; L03.115 - CELLULITIS OF RIGHT LOWER LIMB SNOMED Code(s): 531036914 Plan: 1patient was in the hospital with increasing shortness of breath increasing swelling bilateral resting likely due to mild fluid overload patient did have mild erythema to the right lower extremity could be related to the fluid overload underlying Cellulitis less likely but not entirely excluded 2-patient to continue with moisturizing cream to the dry scaly skin area followed by David wrap from just bilateral to below the knee 3-patient to continue with the cefazolin and monitor clinical course closely Dictation was produced using [employer] dictation software. please excuse any grammatical, word or spelling errors. Time with Patient: Less than 30
[2023-06-07 20:06] LABS: Glucose,Whole Blood 353 mg/dL (70-110)
[2023-06-07] MEDS: ATORVASTATIN 40 MG TAB PO SCH (21:01)
[2023-06-07] MEDS: HYDROcodone/APAP 7.5-325MG 1 EACH TAB PO PRN (21:01)
[2023-06-07] MEDS: BUMETANIDE 0.25 MG/ML 4 ML VIAL IV SCH (21:09)
[2023-06-07] MEDS: APIXABAN 5 MG TAB PO SCH (21:09)
[2023-06-07] MEDS: VILAZODONE HCL 40 MG PO SCH (23:37)
[2023-06-08 02:08] LABS: Glucose,Whole Blood 251 mg/dL (70-110)
[2023-06-08 06:07] LABS: Glucose,Whole Blood 255 mg/dL (70-110)
[2023-06-08] MEDS: INSULIN DETEMIR (LEVEMIR) 100 UNIT/ML SYR SQ SCH (06:34)
[2023-06-08] MEDS: INSULIN ASPART (NovoLOG) 100 UNIT/ML VIAL SQ SCH ×4 (06:34→21:57)
[2023-06-08] MEDS: SODIUM CHLORIDE 0.9% 1,000 ML in EMPTY BAG 1 BAG IV SCH ×2 (07:11→07:30)
[2023-06-08] MEDS: METOPROLOL TARTRATE 25 MG TAB PO SCH (07:56)
[2023-06-08] MEDS: BUMETANIDE 0.25 MG/ML 4 ML VIAL IV SCH ×2 (07:56→21:54)
[2023-06-08] MEDS: DAPAGLIFLOZIN PROPANEDIOL 10 MG TABLET PO SCH (07:57)
[2023-06-08] MEDS: OXYBUTYNIN 10 MG TAB.ER.24 PO SCH (07:57)
[2023-06-08] MEDS: ARIPiprazole 10 MG TAB PO SCH (07:57)
[2023-06-08] MEDS: lisinopriL 10 MG TAB PO SCH (07:57)
[2023-06-08] MEDS: amLODIPine 5 MG TAB PO SCH (07:57)
[2023-06-08] MEDS: PANTOPRAZOLE 40 MG TABLET PO SCH (07:57)
[2023-06-08] MEDS: APIXABAN 5 MG TAB PO SCH ×2 (07:57→21:54)
[2023-06-08] MEDS: POTASSIUM CHLORIDE ER 10 MEQ TAB.ER.PRT PO SCH (07:57)
[2023-06-08] MEDS: ZINC OXIDE PASTE (Z-GUARD) 1 APPLIC TOPICAL SCH (07:58)
[2023-06-08] MEDS: NICOTINE 14MG/24HR PATCH TRANSDERM SCH (07:58)
[2023-06-08] MEDS: IPRATROPIUM-ALBUTEROL 3 ML NEB INHALATION SCH ×4 (08:36→21:01)
--- NOTE | 2023-06-08 09:39 | P.PN ---
Subjective Progress Note Date: 06/08/23 Marina Hernandez is a 68-year-old female patient presented with concerns of increased shortness of breath and lower extremity swelling. Patient reports this has been getting worse with the past 5 days. Patient has past medical history of CAD, COPD, diabetes mellitus, hyperlipidemia, hypertension, brought b ack pain, type 2 diabetes mellitus, current every day smoker, recent diagnosis of atrial fibrillation maintained on anticoagulation. Chest x-ray completed in ER showing no acute cardiopulmonary disease COPD changes. BNP elevated at 1360. Troponin 0.034, 0.036. At this time patient will be admitted patient started on IV Lasix. Upon exam bilateral legs show signs of cellulitis will start patient on IV Kefzol. Home meds resumed cardiology services consulted 2-D echo ordered. Repeat labs ordered. She currently on comfortably in bed reports improvement with administration of Lasix. Patient denies chest pain. Patient denies nausea vomiting or diarrhea. Patient denies any urinary burning or frequency On 06/05/2023 patient reports some improvement with shortness of breath. Patient started on Lopressor per cardiology for rate control patient also switched from IV Lasix to Demadex. Patient denies chest pain. Patient remains on IV antibiotics for lower extremity cellulitis. Patient denies nausea vomiting or diarrhea. Patient denies any urinary burning or frequency. On 06/06/2023 patient was seen and examined on the telemetry floor she is alert and oriented 3 in no apparent distress reporting improvement in her shortness of breath and lower extremity swelling, there is no fever or chills no headache or dizziness no chest pain no cough no nausea or vomiting no abdominal pain no diarrhea no blood in the stools no burning with urination no frequency or urgency and no hematuria. On 06/07/2023 patient is alert and oriented 3. Patient had episode of shortness breath this a.m. chest x-ray was ordered showing cardiomegaly and mild pulmonary vascular congestion correlate with BMP for congestive heart failure. Infectious disease following patient remains on IV Kefzol for lower infection cellulitis, plans for cardiac catheterization today per cardiology. On 06/08/2023 patient was seen and examined on the telemetry floor, she is alert and oriented 3 in no apparent distress, she is complaining of generalized weakness, and shortness of breath with activity, otherwise she denies any complaints there is no fever or chills no headache or dizziness no chest pain no nausea or vomiting no abdominal pain no diarrhea no blood in the stools no burning with urination no frequency or urgency and no hematuria. Cardiac catheterization report reviewed and discussed with patient. Patient remains on IV antibiotic for bilateral lower extremity cellulitis. Awaiting further input from cardiology and infectious disease. Objective - Vital Signs Vital signs: Vital Signs Temp 97.7 F 06/08/23 07:54 Pulse 100 06/08/23 08:48 Resp 18 06/08/23 07:54 BP 136/68 06/08/23 07:54 Pulse Ox 97 06/08/23 08:36 FiO2 Intake & Output 06/07/23 06/08/23 06/08/23 18:59 06:59 18:59 Intake Total 510 444 130 Output Total 1000 Balance -490 444 130 Weight 91.1 kg Intake: IV 400 10 Invasive Line 2 10 Oral 110 444 120 Output: Urine 1000 Other: Voiding Method External Catheter Toilet # Voids 3 - Exam In general patient is alert and oriented 3 in no apparent distress Head normocephalic and atraumatic Neck supple no JVD no goiter Lungs clear to auscultation bilaterally no wheezing or crackles Heart regular rate and rhythm S1-S2, no rub or gallop Abdomen is soft nontender nondistended positive bowel sounds no hepatosplenomegaly Extremities +1 bilateral lower extremity edema erythema noted bilaterally with superficial scabs Neuro no gross focal deficit - Labs CBC & Chem 7: 06/07/23 08:34 06/07/23 08:34 Labs: Abnormal Lab Results - Last 24 Hours (Table) 06/07/23 06/07/23 06/07/23 Range/Units 08:34 08:34 11:24 WBC 13.7 H (3.8-10.6) k/uL Neutrophils # 12.2 H (1.3-7.7) k/uL Lymphocytes # 0.9 L (1.0-4.8) k/uL Glucose 194 H (74-99) mg/dL POC Glucose (mg/dL) 237 H (70-110) mg/dL 06/07/23 06/07/23 06/08/23 Range/Units 16:14 20:04 02:07 WBC (3.8-10.6) k/uL Neutrophils # (1.3-7.7) k/uL Lymphocytes # (1.0-4.8) k/uL Glucose (74-99) mg/dL POC Glucose (mg/dL) 257 H 353 H 251 H (70-110) mg/dL 06/08/23 Range/Units 06:05 WBC (3.8-10.6) k/uL Neutrophils # (1.3-7.7) k/uL Lymphocytes # (1.0-4.8) k/uL Glucose (74-99) mg/dL POC Glucose (mg/dL) 255 H (70-110) mg/dL Microbiology - Last 24 Hours (Table) 06/06/23 10:24 Blood Culture - Preliminary Blood Assessment and Plan Assessment: 1. Increased shortness breath and lower extremity swelling 2. acute diastolic CHF exacerbation. BNP elevated at 1300. 2-D echo ordered per cardiology service is consulted patient started on IV Lasix 3. Lower extremity cellulitis. Patient started on IV Kefzol 4. Recent diagnosis of atrial fibrillation patient retained on anticoagulation 5. History of COPD 6. History of insulin-dependent diabetes mellitus 7. Ongoing nicotine dependence patient educated greater than 3 minutes on complete smoking cessation. Nicotine patch will be ordered 8. History of essential hypertension 9. History of hyperlipidemia 10. History of depression 11. History of coronary artery disease 12. History of periphera arterial disease 13. Worsening cardiomyopathy DVT prophylaxis eliquis. GI prophylaxis Protonix Cardiology service is consulted 2-D echo ordered Patient retained on IV Lasix Continue IV antibiotics for cellulitis Cardiac cath scheduled for 06/07/2023 Home meds resumed Repeat labs ordered
[2023-06-08 11:34] LABS: Glucose,Whole Blood 240 mg/dL (70-110)
[2023-06-08 11:35] LABS: Basophils % (A) 0 %; Eosinophils # (A) 0.1 k/uL (0-0.7); Eosinophils % (A) 1 %; HCT 41.8 % (34.0-46.0); HGB 13.2 gm/dL (11.4-16.0); Hypochromasia Slight; Lymphocytes % (A) 19 %; MCH 28.9 pg (25.0-35.0); MCHC 31.6 g/dL (31.0-37.0); MCV 91.6 fL (80.0-100.0); Mean Platelet Volume 7.9; Monocytes # (A) 1.2 k/uL (0-1.0); Monocytes % (A) 7 %; Neutrophils # (A) 11.2 k/uL (1.3-7.7); Neutrophils % (A) 70 %; Platelet Count 343 k/uL (150-450); RBC 4.56 m/uL (3.80-5.40); RDW 13.7 % (11.5-15.5)
[2023-06-08 11:53] LABS: ALT 17 U/L (4-34); AST 25 U/L (14-36); African American GFR (CKD) 83 (>60 ml/min/1.73 sqM); Albumin 3.9 g/dL (3.5-5.0); Alkaline Phosphatase 86 U/L (38-126); Anion Gap 12 mmol/L; Blood Urea Nitrogen 26 mg/dL (7-17); Calcium 9.2 mg/dL (8.4-10.2); Carbon Dioxide 35 mmol/L (22-30); Chloride 96 mmol/L (98-107); Glucose 182 mg/dL (74-99); Non-African American GFR(CKD) 72 (>60 ml/min/1.73 sqM); Potassium 3.3 mmol/L (3.5-5.1); Sodium 143 mmol/L (137-145); Total Bilirubin 0.5 mg/dL (0.2-1.3); Total Protein 7.3 g/dL (6.3-8.2)
[2023-06-08] MEDS ORDERED: METOPROLOL TARTRATE 25 MG TAB PO STA (15:22)
[2023-06-08 16:34] LABS: Glucose,Whole Blood 100 mg/dL (70-110)
[2023-06-08] MEDS: ASPIRIN 81 MG PO SCH (16:53)
[2023-06-08] MEDS: SPIRONOLACTONE 25 MG TAB PO SCH (16:53)
--- NOTE | 2023-06-08 19:05 | P.PN ---
Subjective Progress Note Date: 06/08/23 Progress note: Patient had a cardiac catheterization yesterday which showed diffuse disease in the RCA which is not amenable for intervention and it is a small vessel. LCx and LAD stent was patent. Patient did had elevated LV filling pressures and wedge pressures along with pulmonary hypertension suggestive of group II pulmonary hypertension. She had mild increased transfer reviewed gradient which recorder due to some component of group 1 pulmonary hypertension, # lan unit. Patient appears euvolemic. Since last cath she got IV Lasix 40 mg twice a day with good urine output. I will discharge from by mouth Bumex 1 mg twice a day. With continued until she follows up with me in clinic. Patient is very eager to go home. His mild leukocytosis which is most likely reactive from steroid PHYSICAL EXAM: VITAL SIGNS: Reviewed. GENERAL: Well-developed in no acute distress. NECK: Supple. No JVD or thyromegaly LUNGS: Respirations even and unlabored. Lungs essentially clear to auscultation bilaterally, diminished. HEART: Irregular rate and rhythm. S1 and S2 heard. EXTREMITIES: 1+ pitting edema ASSESSMENT: Acute HFrEF exacerbation, EF 40-45%, currently euvolemic Group 2 pulmonary hypertension, with elevated wedge pressures Acute COPD exacerbation, resolving Worsening cardiomyopathy with ejection of EF during this admission. Frequent monomorphic PVCs CAD status post PCI to LCx 2 in 2013 Type 2 diabetes Essential hypertension Former smoker recently stopped smoking Paroxysmal atrial fibrillation Morbid obesity PLAN: Metoprolol 100 mg twice a day Discontinue IV diuretics. Start Bumex 1 mg by mouth twice a day Continue Farxiga, spironolactone, lisinopril 10 mg, Continue aspirin, Eliquis, atorvastatin Outpatient follow-up with Dr. Larsen within next 1 week Objective - Vital Signs Vital signs: Vital Signs Temp 97.9 F 06/08/23 16:26 Pulse 98 06/08/23 16:28 Resp 18 06/08/23 16:26 BP 137/76 06/08/23 16:26 Pulse Ox 96 06/08/23 16:26 FiO2 Intake & Output 06/08/23 06/08/23 06/09/23 06:59 18:59 06:59 Intake Total 444 720 Output Total 550 Balance 444 170 Weight 91.1 kg Intake: IV 20 Invasive Line 2 20 Intake, IV Titration 100 Amount ceFAZolin 2 gm In Sodium 100 Chloride 0.9% 50 ml @ 100 mls/hr IVPB Q8HR [facility] Rx# :[id number] Oral 444 600 Output: Urine 550 Other: Voiding Method Toilet Toilet # Voids 3 2 - Labs CBC & Chem 7: 06/08/23 10:50 06/08/23 10:50 Labs: Abnormal Lab Results - Last 24 Hours (Table) 06/07/23 06/08/23 06/08/23 Range/Units 20:04 02:07 06:05 WBC (3.8-10.6) k/uL Neutrophils # (1.3-7.7) k/uL Monocytes # (0-1.0) k/uL Potassium (3.5-5.1) mmol/L Chloride (98-107) mmol/L Carbon Dioxide (22-30) mmol/L BUN (7-17) mg/dL Glucose (74-99) mg/dL POC Glucose (mg/dL) 353 H 251 H 255 H (70-110) mg/dL 06/08/23 06/08/23 06/08/23 Range/Units 10:50 10:50 11:33 WBC 16.0 H (3.8-10.6) k/uL Neutrophils # 11.2 H (1.3-7.7) k/uL Monocytes # 1.2 H (0-1.0) k/uL Potassium 3.3 L (3.5-5.1) mmol/L Chloride 96 L (98-107) mmol/L Carbon Dioxide 35 H (22-30) mmol/L BUN 26 H (7-17) mg/dL Glucose 182 H (74-99) mg/dL POC Glucose (mg/dL) 240 H (70-110) mg/dL Microbiology - Last 24 Hours (Table) 06/06/23 10:24 Blood Culture - Preliminary Blood
[2023-06-08 19:46] LABS: Glucose,Whole Blood 191 mg/dL (70-110)
[2023-06-08] MEDS: ATORVASTATIN 40 MG TAB PO SCH (21:54)
[2023-06-08] MEDS: METOPROLOL TARTRATE 50 MG TAB PO SCH (21:56)
[2023-06-08] MEDS: HYDROcodone/APAP 7.5-325MG 1 EACH TAB PO PRN (21:56)
[2023-06-08] MEDS: VILAZODONE HCL 40 MG PO SCH (22:03)
[2023-06-09 01:52] LABS: Glucose,Whole Blood 85 mg/dL (70-110)
[2023-06-09 06:10] LABS: Glucose,Whole Blood 110 mg/dL (70-110)
[2023-06-09] MEDS: INSULIN ASPART (NovoLOG) 100 UNIT/ML VIAL SQ SCH ×4 (06:23→21:31)
[2023-06-09] MEDS: SODIUM CHLORIDE 0.9% 1,000 ML in EMPTY BAG 1 BAG IV SCH ×2 (06:23→09:06)
[2023-06-09] MEDS: INSULIN DETEMIR (LEVEMIR) 100 UNIT/ML SYR SQ SCH (06:42)
[2023-06-09] MEDS: PANTOPRAZOLE 40 MG TABLET PO SCH (07:50)
[2023-06-09] MEDS: METOPROLOL TARTRATE 50 MG TAB PO SCH ×2 (07:50→21:30)
[2023-06-09] MEDS: APIXABAN 5 MG TAB PO SCH ×2 (07:50→21:30)
[2023-06-09] MEDS: lisinopriL 10 MG TAB PO SCH (07:50)
[2023-06-09] MEDS: ASPIRIN 81 MG PO SCH (07:50)
[2023-06-09] MEDS: ZINC OXIDE PASTE (Z-GUARD) 1 APPLIC TOPICAL SCH (07:51)
[2023-06-09] MEDS: NICOTINE 14MG/24HR PATCH TRANSDERM SCH (07:51)
[2023-06-09] MEDS: POTASSIUM CHLORIDE ER 10 MEQ TAB.ER.PRT PO SCH (07:51)
[2023-06-09] MEDS: SPIRONOLACTONE 25 MG TAB PO SCH (07:51)
[2023-06-09] MEDS: amLODIPine 5 MG TAB PO SCH (07:53)
[2023-06-09] MEDS: OXYBUTYNIN 10 MG TAB.ER.24 PO SCH (07:53)
[2023-06-09] MEDS: ARIPiprazole 10 MG TAB PO SCH (07:53)
[2023-06-09] MEDS: BUMETANIDE 0.25 MG/ML 4 ML VIAL IV SCH ×2 (07:53→21:31)
[2023-06-09] MEDS: DAPAGLIFLOZIN PROPANEDIOL 10 MG TABLET PO SCH (07:53)
[2023-06-09] MEDS: IPRATROPIUM-ALBUTEROL 3 ML NEB INHALATION SCH ×4 (08:18→21:02)
--- NOTE | 2023-06-09 11:37 | P.PN ---
Progress Note - Text Progress Note Date: 06/09/23 Patient Name: Marina Radford Date of : 1955 Patient Status: Inpatient Attending Provider: Jessica Zavala Date: 06/09/23 10:20 Initialization Date: 06/09/23 10:20 Subjective Progress Note Date: 06/09/23 Marina Radford. is a 68-year-old female patient presented with concerns of increased shortness of breath and lower extremity swelling. Patient reports this has been getting worse with the past 5 days. Patient has past medical history of CAD, COPD, diabetes mellitus, hyperlipidemia, hypertension, brought back pain, type 2 diabetes mellitus, current every day smoker, recent diagnosis of atrial fibrillation maintained on anticoagulation. Chest x-ray completed in ER showing no acute cardiopulmonary disease COPD changes. BNP elevated at 1360. Troponin 0.034, 0.036. At this time patient will be admitted patient started on IV Lasix. Upon exam bilateral legs show signs of cellulitis will start patient on IV Kefzol. Home meds resumed cardiology services consulted 2-D echo ordered. Repeat labs ordered. She currently on comfortably in bed reports improvement with administration of Lasix. Patient denies chest pain. Patient denies nausea vomiting or diarrhea. Patient denies any urinary burning or frequency On 06/05/2023 patient reports some improvement with shortness of breath. Patient started on Lopressor per cardiology for rate control patient also switched from IV Lasix to Demadex. Patient denies chest pain. Patient remains on IV antibiotics for lower extremity cellulitis. Patient denies nausea vomiting or diarrhea. Patient denies any urinary burning or frequency. On 06/06/2023 patient was seen and examined on the telemetry floor she is alert and oriented 3 in no apparent distress reporting improvement in her shortness of breath and lower extremity swelling, there is no fever or chills no headache or dizziness no chest pain no cough no nausea or vomiting no abdominal pain no diarrhea no blood in the stools no burning with urination no frequency or urgency and no hematuria. On 06/07/2023 patient is alert and oriented 3. Patient had episode of shortness breath this a.m. chest x-ray was ordered showing cardiomegaly and mild pulmonary vascular congestion correlate with BMP for congestive heart failure. Infectious disease following patient remains on IV Kefzol for lower infection cellulitis, plans for cardiac catheterization today per cardiology. On 06/08/2023 patient was seen and examined on the telemetry floor, she is alert and oriented 3 in no apparent distress, she is complaining of generalized weakness, and shortness of breath with activity, otherwise she denies any complaints there is no fever or chills no headache or dizziness no chest pain no nausea or vomiting no abdominal pain no diarrhea no blood in the stools no burning with urination no frequency or urgency and no hematuria. Cardiac catheterization report reviewed and discussed with patient. Patient remains on IV antibiotic for bilateral lower extremity cellulitis. Awaiting further input from cardiology and infectious disease. On 06/09/2023 patient is alert and oriented 3. Patient reports improvement with shortness of breath. Patient remains on IV Bumex. Cardiology following. Patient will likely home oxygen. Patient denies chest pain. Patient denies nausea vomiting or diarrhea. Patient denies any urinary burning or frequency Objective - Vital Signs Vital signs: Vital Signs Temp 97.6 F 06/09/23 07:50 Pulse 95 06/09/23 08:29 Resp 16 06/09/23 07:50 BP 140/91 06/09/23 07:50 Pulse Ox 95 06/09/23 08:32 FiO2 Intake & Output 06/08/23 06/09/23 06/09/23 18:59 06:59 18:59 Intake Total 720 30 410 Output Total 550 800 Balance 170 -770 410 Weight 91.1 kg 92 kg Intake: IV 20 30 10 Invasive Line 2 20 20 Invasive Line 3 10 10 Intake, IV Titration 100 Amount ceFAZolin 2 gm In Sodium 100 Chloride 0.9% 50 ml @ 100 mls/hr IVPB Q8HR [facility] Rx# :[id number] Oral 600 400 Output: Urine 550 800 Other: Voiding Method Toilet Toilet Toilet # Voids 2 3 - Exam In general patient is alert and oriented 3 in no apparent distress Head normocephalic and atraumatic Neck supple no JVD no goiter Lungs clear to auscultation bilaterally no wheezing or crackles Heart regular rate and rhythm S1-S2, no rub or gallop Abdomen is soft nontender nondistended positive bowel sounds no hepatosplenomegaly Extremities +1 bilateral lower extremity edema erythema noted bilaterally with superficial scabs Neuro no gross focal deficit - Labs CBC & Chem 7: 06/08/23 10:50 06/08/23 10:50 Labs: Abnormal Lab Results - Last 24 Hours (Table) 06/08/23 06/08/23 06/08/23 Range/Units 10:50 10:50 11:33 WBC 16.0 H (3.8-10.6) k/uL Neutrophils # 11.2 H (1.3-7.7) k/uL Monocytes # 1.2 H (0-1.0) k/uL Potassium 3.3 L (3.5-5.1) mmol/L Chloride 96 L (98-107) mmol/L Carbon Dioxide 35 H (22-30) mmol/L BUN 26 H (7-17) mg/dL Glucose 182 H (74-99) mg/dL POC Glucose (mg/dL) 240 H (70-110) mg/dL 06/08/23 Range/Units 19:45 WBC (3.8-10.6) k/uL Neutrophils # (1.3-7.7) k/uL Monocytes # (0-1.0) k/uL Potassium (3.5-5.1) mmol/L Chloride (98-107) mmol/L Carbon Dioxide (22-30) mmol/L BUN (7-17) mg/dL Glucose (74-99) mg/dL POC Glucose (mg/dL) 191 H (70-110) mg/dL Microbiology - Last 24 Hours (Table) 06/06/23 10:24 Blood Culture - Preliminary Blood Assessment and Plan Assessment: 1. Increased shortness breath and lower extremity swelling 2. acute diastolic CHF exacerbation. BNP elevated at 1300. 2-D echo ordered per cardiology service is consulted patient started on IV Lasix 3. Lower extremity cellulitis. Patient started on IV Kefzol 4. Recent diagnosis of atrial fibrillation patient retained on anticoagulation 5. History of COPD 6. History of insulin-dependent diabetes mellitus 7. Ongoing nicotine dependence patient educated greater than 3 minutes on complete smoking cessation. Nicotine patch will be ordered 8. History of essential hypertension 9. History of hyperlipidemia 10. History of depression 11. History of coronary artery disease 12. History of periphera arterial disease 13. Worsening cardiomyopathy DVT prophylaxis eliquis. GI prophylaxis Protonix Cardiology service is consulted Patient retained on IV bumex Continue IV antibiotics for cellulitis Status post cardiac catheterization 06/08/2023 Home meds resumed Repeat labs ordered
[2023-06-09 11:43] LABS: Glucose,Whole Blood 247 mg/dL (70-110)
[2023-06-09 11:45] LABS: Basophils % (A) 0 %; Eosinophils # (A) 0.3 k/uL (0-0.7); Eosinophils % (A) 3 %; HCT 39.6 % (34.0-46.0); HGB 12.4 gm/dL (11.4-16.0); Hypochromasia Moderate; Lymphocytes # (A) 2.1 k/uL (1.0-4.8); Lymphocytes % (A) 19 %; MCH 29.3 pg (25.0-35.0); MCHC 31.3 g/dL (31.0-37.0); MCV 93.6 fL (80.0-100.0); Mean Platelet Volume 7.7; Monocytes # (A) 0.6 k/uL (0-1.0); Monocytes % (A) 6 %; Neutrophils # (A) 7.6 k/uL (1.3-7.7); Neutrophils % (A) 70 %; Platelet Count 256 k/uL (150-450); RBC 4.23 m/uL (3.80-5.40); RDW 13.6 % (11.5-15.5); WBC 10.9 k/uL (3.8-10.6)
[2023-06-09 12:27] LABS: ALT 12 U/L (4-34); AST 27 U/L (14-36); African American GFR (CKD) >90 (>60 ml/min/1.73 sqM); Albumin 3.5 g/dL (3.5-5.0); Alkaline Phosphatase 77 U/L (38-126); Anion Gap 12 mmol/L; Blood Urea Nitrogen 25 mg/dL (7-17); Calcium 8.4 mg/dL (8.4-10.2); Carbon Dioxide 28 mmol/L (22-30); Chloride 100 mmol/L (98-107); Glucose 172 mg/dL (74-99); Non-African American GFR(CKD) 83 (>60 ml/min/1.73 sqM); Potassium 3.4 mmol/L (3.5-5.1); Sodium 140 mmol/L (137-145); Total Bilirubin 0.4 mg/dL (0.2-1.3); Total Protein 6.6 g/dL (6.3-8.2)
[2023-06-09] MEDS ORDERED: POTASSIUM CHLORIDE ER 10 MEQ TAB.ER.PRT PO STA (13:22)
--- NOTE | 2023-06-09 14:35 | P.PN ---
Subjective Progress Note Date: 06/08/23 Principal diagnosis: Reason for follow-up is bilateral lower extremity cellulitis Patient is a 68-year-old female with a past medical history significant for coronary disease COPD diabetes mellitus hypertension hyperlipidemia patient presenting to the hospital for evaluation of increasing shortness of breath and bilateral lower extremity swelling with concern for cell ulitis On today's evaluation that is 06/08/2023 the patient continues to be afebrile, the patient is breathing comfortably on room air and denies any shortness of breath, the patient denies chest pain or cough, patient denies abdominal pain, no nausea/vomiting or diarrhea., The patient discomfort to bilateral lower extremity as well as swelling has decreased Patient did have a white count of 16.0, creatinine 0.85 Objective - Vital Signs Vital signs: Vital Signs Temp 97.7 F 06/08/23 07:54 Pulse 100 06/08/23 11:57 Resp 18 06/08/23 12:48 BP 148/81 06/08/23 12:48 Pulse Ox 100 06/08/23 12:48 FiO2 Intake & Output 06/07/23 06/08/23 06/08/23 18:59 06:59 18:59 Intake Total 510 444 540 Output Total 1000 550 Balance -490 444 -10 Weight 91.1 kg Intake: IV 400 10 Invasive Line 2 10 Intake, IV Titration 50 Amount ceFAZolin 2 gm In Sodium 50 Chloride 0.9% 50 ml @ 100 mls/hr IVPB Q8HR [facility] Rx# :[id number] Oral 110 444 480 Output: Urine 1000 550 Other: Voiding Method External Catheter Toilet Toilet # Voids 3 2 - Exam GENERAL DESCRIPTION: An elderly female up in bed in no distress RESPIRATORY SYSTEM: Unlabored breathing , decreased breath sound the bases HEART: S1 S2 regular rate and rhythm , ABDOMEN: Soft , no tenderness EXTREMITIES: Bilateral lower extremity swelling redness has decreased no drainage - Labs CBC & Chem 7: 06/09/23 10:20 06/09/23 10:20 Labs: Abnormal Lab Results - Last 24 Hours (Table) 06/07/23 06/07/23 06/08/23 Range/Units 16:14 20:04 02:07 WBC (3.8-10.6) k/uL Neutrophils # (1.3-7.7) k/uL Monocytes # (0-1.0) k/uL Potassium (3.5-5.1) mmol/L Chloride (98-107) mmol/L Carbon Dioxide (22-30) mmol/L BUN (7-17) mg/dL Glucose (74-99) mg/dL POC Glucose (mg/dL) 257 H 353 H 251 H (70-110) mg/dL 06/08/23 06/08/23 06/08/23 Range/Units 06:05 10:50 10:50 WBC 16.0 H (3.8-10.6) k/uL Neutrophils # 11.2 H (1.3-7.7) k/uL Monocytes # 1.2 H (0-1.0) k/uL Potassium 3.3 L (3.5-5.1) mmol/L Chloride 96 L (98-107) mmol/L Carbon Dioxide 35 H (22-30) mmol/L BUN 26 H (7-17) mg/dL Glucose 182 H (74-99) mg/dL POC Glucose (mg/dL) 255 H (70-110) mg/dL 06/08/23 Range/Units 11:33 WBC (3.8-10.6) k/uL Neutrophils # (1.3-7.7) k/uL Monocytes # (0-1.0) k/uL Potassium (3.5-5.1) mmol/L Chloride (98-107) mmol/L Carbon Dioxide (22-30) mmol/L BUN (7-17) mg/dL Glucose (74-99) mg/dL POC Glucose (mg/dL) 240 H (70-110) mg/dL Microbiology - Last 24 Hours (Table) 06/06/23 10:24 Blood Culture - Preliminary Blood Assessment and Plan (1) Bilateral lower leg cellulitis Current Visit: Yes Status: Acute Code(s): L03.116 - CELLULITIS OF LEFT LOWER LIMB; L03.115 - CELLULITIS OF RIGHT LOWER LIMB SNOMED Code(s): 077610219 Plan: 1patient was in the hospital with increasing shortness of breath increasing swelling bilateral resting likely due to mild fluid overload patient did have mild erythema to the right lower extremity could be related to the fluid overload underlying Cellulitis less likely but not entirely excluded 2-patient to continue with moisturizing cream to the dry scaly skin area followed by David wrap from just bilateral to below the knee 3-patient did have slight worsening of the white count to monitor close, patient to continue with the cefazolin and monitor clinical course closely Dictation was produced using [employer] dictation software. please excuse any grammatical, word or spelling errors. Time with Patient: Less than 30
--- NOTE | 2023-06-09 14:37 | P.PN ---
Subjective Progress Note Date: 06/09/23 Principal diagnosis: Reason for follow-up is bilateral lower extremity cellulitis Patient is a 68-year-old female with a past medical history significant for coronary disease COPD diabetes mellitus hypertension hyperlipidemia patient presenting to the hospital for evaluation of increasing shortness of breath and bilateral lower extremity swelling with concern for cell ulitis On today's evaluation that is 06/09/2023 the patient denies any fever or any chills, the patient denies shortness of breath chest pain or cough, the patient nausea/vomiting or diarrhea and no abdominal pain. bilateral lower extremity discomfort as well as swelling has decreased in intensity Patient did have a white count is down to 10.9, creatinine 0.75 Objective - Vital Signs Vital signs: Vital Signs Temp 97.6 F 06/09/23 07:50 Pulse 86 06/09/23 12:13 Resp 16 06/09/23 07:50 BP 140/91 06/09/23 07:50 Pulse Ox 95 06/09/23 08:32 FiO2 Intake & Output 06/08/23 06/09/23 06/09/23 18:59 06:59 18:59 Intake Total 720 30 530 Output Total 550 800 Balance 170 -770 530 Weight 91.1 kg 92 kg Intake: IV 20 30 10 Invasive Line 2 20 20 Invasive Line 3 10 10 Intake, IV Titration 100 Amount ceFAZolin 2 gm In Sodium 100 Chloride 0.9% 50 ml @ 100 mls/hr IVPB Q8HR [facility] Rx# :[id number] Oral 600 520 Output: Urine 550 800 Other: Voiding Method Toilet Toilet Toilet # Voids 2 3 1 - Exam GENERAL DESCRIPTION: An elderly female up in bed in no distress RESPIRATORY SYSTEM: Unlabored breathing , decreased breath sound the bases HEART: S1 S2 regular rate and rhythm , ABDOMEN: Soft , no tenderness EXTREMITIES: Bilateral lower extremity swelling redness has decreased no drainage - Labs CBC & Chem 7: 06/09/23 10:20 06/09/23 10:20 Labs: Abnormal Lab Results - Last 24 Hours (Table) 06/08/23 06/09/23 06/09/23 Range/Units 19:45 10:20 10:20 WBC 10.9 H (3.8-10.6) k/uL Potassium 3.4 L (3.5-5.1) mmol/L BUN 25 H (7-17) mg/dL Glucose 172 H (74-99) mg/dL POC Glucose (mg/dL) 191 H (70-110) mg/dL 06/09/23 Range/Units 11:41 WBC (3.8-10.6) k/uL Potassium (3.5-5.1) mmol/L BUN (7-17) mg/dL Glucose (74-99) mg/dL POC Glucose (mg/dL) 247 H (70-110) mg/dL Microbiology - Last 24 Hours (Table) 06/06/23 10:24 Blood Culture - Preliminary Blood Assessment and Plan (1) Bilateral lower leg cellulitis Current Visit: Yes Status: Acute Code(s): L03.116 - CELLULITIS OF LEFT LOWER LIMB; L03.115 - CELLULITIS OF RIGHT LOWER LIMB SNOMED Code(s): 332394840 Plan: 1patient was in the hospital with increasing shortness of breath increasing swelling bilateral resting likely due to mild fluid overload patient did have mild erythema to the right lower extremity could be related to the fluid overload underlying Cellulitis less likely but not entirely excluded 2-patient to continue with moisturizing cream to the dry scaly skin area followed by David wrap from just bilateral to below the knee 3-patient did have improvement in her white count almost normalized, patient to continue with the cefazolin and plan to finish therapy with oral Keflex Dictation was produced using [employer] dictation software. please excuse any grammatical, word or spelling errors. Time with Patient: Less than 30
[2023-06-09 16:27] LABS: Glucose,Whole Blood 133 mg/dL (70-110)
[2023-06-09] MEDS: HYDROcodone/APAP 7.5-325MG 1 EACH TAB PO PRN ×2 (16:33→23:41)
--- NOTE | 2023-06-09 19:47 | P.PN ---
Subjective Progress Note Date: 06/09/23 Progress note: Patient is doing well from cardiac vessel standpoint. She is hemodynamically stable. She denies any active chest pain chest pressure. She does not have any lower extremity edema. She appears euvolemic. BP 140/91, heart rate 80, Patient did had elevated LV filling pressures and wedge pressures along with pulmonary hypertension suggestive of group II pulmonary hypertension. She had mild increased transfer reviewed gradient which recorder due to some component of group 1 pulmonary hypertension, # lan unit. Patient appears euvolemic. Since last cath she got IV Lasix 40 mg twice a day with good urine output. I will discharge from by mouth Bumex 1 mg twice a day. With continued until she follows up with me in clinic. Patient is very eager to go home. His mild leukocytosis which is most likely reactive from steroid PHYSICAL EXAM: VITAL SIGNS: Reviewed. GENERAL: Well-developed in no acute distress. NECK: Supple. No JVD or thyromegaly LUNGS: Respirations even and unlabored. Lungs essentially clear to auscultation bilaterally, diminished. HEART: Irregular rate and rhythm. S1 and S2 heard. EXTREMITIES: 1+ pitting edema ASSESSMENT: Acute HFrEF exacerbation, EF 40-45%, currently euvolemic Group 2 pulmonary hypertension, with elevated wedge pressures Acute COPD exacerbation, resolving Worsening cardiomyopathy with ejection of EF during this admission. Frequent monomorphic PVCs CAD status post PCI to LCx 2 in 2013 Type 2 diabetes Essential hypertension Former smoker recently stopped smoking Paroxysmal atrial fibrillation Morbid obesity PLAN: Metoprolol 100 mg twice a day Continue Bumex 1 mg by mouth twice a day Continue Farxiga, increased Aldactone to 25 mg daily, lisinopril 10 mg, Continue aspirin, Eliquis, atorvastatin PT and OT evaluation. Consider rehab evaluation. 6 minute walk test and home O2 evaluation prior to DC please Outpatient follow-up with Dr. Larsen within next 1 week Objective - Vital Signs Vital signs: Vital Signs Temp 98.9 F 06/09/23 15:37 Pulse 86 06/09/23 15:59 Resp 18 06/09/23 15:37 BP 114/78 06/09/23 15:37 Pulse Ox 95 06/09/23 15:37 FiO2 Intake & Output 06/09/23 06/09/23 06/10/23 06:59 18:59 06:59 Intake Total 30 650 Output Total 800 Balance -770 650 Weight 92 kg Intake: IV 30 10 Invasive Line 2 20 Invasive Line 3 10 10 Oral 640 Output: Urine 800 Other: Voiding Method Toilet Toilet # Voids 3 3 - Labs CBC & Chem 7: 06/09/23 10:20 06/09/23 10:20 Labs: Abnormal Lab Results - Last 24 Hours (Table) 06/08/23 06/09/23 06/09/23 Range/Units 19:45 10:20 10:20 WBC 10.9 H (3.8-10.6) k/uL Potassium 3.4 L (3.5-5.1) mmol/L BUN 25 H (7-17) mg/dL Glucose 172 H (74-99) mg/dL POC Glucose (mg/dL) 191 H (70-110) mg/dL 06/09/23 06/09/23 Range/Units 11:41 16:25 WBC (3.8-10.6) k/uL Potassium (3.5-5.1) mmol/L BUN (7-17) mg/dL Glucose (74-99) mg/dL POC Glucose (mg/dL) 247 H 133 H (70-110) mg/dL Microbiology - Last 24 Hours (Table) 06/06/23 10:24 Blood Culture - Preliminary Blood
[2023-06-09 21:10] LABS: Glucose,Whole Blood 208 mg/dL (70-110)
[2023-06-09] MEDS: ATORVASTATIN 40 MG TAB PO SCH (21:30)
[2023-06-09] MEDS: VILAZODONE HCL 40 MG PO SCH (23:35)
[2023-06-10 02:55] LABS: Glucose,Whole Blood 71 mg/dL (70-110)
[2023-06-10] MEDS: SODIUM CHLORIDE 0.9% 1,000 ML in EMPTY BAG 1 BAG IV SCH ×2 (03:43→15:31)
[2023-06-10] MEDS: INSULIN ASPART (NovoLOG) 100 UNIT/ML VIAL SQ SCH ×2 (06:25→13:01)
[2023-06-10 06:26] LABS: Glucose,Whole Blood 100 mg/dL (70-110)
[2023-06-10] MEDS: INSULIN DETEMIR (LEVEMIR) 100 UNIT/ML SYR SQ SCH (06:58)
[2023-06-10] MEDS: NICOTINE 14MG/24HR PATCH TRANSDERM SCH (08:15)
[2023-06-10] MEDS: METOPROLOL TARTRATE 50 MG TAB PO SCH (08:16)
[2023-06-10] MEDS: OXYBUTYNIN 10 MG TAB.ER.24 PO SCH (08:16)
[2023-06-10] MEDS: lisinopriL 10 MG TAB PO SCH (08:16)
[2023-06-10] MEDS: PANTOPRAZOLE 40 MG TABLET PO SCH (08:16)
[2023-06-10] MEDS: amLODIPine 5 MG TAB PO SCH (08:16)
[2023-06-10] MEDS: DAPAGLIFLOZIN PROPANEDIOL 10 MG TABLET PO SCH (08:16)
[2023-06-10] MEDS: ASPIRIN 81 MG PO SCH (08:16)
[2023-06-10] MEDS: APIXABAN 5 MG TAB PO SCH (08:16)
[2023-06-10] MEDS: BUMETANIDE 0.25 MG/ML 4 ML VIAL IV SCH (08:16)
[2023-06-10] MEDS: ZINC OXIDE PASTE (Z-GUARD) 1 APPLIC TOPICAL SCH (08:17)
[2023-06-10] MEDS: ARIPiprazole 10 MG TAB PO SCH (08:17)
[2023-06-10] MEDS: IPRATROPIUM-ALBUTEROL 3 ML NEB INHALATION SCH ×3 (08:19→15:44)
[2023-06-10] MEDS ORDERED: SPIRONOLACTONE 25 MG TAB PO SCH (09:00)
[2023-06-10] MEDS ORDERED: BUMETANIDE 0.25 MG/ML 4 ML VIAL IVP SCH (09:57)
[2023-06-10 11:31] LABS: Glucose,Whole Blood 262 mg/dL (70-110)
[2023-06-10 12:48] VITALS: BP 139/65; RESP 16; TEMP 98.2
--- NOTE | 2023-06-10 14:30 | P.PN ---
Subjective Progress Note Date: 06/10/23 Progress note: Patient is doing well from cardiac vessel standpoint. She is hemodynamically stable. She denies any active chest pain chest pressure. She does not have any lower extremity edema. She appears euvolemic. BP 140/91, heart rate 80, Patient did had elevated LV filling pressures and wedge pressures along with pulmonary hypertension suggestive of group II pulmonary hypertension. She had mild increased transfer reviewed gradient which recorder due to some component of group 1 pulmonary hypertension, # lan unit. Patient appears euvolemic. Since last cath she got IV Lasix 40 mg twice a day with good urine output. I will discharge from by mouth Bumex 1 mg twice a day. With continued until she follows up with me in clinic. Patient is very eager to go home. His mild leukocytosis which is most likely reactive from steroid 06/10 Patient states her breathing is better today. Lower extremity edema is improved. She is on amlodipine and IV Bumex. Blood pressure 139/65, heart rate 82, pulse ox 98% on 2 L nasal cannula. PHYSICAL EXAM: VITAL SIGNS: Reviewed. GENERAL: Well-developed in no acute distress. NECK: Supple. No JVD or thyromegaly LUNGS: Respirations even and unlabored. Lungs essentially clear to auscultation bilaterally, diminished. HEART: Irregular rate and rhythm. S1 and S2 heard. EXTREMITIES: Trace pitting edema ASSESSMENT: Acute HFrEF exacerbation, EF 40-45%, currently euvolemic Group 2 pulmonary hypertension, with elevated wedge pressures Acute COPD exacerbation, resolving Worsening cardiomyopathy with ejection of EF during this admission. Frequent monomorphic PVCs CAD status post PCI to LCx 2 in 2013 Type 2 diabetes Essential hypertension Former smoker recently stopped smoking Paroxysmal atrial fibrillation Morbid obesity PLAN: Metoprolol 100 mg twice a day Continue Bumex 1 mg by mouth twice a day Continue Farxiga, increased Aldactone to 25 mg daily, lisinopril 10 mg, Continue aspirin, Eliquis, atorvastatin Patient is cleared from cardiology for discharge home either today or tomorrow. Will order repeat blood work in the morning. Outpatient follow-up with Dr. Larsen within next 1 week Nurse practitioner note has been reviewed, I agree with the documented findings and plan of care. Patient was seen and examined. Objective - Vital Signs Vital signs: Vital Signs Temp 97.7 F 06/10/23 02:52 Pulse 87 06/10/23 08:34 Resp 18 06/10/23 02:52 BP 113/69 06/10/23 02:52 Pulse Ox 94 L 06/10/23 02:52 FiO2 Intake & Output 06/09/23 06/10/23 06/10/23 18:59 06:59 18:59 Intake Total 650 10 598 Balance 650 10 598 Weight 92.9 kg Intake: IV 10 10 Invasive Line 3 10 10 Oral 640 598 Other: Voiding Method Toilet Toilet # Voids 3 4 - Labs CBC & Chem 7: 06/09/23 10:20 06/09/23 10:20 Labs: Abnormal Lab Results - Last 24 Hours (Table) 06/09/23 06/09/23 06/09/23 Range/Units 10:20 10:20 11:41 WBC 10.9 H (3.8-10.6) k/uL Potassium 3.4 L (3.5-5.1) mmol/L BUN 25 H (7-17) mg/dL Glucose 172 H (74-99) mg/dL POC Glucose (mg/dL) 247 H (70-110) mg/dL 06/09/23 06/09/23 Range/Units 16:25 21:08 WBC (3.8-10.6) k/uL Potassium (3.5-5.1) mmol/L BUN (7-17) mg/dL Glucose (74-99) mg/dL POC Glucose (mg/dL) 133 H 208 H (70-110) mg/dL Microbiology - Last 24 Hours (Table) 06/06/23 10:24 Blood Culture - Preliminary Blood
--- NOTE | 2023-06-10 15:32 | CDI ---
Documentation Clarification Form Date: 06/10/2023 02:55:06 PM From: Sharon Cummings RN, CCDS Admit Date: 06/04/2023 02:16:00 AM Patient Name: Marina Radford Visit Number: [id number] Discharge Date: ATTENTION: The Clinical Documentation Specialists (CDI) and [facility] Coding Staff appreciate your assistance in clarifying documentation. Please respond to the clarification below the line at the bottom and electronically sign. The CDI & [facility] Coding staff will review the response and follow-up if needed. Please note: Queries are made part of the Legal Health Record. If you have any questions, please contact the author of this message via ITS. Dr. Jessica Zavala Conflicting documentation has been found in the medical record. As attending physician, please provide clarification. 06/07 Cardiology progress: An echocardiogram on this visit showed an EF of around 25-30% and signs of pulmonary hypertension with elevated RVSP. Prior echo from 2 months ago showed an EF of 40% with global hypokinesia. 06/10 Cardiology progress note: Acute HFrEF exacerbation, EF 40-45%, currently euvolemic 06/08 Attending progress notes and subsequent documentation: acute diastolic CHF exacerbation. BNP elevated at 1300. 2-D echo ordered per cardiology service is consulted patient started on IV Lasix 06/04 Echocardiogram: Left ventricular ejection fraction is estimated at 25-30% History/Risk Factors: Coronary Artery Disease, COPD, Diabetes Mellitus, GERD/Reflux, Hyperlipidemia, Hypertension Clinical Indicators:68-year-old female presents to the emergency department with chief complaint of lower extremity swelling with associated shortness of breath. 151/64 112 24 98.4 92 RA [id number] Treatment: Cardiac/Telemetry monitoring Demadex 20 mg PO Daily 06/04 -06/07 Aldactone 25 MG PO Daily 06/10 Lopressor 75 MG PO BID 06/05-06/08 Lasix 40 MG IV Once 06/04-06/04 Bumex 1 MG IV Q 12 06/07-06/10 change to PO BID Please clarify which diagnosis is most appropriate: [ x] Acute HFrEF exacerbation, EF 40-45%, currently euvolemic. Worsening cardiomyopathy with ejection of EF during this admission. [ ] Acute diastolic CHF exacerbation [ ] Other (please specify) [ ] Unable to determine (Template Last Revised: September 2020) MTDD
[2023-06-10 16:00] VITALS: PULSE 90
[2023-06-10] MEDS ORDERED: BUMETANIDE 1 MG TAB PO SCH (16:00)
--- NOTE | 2023-06-12 11:02 | P.DS ---
Providers Date of admission: 06/04/23 02:16 Expected date of discharge: 06/10/23 Attending physician: Jessica Zavala Consults: 06/04/23 02:15 Consult Physician Routine Consulting Provider: [facility] Consult Reason/Comments: CHF, elevated trop Do you want consulting provider notified?: Yes, Notify in am 06/06/23 09:24 Consult Physician Routine Consulting Provider: Silva Milton Consult Reason/Comments: LE cellulitis Do you want consulting provider notified?: Yes Primary care physician: Jessica Lucas [facility] Course: Discharge diagnosis 1. Increased shortness breath and lower extremity swelling 2. acute diastolic CHF exacerbation. BNP elevated at 1300. 2-D echo ordered per cardiology service is consulted patient started on IV Lasix 3. Lower extremity cellulitis. Patient started on IV Kefzol 4. Recent diagnosis of atrial fibrillation patient retained on anticoagulation 5. History of COPD 6. History of insulin-dependent diabetes mellitus 7. Ongoing nicotine dependence patient educated greater than 3 minutes on complete smoking cessation. Nicotine patch will be ordered 8. History of essential hypertension 9. History of hyperlipidemia 10. History of depression 11. History of coronary artery disease 12. History of periphera arterial disease 13. Worsening cardiomyopathy Hospital course Marina Radford. is a 68-year-old female patient presented with concerns of increased shortness of breath and lower extremity swelling. Patient reports this has been getting worse with the past 5 days. Patient has past medical history of CAD, COPD, diabetes mellitus, hyperlipidemia, hypertension, brought back pain, type 2 diabetes mellitus, current every day smoker, recent diagnosis of atrial fibrillation maintained on anticoagulation. Chest x-ray completed in ER showing no acute cardiopulmonary disease COPD changes. BNP elevated at 1360. Troponin 0.034, 0.036. At this time patient will be admitted patient started on IV Lasix. Upon exam bilateral legs show signs of cellulitis will start patient on IV Kefzol. Home meds resumed cardiology services consulted 2-D echo ordered. Repeat labs ordered. She currently on comfortably in bed reports improvement with administration of Lasix. Patient denies chest pain. Patient denies nausea vomiting or diarrhea. Patient denies any urinary burning or frequency On 06/05/2023 patient reports some improvement with shortness of breath. Patient started on Lopressor per cardiology for rate control patient also switched from IV Lasix to Demadex. Patient denies chest pain. Patient remains on IV antibiotics for lower extremity cellulitis. Patient denies nausea vomiting or diarrhea. Patient denies any urinary burning or frequency. On 06/06/2023 patient was seen and examined on the telemetry floor she is alert and oriented 3 in no apparent distress reporting improvement in her shortness of breath and lower extremity swelling, there is no fever or chills no headache or dizziness no chest pain no cough no nausea or vomiting no abdominal pain no diarrhea no blood in the stools no burning with urination no frequency or urgency and no hematuria. On 06/07/2023 patient is alert and oriented 3. Patient had episode of shortness breath this a.m. chest x-ray was ordered showing cardiomegaly and mild pulmonary vascular congestion correlate with BMP for congestive heart failure. Infectious disease following patient remains on IV Kefzol for lower infection cellulitis, plans for cardiac catheterization today per cardiology. On 06/08/2023 patient was seen and examined on the telemetry floor, she is alert and oriented 3 in no apparent distress, she is complaining of generalized weakness, and shortness of breath with activity, otherwise she denies any complaints there is no fever or chills no headache or dizziness no chest pain no nausea or vomiting no abdominal pain no diarrhea no blood in the stools no burning with urination no frequency or urgency and no hematuria. Cardiac catheterization report reviewed and discussed with patient. Patient remains on IV antibiotic for bilateral lower extremity cellulitis. Awaiting further input from cardiology and infectious disease. On 06/09/2023 patient is alert and oriented 3. Patient reports improvement with shortness of breath. Patient remains on IV Bumex. Cardiology following. Patient will likely home oxygen. Patient denies chest pain. Patient denies nausea vomiting or diarrhea. Patient denies any urinary burning or frequency On 06/10/2023 patient is alert and oriented 3. Patient will be DC'd home medications adjusted patient to follow-up with PCP consulting providers for further management Patient Condition at Discharge: Stable Plan - Discharge Summary Discharge Rx Participant: No New Discharge Prescriptions: New Aspirin 81 mg PO DAILY #30 tab Dapagliflozin Propanediol [Farxiga] 10 mg PO DAILY #30 tab Metoprolol Tartrate [Lopressor] 100 mg PO BID 3 Days #60 tab Cephalexin [Keflex] 500 mg PO Q6HR 10 Days #40 cap Spironolactone [Aldactone] 12.5 mg PO DAILY #30 tab Bumetanide [Bumex] 1 mg PO BID #30 tablet lisinopriL [Zestril] 10 mg PO DAILY #30 tab Nicotine 14Mg/24Hr Patch [Habitrol] 1 patch TRANSDERM DAILY 30 Days #30 patch Continue Oxybutynin ER [Ditropan XL] 10 mg PO DAILY metFORMIN HCL 1,000 mg PO BID Insulin Glargine,Hum.rec.anlog [Toujeo Max Solostar] 104 units SQ DAILY Atorvastatin [Lipitor] 40 mg PO HS ARIPiprazole [Abilify] 10 mg PO DAILY Apixaban [Eliquis] 5 mg PO BID tab amLODIPine [Norvasc] 5 mg PO DAILY Vilazodone HCl [Viibryd] 40 mg PO HS Ipratropium-Albuterol Nebulize [Duoneb 0.5 mg-3 mg/3 ml Soln] 3 ml INHALATION RT-QID each Albuterol Sulfate [Albuterol Sulfate Hfa] 2 puff PO RT-Q6H PRN PRN Reason: Shortness Of Breath Discontinued Pantoprazole [Protonix] 40 mg PO DAILY Potassium Chloride [Klor-Con 10 ER] 10 meq PO DAILY Naloxone HCl [Narcan] 4 mg NASAL DIRECTED PRN PRN Reason: overdose lisinopriL [Zestril] 20 mg PO BID tab HYDROcodone/APAP 7.5-325MG [[place] 7.5-325] 1 tab PO Q8H PRN PRN Reason: Pain Metoprolol Tartrate [Lopressor] 50 mg PO BID Furosemide [Lasix] 20 mg PO DAILY Discharge Medication List ARIPiprazole [Abilify] 10 mg PO DAILY 03/17/23 [History] Atorvastatin [Lipitor] 40 mg PO HS 03/17/23 [History] Insulin Glargine,Hum.rec.anlog [Toujeo Max Solostar] 104 units SQ DAILY 03/17/23 [History] Oxybutynin ER [Ditropan XL] 10 mg PO DAILY 03/17/23 [History] Vilazodone HCl [Viibryd] 40 mg PO HS 03/17/23 [History] metFORMIN HCL 1,000 mg PO BID 03/17/23 [History] Apixaban [Eliquis] 5 mg PO BID tab 03/23/23 [Rx] Ipratropium-Albuterol Nebulize [Duoneb 0.5 mg-3 mg/3 ml Soln] 3 ml INHALATION RT-QID each 03/23/23 [Rx] Albuterol Sulfate [Albuterol Sulfate Hfa] 2 puff PO RT-Q6H PRN 06/04/23 [History] amLODIPine [Norvasc] 5 mg PO DAILY 06/04/23 [History] Aspirin 81 mg PO DAILY #30 tab 06/08/23 [Rx] Bumetanide [Bumex] 1 mg PO BID #30 tablet 06/08/23 [Rx] Dapagliflozin Propanediol [Farxiga] 10 mg PO DAILY #30 tab 06/08/23 [Rx] Metoprolol Tartrate [Lopressor] 100 mg PO BID 3 Days #60 tab 06/08/23 [Rx] Spironolactone [Aldactone] 12.5 mg PO DAILY #30 tab 06/08/23 [Rx] lisinopriL [Zestril] 10 mg PO DAILY #30 tab 06/08/23 [Rx] Cephalexin [Keflex] 500 mg PO Q6HR 10 Days #40 cap 06/10/23 [Rx] Nicotine 14Mg/24Hr Patch [Habitrol] 1 patch TRANSDERM DAILY 30 Days #30 patch 06/10/23 [Rx] Follow up Appointment(s)/Referral(s): Jeffery Larsen MD [Medical Doctor] - 1 Week [facility] [NON-STAFF] - Jessica Zavala MD [Primary Care Provider] - 06/18/23 1:30 pm Christine Cueva MD [REFERRING] - 1-2 days Ambulatory/Diagnostic Orders: Basic Metabolic Panel [LAB.AMB] Location: None Selected Magnesium [LAB.AMB] Location: None Selected Patient Instructions/Handouts: Heart Failure (DC), Cellulitis (ED) Discharge Disposition: HOME SELF-CARE
--- NOTE | 2023-06-17 18:13 | P.PN ---
Subjective Progress Note Date: 06/10/23 Principal diagnosis: Reason for follow-up is bilateral lower extremity cellulitis Patient is a 68-year-old female with a past medical history significant for coronary disease COPD diabetes mellitus hypertension hyperlipidemia patient presenting to the hospital for evaluation of increasing shortness of breath and bilateral lower extremity swelling with concern for cell ulitis On today's evaluation that is 06/10/2023 the patient remains to be afebrile, the patient is breathing comfortably on 2 L nasal cannula oxygen and denies shortness of breath chest pain or cough, the patient nausea/vomiting or diarrhea and no abdominal pain. bilateral lower extremity discomfort as well as swelling has decreased in intensity Patient did have a white count is down to 10.9, creatinine 0.75 as of 06/09/2023 Objective - Vital Signs Vital signs: Vital Signs Temp 98.2 F 06/10/23 12:00 Pulse 90 06/10/23 15:54 Resp 16 06/10/23 13:33 BP 139/65 06/10/23 12:00 Pulse Ox 98 06/10/23 12:00 FiO2 Intake & Output 06/10/23 06/10/23 06/11/23 06:59 18:59 06:59 Intake Total 10 1606 Balance 10 1606 Weight 92.9 kg Intake: IV 10 Invasive Line 3 10 Intake, IV Titration 50 Amount ceFAZolin 2 gm In Sodium 50 Chloride 0.9% 50 ml @ 100 mls/hr IVPB Q8HR [facility] Rx# :[id number] Oral 1556 Other: Voiding Method Toilet Toilet # Voids 4 - Exam GENERAL DESCRIPTION: An elderly female up in bed in no distress RESPIRATORY SYSTEM: Unlabored breathing , decreased breath sound the bases HEART: S1 S2 regular rate and rhythm , ABDOMEN: Soft , no tenderness EXTREMITIES: Bilateral lower extremity swelling redness has decreased no drainage - Labs CBC & Chem 7: 06/09/23 10:20 06/09/23 10:20 Labs: Abnormal Lab Results - Last 24 Hours (Table) 06/09/23 06/10/23 Range/Units 21:08 11:30 POC Glucose (mg/dL) 208 H 262 H (70-110) mg/dL Microbiology - Last 24 Hours (Table) 06/06/23 10:24 Blood Culture - Preliminary Blood Assessment and Plan (1) Bilateral lower leg cellulitis Status: Acute Code(s): L03.116 - CELLULITIS OF LEFT LOWER LIMB; L03.115 - CELLULITIS OF RIGHT LOWER LIMB SNOMED Code(s): 481593601 Plan: 1patient was in the hospital with increasing shortness of breath increasing swelling bilateral resting likely due to mild fluid overload patient did have mild erythema to the right lower extremity could be related to the fluid overload underlying Cellulitis less likely but not entirely excluded 2-patient to continue with moisturizing cream to the dry scaly skin area followed by David wrap from just bilateral to below the knee 3-patient has shown clinical improvement and the patient white count almost normalized, patient to finish therapy with oral Keflex and close outpatient follow-up Dictation was produced using [email or web address] dictation software. please excuse any grammatical, word or spelling errors. Time with Patient: Less than 30
== END 2023-06-10 17:20 | disposition home or self-care (01) | DRG 286 ==
LOC: EC 16:03 → 3SCARD 06-04 02:16
PROVIDERS: ADMIT Internal Medicine; ATTEND Internal Medicine
PROC: B2111ZZ Fluoroscopy of Multiple Coronary Arteries using Low Osmolar Contrast (ICD-10-PCS; 2023-06-07)
PROC: 4A023N7 Measurement of Cardiac Sampling and Pressure, Left Heart, Percutaneous Approach (ICD-10-PCS; principal; 2023-06-07 07:30)
DX: I11.0 Hypertensive heart disease with heart failure (principal); I50.23 Acute on chronic systolic (congestive) heart failure; J44.1 Chronic obstructive pulmonary disease with (acute) exacerbation; L03.115 Cellulitis of right lower limb; L03.116 Cellulitis of left lower limb; I42.9 Cardiomyopathy, unspecified; I25.10 Atherosclerotic heart disease of native coronary artery without angina pectoris; I27.20 Pulmonary hypertension, unspecified; E78.5 Hyperlipidemia, unspecified; E11.9 Type 2 diabetes mellitus without complications; E66.9 Obesity, unspecified; Z68.36 Body mass index [BMI] 36.0-36.9, adult; E66.01 Morbid (severe) obesity due to excess calories; I27.22 Pulmonary hypertension due to left heart disease; I27.21 Secondary pulmonary arterial hypertension; I48.0 Paroxysmal atrial fibrillation; Z79.01 Long term (current) use of anticoagulants
CPT/HCPCS: 36415; 71045; 71046; 80053; 82810; 83036; 83880; 84484; 85018; 85025; 85610; 85730; 87040; 93005; 93308; 93460; 94640; 94760; 96365; 96366; 96375; 96376; 99285

== ENCOUNTER 2024-02-18 05:31 | Inpatient (IN) | payer MEDICARE, OTHER ==
[~2024-02-18 05:31] MED LIST: methylPREDNISolone SOD SUCCI 125 MG/2 ML VIAL ONE
[2024-02-18] MEDS ORDERED: methylPREDNISolone SOD SUCCI 40 MG/ML 1 ML VIAL ONE ×3 (05:36→21:49)
[2024-02-18] MEDS ORDERED: FUROSEMIDE 10 MG/ML 4 ML VIAL ONE (05:36)
[2024-02-18] MEDS ORDERED: HEPARIN SODIUM 1,000 UN/ML (10ML VL) ONE (11:27)
[2024-02-18] MEDS ORDERED: METOPROLOL TARTRATE 50 MG TAB ONE ×2 (11:27→21:50)
[2024-02-18] MEDS ORDERED: SPIRONOLACTONE 25 MG TAB ONE (11:27)
[2024-02-18] MEDS ORDERED: PANTOPRAZOLE 40 MG TABLET PO ONE (11:27)
[2024-02-18] MEDS ORDERED: ASPIRIN 81 MG ONE (11:27)
[2024-02-18] MEDS ORDERED: ATORVASTATIN 40 MG TAB ONE (11:28)
[2024-02-18] MEDS ORDERED: lisinopriL 10 MG TAB ONE (11:28)
[2024-02-18] MEDS ORDERED: HEPARIN SOD,PORK IN 0.45% NACL 250 ML IV ONE (11:28)
[2024-02-18] MEDS ORDERED: amLODIPine 10 MG TAB ONE (11:28)
[2024-02-18] MEDS ORDERED: OXYBUTYNIN XL 5 MG TAB.ER.24 PO ONE (11:28)
[2024-02-18] MEDS ORDERED: IPRATROPIUM-ALBUTEROL 3 ML NEB ONE ×2 (15:11→20:15)
[2024-02-18] MEDS ORDERED: INSULIN ASPART (NovoLOG) 100 UNIT/ML VIAL SQ ONE ×2 (16:57→17:00)
[2024-02-19] MEDS ORDERED: IPRATROPIUM-ALBUTEROL 3 ML NEB ONE ×3 (00:26→12:30)
[2024-02-19] MEDS ORDERED: oxyBUTYnin chloride 5 MG TAB ONE (07:21)
[2024-02-19] MEDS ORDERED: PANTOPRAZOLE 40 MG TABLET PO ONE (07:21)
[2024-02-19] MEDS ORDERED: lisinopriL 10 MG TAB ONE (07:22)
[2024-02-19] MEDS ORDERED: ATORVASTATIN 80 MG TAB ONE (07:22)
[2024-02-19] MEDS ORDERED: amLODIPine 10 MG TAB ONE (07:22)
[2024-02-19] MEDS ORDERED: METOPROLOL TARTRATE 50 MG TAB ONE ×2 (07:22→21:38)
[2024-02-19] MEDS ORDERED: ASPIRIN 325 MG TAB ONE (07:22)
[2024-02-19] MEDS ORDERED: VERAPAMIL 2.5 MG/ML 2 ML AMP ONE (10:02)
[2024-02-19] MEDS ORDERED: LIDOCAINE 1% INJ 10MG/ML (20 ML MDV) ONE (10:02)
[2024-02-19] MEDS ORDERED: MIDAZOLAM 2 MG/2 ML VIAL ONE (10:02)
[2024-02-19] MEDS ORDERED: HEPARIN SODIUM 1,000 UN/ML (10ML VL) ONE (10:02)
[2024-02-19] MEDS ORDERED: fentaNYL (PF) 50 MCG/ML 2 ML AMP ONE (10:02)
[2024-02-19] MEDS: IOPAMIDOL-370 200ML BTL INJ ONE (10:36)
[2024-02-19] MEDS ORDERED: SODIUM CHLORIDE 0.9% 1,000 ML BAG ONE (10:44)
[2024-02-19] MEDS ORDERED: NITROGLYCERIN-D5W PMX 25 MG/250 ML BTL IV ONE (10:44)
[2024-02-19] MEDS ORDERED: INSULIN ASPART (NovoLOG) 100 UNIT/ML VIAL SQ ONE (17:43)
[2024-02-19] MEDS ORDERED: APIXABAN 5 MG TAB ONE (21:38)
[2024-02-19] MEDS ORDERED: methylPREDNISolone SOD SUCCI 40 MG/ML 1 ML VIAL ONE (21:38)
[2024-02-20] MEDS ORDERED: IPRATROPIUM-ALBUTEROL 3 ML NEB ONE ×2 (00:20→04:42)
[2024-02-20] MEDS ORDERED: INSULIN ASPART (NovoLOG) 100 UNIT/ML VIAL SQ ONE ×2 (06:42→16:22)
[2024-02-20] MEDS ORDERED: SPIRONOLACTONE 25 MG TAB ONE (08:29)
[2024-02-20] MEDS ORDERED: PANTOPRAZOLE 40 MG TABLET PO ONE (08:30)
[2024-02-20] MEDS ORDERED: METOPROLOL TARTRATE 50 MG TAB ONE ×2 (08:30→20:03)
[2024-02-20] MEDS ORDERED: ASPIRIN 81 MG ONE (08:30)
[2024-02-20] MEDS ORDERED: ATORVASTATIN 40 MG TAB ONE (08:30)
[2024-02-20] MEDS ORDERED: lisinopriL 10 MG TAB ONE ×2 (08:30→10:13)
[2024-02-20] MEDS ORDERED: OXYBUTYNIN XL 5 MG TAB.ER.24 PO ONE (08:30)
[2024-02-20] MEDS ORDERED: APIXABAN 5 MG TAB ONE ×2 (08:31→20:03)
[2024-02-20] MEDS ORDERED: amLODIPine 10 MG TAB ONE (08:31)
[2024-02-20] MEDS ORDERED: DAPAGLIFLOZIN PROPANEDIOL 10 MG TABLET ONE (10:13)
[2024-02-20] MEDS ORDERED: methylPREDNISolone SOD SUCCI 40 MG/ML 1 ML VIAL ONE ×2 (14:49→20:03)
[2024-02-21] MEDS ORDERED: oxyBUTYnin chloride 5 MG TAB ONE (08:09)
[2024-02-21] MEDS ORDERED: SPIRONOLACTONE 25 MG TAB ONE (08:09)
[2024-02-21] MEDS ORDERED: ATORVASTATIN 40 MG TAB ONE (08:10)
[2024-02-21] MEDS ORDERED: DAPAGLIFLOZIN PROPANEDIOL 10 MG TABLET ONE (08:10)
[2024-02-21] MEDS ORDERED: lisinopriL 20 MG TAB ONE (08:10)
[2024-02-21] MEDS ORDERED: ASPIRIN 81 MG ONE (08:10)
[2024-02-21] MEDS ORDERED: PANTOPRAZOLE 40 MG TABLET PO ONE (08:10)
[2024-02-21] MEDS ORDERED: METOPROLOL TARTRATE 50 MG TAB ONE (08:10)
[2024-02-21] MEDS ORDERED: APIXABAN 5 MG TAB ONE (08:11)
[2024-02-21] MEDS ORDERED: predniSONE 20 MG TAB ONE (08:11)
[2024-02-21] MEDS ORDERED: INSULIN ASPART (NovoLOG) 100 UNIT/ML VIAL SQ ONE (08:11)
[2024-02-21] MEDS ORDERED: amLODIPine 5 MG TAB ONE (08:12)
[2024-02-21] MEDS ORDERED: OXYBUTYNIN XL 5 MG TAB.ER.24 PO ONE (08:13)
--- NOTE | 2024-03-24 09:35 | CA ---
Transthoracic Echo Report Name: Marina Radford Age: 69 Gender: O : 1955 Exam Date: 02/19/2024 10:08 Exam Location: [facility] Ht (in): 63 Wt (lb): 196 Ordering Physician: Attending/Referring Phys: Informatics Physician Liaison Aimee Waldrop RDCS Procedure CPT: Indications: Chronic systolic (congestive) heart failure Cardiac Hx: A-FIB, CATH Technical Quality: Fair Contrast 1: Definity Total Dose (mL): 2 Contrast 2: Total Dose (mL): MEASUREMENTS (Male / Female) Normal Values 2D ECHO LV Diastolic Diameter PLAX 4.5 cm 4.2 - 5.9 / 3.9 - 5.3 cm LV Systolic Diameter PLAX 4.0 cm IVS Diastolic Thickness 1.1 cm 0.6 - 1.0 / 0.6 - 0.9 cm LVPW Diastolic Thickness 1.3 cm 0.6 - 1.0 / 0.6 - 0.9 cm LV Relative Wall Thickness 0.5 RV Internal Dim ED PLAX 2.7 cm LA Systolic Diameter LX 4.7 cm 3.0 - 4.0 / 2.7 - 3.8 cm M-MODE Aortic Root Diameter MM 3.2 cm LA Systolic Diameter MM 4.4 cm LA Ao Ratio MM 1.4 AV Cusp Separation MM 1.7 cm DOPPLER MV E' Velocity 3.7 cm/s TR Peak Velocity 299.9 cm/s TR Peak Gradient 36.0 mmHg Right Ventricular Systolic Press 51.0 mmHg FINDINGS Left Ventricle Left ventricular ejection fraction is estimated at 25-30 %. Mildly increased septal wall thickness. Severely reduced global left ventricular systolic function. Right Ventricle Mild right ventricular dilatation. Moderate pulmonary hypertension. Right Atrium Mild right atrial dilatation. Left Atrium Moderately increased left atrial diameter. Mitral Valve Structurally normal mitral valve. Mitral valve thickened. Mitral annular calcification. Mild mitral regurgitation. Aortic Valve Trileaflet aortic valve. No aortic stenosis. No aortic regurgitation. Tricuspid Valve Structurally normal tricuspid valve. Mild tricuspid regurgitation. Mild tricuspid regurgitation. Pulmonic Valve Structurally normal pulmonic valve. Trace pulmonic regurgitation. No pulmonic stenosis. Pericardium No pericardial or pleural effusion. Aorta Normal size aortic root and proximal ascending aorta. CONCLUSIONS LVEF 25-30%. Mild concentric LVH Severely reduced global LV systolic function Moderate left atrial dilatation. Mild MR Patient is atrial fibrillation during study with irregular heartbeat Previewed by: Dr Jeffery Larsen (Electronically Signed) Final Date: 19 February 2024 17:04
--- NOTE | 2024-03-25 08:54 | XR ---
Site ID [facility] Marina Cha ID [id number] 1955 Age/Gender: 69Y, F Order # N/A Procedure XR chest 2V Date 02/18/2024 1:04:00 AM EXAMINATION TYPE: Chest X-ray 2 Views DATE OF EXAM: 03/04/2024 3:19 PM COMPARISON: Chest radiographs from 06/07/2023 TECHNIQUE: Chest X-ray 2 Views Frontal and lateral views of the chest. CLINICAL INDICATION: Female, 69 year old with history of shortness of breath; FINDINGS: Lungs/Pleura: There is no evidence of pleural effusion, focal consolidation, or pneumothorax. Pulmonary vascularity: Unremarkable. Heart/mediastinum: Cardiomediastinal silhouette is enlarged and stable. Musculoskeletal: No acute osseous pathology. Multilevel degenerative disc disease. IMPRESSION: 1. No acute cardiopulmonary disease/process. 2. Cardiomegaly.
== END 2024-02-19 12:58 | disposition home or self-care (01) | DRG 280 ==
LOC: 3SCARD 05:31 → UNDOADMIN 06:32 → 3SCARD 06:32 → UNDODISIN 02-19 12:58
PROVIDERS: ADMIT Internal Medicine; ATTEND Internal Medicine
PROC: B2111ZZ Fluoroscopy of Multiple Coronary Arteries using Low Osmolar Contrast (ICD-10-PCS; 2024-02-19)
PROC: B2151ZZ Fluoroscopy of Left Heart using Low Osmolar Contrast (ICD-10-PCS; 2024-02-19)
PROC: 4A023N7 Measurement of Cardiac Sampling and Pressure, Left Heart, Percutaneous Approach (ICD-10-PCS; principal; 2024-02-19 10:36)
DX: I21.4 Non-ST elevation (NSTEMI) myocardial infarction (principal); J96.01 Acute respiratory failure with hypoxia; J44.1 Chronic obstructive pulmonary disease with (acute) exacerbation; E11.9 Type 2 diabetes mellitus without complications; I10 Essential (primary) hypertension; E78.5 Hyperlipidemia, unspecified; I48.0 Paroxysmal atrial fibrillation; I12.9 Hypertensive chronic kidney disease with stage 1 through stage 4 chronic kidney disease, or unspecified chronic kidney disease; E11.22 Type 2 diabetes mellitus with diabetic chronic kidney disease; N18.2 Chronic kidney disease, stage 2 (mild); F32.A Depression, unspecified; E66.9 Obesity, unspecified; Z87.891 Personal history of nicotine dependence; I25.2 Old myocardial infarction; Z95.5 Presence of coronary angioplasty implant and graft; Z79.82 Long term (current) use of aspirin; Z79.899 Other long term (current) drug therapy; Z79.4 Long term (current) use of insulin
CPT/HCPCS: 71046; 93306; 93458; 94640; 96365; 96374; 99291

== ENCOUNTER → 2024-04-03 | Outpatient (CLI) | payer MEDICARE ==
[2024-04-04 02:54] LABS: NT-Pro-B-Type Natriuretic Pept 856 pg/mL (0-125)
[2024-04-04 02:56] LABS: ALT 14 U/L (8-44); AST 14 U/L (13-35); Albumin 3.9 g/dL (3.8-4.9); Albumin/Globulin Ratio 1.05 Ratio (1.60-3.17); Alkaline Phosphatase 118 U/L (41-126); Blood Urea Nitrogen 21.3 mg/dL (9.0-27.0); Calcium 8.9 mg/dL (8.7-10.3); Carbon Dioxide 22.7 mmol/L (21.6-31.8); Chloride 105 mmol/L (96-109); Chol/HDL Ratio 2.23 Ratio; Globulin 3.7 g/dL (1.6-3.3); Glucose 155 mg/dL (70-110); LDL Cholesterol,Calculated 52.8 mg/dL (0.0-131.0); Potassium 4.8 mmol/L (3.5-5.5); Sodium 143 mmol/L (135-145); Total Bilirubin 0.4 mg/dL (0.3-1.2); Total Protein 7.6 g/dL (6.2-8.2); VLDL Calculation 14.42 mg/dL (5.00-40.00)
[2024-04-04 03:21] LABS: HCT 41.9 % (37.2-46.3); HGB 12.4 g/dL (12.0-15.0); MCH 26.4 pg (27.0-32.0); MCHC 29.6 g/dL (32.0-37.0); MCV 89.1 FL (80.0-97.0); Mean Platelet Volume 9.7 FL (9.5-12.2); NRBC Per 100 WBC 0 X 10*3/uL (0.00-0.01); Platelet Count 403 X 10*3/uL (140-440); WBC 12.63 X 10*3/uL (4.50-10.00)
== END ==
LOC: LABWHC1 16:02
PROVIDERS: ATTEND Student in an Organized Health Care Education/Training Program
DX: E11.9 Type 2 diabetes mellitus without complications (principal); E78.5 Hyperlipidemia, unspecified; E03.9 Hypothyroidism, unspecified; Z13.6 Encounter for screening for cardiovascular disorders; R79.89 Other specified abnormal findings of blood chemistry; I50.9 Heart failure, unspecified
CPT/HCPCS: 36415; 80053; 80061; 83036; 83880; 84443; 85027; 86141